=== PATIENT | male | born 1970 | race Caucasian/White ===

== ENCOUNTER 2016-09-01 01:11 | Emergency (ER) | payer OTHER ==
--- NOTE | 2016-09-01 01:20 | PDOC ---
History of Present Illness - General History Source: Patient Exam Limitations: No Limitations - History of Present Illness Initial Comments: 09/01/16 01:30 The patient is a 45 year old male with significant past medical history of liver cirrhosis and depression who presents to the ED with chronic low back pain. States he has had low back pain since 2001. Denies any trauma to the area or recent falls. Allergies: clarithromycin Social History: Current smoker (half ppd), etoh abuse, marijuana use (daily) Past Surgical History: None reported PCP: None reported <Arlin Yeager - Last Filed: 09/01/16 01:30> - General History Source: Patient, EMS <Jayden Wei - Last Filed: 09/01/16 03:30> - General Stated Complaint: INTOX Time Seen by Provider: 09/01/16 01:17 Past History <Arlin Yeager - Last Filed: 09/01/16 01:30> - Past Medical History Anemia: No Asthma: No Cancer: No Cardiac Disorders: No CVA: No COPD: No CHF: No Dementia: No Diabetes: No GI Disorders: No Disorders: No HTN: No Hypercholesterolemia: No Kidney Stones: No Liver Disease: Yes (CIRRHOSIS) Suicide Attempt (Hx): No Seizures: No Thyroid Disease: No - Surgical History Abdominal Surgery: No Appendectomy: No Cardiac Surgery: No Cholecystectomy: No Lung Surgery: No Neurologic Surgery: No Orthopedic Surgery: No - Reproductive History Testicular Surgery: No - Immunization History Immunization Up to Date: Yes - Psycho/Social/Smoking Cessation Hx Anxiety: Yes Suicidal Ideation: No Smoking Status: Yes Smoking History: Current every day smoker Have you smoked in the past 12 months: Yes Number of Cigarettes Smoked Daily: 20 Cigars Per Day: 10 'Breaking Loose' booklet given: 05/17/16 Hx Alcohol Use: Yes Drug/Substance Use Hx: Yes Substance Use Type: Marijuana Hx Substance Use Treatment: Yes ([facility]) <Jayden Wei - Last Filed: 09/01/16 03:30> - Past Medical History Allergies/Adverse Reactions: Allergies Allergy/AdvReac Type Severity Reaction Status Date / Time clarithromycin [From Biaxin] Allergy Intermediate Hives Verified 09/01/16 01:28 Home Medications: Ambulatory Orders Sertraline HCl [Zoloft -] 25 mg PO DAILY 12/12/16 Trazodone HCl [Desyrel -] 50 mg PO HS 05/17/16 Folic Acid 1 mg PO DAILY #30 tablet 05/21/16 Thiamine HCl [Vitamin B1 -] 100 mg PO HS #30 tablet 05/21/16 Review of Systems - Review of Systems Able to Perform ROS?: Yes Comments:: 09/01/16 01:30 CONSTITUTIONAL: Absent: fever, no chills, no fatigue EYES: Absent: visual changes ENT: Absent: ear pain, no sore throat CARDIOVASCULAR: Absent: chest pain, no palpitations RESPIRATORY: Absent: cough, no SOB GI: Absent: abdominal pain, no nausea, no vomiting, no constipation, no diarrhea GENITOURINARY: Absent: dysuria, no frequency, no hematuria MUSKULOSKELETAL: +low back pain Absent: no arthralgia, no myalgia SKIN: Absent: rash NEURO: Absent: headache <Arlin Yeager - Last Filed: 09/01/16 01:30> *Physical Exam - Vital Signs Last Vital Signs Temp Pulse Resp BP Pulse Ox 98.1 F 97 H 22 122/84 100 09/01/16 01:20 09/01/16 01:20 09/01/16 01:20 09/01/16 01:20 09/01/16 01:20 - Physical Exam Comments: 09/01/16 01:31 GENERAL: Well-appearing, well-nourished. No apparent distress. HEENT: Normocephalic, atraumatic. PERRL, EOM intact. CARDIOVASCULAR: Normal S1, S2. Regular rate and rhythm. PULMONARY: Clear to auscultation bilaterally. ABDOMEN: Soft, non-distended, non-tender. EXTREMITIES: Normal ROM in all four extremities. No gross deformities. SKIN: Warm, dry. No rash NEUROLOGICAL: No focal neurological deficits. <Arlin Yeager - Last Filed: 09/01/16 01:30> ED Treatment Course - LABORATORY CBC & Chemistry Diagram: 09/01/16 01:30 09/01/16 01:30 <Jayden Wei - Last Filed: 09/01/16 03:30> Medical Decision Making - Medical Decision Making 09/01/16 03:30 Dr. Wei: The scribe's documentation has been prepared under my direction and personally reviewed by me in its entirery. I confirm that the note above accurately reflects all work, treatment, procedures, and medical decision making performed by me. <Jayden Wei - Last Filed: 09/01/16 03:30> *DC/Admit/Observation/Transfer - Attestations Scribe Attestion: 09/01/16 01:31 Documentation prepared by Arlin Yeager, acting as medical administrative for Jayden Wei MD <Arlin Yeager - Last Filed: 09/01/16 01:30> <Jayden Wei - Last Filed: 09/01/16 03:30> Diagnosis at time of Disposition: Alcohol use with intoxication - Discharge Dispostion Condition at time of disposition: Good - Referrals Referrals: STAFF,NOT ON [Primary Care Provider] -
[2016-09-01 01:26] VITALS: TEMP 98.1; BMI 28.8
[2016-09-01 02:05] LABS: URINE APPEARANCE CLEAR; URINE BILIRUBIN NEGATIVE (NEGATIVE); URINE BLOOD NEGATIVE (NEGATIVE); URINE COLOR STRAW; URINE GLUCOSE (UA) NEGATIVE (NEGATIVE); URINE KETONE NEGATIVE (NEGATIVE); URINE LEUK ESTERASE NEGATIVE (NEGATIVE); URINE NITRITE NEGATIVE (NEGATIVE); URINE PROTEIN NEGATIVE (NEGATIVE); URINE UROBILINOGEN NEGATIVE E.U./dl (0.2-1.0)
[2016-09-01 02:07] LABS: BASOPHIL 0.4 % (0-2.0); EOSINOPHIL 8.9 % (0-4.5); MCH 36.7 pg (25.7-33.7); MCHC 34.4 g/dl (32.0-35.9); MEAN CELL VOLUME 106.6 fl (80-96); NEUTROPHILS 46.5 % (42.8-82.8); RDW 14.3 % (11.9-15.9); WHITE BLOOD COUNT 3.4 K/mm3 (4.0-10.0)
[2016-09-01 02:30] LABS: ALK PHOS 116 U/L (45-117); ANION GAP 10 (8-16); BILIRUBIN,TOTAL 1.8 mg/dL (0.2-1.0); CALCIUM 8.2 mg/dL (8.5-10.1); CO2 28 mmol/L (21-32); CREATININE 0.6 mg/dL (0.7-1.3); GLUCOSE,RANDOM 80 mg/dL (74-106); SGOT/AST 55 U/L (15-37); SGPT/ALT 20 U/L (12-78); TOT PROT 8.8 g/dl (6.4-8.2)
[2016-09-01 02:55] LABS: URINE MARIJUANA THC POSITIVE ng/ml (CUTOFF=50)
[2016-09-01 03:30] LABS: MEAN PLT VOLUME 7.8 fl (7.5-11.1); PLATELET COUNT 42 K/MM3 (134-434)
[2016-09-01 03:31] LABS: ANISOCYTOSIS 2+; PLATELET COMMENT2 NO CLOTTING DETECTED
[2016-09-01] MEDS ORDERED: LORazepam 1 MG TABLET PO ONE ×2 (04:14→04:31)
[2016-09-01] MEDS ORDERED: LORazepam 0.5 MG TABLET ONE ×2 (04:31)
--- NOTE | 2016-09-01 07:53 | PDOC ---
*Physical Exam - Vital Signs Last Vital Signs Temp Pulse Resp BP Pulse Ox 98.1 F 97 H 22 122/84 100 09/01/16 01:20 09/01/16 01:20 09/01/16 01:20 09/01/16 01:20 09/01/16 01:20 - Physical Exam Comments: 09/01/16 07:51 Vital signs stable Asleep but arousable, still quite intoxicated Able to follow commands and answer some questions No acute distress ED Treatment Course - LABORATORY CBC & Chemistry Diagram: 09/01/16 01:30 09/01/16 01:30 - ADDITIONAL ORDERS Additional order review: Laboratory Results 09/01/16 09/01/16 09/01/16 01:35 01:35 01:30 Sodium Potassium Chloride Carbon Dioxide Anion Gap BUN Creatinine Creat Clearance w eGFR Random Glucose Calcium Total Bilirubin AST ALT Alkaline Phosphatase Total Protein Albumin Urine Color Straw Urine Appearance Clear Urine pH 6.0 Ur Specific [place] 1.001 Urine Protein Negative Urine Glucose (UA) Negative Urine Ketones Negative Urine Blood Negative Urine Nitrite Negative Urine Bilirubin Negative Urine Urobilinogen Negative Ur Leukocyte Esterase Negative Opiates Screen Negative Methadone Screen Negative Barbiturate Screen Negative Phencyclidine Screen Negative Ur Amphetamines Screen Negative MDMA (Ecstasy) Screen Negative Benzodiazepines Screen Positive Cocaine Screen Negative U Marijuana (THC) Screen Positive Alcohol, Quantitative 338.1 H* 09/01/16 01:30 Sodium 134 L Potassium 3.8 Chloride 96 L Carbon Dioxide 28 Anion Gap 10 BUN 3 L D Creatinine 0.6 L Creat Clearance w eGFR > 60 Random Glucose 80 Calcium 8.2 L Total Bilirubin 1.8 H D AST 55 H D ALT 20 Alkaline Phosphatase 116 Total Protein 8.8 H Albumin 3.0 L Urine Color Urine Appearance Urine pH Ur Specific [place] Urine Protein Urine Glucose (UA) Urine Ketones Urine Blood Urine Nitrite Urine Bilirubin Urine Urobilinogen Ur Leukocyte Esterase Opiates Screen Methadone Screen Barbiturate Screen Phencyclidine Screen Ur Amphetamines Screen MDMA (Ecstasy) Screen Benzodiazepines Screen Cocaine Screen U Marijuana (THC) Screen Alcohol, Quantitative 09/01/16 01:30 RBC 3.56 L MCV 106.6 H MCHC 34.4 RDW 14.3 MPV 7.8 D Neutrophils % 46.5 D Lymphocytes % 29.4 D Monocytes % 14.8 H Eosinophils % 8.9 H Basophils % 0.4 - Medications Given in the ED: ED Medications Discontinued Medications Generic Name Dose Route Start Last Admin Trade Name Karen ORTIZ Reason Stop Dose Admin Lorazepam 1 mg 09/01/16 04:14 09/01/16 04:33 Ativan - PO 09/01/16 04:15 1 mg ONCE ONE Administration Lorazepam 1 mg 09/01/16 04:31 09/01/16 04:33 Ativan - PO 09/01/16 04:32 1 mg ONCE ONE Administration Medical Decision Making - Medical Decision Making 09/01/16 07:51 Received signout on this 45-year-old male who presented with alcohol intoxication. Patient was disruptive and aggressive, required sedation. Plan was to reassess and discharge once clinically sober. 09/01/16 09:28 Clinically improved, A+Ox3, now standing/ambulating requesting discharge. Lives nearby, understands return criteria. *DC/Admit/Observation/Transfer Diagnosis at time of Disposition: Alcohol use with intoxication - Discharge Dispostion Disposition: HOME Condition at time of disposition: Improved - Referrals Referrals: Tom Chiang MD [Staff Physician] - - Patient Instructions Printed Discharge Instructions: DI for Alcohol Abuse Additional Instructions: Activity as tolerated. Stay hydrated. Drink in moderation. Seek help with a detox facility if you can. Continue your medications as previously prescribed by your physician. You should follow up with your primary doctor as soon as possible regarding today's emergency department visit. Return to the emergency department for any new or concerning symptoms, particularly confusion, vomiting, tremors or seizures. - Post Discharge Activity
[2016-09-01 09:06] VITALS: BP 98/58; PULSE 88
== END 2016-09-01 09:47 | disposition home or self-care (01) ==
LOC: SUPCPDRO 01:11 → JER 01:11
DX: F10.120 Alcohol abuse with intoxication, uncomplicated (principal); Y90.8 Blood alcohol level of 240 mg/100 ml or more; K70.30 Alcoholic cirrhosis of liver without ascites
CPT/HCPCS: 36415; 80053; 80307; 81003; 85025; 99283-25

== ENCOUNTER → 2016-12-02 | Emergency (ER) | payer OTHER ==
[~2016-12-02] MED LIST: ALBUTEROL SO4 2.5/IPRATROPIUM 0.5 INH SOL 3 ML VIAL.NEB. NEB STA; SULFAMETHOXAZOLE/TRIMETHOPRIM 800MG/160MG D.S. TABLET PO ONE
[2016-12-02 22:51] VITALS: BP 119/70; PULSE 88; TEMP 98.4; BMI 28.0
--- NOTE | 2016-12-03 00:15 | PDOC ---
History of Present Illness - General History Source: Patient <Jayden Wei - Last Filed: 12/03/16 00:45> - General History Source: Patient Exam Limitations: No Limitations - History of Present Illness Initial Comments: 12/03/16 00:55 The patient is a 46 year old male with significant past medical history of liver cirrhosis and depression who presents to the ED for several weeks of pain to the left knee and left wrist. No trauma reported. States he ambulates with pain. Admits to drinking alcohol prior to arrival. Denies LOC or recent falls. The patient denies fever, chills, cough, SOB, chest pain, and palpitations. The patient denies abdominal pain, nausea, vomiting, and diarrhea. Allergies: clarithromycin Social History: Current smoker (half ppd), etoh abuse, marijuana use (daily) Past Surgical History: None reported <Arlin Yeager - Last Filed: 12/03/16 00:55> - General Chief Complaint: Pain, Acute Stated Complaint: INTOX Time Seen by Provider: 12/03/16 00:12 Past History - Past Medical History Anemia: No Asthma: No Cancer: No Cardiac Disorders: No CVA: No COPD: No CHF: No Dementia: No Diabetes: No GI Disorders: No Disorders: No HTN: No Hypercholesterolemia: No Kidney Stones: No Liver Disease: Yes (CIRRHOSIS) Suicide Attempt (Hx): No Seizures: No Thyroid Disease: No - Surgical History Abdominal Surgery: No Appendectomy: No Cardiac Surgery: No Cholecystectomy: No Gastric Stapling: No GI Surgery: No Lung Surgery: No Neurologic Surgery: No Orthopedic Surgery: No - Reproductive History Testicular Surgery: No - Immunization History Immunization Up to Date: Yes - Psycho/Social/Smoking Cessation Hx Anxiety: Yes Suicidal Ideation: No Smoking Status: Yes Smoking History: Never smoked Have you smoked in the past 12 months: Yes Number of Cigarettes Smoked Daily: 20 Cigars Per Day: 10 Information on smoking cessation initiated: No 'Breaking Loose' booklet given: 05/17/16 Hx Alcohol Use: No Drug/Substance Use Hx: No Substance Use Type: Marijuana Hx Substance Use Treatment: Yes ([facility] <Jayden Wei - Last Filed: 12/03/16 00:45> <Arlin Yeager - Last Filed: 12/03/16 00:55> - Past Medical History Allergies/Adverse Reactions: Allergies Allergy/AdvReac Type Severity Reaction Status Date / Time clarithromycin [From Biaxin] Allergy Intermediate Hives Verified 09/01/16 01:28 Home Medications: Ambulatory Orders Sertraline HCl [Zoloft -] 25 mg PO DAILY 05/17/16 Trazodone HCl [Desyrel -] 50 mg PO HS 05/17/16 Folic Acid 1 mg PO DAILY #30 tablet 05/21/16 Thiamine HCl [Vitamin B1 -] 100 mg PO HS #30 tablet 05/21/16 Review of Systems - Review of Systems Able to Perform ROS?: Yes Comments:: 12/03/16 00:55 CONSTITUTIONAL: Absent: fever, no chills, no fatigue EYES: Absent: visual changes ENT: Absent: ear pain, no sore throat CARDIOVASCULAR: Absent: chest pain, no palpitations RESPIRATORY: Absent: cough, no SOB GI: Absent: abdominal pain, no nausea, no vomiting, no constipation, no diarrhea GENITOURINARY: Absent: dysuria, no frequency, no hematuria MUSCULOSKELETAL: +pain to the left knee and left wrist Absent: back pain, no myalgia SKIN: Absent: rash NEURO: Absent: headache <Arlin Yeager - Last Filed: 12/03/16 00:55> *Physical Exam - Vital Signs Last Vital Signs Temp Pulse Resp BP Pulse Ox 98.4 F 88 16 119/70 96 12/02/16 22:47 12/02/16 22:47 12/02/16 22:47 12/02/16 22:47 12/02/16 22:47 <Jayden Wei - Last Filed: 12/03/16 00:45> - Vital Signs Last Vital Signs Temp Pulse Resp BP Pulse Ox 98.4 F 88 16 119/70 96 12/02/16 22:47 12/02/16 22:47 12/02/16 22:47 12/02/16 22:47 12/02/16 22:47 - Physical Exam Comments: 12/03/16 00:55 GENERAL: +AOB. No apparent distress. HEENT: Normocephalic, atraumatic. PERRL, EOM intact. CARDIOVASCULAR: Normal S1, S2. Regular rate and rhythm. PULMONARY: Clear to auscultation bilaterally. ABDOMEN: Soft, non-distended, non-tender. EXTREMITIES: Normal ROM in all four extremities. Left wrist nontender, no swelling, no deformity. Left knee nontender, no swelling, no deformity. SKIN: Warm, dry. No rash NEUROLOGICAL: Alert and awake. Slurred speech. No gross neurological deficits. Pt ambulating in the ER. <Arlin Yeager - Last Filed: 12/03/16 00:55> Medical Decision Making - Medical Decision Making 12/03/16 00:45 Dr. Wei: The scribe's documentation has been prepared under my direction and personally reviewed by me in its entirery. I confirm that the note above accurately reflects all work, treatment, procedures, and medical decision making performed by me. Pt became beligerente and was escorted by security out of the department <Jayden Wei - Last Filed: 12/03/16 00:45> *DC/Admit/Observation/Transfer - Attestations Scribe Attestion: 12/03/16 00:55 Documentation prepared by Arlin Yeager, acting as medical device for Jayden Wei MD/DO. <Arlin Yeager - Last Filed: 12/03/16 00:55>
== END | disposition left against medical advice (07) ==
LOC: JER 22:44
DX: M25.532 Pain in left wrist (principal); F10.10 Alcohol abuse, uncomplicated; F12.10 Cannabis abuse, uncomplicated; F17.210 Nicotine dependence, cigarettes, uncomplicated
CPT/HCPCS: 99281-25

== ENCOUNTER 2017-09-22 02:52 | Emergency (ER) | payer OTHER ==
[2017-09-22 03:09] VITALS: BP 118/74; PULSE 74; TEMP 98; BMI 28.5
--- NOTE | 2017-09-22 04:14 | PDOC ---
History of Present Illness - General Chief Complaint: Alcohol intoxication Stated Complaint: INTOX Time Seen by Provider: 09/22/17 03:46 History Source: Patient - History of Present Illness Initial Comments: 09/22/17 06:25 47 year old male sent from [facility] for evaluation of alcohol intoxication, breathalyzer blew 0.28 as per patient. denies head injury, abdominal pain, NVD, . Past History - Past Medical History Allergies/Adverse Reactions: Allergies Allergy/AdvReac Type Severity Reaction Status Date / Time clarithromycin [From Biaxin] Allergy Intermediate Hives Verified 09/22/17 03:09 Home Medications: Ambulatory Orders Unobtainable [Unobtainable] 09/22/17 Anemia: No Asthma: No Cancer: No Cardiac Disorders: No CVA: No COPD: No CHF: No Dementia: No Diabetes: No GI Disorders: No Disorders: No HTN: No Hypercholesterolemia: No Kidney Stones: No Liver Disease: Yes (CIRRHOSIS- Not on medication) Seizures: No Thyroid Disease: No - Surgical History Abdominal Surgery: No Appendectomy: No Cardiac Surgery: No Cholecystectomy: No Gastric Stapling: No GI Surgery: No Lung Surgery: No Neurologic Surgery: No Orthopedic Surgery: No - Reproductive History Testicular Surgery: No - Immunization History Immunization Up to Date: Yes - Suicide/Smoking/Psychosocial Hx Smoking Status: Yes Smoking History: Current some day smoker Have you smoked in the past 12 months: No Number of Cigarettes Smoked Daily: 20 Cigars Per Day: 10 Information on smoking cessation initiated: No 'Breaking Loose' booklet given: 09/22/17 Hx Alcohol Use: Yes Drug/Substance Use Hx: No Substance Use Type: Marijuana Hx Substance Use Treatment: Yes ([facility]) *Physical Exam - Vital Signs Last Vital Signs Temp Pulse Resp BP Pulse Ox 98.0 F 74 19 118/74 97 09/22/17 03:07 09/22/17 03:07 09/22/17 03:07 09/22/17 03:07 09/22/17 03:07 - Physical Exam General Appearance: Yes: Disheveled, Alcohol on Breath, Intoxicated Respiratory/Chest: positive: Lungs Clear, Normal Breath Sounds Gastrointestinal/Abdominal: positive: Normal Bowel Sounds, Soft Integumentary: positive: Normal Color, Dry, Warm Neurologic: positive: Fully Oriented, Alert Medical Decision Making - Medical Decision Making 09/22/17 06:27 A; alcohol intoxication ; right eye horodeleum 09/22/17 06:30 patient is refusing back to detox at [facility]. *DC/Admit/Observation/Transfer Diagnosis at time of Disposition: Alcohol dependence with uncomplicated withdrawal Hordeolum external Qualifiers: Laterality: right Eyelid: lower Qualified Code(s): H00.012 - Hordeolum externum right lower eyelid - Discharge Dispostion Disposition: HOME Condition at time of disposition: Fair - Referrals Referrals: Barbara Solorio [Primary Care Provider] - - Patient Instructions Printed Discharge Instructions: DI for Alcohol Abuse Additional Instructions: apply warm compress to the right eye. follow up with your doctor refrain from drinking alcohol. consider detox - Post Discharge Activity
[2017-09-22] MEDS ORDERED: LORazepam 1 MG TABLET PO ONE (04:22)
[2017-09-22] MEDS ORDERED: LORazepam 0.5 MG TABLET ONE (04:23)
--- NOTE | 2017-09-22 06:30 | PDOC ---
*Physical Exam - Vital Signs Last Vital Signs Temp Pulse Resp BP Pulse Ox 98.0 F 74 19 118/74 97 09/22/17 03:07 09/22/17 03:07 09/22/17 03:07 09/22/17 03:07 09/22/17 03:07 ED Treatment Course - Medications Given in the ED: ED Medications Discontinued Medications Generic Name Dose Route Start Last Admin Trade Name Freq PRN Reason Stop Dose Admin Lorazepam 1 mg 09/22/17 04:22 09/22/17 04:25 Ativan - PO 09/22/17 04:23 1 mg ONCE ONE Administration Medical Decision Making - Medical Decision Making 09/22/17 06:30 agree with care from CLARE Chin *DC/Admit/Observation/Transfer Diagnosis at time of Disposition: Hordeolum external, Alcohol dependence with uncomplicated withdrawal - Discharge Dispostion Disposition: HOME Condition at time of disposition: Fair - Referrals Referrals: Barbara Solorio [Primary Care Provider] - - Patient Instructions Printed Discharge Instructions: DI for Alcohol Abuse Additional Instructions: apply warm compress to the Left eye - Post Discharge Activity
== END 2017-09-22 06:30 | disposition home or self-care (01) ==
LOC: SUPCPDRO 02:52 → JER 02:52
DX: F10.230 Alcohol dependence with withdrawal, uncomplicated (principal); H00.012 Hordeolum externum right lower eyelid; F17.210 Nicotine dependence, cigarettes, uncomplicated
CPT/HCPCS: 99282-25

== ENCOUNTER 2017-10-16 04:11 | Observation (INO) | payer OTHER ==
[2017-10-16] MEDS ORDERED: FOLIC ACID INJECTION - 1 MG, THIAMINE HCL 100 MG, MULTIVIT INJECTION ADULT 10 ML in SOD... IVPB ONE (04:17)
--- NOTE | 2017-10-16 04:17 | PDOC ---
History of Present Illness - General Stated Complaint: INTOXICATED Time Seen by Provider: 10/16/17 04:16 History Source: Patient Exam Limitations: No Limitations - History of Present Illness Initial Comments: 10/16/17 04:44 47-year-old male leslya without any medical complaints. Patient states he drank numerous alcoholic beverages tonight. He denies headache, dizziness, lightheadedness, facial pain, rhinorrhea, nasal congestion, earache, sore throat , neck pains, chest pain, back pain, shortness of breath, abdominal pains, flank pain or urinary symptoms, James numbness or tingling since she. Patient states he has no complaints. Past History - Past Medical History Allergies/Adverse Reactions: Allergies Allergy/AdvReac Type Severity Reaction Status Date / Time clarithromycin [From Biaxin] Allergy Intermediate Hives Verified 09/22/17 03:09 Home Medications: Ambulatory Orders NK [No Known Home Medication] 10/16/17 Anemia: No Asthma: No Cancer: No Cardiac Disorders: No CVA: No COPD: No CHF: No Dementia: No Diabetes: No GI Disorders: No Disorders: No HTN: No Hypercholesterolemia: No Kidney Stones: No Liver Disease: Yes (CIRRHOSIS- Not on medication) Seizures: No Thyroid Disease: No - Surgical History Abdominal Surgery: No Appendectomy: No Cardiac Surgery: No Cholecystectomy: No Gastric Stapling: No GI Surgery: No Lung Surgery: No Neurologic Surgery: No Orthopedic Surgery: No - Reproductive History Testicular Surgery: No - Immunization History Immunization Up to Date: Yes - Suicide/Smoking/Psychosocial Hx Smoking Status: Yes Smoking History: Current some day smoker Have you smoked in the past 12 months: No Number of Cigarettes Smoked Daily: 20 Cigars Per Day: 10 'Breaking Loose' booklet given: 09/22/17 Hx Alcohol Use: Yes Drug/Substance Use Hx: No Substance Use Type: Marijuana Hx Substance Use Treatment: Yes ([facility]) Review of Systems - Review of Systems Able to Perform ROS?: Yes Comments:: 10/16/17 04:44 CONSTITUTIONAL: Absent: fever, chills, diaphoresis, generalized weakness, malaise, loss of appetite HEENT: Absent: rhinorrhea, nasal congestion, throat pain, throat swelling, difficulty swallowing, mouth swelling, ear pain, eye pain, visual Changes CARDIOVASCULAR: Absent: chest pain, loss of consciousness, palpitations, irregular heart rate, peripheral edema RESPIRATORY: Absent: cough, shortness of breath, dyspnea with exertion, orthopnea, wheezing, stridor, hemoptysis GASTROINTESTINAL: Absent: abdominal pain, abdominal distension, nausea, vomiting, diarrhea, constipation, melena, hematochezia GENITOURINARY: Absent: dysuria, frequency, urgency, hesitancy, hematuria, flank pain, genital pain MUSCULOSKELETAL: Absent: myalgia, arthralgia, joint swelling SKIN: Absent: rash, itching, pallor HEMATOLOGIC/IMMUNOLOGIC: Absent: easy bleeding, easy bruising, lymphadenopathy, frequent infections ENDOCRINE: Absent: unexplained weight gain, unexplained weight loss, heat intolerance, cold intolerance NEUROLOGIC: Absent: headache, focal weakness or paresthesias, dizziness, unsteady gait, seizure, mental status changes, bladder or bowel incontinence PSYCHIATRIC: Absent: anxiety, depression, suicidal or homicidal ideation, hallucinations. Is the patient limited Persian proficient: No *Physical Exam - Physical Exam Comments: 10/16/17 04:44 GENERAL: +AOB Well developed, well nourished. Awake and alert. No acute distress. HEENT: Normocephalic, atraumatic. PERRLA, EOMI. No conjunctival pallor. Sclera are non- icteric. Moist mucous membranes. Oropharynx is clear. NECK: Supple. Full ROM. No JVD. Carotid pulses 2+ and symmetric, without bruits. No thyromegaly. No lymphadenopathy. CARDIOVASCULAR: Regular rate and rhythm. No murmurs, rubs, or gallops. Distal pulses are 2+ and symmetric. PULMONARY: No evidence of respiratory distress. Lungs clear to auscultation bilaterally. No wheezing, rales or rhonchi. ABDOMINAL: Soft. Non-tender. Non-distended. No rebound or guarding. No organomegaly. Normoactive bowel sounds. MUSCULOSKELETAL Normal range of motion at all joints. No bony deformities or tenderness. No CVA tenderness. EXTREMITIES: No cyanosis. No clubbing. No edema. No calf tenderness. SKIN: Warm and dry. Normal capillary refill. No rashes. No jaundice. NEUROLOGICAL: Alert, awake, appropriate. Cranial nerves 2-12 intact. No deficits to light touch and temperature in face, upper extremities and lower extremities. No motor deficits in the in face, upper extremities and lower extremities. Normoreflexic in the upper and lower extremities. Normal speech. Toes are down- going bilaterally. Gait is normal without ataxia. PSYCHIATRIC: Cooperative. Good eye contact. Appropriate mood and affect. ED Treatment Course - LABORATORY CBC & Chemistry Diagram: 10/16/17 04:15 10/16/17 04:15 *DC/Admit/Observation/Transfer Diagnosis at time of Disposition: Alcohol use with intoxication - Discharge Dispostion Condition at time of disposition: Improved Decision to Admit order: No - Referrals Referrals: Barbara Solorio [Primary Care Provider] - - Patient Instructions Printed Discharge Instructions: DI for Alcohol Abuse Additional Instructions: Increase fluids Take Tylenol alternating with Motrin as needed for pain Follow-up with your doctor Return back to the ER as needed - Post Discharge Activity Progress Note - Progress Note Progress Note: 0707hrs: Signed out to CHRISTEL Holland
[2017-10-16 04:26] VITALS: BMI 24.5
[2017-10-16 04:31] LABS: BASO % 0.6 % (0-2.0); EOS % 6.7 % (0-4.5); HEMATOCRIT 34.2 % (35.4-49); HEMOGLOBIN 12.4 GM/dL (11.7-16.9); LYMPH % 41.4 % (8-40); MCH 38.6 pg (25.7-33.7); MCHC 36.3 g/dl (32.0-35.9); MEAN CELL VOLUME 106.4 fl (80-96); MONO % 9.7 % (3.8-10.2); NEUT % 41.6 % (42.8-82.8); RBC 3.21 M/mm3 (4.00-5.60); WHITE BLOOD COUNT 2.2 K/mm3 (4.0-10.0)
[2017-10-16 05:13] LABS: ANION GAP 7 (8-16); BLOOD UREA NITROGEN 3 mg/dL (7-18); CALCIUM 8.2 mg/dL (8.5-10.1); CHLORIDE 101 mmol/L (98-107); CO2 29 mmol/L (21-32); CREATININE 0.6 mg/dL (0.7-1.3); GLUCOSE,RANDOM 96 mg/dL (74-106); POTASSIUM 3.9 mmol/L (3.5-5.1); SGOT/AST 62 U/L (15-37); SGPT/ALT 23 U/L (12-78); SODIUM 137 mmol/L (136-145); TOT PROT 8.8 g/dl (6.4-8.2)
[2017-10-16 05:16] LABS: ALK PHOS 128 U/L (45-117)
[2017-10-16 07:05] LABS: MEAN PLT VOLUME 8.2 fl (7.5-11.1)
[2017-10-16 07:07] LABS: PLATELET COUNT 26 K/MM3 (134-434)
[2017-10-16 07:08] LABS: ADD RBC MORPHOLOGY YES; MACROCYTOSIS 2+
--- NOTE | 2017-10-16 07:38 | PDOC ---
*Physical Exam - Vital Signs Last Vital Signs Temp Pulse Resp BP Pulse Ox 98.3 F 65 18 126/83 100 10/16/17 04:23 10/16/17 04:23 10/16/17 04:23 10/16/17 04:23 10/16/17 04:23 - Physical Exam General Appearance: Yes: Nourished, Disheveled, Alcohol on Breath ED Treatment Course - LABORATORY CBC & Chemistry Diagram: 10/16/17 04:15 10/16/17 04:15 - ADDITIONAL ORDERS Additional order review: Laboratory Results 10/16/17 04:15 Sodium 137 Potassium 3.9 Chloride 101 Carbon Dioxide 29 Anion Gap 7 L BUN 3 L Creatinine 0.6 L Creat Clearance w eGFR > 60 Random Glucose 96 Calcium 8.2 L Total Bilirubin 2.0 H AST 62 H ALT 23 Alkaline Phosphatase 128 H Total Protein 8.8 H Albumin 3.0 L Alcohol, Quantitative 337.75 H* 10/16/17 04:15 RBC 3.21 L MCV 106.4 H MCHC 36.3 H RDW 14.0 MPV 8.2 Neutrophils % 41.6 L Lymphocytes % 41.4 H D Monocytes % 9.7 Eosinophils % 6.7 H Basophils % 0.6 Medical Decision Making - Medical Decision Making 10/16/17 07:36 Pt. is a 47 y/o M pmh of alcoholism, who presents today for intox. Sign out received from Mervat Abbasi. Platelets 27 from lab. Call placed to heme/onc. Pt. still disheveled with alcohol on the breath. Will let metabolize. 10/16/17 10:06 Spoke with heme/onc Dr. Altamirano for Dr. Glass's service. States that since the pt is not bleeding at this time, no need for platelet transfusion. Acute intox can cause thrombocytopenia, however given the degree of thrombocytopenia today, recommends observation to make sure it rebounds appropriately. 2nd L of fluids given. Pt. sleeping in ED 10/16/17 13:21 Spoke with Ihsan Burgess for Dr. Davila's service. Case discussed. Will take pt. for observation. *DC/Admit/Observation/Transfer Diagnosis at time of Disposition: Alcohol use with intoxication, Thrombocytopenia - Discharge Dispostion Condition at time of disposition: Improved Decision to Admit order: Yes - Referrals Referrals: Barbara Solorio [Primary Care Provider] - - Patient Instructions Printed Discharge Instructions: DI for Alcohol Abuse Additional Instructions: Increase fluids Take Tylenol alternating with Motrin as needed for pain Follow-up with your doctor Return back to the ER as needed - Post Discharge Activity
[2017-10-16] MEDS ORDERED: SODIUM CHLORIDE 1,000 ML IV STA (10:04)
[2017-10-16] MEDS ORDERED: SODIUM CHLORIDE 1,000 ML IV SCH (13:30)
--- NOTE | 2017-10-16 13:37 | HP ---
Admitting History and Physical - Primary Care Physician PCP: Ezio Davila - Admission Chief Complaint: Alcohol Intoxication History of Present Illness: 47-year-old male biba without any medical complaints. Patient states he drank numerous alcoholic beverages tonight. He denies headache, dizziness, lightheadedness, facial pain, rhinorrhea, nasal congestion, earache, sore throat , neck pains, chest pain, back pain, shortness of breath, abdominal pains, flank pain or urinary symptoms, James numbness or tingling since she. Patient states he has no complaints. History Source: Medical Record Limitations to Obtaining History: Intoxication - Smoking History Smoking history: Current some day smoker Have you smoked in the past 12 months: No Aproximately how many cigarettes per day: 20 - Alcohol/Substance Use Hx Alcohol Use: Yes Home Medications - Allergies Allergies/Adverse Reactions: Allergies Allergy/AdvReac Type Severity Reaction Status Date / Time clarithromycin [From Biaxin] Allergy Intermediate Hives Verified 09/22/17 03:09 - Home Medications Home Medications: Ambulatory Orders NK [No Known Home Medication] 10/16/17 Family Disease History - Family Disease History Family Disease History: Heart Disease: Mother (HTN), Respiratory: Father (COPD, ALCOHOLIC) Review of Systems - Review of Systems Constitutional: reports: Lethargy Eyes: reports: No Symptoms HENT: reports: No Symptoms Neck: reports: No Symptoms Cardiovascular: reports: No Symptoms Respiratory: reports: No Symptoms Gastrointestinal: reports: No Symptoms Genitourinary: reports: No Symptoms Breasts: reports: No Symptoms Reported Musculoskeletal: reports: No Symptoms Integumentary: reports: No Symptoms Neurological: reports: Change in LOC Endocrine: reports: No Symptoms Hematology/Lymphatic: reports: No Symptoms Psychiatric: reports: No Symptoms Physical Examination Vital Signs: Vital Signs Temperature 98 F 10/16/17 11:17 Pulse Rate 73 10/16/17 11:17 Respiratory Rate 16 10/16/17 11:17 Blood Pressure 128/79 10/16/17 11:17 O2 Sat by Pulse Oximetry (%) 100 10/16/17 11:17 Constitutional: Yes: Well Nourished, No Distress, Calm Cardiovascular: Yes: Regular Rate and Rhythm Respiratory: Yes: Regular Gastrointestinal: Yes: Normal Bowel Sounds, Soft Neurological: Yes: Alert Labs: CBC, BMP 10/16/17 04:15 10/16/17 04:15 Problem List - Problems (1) Alcohol use with intoxication Assessment/Plan: -serum acetone elevated -BHS consult -Psychiatry consult -Urine toxicology ordered -IVF Code(s): F10.929 - ALCOHOL USE, UNSPECIFIED WITH INTOXICATION, UNSPECIFIED (2) Thrombocytopenia Assessment/Plan: -Hemotology consult -/2 chronic alcohol use -monitor trend -transfuse plt if below 20 mg/dl -bleeding precaution Code(s): D69.6 - THROMBOCYTOPENIA, UNSPECIFIED Assessment/Plan see problem list GI prophylaxis Avoid LMWH or heparin in light of thrombocytopenia
[2017-10-16 13:53] LABS: URINE APPEARANCE CLEAR; URINE BILIRUBIN NEGATIVE (<2.0 mg/dL); URINE COLOR STRAW; URINE GLUCOSE (UA) NEGATIVE (NEGATIVE); URINE KETONE NEGATIVE (NEGATIVE); URINE LEUK ESTERASE NEGATIVE (NEGATIVE); URINE NITRITE NEGATIVE (NEGATIVE); URINE PROTEIN NEGATIVE (NEGATIVE); URINE UROBILINOGEN NEGATIVE mg/dL (0.2-1.0)
[2017-10-16 14:09] LABS: OPIATES, URI NEGATIVE ng/ml (CUTOFF=300); URINE AMPHETAMINES NEGATIVE ng/ml (CUTOFF=500)
[2017-10-16 14:15] LABS: URINE BARBITURATES NEGATIVE ng/ml (CUTOFF=200)
[2017-10-16 14:16] LABS: COCAINE, UR NEGATIVE ng/ml (CUTOFF=300); METHADONE, UR NEGATIVE ng/ml (CUTOFF=300); PHENCYCLIDINE,URINE NEGATIVE ng/ml (CUTOFF=25)
[2017-10-16 14:18] LABS: URINE BENZODIAZEPINES POSITIVE ng/ml (CUTOFF=200)
[2017-10-16] MEDS ORDERED: ACETAMINOPHEN 325 MG TABLET (FP) PO ONE (14:50)
[2017-10-16] MEDS ORDERED: chlordiazePOXIDE HCL 25 MG CAPSULE PO ONE (14:51)
[2017-10-16 15:36] VITALS: BP 123/73; PULSE 81; TEMP 97.8
--- NOTE | 2017-10-16 17:56 | CONSULT ---
Consult Detox [facility] Reason for Current Admission/Consult: substance use Referred by:: chema vang - History History of Present Illness: patient discharged before consult could be completed - Alcohol/Substance Use Hx Alcohol Use: Yes
[2017-10-16] MEDS ORDERED: THIAMINE HCL 100 MG TABLET (FP) PO SCH (22:00)
[2017-10-17] MEDS ORDERED: PANTOPRAZOLE SODIUM 40 MG VIAL IVPUSH SCH (10:00)
[2017-10-17] MEDS ORDERED: PRENATAL VITAMINS W/ FOLIC ACID TABLET (FP) PO SCH (10:00)
== END 2017-10-16 15:00 | disposition left against medical advice (07) ==
LOC: JER 04:11 → JERBED 13:10
PROVIDERS: ADMIT Family Medicine; ATTEND Family Medicine
PROC: 3E0337Z Introduction of Electrolytic and Water Balance Substance into Peripheral Vein, Percutaneous Approach (ICD-10-PCS; principal; 2017-10-16)
DX: F10.929 Alcohol use, unspecified with intoxication, unspecified (principal); D69.6 Thrombocytopenia, unspecified; K74.60 Unspecified cirrhosis of liver; F17.210 Nicotine dependence, cigarettes, uncomplicated; Z88.1 Allergy status to other antibiotic agents
CPT/HCPCS: 36415; 80053; 80307; 81003; 85025; 96365; 96366; 99285-25; G0378; J7030

== ENCOUNTER 2018-05-17 15:31 | Inpatient (IN) | payer OTHER ==
[2018-05-17 15:50] VITALS: BMI 25.8
--- NOTE | 2018-05-17 19:45 | HP ---
CIWA Score Nausea/Vomitin-No Nausea/No Vomiting Muscle Tremors: 3 Anxiety: 1-Mildly Anxious Agitation: 1-Slight > Activity Paroxysmal Sweats: 3 Orientation: 0-Oriented Tacttile Disturbances: 0-None Auditory Disturbances: 0-None Visual Disturbances: 0-None Headache: 1-Very Mild CIWA-Ar Total Score: 9 - Admission Criteria [facility] Guidelines: Admission for Medically Managed Detox: Requires at least one of the followin. CIWA greater than 12 2. Seizures within the past 24 hours 3. Delirium tremens within the past 24 hours 4. Hallucinations within the past 24 hours 5. Acute intervention needed for co occurring medical disorder 6. Acute intervention needed for co occurring psychiatric disorder 7. Severe withdrawal that cannot be handled at a lower level of care (continued vomiting, continued diarrhea, abnormal vital signs) requiring intravenous medication and/or fluids 8. Admission ROS S - [facility] Chief Complaint: C/O WITHDRAWAL SX'S. SEEKING DETOX TXMENT FOR ALCOHOL Allergies/Adverse Reactions: Allergies Allergy/AdvReac Type Severity Reaction Status Date / Time No Known Allergies Allergy Verified 01/07/18 23:18 History of Present Illness: 47 Y.O. MALE WITH HX/O ALCOHOLISM HERE FOR DETOX TXMENT. THIS IS CLIENTS FIRST TIME HERE. HE IS SELF REFERRED. UTOX + BZO. CLIENT DENIES USE OR RECENT DETOX, HOSPITALIZATION. HE REPORTS THAT HE DRINKS DAILY ABOUT 10 BEERS DAILY. REPORTS LONGEST CLEAN TIME 6 MONTHS. DENIES ANY CLEAN TIME IN THE PAST YEAR. DENIES HX/ O SI/HI, AVH, SEIZURE D/O. PMHX- DENIES PSYCH- [facility]- ANXIETY, PTSD Exam Limitations: No Limitations - Ebola screening Have you traveled outside of the country in the last 21 days: No Have you had contact with anyone from an Ebola affected area: No Have you been sick,other than usual withdrawal symptoms: No - Review of Systems Constitutional: Chills, Malaise EENT: reports: Dental Problems (MISSING TEETH) Respiratory: reports: No Symptoms reported Cardiac: reports: No Symptoms Reported GI: reports: Constipated, Poor Fluid Intake : reports: No Symptoms Reported Musculoskeletal: reports: Back Pain Integumentary: reports: No Symptoms Reported Neuro: reports: No Symptoms reported Endocrine: reports: No Symptoms Reported Hematology: reports: No Symptoms Reported Psychiatric: reports: Anxious Other Systems: Reviewed and Negative Patient History - Patient Medical History Hx Anemia: No Hx Asthma: No Hx Chronic Obstructive Pulmonary Disease (COPD): No Hx Cancer: No Hx Cardiac Disorders: No Hx Congestive Heart Failure: No Hx Hypertension: No Hx Hypercholesterolemia: No Hx Pacemaker: No HX Cerebrovascular Accident: No Hx Seizures: No Hx Dementia: No Hx Diabetes: No Hx Gastrointestinal Disorders: No Hx Liver Disease: No Hx Genitourinary Disorders: No Hx Sexually Transmitted Disorders: No Hx Renal Disease (ESRD): No Hx Thyroid Disease: No Hx Human Immunodeficiency Virus (HIV): No Hx Hepatitis C: No Hx Depression: No Hx Suicide Attempt: No Hx Bipolar Disorder: No Hx Schizophrenia: No Other Medical History: ANXIETY - Patient Surgical History Past Surgical History: No - PPD History Previous Implant?: Yes Documented Results: Negative w/o proof PPD to be Administered?: Yes - Smoking Cessation Smoking history: Current every day smoker Have you smoked in the past 12 months: Yes Aproximately how many cigarettes per day: 20 Cigars Per Day: 0 Hx Chewing Tobacco Use: No Initiated information on smoking cessation: Yes 'Breaking Loose' booklet given: 05/17/18 - Substance & Tx. History Hx Alcohol Use: Yes Hx Substance Use: Yes Substance Use Type: Alcohol Hx Substance Use Treatment: Yes ([facility]) - Substances Abused BEER Route: Oral Frequency: Daily Amount used: 10-12OZ Age of first use: 18 Date of Last Use: 05/17/18 Family Disease History - Family Disease History Family Disease History: Other: Father (ALCOHOLIC) Admission Physical Exam BHS - Vital Signs Vital Signs: Vital Signs - 24 hr 05/17/18 15:48 Temperature 98.6 F Pulse Rate 75 Respiratory 17 Rate Blood Pressure 137/71 - Physical General Appearance: Yes: Disheveled, Tremorous, Anxious HEENTM: Yes: EOMI (UNABLE TO FOLLOW CONSISTENTLY), Normocephalic, Normal Voice, LUIS, Pharynx Normal, Other (POOR DENTIITION; MISSING TEETH) Respiratory: Yes: Chest Non-Tender, Lungs Clear, Normal Breath Sounds, No Respiratory Distress, No Accessory Muscle Use Neck: Yes: No masses,lesions,Nodules, Supple, Trachea in good position Breast: Yes: Breast Exam Deferred Cardiology: Yes: Regular Rhythm, Regular Rate, S1, S2 Abdominal: Yes: Normal Bowel Sounds, Non Tender, Soft, Protuberent Genitourinary: Yes: Within Normal Limits (NO C/O) Back: Yes: Normal Inspection Musculoskeletal: Yes: full range of Motion, Gait Steady Extremities: Yes: Normal Range of Motion, Non-Tender, Tremors Neurological: Yes: Alert, Motor Strength 5/5, Disoriented (AT TIMES), Depressed Affect Integumentary: Yes: Warm, Moist Lymphatic: Yes: Within Normal Limits - Diagnostic (1) Alcohol dependence with uncomplicated withdrawal Current Visit: Yes Status: Acute (2) At risk for dehydration due to poor fluid intake Current Visit: Yes Status: Acute (3) Substance induced mood disorder Current Visit: Yes Status: Suspected (4) Depressed affect Current Visit: Yes Status: Acute (5) Nicotine dependence Current Visit: Yes Status: Chronic Qualifiers: Nicotine product type: cigarettes Substance use status: uncomplicated Qualified Code(s): F17.210 - Nicotine dependence, cigarettes, uncomplicated Cleared for Admission [facility] - Detox or Rehab [facility] Level of Care: Medically Supervised Detox Regimen/Protocol: Librium Claeared for Rehab Admission: No S Breath Alcohol Content Breath Alcohol Content: 0.206 Urine Drug Screen - Results Drug Screen Negative: No Urine Drug Screen Results: THC-Marijuana, BZO-Benzodiazepines
[2018-05-17] MEDS ORDERED: hydrOXYzine PAMOATE 50 MG CAPSULE (FP) PO PRN (19:59)
[2018-05-17] MEDS ORDERED: P-EPHED 60MG/TRIPROLIDI 2.5MG TABLET PO PRN (19:59)
[2018-05-17] MEDS ORDERED: NICOTINE POLACRILEX 2 MG GUM BC PRN (19:59)
[2018-05-17] MEDS ORDERED: LOPERAMIDE HCL 2 MG CAPSULE PO PRN (19:59)
[2018-05-17] MEDS ORDERED: MAGNESIUM CITRATE 300 ML BOTTLE PO PRN (19:59)
[2018-05-17] MEDS ORDERED: MAG HYDROX/AL HYDROX/SIMETH 30 ML UNIT-DOSE CUP PO PRN (19:59)
[2018-05-17] MEDS ORDERED: MAGNESIUM HYDROX 2400MG/30ML ORAL SUSPENSION 30 ML CUP PO PRN (19:59)
[2018-05-17] MEDS ORDERED: IBUPROFEN 400 MG TABLET (FP) PO PRN (19:59)
[2018-05-17] MEDS ORDERED: chlordiazePOXIDE HCL 25 MG CAPSULE PO PRN (19:59)
[2018-05-17] MEDS ORDERED: ACETAMINOPHEN 325 MG TABLET (FP) PO PRN (19:59)
[2018-05-17] MEDS ORDERED: MELATONIN 5 MG TABLETS PO PRN (22:00)
[2018-05-17] MEDS: chlordiazePOXIDE HCL 25 MG CAPSULE PO SCH (22:03)
[2018-05-17] MEDS: THIAMINE HCL 100 MG TABLET (FP) PO SCH (22:03)
[2018-05-18] MEDS: guaiFENesin/D-METHORPHAN HB 10 ML UNIT-DOSE CUPS PO PRN ×3 (02:41→21:03)
[2018-05-18] MEDS: MENTHOL/PHENOL 1 EACH UD MM PRN ×3 (02:42→21:04)
[2018-05-18] MEDS: chlordiazePOXIDE HCL 25 MG CAPSULE PO SCH ×4 (05:55→22:06)
--- NOTE | 2018-05-18 10:07 | CONSULT ---
[facility] Psychiatric Consult - Data Date of interview: 05/18/18 Admission source: [facility] Identifying data: This is a 47 years old male, single, unemployed, living with family, on PA support, 47 Y.O. MALE WITH HX/O ALCOHOLISM HERE FOR DETOX TXMENT. THIS IS CLIENTS FIRST TIME HERE. HE IS SELF REFERRED. UTOX + BZO. CLIENT DENIES USE OR RECENT DETOX, HOSPITALIZATION. HE REPORTS THAT HE DRINKS DAILY ABOUT 10 BEERS DAILY. REPORTS LONGEST CLEAN TIME 6 MONTHS. DENIES ANY CLEAN TIME IN THE PAST YEAR. DENIES HX/O SI/HI, AVH, SEIZURE D/O. Substance Abuse History: Smoking history: Current every day smoker. Have you smoked in the past 12 months: Yes. Aproximately how many cigarettes per day: 20. Cigars Per Day: 0. Hx Chewing Tobacco Use: No. Initiated information on smoking cessation: Yes. 'Breaking Loose' booklet given: 05/17/18. - Substance & Tx. History. Hx Alcohol Use: Yes. Hx Substance Use: Yes. Substance Use Type : Alcohol. Hx Substance Use Treatment: Yes ([facility]). - Substances Abused. BEER. Route: Oral. Frequency: Daily. Amount used: 10-12OZ. Age of first use : 18. Date of Last Use: 05/17/18 Medical History: Thrombocytopenia history Psychiatric History: Patient reports to carry MDD, reports recent psychiatric admission 6 months ago at [facility] due to depressed mood, denies suicidal, homicidal history, reports taking prior to admission: Remeron 45mg po qhs Physical/Sexual Abuse/Trauma History: Denies Additional Comment: Remeron 45mg po qhs Mental Status Exam - Mental Status Exam Alert and Oriented to: Place, Person Cognitive Function: Fair Patient Appearance: Unkempt Mood: Suspicious, Apprehensive Affect: Mood Congruent Patient Behavior: Cooperative Speech Pattern: Appropriate Voice Loudness: Normal Thought Process: Circumstantial, Goal Oriented Thought Disorder: Being Controlled Hallucinations: Denies Suicidal Ideation: Denies Homicidal Ideation: Denies Insight/Judgement: Fair Sleep: Difficulty falling asleep Appetite: Fair Muscle strength/Tone: Normal Gait/Station: Normal Additional Comments: Remeron 45mg po qhs Psychiatric Findings - Problem List (Lyle 1, 2,3) (1) Alcohol dependence with uncomplicated withdrawal Current Visit: Yes Status: Acute (2) Nicotine dependence Current Visit: Yes Status: Chronic Qualifiers: Nicotine product type: cigarettes Substance use status: uncomplicated Qualified Code(s): F17.210 - Nicotine dependence, cigarettes, uncomplicated (3) Substance induced mood disorder Current Visit: Yes Status: Suspected (4) Alcohol abuse Current Visit: No Status: Acute (5) Alcohol dependence with uncomplicated withdrawal Current Visit: No Status: Acute (6) Alcohol use with intoxication Current Visit: No Status: Acute (7) Cannabis dependence Current Visit: No Status: Acute (8) MDD (major depressive disorder), recurrent episode, moderate Current Visit: No Status: Acute (9) Nicotine dependence Current Visit: No Status: Acute Qualifiers: Nicotine product type: cigarettes Substance use status: uncomplicated Qualified Code(s): F17.210 - Nicotine dependence, cigarettes, uncomplicated (10) Thrombocytopenia Current Visit: No Status: Acute - Initial Treatment Plan Initial Treatment Plan: Remeron 45mg po qhs
--- NOTE | 2018-05-18 10:34 | PN ---
S CIWA - CIWA Score Nausea/Vomitin-Mild Nausea/No Vomiting Muscle Tremors: 3 Anxiety: 2 Agitation: 3 Paroxysmal Sweats: 1-Minimal Palms Moist Orientation: 1-Uncertain about Date Tacttile Disturbances: 0-None Auditory Disturbances: 0-None Visual Disturbances: 0-None Headache: 1-Very Mild CIWA-Ar Total Score: 12 BHS Progress Note (SOAP) Subjective: sweat tremor low energy gi distress long history of alcohol addiction multiple ER visits discuss community primary health services for medical mental and addiction issues Objective: 05/18/18 10:41 Vital Signs Temperature 97.9 F 05/18/18 09:50 Pulse Rate 87 05/18/18 09:50 Respiratory Rate 18 05/18/18 09:50 Blood Pressure 117/63 05/18/18 09:50 O2 Sat by Pulse Oximetry (%) lab pending Assessment: 05/18/18 10:41 withdrawal sx Plan: continue detox
[2018-05-18] MEDS: PRENATAL VITAMINS W/ FOLIC ACID TABLET (FP) PO SCH (10:40)
[2018-05-18 10:44] LABS: HEMATOCRIT 27.9 % (35.4-49); HEMOGLOBIN 9.4 GM/dL (11.7-16.9); MCH 36.3 pg (25.7-33.7); MCHC 33.8 g/dl (32.0-35.9); MEAN CELL VOLUME 107.3 fl (80-96); MEAN PLT VOLUME 7.9 fl (7.5-11.1); RDW 15.1 % (11.9-15.9)
[2018-05-18] MEDS: NICOTINE 21 MG/24 HOURS TOPICAL PATCH TD SCH (11:32)
[2018-05-18 11:33] LABS: PLATELET COUNT 29 K/MM3 (134-434); WHITE BLOOD COUNT 1.4 K/mm3 (4.0-10.0)
[2018-05-18 11:44] LABS: ALBUMIN 1.9 g/dl (3.4-5.0); ALK PHOS 127 U/L (45-117); ANION GAP 8 MMOL/L (8-16); BILIRUBIN,TOTAL 1.8 mg/dL (0.2-1); BLOOD UREA NITROGEN 4 mg/dL (7-18); CALCIUM 7.7 mg/dL (8.5-10.1); CHLORIDE 104 mmol/L (98-107); CO2 26 mmol/L (21-32); CREATININE 0.5 mg/dL (0.55-1.3); GLUCOSE,RANDOM 79 mg/dL (74-106); POTASSIUM 3.9 mmol/L (3.5-5.1); SGOT/AST 44 U/L (15-37); SGPT/ALT 18 U/L (13-61); SODIUM 138 mmol/L (136-145); TOT PROT 6.9 g/dl (6.4-8.2)
[2018-05-18] MEDS: FERROUS SO4 325 MG TABLET (FP) PO SCH (12:07)
--- NOTE | 2018-05-18 12:52 | EKG ---
Test Reason : Blood Pressure : / mmHG Vent. Rate : 095 BPM Atrial Rate : 095 BPM P-R Int : 172 ms QRS Dur : 102 ms QT Int : 376 ms P-R-T Axes : 051 043 048 degrees QTc Int : 472 ms NORMAL SINUS RHYTHM NORMAL ECG NO PREVIOUS ECGS AVAILABLE Confirmed by DERRICK KAHN MD ([id number]) on 05/18/2018 12:51:46 PM Referred By: Confirmed By:DERRICK KAHN MD
[2018-05-18] MEDS: CALCIUM 250MG/VIT-D 125 UNITS 1 COMBO TABLET PO SCH ×2 (13:08→22:05)
[2018-05-18] MEDS: THIAMINE HCL 100 MG TABLET (FP) PO SCH (22:05)
[2018-05-18] MEDS: MIRTAZAPINE 15 MG TABLET (FP) PO SCH (22:05)
[2018-05-19] MEDS: chlordiazePOXIDE HCL 25 MG CAPSULE PO SCH ×3 (05:46→17:45)
[2018-05-19 10:33] LABS: HEMATOCRIT 28.5 % (35.4-49); HEMOGLOBIN 9.5 GM/dL (11.7-16.9); MCH 35.8 pg (25.7-33.7); MCHC 33.2 g/dl (32.0-35.9); MEAN CELL VOLUME 107.7 fl (80-96); MEAN PLT VOLUME 7.9 fl (7.5-11.1); RBC 2.64 M/mm3 (4.00-5.60); RDW 15.1 % (11.9-15.9)
[2018-05-19] MEDS: NICOTINE 21 MG/24 HOURS TOPICAL PATCH TD SCH (10:37)
[2018-05-19] MEDS: CALCIUM 250MG/VIT-D 125 UNITS 1 COMBO TABLET PO SCH ×2 (10:37→22:11)
[2018-05-19] MEDS: PRENATAL VITAMINS W/ FOLIC ACID TABLET (FP) PO SCH (10:37)
[2018-05-19] MEDS: FERROUS SO4 325 MG TABLET (FP) PO SCH (10:37)
[2018-05-19] MEDS: MENTHOL/PHENOL 1 EACH UD MM PRN ×3 (10:39→23:00)
[2018-05-19] MEDS: guaiFENesin/D-METHORPHAN HB 10 ML UNIT-DOSE CUPS PO PRN ×3 (10:39→22:59)
[2018-05-19 10:46] LABS: PLATELET COUNT 26 K/MM3 (134-434); WHITE BLOOD COUNT 1.4 K/mm3 (4.0-10.0)
--- NOTE | 2018-05-19 15:06 | PN ---
S CIWA - CIWA Score Nausea/Vomitin-No Nausea/No Vomiting Muscle Tremors: None Anxiety: 4-Mod. Anxious/Guarded Agitation: 4-Moderately Restless Paroxysmal Sweats: No Perspiration Orientation: 0-Oriented Tacttile Disturbances: 0-None Auditory Disturbances: 0-None Visual Disturbances: 0-None Headache: 0-None Present CIWA-Ar Total Score: 8 BHS Progress Note (SOAP) Subjective: PATIENT ANXIOUS, IRRITABLE. C/O INTERRUPTED SLEEP. DID NOT WANT TO SPEAK WITH PROVIDER AT TIME OF EVALUATION. Objective: 05/19/18 15:03 Vital Signs Temperature 97.4 F L 05/19/18 13:11 Pulse Rate 93 H 05/19/18 13:11 Respiratory Rate 18 05/19/18 13:11 Blood Pressure 151/78 05/19/18 13:11 O2 Sat by Pulse Oximetry (%) Laboratory Tests 05/18/18 05/18/18 05/18/18 07:00 07:00 07:00 WBC 1.4 L* RBC 2.60 L Hgb 9.4 L Hct 27.9 L D MCV 107.3 H MCH 36.3 H MCHC 33.8 RDW 15.1 Plt Count 29 L* MPV 7.9 Sodium 138 Potassium 3.9 Chloride 104 Carbon Dioxide 26 Anion Gap 8 BUN 4 L Creatinine 0.5 L Creat Clearance w eGFR > 60 Random Glucose 79 Calcium 7.7 L Total Bilirubin 1.8 H AST 44 H ALT 18 Alkaline Phosphatase 127 H Total Protein 6.9 Albumin 1.9 L RPR Titer Nonreactive 05/19/18 07:00 WBC 1.4 L* RBC 2.64 L Hgb 9.5 L Hct 28.5 L MCV 107.7 H MCH 35.8 H MCHC 33.2 RDW 15.1 Plt Count 26 L* MPV 7.9 Sodium Potassium Chloride Carbon Dioxide Anion Gap BUN Creatinine Creat Clearance w eGFR Random Glucose Calcium Total Bilirubin AST ALT Alkaline Phosphatase Total Protein Albumin RPR Titer PE: ALERT AND ORIENTED X 3 SKIN WARM AND DRY IRRITABLE "I WANT TO SLEEP" EXT FULL ROM, NO EDEMA Assessment: 05/19/18 15:04 WITHDRAWAL SX ABDNORMAL LABS H/O THROMBOCYTOPENIA AND LEUKOPENIA Plan: PREVIOUS ADMISSION LABS REVIEWED AND PATIENT HAS KNOW HX OF THROMBOCYTOPENIA AND LEUKOPENIA WILL CONTINUE DETOX BLEEDING PRECAUTIONS CONTINUE TO MONITOR CLINICALLY
[2018-05-19] MEDS: THIAMINE HCL 100 MG TABLET (FP) PO SCH (22:11)
[2018-05-19] MEDS: chlordiazePOXIDE 5 MG CAPSULE PO SCH (22:12)
[2018-05-19] MEDS: MIRTAZAPINE 15 MG TABLET (FP) PO SCH (22:12)
[2018-05-20] MEDS: chlordiazePOXIDE 5 MG CAPSULE PO SCH ×3 (05:42→17:26)
[2018-05-20] MEDS: PRENATAL VITAMINS W/ FOLIC ACID TABLET (FP) PO SCH (10:23)
[2018-05-20] MEDS: NICOTINE 21 MG/24 HOURS TOPICAL PATCH TD SCH (10:23)
[2018-05-20] MEDS: FERROUS SO4 325 MG TABLET (FP) PO SCH (10:23)
[2018-05-20] MEDS: CALCIUM 250MG/VIT-D 125 UNITS 1 COMBO TABLET PO SCH ×2 (10:24→22:03)
[2018-05-20] MEDS: guaiFENesin/D-METHORPHAN HB 10 ML UNIT-DOSE CUPS PO PRN (10:25)
[2018-05-20] MEDS: MENTHOL/PHENOL 1 EACH UD MM PRN (10:25)
--- NOTE | 2018-05-20 13:18 | PN ---
S Progress Note (SOAP) Subjective: Headache, diarrhea, interrupted sleep, irritability Objective: 05/20/18 13:11 Vital Signs Temperature 97.6 F 05/20/18 10:43 Pulse Rate 94 H 05/20/18 10:43 Respiratory Rate 18 05/20/18 10:43 Blood Pressure 131/87 05/20/18 10:43 O2 Sat by Pulse Oximetry (%) Laboratory Last Values WBC 1.4 K/mm3 (4.0-10.0) L* 05/19/18 07:00 RBC 2.64 M/mm3 (4.00-5.60) L 05/19/18 07:00 Hgb 9.5 GM/dL (11.7-16.9) L 05/19/18 07:00 Hct 28.5 % (35.4-49) L 05/19/18 07:00 MCV 107.7 fl (80-96) H 05/19/18 07:00 MCH 35.8 pg (25.7-33.7) H 05/19/18 07:00 MCHC 33.2 g/dl (32.0-35.9) 05/19/18 07:00 RDW 15.1 % (11.9-15.9) 05/19/18 07:00 Plt Count 26 K/MM3 (134-434) L* 05/19/18 07:00 MPV 7.9 fl (7.5-11.1) 05/19/18 07:00 Sodium 138 mmol/L (136-145) 05/18/18 07:00 Potassium 3.9 mmol/L (3.5-5.1) 05/18/18 07:00 Chloride 104 mmol/L (98-107) 05/18/18 07:00 Carbon Dioxide 26 mmol/L (21-32) 05/18/18 07:00 Anion Gap 8 MMOL/L (8-16) 05/18/18 07:00 BUN 4 mg/dL (7-18) L 05/18/18 07:00 Creatinine 0.5 mg/dL (0.55-1.3) L 05/18/18 07:00 Creat Clearance w eGFR > 60 (>60) 05/18/18 07:00 Random Glucose 79 mg/dL (74-106) 05/18/18 07:00 Calcium 7.7 mg/dL (8.5-10.1) L 05/18/18 07:00 Total Bilirubin 1.8 mg/dL (0.2-1) H 05/18/18 07:00 AST 44 U/L (15-37) H 05/18/18 07:00 ALT 18 U/L (13-61) 05/18/18 07:00 Alkaline Phosphatase 127 U/L (45-117) H 05/18/18 07:00 Total Protein 6.9 g/dl (6.4-8.2) 05/18/18 07:00 Albumin 1.9 g/dl (3.4-5.0) L 05/18/18 07:00 RPR Titer Nonreactive (NONREACTIVE) 05/18/18 07:00 Labs note; abnormal results noted in the CBC Assessment: 05/20/18 13:12 Withdrawal sx Thrombocytopenia and leukopenia. Platelets noted in ED report on 10/16/17 was 26 Plan: Continue detox Continue to monitor for bleeding
[2018-05-20] MEDS: chlordiazePOXIDE HCL 10 MG CAPSULE PO SCH (22:03)
[2018-05-20] MEDS: THIAMINE HCL 100 MG TABLET (FP) PO SCH (22:03)
[2018-05-20] MEDS: MIRTAZAPINE 15 MG TABLET (FP) PO SCH (22:03)
[2018-05-21] MEDS: chlordiazePOXIDE HCL 10 MG CAPSULE PO SCH (06:34)
[2018-05-21 06:42] VITALS: BP 111/56; PULSE 82; TEMP 97.9
--- NOTE | 2018-05-21 12:50 | DS ---
[facility] Detox Discharge Summary Admission Date: 05/17/18 Discharge Date: 05/21/18 - History Present History: Alcohol Dependence Additional Comments: Patient completed detox successfully. Patient is A, A,Ox3, in nad, vss, ambulatory. Patient instructed to follow up with his PCP within 1-2 weeks. Pertinent Past History: Alcohol dependence Anxiety PTSD Nicotine dependence Pancytopenia - Physical Exam Results Vital Signs: Vital Signs Temperature 97.9 F 05/21/18 06:41 Pulse Rate 82 05/21/18 06:41 Respiratory Rate 18 05/21/18 06:41 Blood Pressure 111/56 L 05/21/18 06:41 O2 Sat by Pulse Oximetry (%) Pertinent Admission Physical Exam Findings: Withdrawal symptoms Laboratory Tests 05/18/18 05/18/18 05/18/18 07:00 07:00 07:00 WBC 1.4 L* RBC 2.60 L Hgb 9.4 L Hct 27.9 L D MCV 107.3 H MCH 36.3 H MCHC 33.8 RDW 15.1 Plt Count 29 L* MPV 7.9 Sodium 138 Potassium 3.9 Chloride 104 Carbon Dioxide 26 Anion Gap 8 BUN 4 L Creatinine 0.5 L Creat Clearance w eGFR > 60 Random Glucose 79 Calcium 7.7 L Total Bilirubin 1.8 H AST 44 H ALT 18 Alkaline Phosphatase 127 H Total Protein 6.9 Albumin 1.9 L RPR Titer Nonreactive 05/19/18 07:00 WBC 1.4 L* RBC 2.64 L Hgb 9.5 L Hct 28.5 L MCV 107.7 H MCH 35.8 H MCHC 33.2 RDW 15.1 Plt Count 26 L* MPV 7.9 Sodium Potassium Chloride Carbon Dioxide Anion Gap BUN Creatinine Creat Clearance w eGFR Random Glucose Calcium Total Bilirubin AST ALT Alkaline Phosphatase Total Protein Albumin RPR Titer Labs reviewed: pancytopenia noted (chronic) - Treatment Hospital Course: Detox Protocol Followed, Detoxed Safely, Responded well, Discharged Condition Good - Medication Discharge Medications: Ambulatory Orders Mirtazapine [Remeron -] 45 mg PO HS #30 tablet 05/18/18 - Diagnosis (1) Anxiety Status: Acute (2) PTSD (post-traumatic stress disorder) Status: Acute (3) Pancytopenia Status: Acute (4) Alcohol dependence with uncomplicated withdrawal Status: Acute (5) Nicotine dependence Status: Acute Qualifiers: Nicotine product type: cigarettes Substance use status: uncomplicated Qualified Code(s): F17.210 - Nicotine dependence, cigarettes, uncomplicated - AMA Did Patient Leave Against Medical Advice: No (F/U with PCP within 1-2 weeks)
== END 2018-05-21 09:44 | disposition home or self-care (01) | DRG 775 ==
LOC: YASAS 15:31 → Y3N 19:00 → MERGE 19:00
PROC: HZ2ZZZZ Detoxification Services for Substance Abuse Treatment (ICD-10-PCS; principal; 2018-05-17)
DX: F10.230 Alcohol dependence with withdrawal, uncomplicated (principal); F10.220 Alcohol dependence with intoxication, uncomplicated; F12.20 Cannabis dependence, uncomplicated; F17.210 Nicotine dependence, cigarettes, uncomplicated; F43.10 Post-traumatic stress disorder, unspecified; F41.9 Anxiety disorder, unspecified; F19.24 Other psychoactive substance dependence with psychoactive substance-induced mood disorder; F33.1 Major depressive disorder, recurrent, moderate; D61.818 Other pancytopenia; D69.6 Thrombocytopenia, unspecified; D72.829 Elevated white blood cell count, unspecified; D72.819 Decreased white blood cell count, unspecified; R63.8 Other symptoms and signs concerning food and fluid intake
CPT/HCPCS: 36415; 80053; 85027; 86593; 93005; 93010

== ENCOUNTER 2018-07-26 13:51 | Emergency (ER) | payer OTHER ==
[2018-07-26 15:05] VITALS: BP 127/50; PULSE 87; BMI 32.3
[2018-07-26] MEDS ORDERED: FOLIC ACID INJECTION - 1 MG, THIAMINE HCL 100 MG, MULTIVIT INJECTION ADULT 10 ML in SOD... IVPB ONE (15:52)
--- NOTE | 2018-07-26 15:54 | PDOC ---
History of Present Illness - General History Source: Patient - History of Present Illness Initial Comments: 07/26/18 15:56 47 yr old undomiciled man with long hx of ETOH abuse, current cigarette smoker, and [place]cy[place] due to [place]. pt acutely intoxicated c/o left upper posterior gum pain for past few weeks a/w bleeding gums when brushing. says he had been drinking vodka about a pint all day. drinks nearly everyday. says he has been taking clonozapam 1mg, unsure of last dose. denies fever, vomiting, cough, abdominal pain, constipation, headache. he is unsure if he has ever had withdrawal seizures. unable to obtain further hx due to patient's acute intoxication. <Selena Reid - Last Filed: 07/26/18 17:13> <Chapis Jacobo - Last Filed: 07/27/18 07:28> - General Chief Complaint: Alcohol intoxication Stated Complaint: INTOX Time Seen by Provider: 07/26/18 15:19 Past History - Past Medical History Anemia: No Asthma: No Cancer: No Cardiac Disorders: No CVA: No COPD: No CHF: No Dementia: No Diabetes: No GI Disorders: No Disorders: No HTN: No Hypercholesterolemia: No Kidney Stones: No Liver Disease: No Seizures: No Thyroid Disease: No - Surgical History Abdominal Surgery: No Appendectomy: No Cardiac Surgery: No Cholecystectomy: No Gastric Stapling: No GI Surgery: No Lung Surgery: No Neurologic Surgery: No Orthopedic Surgery: No - Reproductive History Testicular Surgery: No - Immunization History Immunization Up to Date: Yes - Suicide/Smoking/Psychosocial Hx Smoking Status: Yes Smoking History: Current some day smoker Have you smoked in the past 12 months: Yes Number of Cigarettes Smoked Daily: 2 Cigars Per Day: 0 Information on smoking cessation initiated: No 'Breaking Loose' booklet given: 05/17/18 Hx Alcohol Use: No Drug/Substance Use Hx: Yes Substance Use Type: Alcohol, Marijuana Hx Substance Use Treatment: Yes ([facility]) <Selena Reid - Last Filed: 07/26/18 17:13> <Chapis Jacobo - Last Filed: 07/27/18 07:28> - Past Medical History Allergies/Adverse Reactions: Allergies Allergy/AdvReac Type Severity Reaction Status Date / Time clarithromycin [From Biaxin] Allergy Intermediate Hives Verified 09/22/17 03:09 Home Medications: Ambulatory Orders Mirtazapine [Remeron -] 45 mg PO HS #30 tablet 05/18/18 Review of Systems - Review of Systems Constitutional: No: Chills, Fever, Malaise, Unintentional Wgt. Loss HEENTM: Yes: Mouth Pain. No: Difficulty Swallowing Respiratory: No: Cough Cardiac (ROS): No: Edema, Lightheadedness, Palpitations ABD/GI: Yes: Diarrhea (few lose BM). No: Constipated, Nausea, Vomiting Integumentary: Yes: Rash (b/l pedal nonblanching petechial drea) Hematologic/Lymphatic: Yes: Easy Bruising <Selena Reid - Last Filed: 07/26/18 17:13> *Physical Exam - Vital Signs Last Vital Signs Temp Pulse Resp BP Pulse Ox 87 18 127/50 L 100 07/26/18 14:40 07/26/18 14:40 07/26/18 14:40 07/26/18 14:40 - Physical Exam General Appearance: Yes: Disheveled HEENT: positive: Other (very poor dentition with multiple teeth broken and missing, ). negative: Pharyngeal Erythema Neck: positive: Normal Thyroid, Supple. negative: Tender, Trachea midline Respiratory/Chest: positive: Lungs Clear, Normal Breath Sounds. negative: Chest Tender Cardiovascular: positive: Regular Rhythm, Regular Rate. negative: Edema, Murmur Gastrointestinal/Abdominal: positive: Protuberent, Hepatomegaly, Other ( engorged abdominal veins) Musculoskeletal: negative: CVA Tenderness Integumentary: positive: Pale, Rash (b/l pedal rash). negative: Jaundice <Selena Reid - Last Filed: 07/26/18 17:13> - Vital Signs Last Vital Signs Temp Pulse Resp BP Pulse Ox 87 18 127/50 L 100 07/26/18 14:40 07/26/18 14:40 07/26/18 14:40 07/26/18 14:40 - Physical Exam Musculoskeletal: positive: Normal Inspection Extremity: positive: Normal Capillary Refill, Normal Inspection, Normal Range of Motion Integumentary: positive: Normal Color, Dry, Warm. negative: Pale, Swelling, Ecchymosis, Bruising Neurologic: positive: Alert, Other (Intoxicated, slurring speech) <Chapis Jacobojose - Last Filed: 07/27/18 07:28> Moderate Sedation - Procedure Monitoring Vital Signs: Procedure Monitoring Vital Signs Temperature Pulse Rate 87 07/26/18 14:40 Respiratory Rate 18 07/26/18 14:40 Blood Pressure 127/50 L 07/26/18 14:40 O2 Sat by Pulse Oximetry (%) 100 07/26/18 14:40 <Selena Reid - Last Filed: 07/26/18 17:13> - Procedure Monitoring Vital Signs: Procedure Monitoring Vital Signs Temperature Pulse Rate 87 07/26/18 14:40 Respiratory Rate 18 07/26/18 14:40 Blood Pressure 127/50 L 07/26/18 14:40 O2 Sat by Pulse Oximetry (%) 100 07/26/18 14:40 <OdalisChapis Silva - Last Filed: 07/27/18 07:28> Procedures - Consent Consent obtained: Verbal, From Patient - Additional Procedures Additional Procedures: other (left maxillary and left mandibular block with lidocaine 1% and marcaine) <Selena Reid - Last Filed: 07/26/18 17:13> ED Treatment Course - LABORATORY CBC & Chemistry Diagram: 07/26/18 15:55 07/26/18 15:55 <Selena Reid - Last Filed: 07/26/18 17:13> - LABORATORY CBC & Chemistry Diagram: 07/26/18 15:55 07/26/18 15:55 - ADDITIONAL ORDERS Additional order review: 07/26/18 15:55 RBC 2.93 L MCV 107.7 H MCHC 35.4 RDW 15.2 MPV 6.8 L D Neutrophils % 63.3 D Lymphocytes % 20.8 D Monocytes % 8.0 Eosinophils % 7.6 H Basophils % 0.3 - Medications Given in the ED: ED Medications Discontinued Medications Generic Name Dose Route Start Last Admin Trade Name Freq PRN Reason Stop Dose Admin Bupivacaine HCl 2 mg 07/26/18 16:43 07/26/18 17:41 Marcaine 0.5% - IJ 07/26/18 16:44 2 mg ONCE ONE Administration Folic Acid 1 mg/ Thiamine HCl 1,000 mls @ 125 mls/hr 07/26/18 15:52 07/26/18 17:41 100 mg/ Multivitamins/Minerals IVPB 07/26/18 23:51 125 mls/hr 10 ml/ Sodium Chloride ONCE ONE Administration Lidocaine HCl 2 ml 07/26/18 16:40 07/26/18 17:41 Xylocaine 1% SQ 07/26/18 16:41 2 ml ONCE ONE Administration <Chapis Jacobo - Last Filed: 07/27/18 07:28> Medical Decision Making - Medical Decision Making 07/26/18 16:10 47 yr acute intoxicated man. check cbc, alcohol level, coags, cmp r/o HIV as cause of pancytopenia, if negative, likely due to chronic alcoholism give banana bag 07/26/18 17:12 oral nerve block in the left side anterior superior and posterior <Selena Reid - Last Filed: 07/26/18 17:13> *DC/Admit/Observation/Transfer <Selena Reid - Last Filed: 07/26/18 17:13> <Chapis Jacobo - Last Filed: 07/27/18 07:28> Diagnosis at time of Disposition: Alcohol abuse, Thrombocytopenia, Pancytopenia - Discharge Dispostion Disposition: HOME Condition at time of disposition: Improved - Referrals Referrals: Kristopher Latham MD [Staff Physician] - - Patient Instructions Printed Discharge Instructions: DI for Alcohol Abuse Additional Instructions: you need to follow up with a dentist. call your insurance to find out who a provider is that takes your insurance. you should also follow up with internal medicine. call Dr Kristopher Latham at the [facility]. you can take motrin 400 mg every 8 hrs as needed for pain. return for any problems or concnerns. understand your liver and blood levels are being affected by your alcohol abuse. if you wish to go to detox, you should go to [address] and go to intake.
[2018-07-26 16:07] LABS: BASO % 0.3 % (0-2.0); EOS % 7.6 % (0-4.5); HEMATOCRIT 31.5 % (35.4-49); HEMOGLOBIN 11.2 GM/dL (11.7-16.9); LYMPH % 20.8 % (8-40); MCH 38.2 pg (25.7-33.7); MCHC 35.4 g/dl (32.0-35.9); MEAN CELL VOLUME 107.7 fl (80-96); MEAN PLT VOLUME 6.8 fl (7.5-11.1); NEUT % 63.3 % (42.8-82.8); PLATELET COUNT 43 K/MM3 (134-434); RBC 2.93 M/mm3 (4.00-5.60); RDW 15.2 % (11.9-15.9); WHITE BLOOD COUNT 2.5 K/mm3 (4.0-10.0)
[2018-07-26 16:20] LABS: INR 1.3 (0.83-1.09); PROTHROMBIN TIME (PATIENT) 15.4 SEC (9.7-13.0)
[2018-07-26 16:23] LABS: ACTIVATED PTT 34.9 SECONDS (25.2-36.5)
[2018-07-26 16:38] LABS: ALBUMIN 2.8 g/dl (3.4-5.0); ALK PHOS 169 U/L (45-117); ANION GAP 5 MMOL/L (8-16); BILIRUBIN,TOTAL 2.7 mg/dL (0.2-1); BLOOD UREA NITROGEN 5 mg/dL (7-18); CALCIUM 7.9 mg/dL (8.5-10.1); CHLORIDE 101 mmol/L (98-107); CO2 26 mmol/L (21-32); CREATININE 0.7 mg/dL (0.55-1.3); GLUCOSE,RANDOM 100 mg/dL (74-106); POTASSIUM 3.7 mmol/L (3.5-5.1); SGOT/AST 40 U/L (15-37); SGPT/ALT 19 U/L (13-61); SODIUM 132 mmol/L (136-145); TOT PROT 8.6 g/dl (6.4-8.2)
[2018-07-26] MEDS ORDERED: LIDOCAINE HCL 1%, 10 MG/ML (50 mL VIAL) SQ ONE (16:40)
[2018-07-26] MEDS ORDERED: BUPIVACAINE HCL/PF 0.5% (5MG/ML) 10 ML VIAL IJ ONE (16:43)
[2018-07-26] MEDS ORDERED: BUPIVACAINE HCL/PF 0.5% (5MG/ML) 10 ML VIAL ONE (16:45)
[2018-07-26] MEDS ORDERED: LIDOCAINE HCL 1%, 10 MG/ML (20ML VIAL) ONE (16:45)
--- NOTE | 2018-07-26 16:57 | PDOC ---
Attending Attestation - Resident Resident Name: FranklinSongkendall - ED Attending Attestation I have performed the following: I have examined & evaluated the patient, The case was reviewed & discussed with the resident, I agree w/resident's findings & plan - HPI HPI: 07/26/18 16:53 The patient is a 47 year old male, with a significant past medical history of pancytopenia, who presents to the emergency department with ETOH intoxication and secondary complaints of left sided facial pain and gum bleeding x several weeks. drinks vodka daily. h/o limited due to intoxication Allergies: NKDA Past surgical history: none reported Social history: ETOH dependence; +tobacco use 07/26/18 16:53 - Physicial Exam PE: 07/26/18 16:53 clinically intoxicated, slurring speech. mildly icteric; left molar/maxillary and mandibular dental tenderness with very poor dention. neck supple. lungs clear, RRR, abdomen soft nontender, protuberant.. BELL x4, no focal neuro deficits. No peripheral edema. normal color for ethnicity, WWP. no external signs of trauma. - Medical Decision Making 07/26/18 16:54 DDx. alcohol intoxication, alcohol withdrawal. drug intoxication VS reviewed, wnl, reassuring. basic labs and lytes with baseline pancytopenia, checked for his bleeding and chronic alcohol use. no bleeding here. coags normal; LFTs at baseline.; chronic pancytopenia noted, likely related to his alcohol abuse. HIV neg. will perform dental blocks (inferior alveolar and infraorbital on the left for his dental pain). no narcotics, not complaining of severe pain, dental block appropriate, see proc note clinically intoxicated with expected alcohol elevation. pt monitored closely in the ED, sobriety hold. remained comfortable, no acute events, VS remain stable. monitor for alcohol w/d. no e/o trauma, will monitor, defer imaging at this time and reassess s/o to Dr Gutiérrez pending sobriety. 07/26/18 16:56 07/26/18 16:56 07/26/18 16:57 07/27/18 07:34 Procedures - Additional Procedures Additional Procedures: other Progress: 07/27/18 07:33 Dental block: indication - left sided dental pain. 1% lido and 0.5% marcaine mixed, 10cc total, 5cc each to left infraorbital and left inferior alveolar block. 25 gauge needle utilized for injection. Aspiration without blood. Injected 5cc to each location with good effect and analgesia. No bleeding complications.
[2018-07-26 18:18] LABS: ANISOCYTOSIS 2+; MACROCYTOSIS 2+
--- NOTE | 2018-07-26 19:04 | PDOC ---
*Physical Exam - Vital Signs Last Vital Signs Temp Pulse Resp BP Pulse Ox 87 18 127/50 L 100 07/26/18 14:40 07/26/18 14:40 07/26/18 14:40 07/26/18 14:40 ED Treatment Course - LABORATORY CBC & Chemistry Diagram: 07/26/18 15:55 07/26/18 15:55 - ADDITIONAL ORDERS Additional order review: Laboratory Results 07/26/18 07/26/18 15:55 15:55 PT with INR 15.40 H INR 1.30 H PTT (Actin FS) 34.9 Sodium 132 L Potassium 3.7 Chloride 101 Carbon Dioxide 26 Anion Gap 5 L BUN 5 L Creatinine 0.7 Creat Clearance w eGFR > 60 Random Glucose 100 Calcium 7.9 L Total Bilirubin 2.7 H AST 40 H ALT 19 Alkaline Phosphatase 169 H Total Protein 8.6 H Albumin 2.8 L Alcohol, Quantitative 272.2 H 07/26/18 15:55 RBC 2.93 L MCV 107.7 H MCHC 35.4 RDW 15.2 MPV 6.8 L D Neutrophils % 63.3 D Lymphocytes % 20.8 D Monocytes % 8.0 Eosinophils % 7.6 H Basophils % 0.3 - Medications Given in the ED: ED Medications Discontinued Medications Generic Name Dose Route Start Last Admin Trade Name Freq PRN Reason Stop Dose Admin Bupivacaine HCl 2 mg 07/26/18 16:43 07/26/18 17:41 Marcaine 0.5% - IJ 07/26/18 16:44 2 mg ONCE ONE Administration Lidocaine HCl 2 ml 07/26/18 16:40 07/26/18 17:41 Xylocaine 1% SQ 07/26/18 16:41 2 ml ONCE ONE Administration Medical Decision Making - Medical Decision Making 47yo with history of ETOH abuse presenting with intoxication Nerve block for posterior gum pain performed. Pending patient's ability to tolerate po Awaiting clinical sobriety 07/26/18 19:03 Patient still looking unsteady on his feet Not ready to be discharged yet 07/26/18 21:34 Patient signed out to night team. 07/26/18 21:59 *DC/Admit/Observation/Transfer Diagnosis at time of Disposition: Alcohol abuse, Thrombocytopenia, Pancytopenia - Discharge Dispostion Disposition: HOME Condition at time of disposition: Improved - Referrals Referrals: Kristopher Latham MD [Staff Physician] - - Patient Instructions Printed Discharge Instructions: DI for Alcohol Abuse Additional Instructions: you need to follow up with a dentist. call your insurance to find out who a provider is that takes your insurance. you should also follow up with internal medicine. call Dr Kristopher Latham at the [facility]. you can take motrin 400 mg every 8 hrs as needed for pain. return for any problems or concnerns. understand your liver and blood levels are being affected by your alcohol abuse. if you wish to go to detox, you should go to [address] and go to intake. - Post Discharge Activity
--- NOTE | 2018-07-26 22:35 | PDOC ---
*Physical Exam - Vital Signs Last Vital Signs Temp Pulse Resp BP Pulse Ox 87 18 127/50 L 100 07/26/18 14:40 07/26/18 14:40 07/26/18 14:40 07/26/18 14:40 - Physical Exam General Appearance: Yes: Nourished Respiratory/Chest: positive: Lungs Clear Cardiovascular: positive: Regular Rhythm, Regular Rate, S1, S2 Neurologic: positive: Fully Oriented, Alert, Normal Mood/Affect, Other (slurred speech, unsteady gait) ED Treatment Course - LABORATORY CBC & Chemistry Diagram: 07/26/18 15:55 07/26/18 15:55 - ADDITIONAL ORDERS Additional order review: Laboratory Results 07/26/18 07/26/18 15:55 15:55 PT with INR 15.40 H INR 1.30 H PTT (Actin FS) 34.9 Sodium 132 L Potassium 3.7 Chloride 101 Carbon Dioxide 26 Anion Gap 5 L BUN 5 L Creatinine 0.7 Creat Clearance w eGFR > 60 Random Glucose 100 Calcium 7.9 L Total Bilirubin 2.7 H AST 40 H ALT 19 Alkaline Phosphatase 169 H Total Protein 8.6 H Albumin 2.8 L Alcohol, Quantitative 272.2 H 07/26/18 15:55 RBC 2.93 L MCV 107.7 H MCHC 35.4 RDW 15.2 MPV 6.8 L D Neutrophils % 63.3 D Lymphocytes % 20.8 D Monocytes % 8.0 Eosinophils % 7.6 H Basophils % 0.3 - Medications Given in the ED: ED Medications Discontinued Medications Generic Name Dose Route Start Last Admin Trade Name Freq PRN Reason Stop Dose Admin Bupivacaine HCl 2 mg 07/26/18 16:43 07/26/18 17:41 Marcaine 0.5% - IJ 07/26/18 16:44 2 mg ONCE ONE Administration Lidocaine HCl 2 ml 07/26/18 16:40 07/26/18 17:41 Xylocaine 1% SQ 07/26/18 16:41 2 ml ONCE ONE Administration Medical Decision Making - Medical Decision Making 07/26/18 22:33 pt signed out to me at 5 pm, awaiting sobriety. etoh level 272 at 1500, on my repeat evaluation at 1999 pt still unsteady. will allow further sobering and reassessment. 07/26/18 23:05 pt awake alert. ambulating without difficulty had chronic thrombocytopenia, liver failure. requesting dc home. offered detox declined. will dc to home. given followup at resident clinic. *DC/Admit/Observation/Transfer Diagnosis at time of Disposition: Alcohol abuse, Thrombocytopenia, Pancytopenia - Discharge Dispostion Disposition: HOME Condition at time of disposition: Improved Decision to Admit order: No - Referrals Referrals: Kristopher Latham MD [Staff Physician] - - Patient Instructions Printed Discharge Instructions: DI for Alcohol Abuse Additional Instructions: you need to follow up with a dentist. call your insurance to find out who a provider is that takes your insurance. you should also follow up with internal medicine. call Dr Kristopher Latham at the [facility]. you can take motrin 400 mg every 8 hrs as needed for pain. return for any problems or concnerns. understand your liver and blood levels are being affected by your alcohol abuse. if you wish to go to detox, you should go to [address] go to intake. - Post Discharge Activity
== END 2018-07-26 23:43 | disposition home or self-care (01) ==
LOC: JER 13:51
PROC: 3E033GC Introduction of Other Therapeutic Substance into Peripheral Vein, Percutaneous Approach (ICD-10-PCS; principal; 2018-07-26)
PROC: 3E023NZ Introduction of Analgesics, Hypnotics, Sedatives into Muscle, Percutaneous Approach (ICD-10-PCS; 2018-07-26)
DX: F10.10 Alcohol abuse, uncomplicated (principal); D69.6 Thrombocytopenia, unspecified; D61.818 Other pancytopenia; F17.210 Nicotine dependence, cigarettes, uncomplicated
CPT/HCPCS: 36415; 80053; 80307; 85025; 85610; 85730; 87389; 99282-25; J7030

== ENCOUNTER 2018-09-22 05:12 | Emergency (ER) | payer OTHER ==
--- NOTE | 2018-09-22 05:15 | PDOC ---
History of Present Illness - General Stated Complaint: BI LATERAL LEG PAIN/INTOX Time Seen by Provider: 09/22/18 05:15 History Source: Patient Exam Limitations: No Limitations - History of Present Illness Initial Comments: 09/22/18 05:15 48 year old male with PMH pancytopenia, HTN, medication noncompliance, ETOH abuse, marijuana abuse presented to ED for bilateral lower extremity rash x3 months associated with pain and pruritus. Pt denied other symptoms. Pt admitted to ETOH and marijuana use tonight. Allergies: Clarithromycin Past History - Past Medical History Allergies/Adverse Reactions: Allergies Allergy/AdvReac Type Severity Reaction Status Date / Time clarithromycin [From Biaxin] Allergy Intermediate Hives Verified 09/22/17 03:09 Home Medications: Ambulatory Orders NK [No Known Home Medication] 09/22/18 Anemia: No Asthma: No Cancer: No Cardiac Disorders: No CVA: No COPD: No CHF: No Dementia: No Diabetes: No GI Disorders: No Disorders: No HTN: No Hypercholesterolemia: No Kidney Stones: No Liver Disease: No Seizures: No Thyroid Disease: No - Surgical History Abdominal Surgery: No Appendectomy: No Cardiac Surgery: No Cholecystectomy: No Gastric Stapling: No GI Surgery: No Lung Surgery: No Neurologic Surgery: No Orthopedic Surgery: No - Reproductive History Testicular Surgery: No - Immunization History Immunization Up to Date: Yes - Suicide/Smoking/Psychosocial Hx Smoking Status: Yes Smoking History: Current some day smoker Have you smoked in the past 12 months: Yes Number of Cigarettes Smoked Daily: 2 Cigars Per Day: 0 'Breaking Loose' booklet given: 05/17/18 Hx Alcohol Use: No Drug/Substance Use Hx: Yes Substance Use Type: Alcohol, Marijuana Hx Substance Use Treatment: Yes ([facility]) Review of Systems - Review of Systems Able to Perform ROS?: Yes Comments:: 09/22/18 05:17 General: denied fever, chills, generalized weakness. HEENT: denied sore throat, rhinorrhea, ear pain. Heart: denied chest pain, palpitations, syncope, diaphoresis. Respiratory: denied shortness of breath, cough, sputum production, hemoptysis. Abdomen: denied abdominal pain, nausea, vomiting, diarrhea, constipation, blood in stool. : denied dysuria, increased urinary frequency, hematuria, urinary incontinence , flank pain. Back: denied back pain. Musculoskeletal: denied joint pain, muscle pain, joint swelling. Neurological: denied headache, dizziness, numbness, tingling, weakness. Skin: admitted to rash. denied laceration, abrasion. *Physical Exam - Physical Exam Comments: 09/22/18 05:29 Constitutional: Well-nourished, Well-developed, appearing stated age. smells of ETOH. appears intoxicated. HEENT: head is normocephalic, atraumatic. EOMI. PERRLA. Neck: supple. Full ROM. Heart: regular rhythm. no murmurs, rubs or gallops. Lungs: clear to auscultation bilaterally. no crackles, rhonchi or wheezing. no stridor. Abdomen: soft, nontender. normal bowel sounds. no rebound, guarding, masses. Extremities: peripheral pulses intact. no lower extremity edema. Neurological: CN 2-12 grossly intact. moves all four extremities. Psych: awake, alert, oriented x3. follows commands. answers questions appropriately. Skin: petechial rash to bilateral lower extremities. ED Treatment Course - LABORATORY CBC & Chemistry Diagram: 09/22/18 05:40 09/22/18 05:40 Medical Decision Making - Medical Decision Making 09/22/18 05:30 48 year old male with above PMH presented to ED for bilateral petechial rash to lower legs. Vital Signs Temperature 97.9 F 09/22/18 05:20 Pulse Rate 82 09/22/18 05:20 Respiratory Rate 16 09/22/18 05:20 Blood Pressure 117/66 09/22/18 05:20 O2 Sat by Pulse Oximetry (%) 97 09/22/18 05:20 Afebrile. No tachycardia. No tachypnea. No hypotension. No hypoxia on room air. Labs ordered: CBC, CMP, PT/PTT/INR Imaging ordered: none Medications ordered: banana bag Pt refused IV and banana bag. 09/22/18 06:10 CBC WBC 2.8 K/mm3 (4.0-10.0) L 09/22/18 05:40 RBC 3.27 M/mm3 (4.00-5.60) L 09/22/18 05:40 Hgb 11.9 GM/dL (11.7-16.9) 09/22/18 05:40 Hct 34.9 % (35.4-49) L 09/22/18 05:40 MCV 106.7 fl (80-96) H 09/22/18 05:40 MCH 36.5 pg (25.7-33.7) H 09/22/18 05:40 MCHC 34.2 g/dl (32.0-35.9) 09/22/18 05:40 RDW 13.7 % (11.9-15.9) 09/22/18 05:40 Plt Count 47 K/MM3 (134-434) L 09/22/18 05:40 MPV 6.9 fl (7.5-11.1) L 09/22/18 05:40 Absolute Neuts (auto) 1.5 K/mm3 (1.5-8.0) 09/22/18 05:40 Neutrophils % 53.8 % (42.8-82.8) 09/22/18 05:40 Lymphocytes % 29.5 % (8-40) D 09/22/18 05:40 Monocytes % 11.6 % (3.8-10.2) H 09/22/18 05:40 Eosinophils % 4.5 % (0-4.5) 09/22/18 05:40 Basophils % 0.6 % (0-2.0) 09/22/18 05:40 Nucleated RBC % 0 % (0-0) 09/22/18 05:40 Pancytopenia. Baseline thormbocytopenia in the 20s, todays improved. Macrocytic anemia. Consistent with ETOH abuse. 09/22/18 06:12 Pt continually getting out of bed and leaving room, gait unsteady, appears intoxicated but alert and oriented. Pt asked to return to bed for fear of fall. 09/22/18 06:15 INR, PTT INR 1.25 (0.83-1.09) H 09/22/18 05:40 Hypocoaguable. 09/22/18 07:10 Pt signed out to Dr. Griffith Pending CMP. Pt expressed need for further home health care. Pt offered geriatric social work professor consult. Pt stated "I dont want to talk to the geriatric social work professor." 09/23/18 16:12 Follow up: CMP Sodium 136 mmol/L (136-145) 09/22/18 05:40 Potassium 3.8 mmol/L (3.5-5.1) 09/22/18 05:40 Chloride 107 mmol/L (98-107) 09/22/18 05:40 Carbon Dioxide 23 mmol/L (21-32) 09/22/18 05:40 Anion Gap 7 MMOL/L (8-16) L 09/22/18 05:40 BUN 8 mg/dL (7-18) 09/22/18 05:40 Creatinine 0.7 mg/dL (0.55-1.3) 09/22/18 05:40 Creat Clearance w eGFR 119.37 (>60) 09/22/18 05:40 Random Glucose 93 mg/dL (74-106) 09/22/18 05:40 Calcium 8.4 mg/dL (8.5-10.1) L 09/22/18 05:40 Total Bilirubin 1.4 mg/dL (0.2-1) H 09/22/18 05:40 AST 44 U/L (15-37) H 09/22/18 05:40 ALT 24 U/L (13-61) 09/22/18 05:40 Alkaline Phosphatase 153 U/L (45-117) H 09/22/18 05:40 Total Protein 8.8 g/dl (6.4-8.2) H 09/22/18 05:40 Albumin 2.9 g/dl (3.4-5.0) L 09/22/18 05:40 No electrolyte abnormalities. No LENI. No hyperglycemia. Mild elevation of AST -Consistent with recent ETOH ingestion ETOH level 280. Pt was discharged to home. *DC/Admit/Observation/Transfer Diagnosis at time of Disposition: Petechiae, Alcohol use with intoxication - Discharge Dispostion Disposition: HOME Condition at time of disposition: Improved - Referrals [place] [facility] [place] [facility] [place] Group] Barbara Solorio [Primary Care Provider] - - Patient Instructions Printed Discharge Instructions: DI for Petechiae Additional Instructions: You came into the ED for a rash on your lower legs. We examined you and determined it to be a petechial rash because of low platelets. Your platelet count was 47 which is higher than the level you had when you were here previously. Follow up with your primary care physician in the next 2-3 days to discuss this ED visit and for further evaluation of your symptoms. Your care is not complete until you do so. Call and make an appointment. You have been referred to the [facility] in case you do not have a primary care doctor. Immediate medical attention is required if you have: a seizure or develop tremors or hallucinations and do not have access to alcohol, vomiting, chest pain, shortness of breath, abdominal pain, thoughts of self-harm, or an other new or concerning symptoms. If you think you are having an emergency, call for emergency medical services or present to the emergency department right away. - Post Discharge Activity
--- NOTE | 2018-09-22 05:38 | PDOC ---
Attending Attestation - Resident Resident Name: Sanna Ny - ED Attending Attestation I have performed the following: I have examined & evaluated the patient, The case was reviewed & discussed with the resident, I agree w/resident's findings & plan, Exceptions are as noted - HPI HPI: 09/22/18 05:36 48m etoh abuse here acutely intoxicated complaining of pain and pruritis to bilateral lower extremities where he has had a rash for the past "2 or 3 months. " Pt denies any episodes of bleeding. EMR chart review shows hx of pancytopenia. Last visit on 07/26/18 was for gum bleeding, thrombocytopenia on labs. Exam on 07/26/18 documents bilateral pedal rash but does not further characterize. - Physicial Exam PE: 09/22/18 05:47 Patient clinically intoxicated, unkempt, +AOB, slurred speech, no tongue fasciculations Bilateral lower extremities with non-palpable, non-blanching, petechia/purpura on anterior aspect of lower leg No swelling, deformity Non-tender - Medical Decision Making 09/22/18 05:48 Concern for coagulopathy, thrombocytopenia, less likely microemboli, more likely 2/2 chronic processes from his alcoholism. Denies recent viral illness, evaluated for HIV on 07/26/18 f/u labs including cbc, cmp, coags dispo per clinical course
[2018-09-22 05:54] LABS: BASO % 0.6 % (0-2.0); EOS % 4.5 % (0-4.5); HEMATOCRIT 34.9 % (35.4-49); HEMOGLOBIN 11.9 GM/dL (11.7-16.9); LYMPH % 29.5 % (8-40); MCH 36.5 pg (25.7-33.7); MCHC 34.2 g/dl (32.0-35.9); MEAN CELL VOLUME 106.7 fl (80-96); MEAN PLT VOLUME 6.9 fl (7.5-11.1); MONO % 11.6 % (3.8-10.2); NEUT % 53.8 % (42.8-82.8); PLATELET COUNT 47 K/MM3 (134-434); RBC 3.27 M/mm3 (4.00-5.60); RDW 13.7 % (11.9-15.9); WHITE BLOOD COUNT 2.8 K/mm3 (4.0-10.0)
[2018-09-22 05:57] VITALS: BP 117/66; PULSE 82; TEMP 97.9; BMI 32.3
[2018-09-22 06:11] LABS: INR 1.25 (0.83-1.09); PROTHROMBIN TIME (PATIENT) 14.8 SEC (9.7-13.0)
[2018-09-22] MEDS ORDERED: FOLIC ACID INJECTION - 1 MG, THIAMINE HCL 100 MG, MULTIVIT INJECTION ADULT 10 ML in SOD... IVPB ONE (06:44)
--- NOTE | 2018-09-22 07:12 | PDOC ---
*Physical Exam - Vital Signs Last Vital Signs Temp Pulse Resp BP Pulse Ox 97.9 F 82 16 117/66 97 09/22/18 05:20 09/22/18 05:20 09/22/18 05:20 09/22/18 05:20 09/22/18 05:20 ED Treatment Course - LABORATORY CBC & Chemistry Diagram: 09/22/18 05:40 09/22/18 05:40 - ADDITIONAL ORDERS Additional order review: Laboratory Results 09/22/18 05:40 PT with INR 14.80 H INR 1.25 H PTT (Actin FS) 39.0 H 09/22/18 05:40 RBC 3.27 L MCV 106.7 H MCHC 34.2 RDW 13.7 MPV 6.9 L Neutrophils % 53.8 Lymphocytes % 29.5 D Monocytes % 11.6 H Eosinophils % 4.5 Basophils % 0.6 Medical Decision Making - Medical Decision Making Patient signed out by Dr. Ny 48yo M with PMH of ETOH and THC use, pancytopenia presenting with petechial rash. Pending CMP. Also, awaiting clinical sobriety. 09/22/18 07:10 Patient endorsing headache. Motrin ordered ETOH is 280, patient will be metabolize to an appropriate amount at around 11:00 Patient observed walking around without instability. He is repeatedly coming up to physician's computer. Asking to be discharged. Patient told he needs to stay until 11am. CMP unremarkable 09/22/18 08:34 Patient once again observed walking around department, asking to be discharged. 09/22/18 08:51 Patient endorsing desire to go to detox Will ask again after some time to see if his decision remains consistent 09/22/18 10:08 Patient requests to go home. Plan to discharge. 09/22/18 11:09 *DC/Admit/Observation/Transfer Diagnosis at time of Disposition: Petechiae, Alcohol use with intoxication - Discharge Dispostion Disposition: HOME Condition at time of disposition: Improved - Referrals Referrals: Barbara Solorio [Primary Care Provider] - [facility] [place] [facility] [place] [Provider Group] - Patient Instructions Printed Discharge Instructions: DI for Petechiae Additional Instructions: You came into the ED for a rash on your lower legs. We examined you and determined it to be a petechial rash because of low platelets. Your platelet count was 47 which is higher than the level you had when you were here previously. Follow up with your primary care physician in the next 2-3 days to discuss this ED visit and for further evaluation of your symptoms. Your care is not complete until you do so. Call and make an appointment. You have been referred to the [facility] in case you do not have a primary care doctor. Immediate medical attention is required if you have: a seizure or develop tremors or hallucinations and do not have access to alcohol, vomiting, chest pain, shortness of breath, abdominal pain, thoughts of self-harm, or an other new or concerning symptoms. If you think you are having an emergency, call for emergency medical services or present to the emergency department right away. - Post Discharge Activity
[2018-09-22 07:54] LABS: ALBUMIN 2.9 g/dl (3.4-5.0); ALK PHOS 153 U/L (45-117); ANION GAP 7 MMOL/L (8-16); BILIRUBIN,TOTAL 1.4 mg/dL (0.2-1); BLOOD UREA NITROGEN 8 mg/dL (7-18); CALCIUM 8.4 mg/dL (8.5-10.1); CHLORIDE 107 mmol/L (98-107); CO2 23 mmol/L (21-32); CREATININE 0.7 mg/dL (0.55-1.3); GLUCOSE,RANDOM 93 mg/dL (74-106); POTASSIUM 3.8 mmol/L (3.5-5.1); SGOT/AST 44 U/L (15-37); SGPT/ALT 24 U/L (13-61); SODIUM 136 mmol/L (136-145); TOT PROT 8.8 g/dl (6.4-8.2)
[2018-09-22] MEDS ORDERED: IBUPROFEN 600 MG TABLET (FP) PO ONE ×2 (08:32→08:58)
[2018-09-22 09:18] LABS: ANISOCYTOSIS 0; MACROCYTOSIS 1+; PLATELET ESTIMATE DECREASED
== END 2018-09-22 14:28 | disposition home or self-care (01) ==
LOC: JER 05:12
PROC: 3E033GC Introduction of Other Therapeutic Substance into Peripheral Vein, Percutaneous Approach (ICD-10-PCS; principal; 2018-09-22)
DX: R23.3 Spontaneous ecchymoses (principal); F10.120 Alcohol abuse with intoxication, uncomplicated; Y90.8 Blood alcohol level of 240 mg/100 ml or more; I10 Essential (primary) hypertension; D61.818 Other pancytopenia; Z91.14 Patient's other noncompliance with medication regimen
CPT/HCPCS: 36415; 80053; 80307; 85025; 85610; 85730; 96365; 96366; 99283-25; J7030

== ENCOUNTER 2018-10-31 13:07 | Inpatient (IN) | payer OTHER ==
[2018-10-31 16:50] VITALS: BMI 29.7
--- NOTE | 2018-10-31 17:50 | HP ---
CIWA Score Nausea/Vomitin Muscle Tremors: 1-None Visible, but [place] Anxiety: 4-Mod. Anxious/Guarded Agitation: 1-Slight > Activity Paroxysmal Sweats: 2 Orientation: 0-Oriented Tacttile Disturbances: 2-Mild Itch/Numbness/Burn Auditory Disturbances: 0-None Visual Disturbances: 0-None Headache: 2-Mild CIWA-Ar Total Score: 15 - Admission Criteria OASAS Guidelines: Admission for Medically Managed Detox: Requires at least one of the followin. CIWA greater than 12 2. Seizures within the past 24 hours 3. Delirium tremens within the past 24 hours 4. Hallucinations within the past 24 hours 5. Acute intervention needed for co occurring medical disorder 6. Acute intervention needed for co occurring psychiatric disorder 7. Severe withdrawal that cannot be handled at a lower level of care (continued vomiting, continued diarrhea, abnormal vital signs) requiring intravenous medication and/or fluids 8. Admission ROS [facility] Allergies/Adverse Reactions: Allergies Allergy/AdvReac Type Severity Reaction Status Date / Time clarithromycin [From Biaxin] Allergy Intermediate Hives Verified 09/22/17 03:09 History of Present Illness: pt here requesting detox from etoh use , reports 8-10 beers/day since 20 years ago , latest use this mornings , usually starts drinking in the mornings , reports tremors if not drinking , denies seizures , denies blackouts , + falls while intoxicated most recently 1 week ago fell on the sidewalk w / injury to left knee did not seek medical attention until this morning , went to [facility] ER , states does not have any d/c paperwork , was sent to this facility and he walked by himself from the other facility . Longest sobriety - a few months " I went without it " . ESTRELLITA 0.082 denies regular cannabis use . tobacco : 1/2 ppd , since age 35 , interested in smoking cessation . PMHX : leukopenia , PSHx denies PSych : depression , anxiety Meds : tried meds in the past , stopped 1 mo ago " I don't remember " name of meds . " it wasn't the good stuff, it wasn't Diazepam " . SHx : homeless Exam Limitations: Clinical Condition, Intoxication - Ebola screening Have you traveled outside of the country in the last 21 days: No Have you had contact with anyone from an Ebola affected area: No - Review of Systems Constitutional: Loss of Appetite, Malaise EENT: reports: Other (denies vision loss , denies dysphagia) Respiratory: reports: SOB at Rest (reports feeling uncomfortable) Cardiac: reports: No Symptoms Reported GI: reports: Nausea, Poor Appetite : reports: No Symptoms Reported Musculoskeletal: reports: Back Pain, Muscle Pain, Other (" sleeping on park benches , it's not very comfortable ") Integumentary: reports: Other (bruising from fall 1 week ago) Neuro: reports: Headache, Unsteady Gait Endocrine: reports: No Symptoms Reported Psychiatric: reports: Orientated x3, Anxious, Depressed Patient History - Patient Medical History Hx Anemia: No Hx Asthma: No Hx Chronic Obstructive Pulmonary Disease (COPD): No Hx Cancer: No Hx Cardiac Disorders: No Hx Congestive Heart Failure: No Hx Hypertension: No Hx Hypercholesterolemia: No Hx Pacemaker: No HX Cerebrovascular Accident: No Hx Seizures: No Hx Dementia: No Hx Diabetes: No Hx Gastrointestinal Disorders: No Hx Liver Disease: No Hx Genitourinary Disorders: No Hx Sexually Transmitted Disorders: No Hx Renal Disease (ESRD): No Hx Thyroid Disease: No Hx Human Immunodeficiency Virus (HIV): No Hx Hepatitis C: No Hx Depression: No Hx Suicide Attempt: No Hx Bipolar Disorder: No Hx Schizophrenia: No - Patient Surgical History Past Surgical History: No Hx Neurologic Surgery: No Hx Cataract Extraction: No Hx Cardiac Surgery: No Hx Lung Surgery: No Hx Breast Surgery: No Hx Breast Biopsy: No Hx Abdominal Surgery: No Hx Appendectomy: No Hx Cholecystectomy: No Hx Genitourinary Surgery: No Hx Section: No Hx Orthopedic Surgery: No Anesthesia Reaction: No - PPD History Date: 05/19/18 - Smoking Cessation Smoking history: Current some day smoker Have you smoked in the past 12 months: Yes Aproximately how many cigarettes per day: 2 Cigars Per Day: 0 Hx Chewing Tobacco Use: No Initiated information on smoking cessation: No - Substances abused Alcohol Substance route: Oral Amount used: 10 beers Age of first use: 23 Date of last use: 10/31/18 Family Disease History - Family Disease History Family Disease History: Heart Disease: Mother (HTN), Respiratory: Father (77 A & W ), Other: Brother (2 , A & W ), Sister (2, A & W ) Other Family History: reports he has no children Admission Physical Exam BHS - Vital Signs Vital Signs: Vital Signs - 24 hr 10/31/18 16:46 Temperature 97.3 F L Pulse Rate 60 Respiratory 20 Rate Blood Pressure 104/78 - Physical General Appearance: Yes: Disheveled, Mild Distress, Moderate Distress, Irritable , Anxious HEENTM: Yes: EOMI, Hearing grossly Normal, Normocephalic, Normal Voice Respiratory: Yes: Chest Non-Tender, Lungs Clear, Normal Breath Sounds, No Respiratory Distress, No Accessory Muscle Use Neck: Yes: No masses,lesions,Nodules, Trachea in good position Cardiology: Yes: Regular Rhythm, Regular Rate, S1, S2 Abdominal: Yes: Normal Bowel Sounds, Non Tender, Soft, Protuberent Musculoskeletal: Yes: full range of Motion, Gait Steady, Other (left knee excoriation , ecchymosis , mild edema, no erythema , no deformity , full ROM) Neurological: Yes: Fully Oriented, Alert, Motor Strength 5/5 Integumentary: Yes: Warm, Other (florian LE non- pitting edema pretibially) - Diagnostic (1) Alcohol dependence with uncomplicated withdrawal Current Visit: Yes Status: Acute (2) Alcohol use with intoxication Current Visit: Yes Status: Acute (3) Nicotine dependence Current Visit: Yes Status: Chronic Qualifiers: Nicotine product type: cigarettes Substance use status: uncomplicated Qualified Code(s): F17.210 - Nicotine dependence, cigarettes, uncomplicated Breathalyzer - Breathalyzer Breathalyzer: 0.082 Urine Drug Screen - Test Device Lot number: [id number] Expiration date: 10/04/19 - Control Is test valid?: Yes - Results Drug screen NEGATIVE: No Urine drug screen results: THC-Marijuana Inpatient Rehab Admission - Rehab Decision to Admit Inpatient rehab admission?: No
[2018-10-31] MEDS ORDERED: MELATONIN 5 MG TABLETS PO PRN (18:16)
[2018-10-31] MEDS ORDERED: MENTHOL/PHENOL 1 EACH UD MM PRN (18:16)
[2018-10-31] MEDS ORDERED: BISMUTH SUBSALICYLATE 524 MG/30 ML UD PO PRN (18:16)
[2018-10-31] MEDS ORDERED: NICOTINE POLACRILEX 2 MG GUM BUC PRN (18:16)
[2018-10-31] MEDS ORDERED: IBUPROFEN 400 MG TABLET (FP) PO PRN (18:16)
[2018-10-31] MEDS ORDERED: MAGNESIUM CITRATE 300 ML BOTTLE PO PRN (18:16)
[2018-10-31] MEDS ORDERED: MAGNESIUM HYDROX 2400MG/30ML ORAL SUSPENSION 30 ML CUP PO PRN (18:16)
[2018-10-31] MEDS ORDERED: ACETAMINOPHEN 325 MG TABLET (FP) PO PRN ×2 (18:16)
[2018-10-31] MEDS ORDERED: hydrOXYzine PAMOATE 25 MG CAPSULE (FP) PO PRN (18:16)
[2018-10-31] MEDS: chlordiazePOXIDE HCL 25 MG CAPSULE PO PRN (19:28)
[2018-10-31] MEDS: BACITRACIN/POLYMYXIN B SULFATE 15 GM TUBE TP SCH (22:16)
[2018-10-31] MEDS: chlordiazePOXIDE HCL 25 MG CAPSULE PO SCH (22:16)
[2018-10-31] MEDS: THIAMINE HCL 100 MG TABLET (FP) PO SCH (22:16)
[2018-11-01] MEDS: chlordiazePOXIDE HCL 25 MG CAPSULE PO SCH ×4 (05:45→22:19)
[2018-11-01 10:09] LABS: HEMATOCRIT 30.6 % (35.4-49); HEMOGLOBIN 10.7 GM/dL (11.7-16.9); MCH 36.1 pg (25.7-33.7); MCHC 34.9 g/dl (32.0-35.9); MEAN CELL VOLUME 103.6 fl (80-96); MEAN PLT VOLUME 7.8 fl (7.5-11.1); RBC 2.95 M/mm3 (4.00-5.60); RDW 13.9 % (11.9-15.9)
[2018-11-01] MEDS: PRENATAL VITAMINS W/ FOLIC ACID TABLET (FP) PO SCH (10:10)
[2018-11-01] MEDS: BACITRACIN/POLYMYXIN B SULFATE 15 GM TUBE TP SCH ×2 (10:10→22:19)
[2018-11-01 10:23] LABS: ALBUMIN 2.5 g/dl (3.4-5.0); BILIRUBIN,TOTAL 2.6 mg/dL (0.2-1); CALCIUM 8.8 mg/dL (8.5-10.1); CREATININE 0.6 mg/dL (0.55-1.3); POTASSIUM 4.2 mmol/L (3.5-5.1)
[2018-11-01 10:37] LABS: PLATELET COUNT 33 K/MM3 (134-434); WHITE BLOOD COUNT 1.6 K/mm3 (4.0-10.0)
--- NOTE | 2018-11-01 11:43 | PN ---
S CIWA - CIWA Score Nausea/Vomitin-Mild Nausea/No Vomiting Muscle Tremors: 3 Anxiety: 2 Agitation: 2 Paroxysmal Sweats: 1-Minimal Palms Moist Orientation: 1-Uncertain about Date Tacttile Disturbances: 1-Very Mild Itch/Numbness Auditory Disturbances: 0-None Visual Disturbances: 0-None Headache: 2-Mild CIWA-Ar Total Score: 13 BHS Progress Note (SOAP) Subjective: tremor tired muscle sore tired prefers resting on bed Objective: 11/01/18 11:48 Vital Signs Temperature 98.6 F 11/01/18 09:05 Pulse Rate 82 11/01/18 09:05 Respiratory Rate 18 11/01/18 09:05 Blood Pressure 128/68 11/01/18 09:05 O2 Sat by Pulse Oximetry (%) Laboratory Last Values WBC 1.6 K/mm3 (4.0-10.0) L* 11/01/18 07:00 RBC 2.95 M/mm3 (4.00-5.60) L 11/01/18 07:00 Hgb 10.7 GM/dL (11.7-16.9) L 11/01/18 07:00 Hct 30.6 % (35.4-49) L 11/01/18 07:00 MCV 103.6 fl (80-96) H 11/01/18 07:00 MCH 36.1 pg (25.7-33.7) H 11/01/18 07:00 MCHC 34.9 g/dl (32.0-35.9) 11/01/18 07:00 RDW 13.9 % (11.9-15.9) 11/01/18 07:00 Plt Count 33 K/MM3 (134-434) L* D 11/01/18 07:00 MPV 7.8 fl (7.5-11.1) D 11/01/18 07:00 Sodium 139 mmol/L (136-145) 11/01/18 07:00 Potassium 4.2 mmol/L (3.5-5.1) 11/01/18 07:00 Chloride 105 mmol/L (98-107) 11/01/18 07:00 Carbon Dioxide 28 mmol/L (21-32) 11/01/18 07:00 Anion Gap 6 MMOL/L (8-16) L 11/01/18 07:00 BUN 9 mg/dL (7-18) 11/01/18 07:00 Creatinine 0.6 mg/dL (0.55-1.3) 11/01/18 07:00 Est GFR (CKD-EPI)AfAm 135.87 11/01/18 07:00 Est GFR (CKD-EPI)NonAf 117.23 11/01/18 07:00 Random Glucose 98 mg/dL (74-106) 11/01/18 07:00 Calcium 8.8 mg/dL (8.5-10.1) 11/01/18 07:00 Total Bilirubin 2.6 mg/dL (0.2-1) H 11/01/18 07:00 AST 37 U/L (15-37) 11/01/18 07:00 ALT 21 U/L (13-61) 11/01/18 07:00 Alkaline Phosphatase 117 U/L (45-117) 11/01/18 07:00 Total Protein 7.0 g/dl (6.4-8.2) 11/01/18 07:00 Albumin 2.5 g/dl (3.4-5.0) L 11/01/18 07:00 lab noted chronic low wbc repeat cbc discontinue motrn Assessment: 11/01/18 11:49 withdrawal sx repeat cbc Plan: continue detox
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
[2018-11-01] MEDS: THIAMINE HCL 100 MG TABLET (FP) PO SCH (22:19)
[2018-11-01] MEDS: MELATONIN 5 MG TABLETS PO PRN (22:19)
[2018-11-02] MEDS: chlordiazePOXIDE HCL 25 MG CAPSULE PO SCH ×3 (05:59→17:30)
[2018-11-02] MEDS: PRENATAL VITAMINS W/ FOLIC ACID TABLET (FP) PO SCH (10:13)
[2018-11-02] MEDS: BACITRACIN/POLYMYXIN B SULFATE 15 GM TUBE TP SCH ×2 (10:14→22:19)
[2018-11-02 10:29] LABS: BASO % 0.6 % (0-2.0); EOS % 4.7 % (0-4.5); HEMATOCRIT 33.4 % (35.4-49); HEMOGLOBIN 11.5 GM/dL (11.7-16.9); LYMPH % 35.6 % (8-40); MCH 36.8 pg (25.7-33.7); MCHC 34.4 g/dl (32.0-35.9); MEAN CELL VOLUME 107.1 fl (80-96); MEAN PLT VOLUME 8.8 fl (7.5-11.1); NEUT % 40.1 % (42.8-82.8); PLATELET COUNT 40 K/MM3 (134-434); RBC 3.12 M/mm3 (4.00-5.60); RDW 14.4 % (11.9-15.9)
[2018-11-02 10:43] LABS: WHITE BLOOD COUNT 1.8 K/mm3 (4.0-10.0)
[2018-11-02 12:22] LABS: ANISOCYTOSIS 1+; MACROCYTOSIS 1+; OVALOCYTE 1+; PLATELET ESTIMATE DECREASED; TEAR DROP CELLS 1+
--- NOTE | 2018-11-02 13:33 | PN ---
S CIWA - CIWA Score Nausea/Vomitin-Mild Nausea/No Vomiting Muscle Tremors: 3 Anxiety: 2 Agitation: 3 Paroxysmal Sweats: 1-Minimal Palms Moist Orientation: 0-Oriented Tacttile Disturbances: 0-None Auditory Disturbances: 0-None Visual Disturbances: 0-None Headache: 1-Very Mild CIWA-Ar Total Score: 11 BHS Progress Note (SOAP) Subjective: reporting that long history of low wbc and platelet Laboratory Tests 11/01/18 11/01/18 11/01/18 07:00 07:00 07:00 WBC 1.6 L* RBC 2.95 L Hgb 10.7 L Hct 30.6 L MCV 103.6 H MCH 36.1 H MCHC 34.9 RDW 13.9 Plt Count 33 L* D MPV 7.8 D Absolute Neuts (auto) Neutrophils % Neutrophils % (Manual) Band Neutrophils % Lymphocytes % Lymphocytes % (Manual) Monocytes % Monocytes % (Manual) Eosinophils % Eosinophils % (Manual) Basophils % Basophils % (Manual) Myelocytes % (Man) Promyelocytes % (Man) Blast Cells % (Manual) Nucleated RBC % Metamyelocytes Hypochromia Platelet Estimate Polychromasia Poikilocytosis Anisocytosis Microcytosis Macrocytosis Tear Drop Cells Ovalocytes Sodium 139 Potassium 4.2 Chloride 105 Carbon Dioxide 28 Anion Gap 6 L BUN 9 Creatinine 0.6 Est GFR (CKD-EPI)AfAm 135.87 Est GFR (CKD-EPI)NonAf 117.23 Random Glucose 98 Calcium 8.8 Total Bilirubin 2.6 H AST 37 ALT 21 Alkaline Phosphatase 117 Total Protein 7.0 Albumin 2.5 L RPR Titer Nonreactive 11/02/18 07:30 WBC 1.8 L* RBC 3.12 L Hgb 11.5 L Hct 33.4 L MCV 107.1 H MCH 36.8 H MCHC 34.4 RDW 14.4 Plt Count 40 L D MPV 8.8 D Absolute Neuts (auto) 0.7 L Neutrophils % 40.1 L D Neutrophils % (Manual) 44.3 Band Neutrophils % 1.0 Lymphocytes % 35.6 D Lymphocytes % (Manual) 36.1 Monocytes % 19.0 H Monocytes % (Manual) 12 H Eosinophils % 4.7 H Eosinophils % (Manual) 6.2 H Basophils % 0.6 Basophils % (Manual) 0.0 Myelocytes % (Man) 0 Promyelocytes % (Man) 0 Blast Cells % (Manual) 0 Nucleated RBC % 0 Metamyelocytes 0 Hypochromia 0 Platelet Estimate Decreased Polychromasia 0 Poikilocytosis 0 Anisocytosis 1+ Microcytosis 0 Macrocytosis 1+ Tear Drop Cells 1+ Ovalocytes 1+ Sodium Potassium Chloride Carbon Dioxide Anion Gap BUN Creatinine Est GFR (CKD-EPI)AfAm Est GFR (CKD-EPI)NonAf Random Glucose Calcium Total Bilirubin AST ALT Alkaline Phosphatase Total Protein Albumin RPR Titer service writer called [phone] appointment on 11/06/[address] Lobato for possible hemotologist referral patient is willing to consider appointment Objective: 11/02/18 13:37 Vital Signs Temperature 97.0 F L 11/02/18 09:09 Pulse Rate 85 11/02/18 09:09 Respiratory Rate 18 11/02/18 09:09 Blood Pressure 123/78 11/02/18 09:09 O2 Sat by Pulse Oximetry (%) 11/02/18 07:30 WBC 1.8 L* RBC 3.12 L Hgb 11.5 L Hct 33.4 L MCV 107.1 H MCHC 34.4 RDW 14.4 Plt Count 40 L D Neutrophils % 40.1 L D Lymphocytes % 35.6 D Monocytes % 19.0 H Eosinophils % 4.7 H Basophils % 0.6 lab noted Assessment: 11/02/18 13:37 alcohol withdrawal sx Plan: continue alcohol detox
[2018-11-02] MEDS: chlordiazePOXIDE HCL 25 MG CAPSULE PO PRN (13:56)
[2018-11-02] MEDS: THIAMINE HCL 100 MG TABLET (FP) PO SCH (22:19)
[2018-11-02] MEDS: chlordiazePOXIDE HCL 10 MG CAPSULE PO SCH (22:19)
[2018-11-02] MEDS: MELATONIN 5 MG TABLETS PO PRN (22:20)
[2018-11-02] MEDS: MAG HYDROX/AL HYDROX/SIMETH 30 ML UNIT-DOSE CUP PO PRN (22:20)
[2018-11-02] MEDS ORDERED: chlordiazePOXIDE HCL 10 MG CAPSULE PO PRN (23:00)
[2018-11-03] MEDS: chlordiazePOXIDE HCL 10 MG CAPSULE PO SCH ×4 (06:08→22:25)
[2018-11-03] MEDS: BACITRACIN/POLYMYXIN B SULFATE 15 GM TUBE TP SCH ×2 (10:11→22:25)
[2018-11-03] MEDS: PRENATAL VITAMINS W/ FOLIC ACID TABLET (FP) PO SCH (10:11)
--- NOTE | 2018-11-03 13:00 | PN ---
[facility] CIWA - CIWA Score Nausea/Vomitin-Mild Nausea/No Vomiting Muscle Tremors: 1-None Visible, but [place] Anxiety: 1-Mildly Anxious Agitation: 1-Slight > Activity Paroxysmal Sweats: No Perspiration Orientation: 0-Oriented Tacttile Disturbances: 1-Very Mild Itch/Numbness Auditory Disturbances: 1-Very Mild Visual Disturbances: 0-None Headache: 1-Very Mild CIWA-Ar Total Score: 7 S Progress Note (SOAP) Subjective: alert,irritable,anxious,interrupted sleep, Objective: 11/03/18 12:55 Vital Signs Temperature 97.1 F L 11/03/18 09:36 Pulse Rate 89 11/03/18 09:36 Respiratory Rate 18 11/03/18 06:17 Blood Pressure 119/69 11/03/18 09:36 O2 Sat by Pulse Oximetry (%) 11/03/18 12:57 Laboratory Last Values WBC 1.8 K/mm3 (4.0-10.0) L* 11/02/18 07:30 RBC 3.12 M/mm3 (4.00-5.60) L 11/02/18 07:30 Hgb 11.5 GM/dL (11.7-16.9) L 11/02/18 07:30 Hct 33.4 % (35.4-49) L 11/02/18 07:30 MCV 107.1 fl (80-96) H 11/02/18 07:30 MCH 36.8 pg (25.7-33.7) H 11/02/18 07:30 MCHC 34.4 g/dl (32.0-35.9) 11/02/18 07:30 RDW 14.4 % (11.9-15.9) 11/02/18 07:30 Plt Count 40 K/MM3 (134-434) L D 11/02/18 07:30 MPV 8.8 fl (7.5-11.1) D 11/02/18 07:30 Absolute Neuts (auto) 0.7 K/mm3 (1.5-8.0) L 11/02/18 07:30 Neutrophils % 40.1 % (42.8-82.8) L D 11/02/18 07:30 Neutrophils % (Manual) 44.3 % (42.8-82.8) 11/02/18 07:30 Band Neutrophils % 1.0 % 11/02/18 07:30 Lymphocytes % 35.6 % (8-40) D 11/02/18 07:30 Lymphocytes % (Manual) 36.1 % (8-40) 11/02/18 07:30 Monocytes % 19.0 % (3.8-10.2) H 11/02/18 07:30 Monocytes % (Manual) 12 % (3.8-10.2) H 11/02/18 07:30 Eosinophils % 4.7 % (0-4.5) H 11/02/18 07:30 Eosinophils % (Manual) 6.2 % (0-4.5) H 11/02/18 07:30 Basophils % 0.6 % (0-2.0) 11/02/18 07:30 Basophils % (Manual) 0.0 % (0-2.0) 11/02/18 07:30 Myelocytes % (Man) 0 % (0-2) 11/02/18 07:30 Promyelocytes % (Man) 0 % (0-2) 11/02/18 07:30 Blast Cells % (Manual) 0 % (0-0) 11/02/18 07:30 Nucleated RBC % 0 % (0-0) 11/02/18 07:30 Metamyelocytes 0 % (0-2) 11/02/18 07:30 Hypochromia 0 11/02/18 07:30 Platelet Estimate Decreased 11/02/18 07:30 Polychromasia 0 11/02/18 07:30 Poikilocytosis 0 11/02/18 07:30 Anisocytosis 1+ 11/02/18 07:30 Microcytosis 0 11/02/18 07:30 Macrocytosis 1+ 11/02/18 07:30 Tear Drop Cells 1+ 11/02/18 07:30 Ovalocytes 1+ 11/02/18 07:30 Sodium 139 mmol/L (136-145) 11/01/18 07:00 Potassium 4.2 mmol/L (3.5-5.1) 11/01/18 07:00 Chloride 105 mmol/L (98-107) 11/01/18 07:00 Carbon Dioxide 28 mmol/L (21-32) 11/01/18 07:00 Anion Gap 6 MMOL/L (8-16) L 11/01/18 07:00 BUN 9 mg/dL (7-18) 11/01/18 07:00 Creatinine 0.6 mg/dL (0.55-1.3) 11/01/18 07:00 Est GFR (CKD-EPI)AfAm 135.87 11/01/18 07:00 Est GFR (CKD-EPI)NonAf 117.23 11/01/18 07:00 Random Glucose 98 mg/dL (74-106) 11/01/18 07:00 Calcium 8.8 mg/dL (8.5-10.1) 11/01/18 07:00 Total Bilirubin 2.6 mg/dL (0.2-1) H 11/01/18 07:00 AST 37 U/L (15-37) 11/01/18 07:00 ALT 21 U/L (13-61) 11/01/18 07:00 Alkaline Phosphatase 117 U/L (45-117) 11/01/18 07:00 Total Protein 7.0 g/dl (6.4-8.2) 11/01/18 07:00 Albumin 2.5 g/dl (3.4-5.0) L 11/01/18 07:00 RPR Titer Nonreactive (NONREACTIVE) 11/01/18 07:00 wbc is 1.8,platelet is 40k history of chronic alcoholism with leucopenia and thrombocytopenia, Assessment: 11/03/18 13:00 withdrawal symptom Plan: continue detox,repeat cbc now,posible discharge in am,follow up with DR. Monahan for medical problem
[2018-11-03 14:55] LABS: HEMOGLOBIN 10.5 GM/dL (11.7-16.9); MCH 36.4 pg (25.7-33.7); MCHC 34.9 g/dl (32.0-35.9); MEAN CELL VOLUME 104.2 fl (80-96); MEAN PLT VOLUME 8.2 fl (7.5-11.1); PLATELET COUNT 38 K/MM3 (134-434); RBC 2.88 M/mm3 (4.00-5.60); RDW 14.2 % (11.9-15.9); WHITE BLOOD COUNT 2.2 K/mm3 (4.0-10.0)
[2018-11-03] MEDS: THIAMINE HCL 100 MG TABLET (FP) PO SCH (22:25)
[2018-11-04] MEDS: MELATONIN 5 MG TABLETS PO PRN (01:42)
[2018-11-04 09:06] VITALS: BP 96/60; PULSE 87; TEMP 96.7
[2018-11-04] MEDS: BACITRACIN/POLYMYXIN B SULFATE 15 GM TUBE TP SCH (10:05)
[2018-11-04] MEDS: PRENATAL VITAMINS W/ FOLIC ACID TABLET (FP) PO SCH (10:05)
[2018-11-04] MEDS: MAG HYDROX/AL HYDROX/SIMETH 30 ML UNIT-DOSE CUP PO PRN (10:05)
[2018-11-04] MEDS: chlordiazePOXIDE HCL 10 MG CAPSULE PO SCH (10:06)
--- NOTE | 2018-11-04 14:20 | DS ---
[facility] Detox Discharge Summary Admission Date: 10/31/18 Discharge Date: 11/04/18 - History Present History: Alcohol Dependence Additional Comments: PATIENT GOING TO [facility] ([place]) FOR AFTERCARE. REPEAT CBC TO BE ORDERED FOR PATIENT WHILE HE IS ADMITTED ON REHAB UNIT DUE TO LOW WBC AND PLATELET LEVELS AND ANEMIA NOTED ON DETOX ADMISSION AND REPEAT CBC LABORATORY ASSESSMENTS. Pertinent Past History: Insomnia, Nicotine Dependence, Pancytopenia (While Admitted For Detox). - Physical Exam Results Vital Signs: Vital Signs Temperature 96.7 F L 11/04/18 09:05 Pulse Rate 87 11/04/18 09:05 Respiratory Rate 18 11/04/18 09:05 Blood Pressure 96/60 11/04/18 09:05 O2 Sat by Pulse Oximetry (%) - Treatment Hospital Course: Detox Protocol Followed, Detoxed Safely, Responded well, Discharged Condition Good, Rehab Referral Accepted Patient has Accepted a Rehab Referral to: [facility] ([place], [place]). - Medication Discharge Medications: Ambulatory Orders NK [No Known Home Medication] 09/22/18 - Diagnosis (1) Alcohol use with intoxication Current Visit: Yes Status: Acute (2) Alcohol-induced mood disorder Current Visit: Yes Status: Acute (3) Insomnia Current Visit: Yes Status: Acute Qualifiers: Insomnia type: unspecified Qualified Code(s): G47.00 - Insomnia, unspecified (4) Nicotine dependence Current Visit: Yes Status: Chronic Qualifiers: Nicotine product type: cigarettes Substance use status: uncomplicated Qualified Code(s): F17.210 - Nicotine dependence, cigarettes, uncomplicated (5) Alcohol dependence with uncomplicated withdrawal Current Visit: Yes Status: Acute (6) Pancytopenia Current Visit: Yes Status: Acute - AMA Did Patient Leave Against Medical Advice: No
== END 2018-11-04 12:22 | disposition other institution (70) | DRG 775 ==
LOC: YASAS 13:07 → Y3N 18:38
PROVIDERS: ADMIT Surgery; ATTEND Surgery
PROC: HZ2ZZZZ Detoxification Services for Substance Abuse Treatment (ICD-10-PCS; principal; 2018-10-31)
PROC: HZ2ZZZZ Detoxification Services for Substance Abuse Treatment (ICD-10-PCS; 2018-10-31)
DX: F10.230 Alcohol dependence with withdrawal, uncomplicated (principal); F10.220 Alcohol dependence with intoxication, uncomplicated; F10.24 Alcohol dependence with alcohol-induced mood disorder; F17.210 Nicotine dependence, cigarettes, uncomplicated; D61.818 Other pancytopenia; D69.6 Thrombocytopenia, unspecified; D72.819 Decreased white blood cell count, unspecified; G47.00 Insomnia, unspecified; S89.82XD Other specified injuries of left lower leg, subsequent encounter; W18.39XD Other fall on same level, subsequent encounter
CPT/HCPCS: 36415; 80053; 85025; 85027; 86593

== ENCOUNTER 2018-11-04 12:26 | Inpatient (IN) | payer OTHER ==
[2018-11-04] MEDS ORDERED: guaiFENesin 200 MG/10 ML 10 ML UNIT-DOSE CUPS PO PRN (14:56)
[2018-11-04] MEDS ORDERED: ACETAMINOPHEN 325 MG TABLET (FP) PO PRN (14:56)
[2018-11-04] MEDS ORDERED: P-EPHED 60MG/TRIPROLIDI 2.5MG TABLET PO PRN (14:56)
[2018-11-04] MEDS ORDERED: MAGNESIUM HYDROX 2400MG/30ML ORAL SUSPENSION 30 ML CUP PO PRN (14:56)
[2018-11-04] MEDS ORDERED: MENTHOL/PHENOL 1 EACH UD MM PRN (14:56)
--- NOTE | 2018-11-04 15:02 | HP ---
[facility] Rehab Assess/Revision - Admission History Admitted to Rehab from: [facility] Date of Admission to Rehab: 11/04/2018 - Vital signs Vital Signs: Vital Signs Period Temp Pulse Resp BP Sys/Berrios Pulse Ox Last 24 Hr 97.8 F 83 17 112/60 - Findings Detox History & Physical reviewed: Yes Concur with findings: Yes Comments/Additional Findings: PATIENT'S MEDICAL / MEDICATION HISTORY REVIEWED PRIOR TO DISCHARGE FROM DETOX UNIT. DUE TO PANCYTOPENIA NOTED ON ADMISSION AND REPEAT LABORATORY ASSESSMENTS WHILE PATIENT WAS ADMITTED FOR DETOX, REPEAT CBC TO BE DRAWN WHILE PATIENT IS ADMITTED FOR REHAB (ON 11/06/2018). PATIENT REPORTED HISTORY OF LEUKOPENIA ON DETOX ADMISSION. RESULTS OF CBC TO BE REVIEWED BY REHAB COVERING MEDICAL PROVIDER. PATIENT WAS DISCHARGED FROM DETOX UNIT TO BE TAKEN OVER TO REHAB UNIT IN STABLE MEDICAL CONDITION. Inpatient Rehab Admission - Rehab Decision to Admit Inpatient rehab admission?: Yes - Initial Determination Are CD services needed?: Yes Free of communicable disease: Yes Not in need of hospitalization: Yes - Rehab Admission Criteria Previous failed treatment: Yes Poor recovery environment: Yes Comorbidities: Yes Lacks judgement: No Patient is meeting Inpatient Rehab admission criteria:: Yes
[2018-11-04] MEDS: hydrOXYzine PAMOATE 50 MG CAPSULE (FP) PO PRN (18:35)
[2018-11-04] MEDS: THIAMINE HCL 100 MG TABLET (FP) PO SCH (21:41)
[2018-11-04] MEDS: BACITRACIN/POLYMYXIN B SULFATE 15 GM TUBE TP SCH (21:42)
[2018-11-04] MEDS: MELATONIN 5 MG TABLETS PO PRN (21:42)
[2018-11-05] MEDS: BACITRACIN/POLYMYXIN B SULFATE 15 GM TUBE TP SCH ×2 (10:35→21:22)
[2018-11-05] MEDS: PRENATAL VITAMINS W/ FOLIC ACID TABLET (FP) PO SCH (10:36)
[2018-11-05] MEDS: ONDANSETRON *ODT* 4 MG TABLET SL PRN (21:20)
[2018-11-05] MEDS: LOPERAMIDE HCL 2 MG CAPSULE PO PRN (21:20)
[2018-11-05] MEDS: THIAMINE HCL 100 MG TABLET (FP) PO SCH (21:23)
--- NOTE | 2018-11-05 22:19 | DS ---
[facility] Detox Discharge Summary Admission Date: 11/04/18 - Physical Exam Results Vital Signs: Vital Signs Temperature 97.7 F 11/05/18 21:12 Pulse Rate 92 H 11/05/18 21:12 Respiratory Rate 18 11/05/18 21:12 Blood Pressure 115/69 11/05/18 21:12 O2 Sat by Pulse Oximetry (%) - Medication Discharge Medications: Ambulatory Orders NK [No Known Home Medication] 11/04/18
[2018-11-06] MEDS: ONDANSETRON *ODT* 4 MG TABLET SL PRN ×3 (03:28→17:02)
[2018-11-06] MEDS: BACITRACIN/POLYMYXIN B SULFATE 15 GM TUBE TP SCH ×2 (10:04→21:35)
[2018-11-06] MEDS: PRENATAL VITAMINS W/ FOLIC ACID TABLET (FP) PO SCH (10:05)
[2018-11-06] MEDS: hydrOXYzine PAMOATE 50 MG CAPSULE (FP) PO PRN (10:05)
[2018-11-06] MEDS: LOPERAMIDE HCL 2 MG CAPSULE PO PRN ×2 (10:06→16:59)
[2018-11-06 10:53] LABS: BASO % 0.1 % (0-2.0); EOS % 2.6 % (0-4.5); HEMATOCRIT 34.1 % (35.4-49); HEMOGLOBIN 11.9 GM/dL (11.7-16.9); LYMPH % 12.6 % (8-40); MCH 36.4 pg (25.7-33.7); MCHC 34.9 g/dl (32.0-35.9); MEAN CELL VOLUME 104.3 fl (80-96); MEAN PLT VOLUME 8.3 fl (7.5-11.1); MONO % 12.7 % (3.8-10.2); PLATELET COUNT 50 K/MM3 (134-434); RBC 3.27 M/mm3 (4.00-5.60); WHITE BLOOD COUNT 4.7 K/mm3 (4.0-10.0)
--- NOTE | 2018-11-06 16:31 | PN ---
[facility] Note: C/O DIARRHEA AND NAUSEA THIS MORNING. Vital Signs - 24 hr 11/05/18 11/06/18 11/06/18 21:12 00:30 03:30 Temperature 97.7 F Pulse Rate 92 H Respiratory 18 18 18 Rate Blood Pressure 115/69 11/06/18 06:30 Temperature 98.1 F Pulse Rate 94 H Respiratory 16 Rate Blood Pressure 133/72 Laboratory Tests 11/06/18 11/06/18 08:30 08:30 WBC 4.7 RBC 3.27 L Hgb 11.9 Hct 34.1 L MCV 104.3 H MCH 36.4 H MCHC 34.9 RDW 14.0 Plt Count 50 L D MPV 8.3 Absolute Neuts (auto) 3.3 Neutrophils % 72.0 D Lymphocytes % 12.6 D Monocytes % 12.7 H Eosinophils % 2.6 Basophils % 0.1 Nucleated RBC % 0 Total Bilirubin 1.6 H PLAN;ZOFRAN SL GIVEN IMODIUM PRN MONITOR PROGRESS AND RE-EVALUATE PT.
[2018-11-06] MEDS: THIAMINE HCL 100 MG TABLET (FP) PO SCH (21:34)
[2018-11-06] MEDS: MELATONIN 5 MG TABLETS PO PRN (21:35)
[2018-11-07] MEDS: hydrOXYzine PAMOATE 50 MG CAPSULE (FP) PO PRN ×2 (06:25→15:16)
[2018-11-07] MEDS: ONDANSETRON *ODT* 4 MG TABLET SL PRN (06:26)
[2018-11-07] MEDS: PRENATAL VITAMINS W/ FOLIC ACID TABLET (FP) PO SCH (11:20)
[2018-11-07] MEDS: BACITRACIN/POLYMYXIN B SULFATE 15 GM TUBE TP SCH (11:20)
--- NOTE | 2018-11-07 12:26 | PN ---
[facility] Progress Note Note: PT REPORTS HX OF DEPRESSION AND ANXIETY. REPORTS HE FEELS RESTLESS AND AGITATED. VISTARIL ORDREED BUT PT NOT ACCEPTING STATING "IT DOES NOT WORK". REPORTS HE GOES TO [facility]. REQUESTING TO SEE THE PSYCH HERE WHILE IN REHAB. HAS AN APPOINTMENT TO SEE HIS PSYCHIATRIST ON 11/14/18. COMPLETED DETOX 2 DAYS AGO AND REFERRED TO REHAB HERE. Vital Signs - 24 hr 11/07/18 11/07/18 11/07/18 00:30 03:30 06:32 Temperature 97.0 F L Pulse Rate 89 Respiratory 18 18 18 Rate Blood Pressure 138/76 PLAN:PSYCH FOLLOW UP.
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
[2018-11-07] MEDS: THIAMINE HCL 100 MG TABLET (FP) PO SCH (21:33)
[2018-11-07] MEDS: SUVOREXANT 10 MG TABLET PO PRN (21:34)
[2018-11-08] MEDS: hydrOXYzine PAMOATE 50 MG CAPSULE (FP) PO PRN ×4 (06:05→19:16)
[2018-11-08] MEDS: PRENATAL VITAMINS W/ FOLIC ACID TABLET (FP) PO SCH (10:35)
[2018-11-08] MEDS: THIAMINE HCL 100 MG TABLET (FP) PO SCH (21:38)
[2018-11-08] MEDS: SUVOREXANT 10 MG TABLET PO PRN (21:38)
[2018-11-08] MEDS: MELATONIN 5 MG TABLETS PO PRN (21:38)
[2018-11-09] MEDS: hydrOXYzine PAMOATE 50 MG CAPSULE (FP) PO PRN ×3 (06:57→21:49)
[2018-11-09] MEDS: PRENATAL VITAMINS W/ FOLIC ACID TABLET (FP) PO SCH (10:19)
--- NOTE | 2018-11-09 15:23 | PN ---
S Progress Note Note: Patient reports experiencing nightmares last night and attributes that to Belsomra which he took for sleep. Requests to be ordered Remeron to which he responded favorably in the past
[2018-11-09] MEDS: MAG HYDROX/AL HYDROX/SIMETH 30 ML UNIT-DOSE CUP PO PRN ×2 (16:35→22:37)
[2018-11-09] MEDS: MIRTAZAPINE 15 MG TABLET (FP) PO SCH (21:48)
[2018-11-09] MEDS: THIAMINE HCL 100 MG TABLET (FP) PO SCH (21:48)
[2018-11-10] MEDS: hydrOXYzine PAMOATE 50 MG CAPSULE (FP) PO PRN ×4 (06:33→23:55)
[2018-11-10] MEDS: IBUPROFEN 400 MG TABLET (FP) PO PRN (09:04)
[2018-11-10] MEDS: MAG HYDROX/AL HYDROX/SIMETH 30 ML UNIT-DOSE CUP PO PRN ×2 (09:04→21:40)
[2018-11-10] MEDS: PRENATAL VITAMINS W/ FOLIC ACID TABLET (FP) PO SCH (09:04)
--- NOTE | 2018-11-10 10:52 | PN ---
[facility] Progress Note Note: C/O BACK PAIN. REQUESTING PAIN MEDICATION. Vital Signs 11/10/18 11/10/18 03:30 07:20 Temperature 98.5 F Pulse Rate 101 H Respiratory 18 18 Rate Blood Pressure 140/78 PLAN:LIDOCAINE PATCH 5% DIRECTED. ROBAXIN 500 MG PO TID
[2018-11-10] MEDS: LIDOCAINE 5% TOPICAL PATCH TP SCH (10:54)
[2018-11-10] MEDS: METHOCARBAMOL 500 MG TABLET PO SCH ×2 (14:37→21:38)
[2018-11-10] MEDS: THIAMINE HCL 100 MG TABLET (FP) PO SCH (21:38)
[2018-11-10] MEDS: MIRTAZAPINE 15 MG TABLET (FP) PO SCH (21:38)
[2018-11-10] MEDS: LIDOCAINE PATCH REMOVAL MC SCH (21:39)
[2018-11-11] MEDS: METHOCARBAMOL 500 MG TABLET PO SCH ×3 (07:00→21:48)
[2018-11-11] MEDS: NICOTINE POLACRILEX 2 MG GUM BUC PRN (08:32)
[2018-11-11] MEDS: MAG HYDROX/AL HYDROX/SIMETH 30 ML UNIT-DOSE CUP PO PRN (09:24)
[2018-11-11] MEDS: PRENATAL VITAMINS W/ FOLIC ACID TABLET (FP) PO SCH (10:09)
[2018-11-11] MEDS: LIDOCAINE 5% TOPICAL PATCH TP SCH (10:09)
[2018-11-11] MEDS: hydrOXYzine PAMOATE 50 MG CAPSULE (FP) PO PRN ×3 (10:10→21:49)
[2018-11-11] MEDS: IBUPROFEN 400 MG TABLET (FP) PO PRN ×2 (10:57→21:50)
--- NOTE | 2018-11-11 18:38 | PN ---
S Progress Note Note: constipated, alert not in distress abdomen soft,slight distension no pain or tenderness bowel sound active abrasion of right ankle impression constipation citroma 300 mls po now bacitracin ointment bid colace 100 mgs po tid
[2018-11-11] MEDS: MAGNESIUM CITRATE 300 ML BOTTLE PO PRN (18:39)
[2018-11-11] MEDS: MIRTAZAPINE 15 MG TABLET (FP) PO SCH (21:48)
[2018-11-11] MEDS: LIDOCAINE PATCH REMOVAL MC SCH (21:48)
[2018-11-11] MEDS: THIAMINE HCL 100 MG TABLET (FP) PO SCH (21:49)
[2018-11-11] MEDS: DOCUSATE SODIUM 100 MG CAPSULE (FP) PO SCH (21:49)
[2018-11-12] MEDS: hydrOXYzine PAMOATE 50 MG CAPSULE (FP) PO PRN ×3 (04:49→15:15)
[2018-11-12] MEDS: IBUPROFEN 400 MG TABLET (FP) PO PRN ×2 (04:49→10:05)
[2018-11-12] MEDS: METHOCARBAMOL 500 MG TABLET PO SCH ×3 (06:12→21:35)
[2018-11-12] MEDS: DOCUSATE SODIUM 100 MG CAPSULE (FP) PO SCH ×3 (06:12→21:35)
[2018-11-12] MEDS: LIDOCAINE 5% TOPICAL PATCH TP SCH (10:04)
[2018-11-12] MEDS: PRENATAL VITAMINS W/ FOLIC ACID TABLET (FP) PO SCH (10:05)
[2018-11-12] MEDS: THIAMINE HCL 100 MG TABLET (FP) PO SCH (21:35)
[2018-11-12] MEDS: MIRTAZAPINE 15 MG TABLET (FP) PO SCH (21:35)
[2018-11-12] MEDS: LIDOCAINE PATCH REMOVAL MC SCH (21:36)
[2018-11-13] MEDS: hydrOXYzine PAMOATE 50 MG CAPSULE (FP) PO PRN ×3 (05:58→21:32)
[2018-11-13] MEDS: METHOCARBAMOL 500 MG TABLET PO SCH (07:56)
[2018-11-13] MEDS: DOCUSATE SODIUM 100 MG CAPSULE (FP) PO SCH ×3 (07:56→21:32)
[2018-11-13] MEDS: PRENATAL VITAMINS W/ FOLIC ACID TABLET (FP) PO SCH (10:38)
[2018-11-13] MEDS: LIDOCAINE 5% TOPICAL PATCH TP SCH (10:38)
[2018-11-13] MEDS ORDERED: CYCLOBENZAPRINE HCL 10 MG TABLET (FP) PO ONE (11:10)
[2018-11-13] MEDS: CYCLOBENZAPRINE HCL 10 MG TABLET (FP) PO SCH ×2 (14:53→21:31)
[2018-11-13] MEDS: MAGNESIUM CITRATE 300 ML BOTTLE PO PRN (15:13)
--- NOTE | 2018-11-13 15:53 | PN ---
S Progress Note Note: C/O CONSTIPATION AND CITRATE OF MG TAKEN ON 11/11/18 NOT EFFECTIVE. PT REQUESTING A RE-TREATMENT. Vital Signs - 24 hr 11/13/18 11/13/18 11/13/18 00:30 03:30 07:24 Temperature 98.3 F Pulse Rate 98 H Respiratory 18 18 18 Rate Blood Pressure 146/81 Laboratory Tests 11/06/18 11/06/18 08:30 08:30 WBC 4.7 RBC 3.27 L Hgb 11.9 Hct 34.1 L MCV 104.3 H MCH 36.4 H MCHC 34.9 RDW 14.0 Plt Count 50 L D MPV 8.3 Absolute Neuts (auto) 3.3 Neutrophils % 72.0 D Lymphocytes % 12.6 D Monocytes % 12.7 H Eosinophils % 2.6 Basophils % 0.1 Nucleated RBC % 0 Total Bilirubin 1.6 H A:CONSTIPATION PLAN:REPEAT TREATMENT PER PROTOCOL DIRECTED.
[2018-11-13] MEDS: THIAMINE HCL 100 MG TABLET (FP) PO SCH (21:31)
[2018-11-13] MEDS: MIRTAZAPINE 15 MG TABLET (FP) PO SCH (21:31)
[2018-11-13] MEDS: LIDOCAINE PATCH REMOVAL MC SCH (21:33)
[2018-11-14] MEDS: CYCLOBENZAPRINE HCL 10 MG TABLET (FP) PO SCH ×2 (06:11→14:17)
[2018-11-14] MEDS: DOCUSATE SODIUM 100 MG CAPSULE (FP) PO SCH ×2 (06:11→14:17)
[2018-11-14] MEDS: hydrOXYzine PAMOATE 50 MG CAPSULE (FP) PO PRN (06:13)
[2018-11-14 06:56] VITALS: BP 152/84; PULSE 90; TEMP 99
[2018-11-14] MEDS: PRENATAL VITAMINS W/ FOLIC ACID TABLET (FP) PO SCH (10:50)
[2018-11-14] MEDS: LIDOCAINE 5% TOPICAL PATCH TP SCH ×2 (10:50)
[2018-11-14] MEDS: NICOTINE POLACRILEX 2 MG GUM BUC PRN (10:51)
[2018-11-14 12:17] LABS: HEMATOCRIT 30.7 % (35.4-49); HEMOGLOBIN 10.8 GM/dL (11.7-16.9); MCH 36.7 pg (25.7-33.7); MCHC 35.2 g/dl (32.0-35.9); MEAN CELL VOLUME 104.1 fl (80-96); MEAN PLT VOLUME 8.2 fl (7.5-11.1); RBC 2.94 M/mm3 (4.00-5.60); RDW 13.3 % (11.9-15.9); WHITE BLOOD COUNT 3.2 K/mm3 (4.0-10.0)
[2018-11-14 12:21] LABS: PLATELET COUNT 51 K/MM3 (134-434)
--- NOTE | 2018-11-14 13:01 | PN ---
S Progress Note (SOAP) Subjective: PT REQUESTS FOR EARLY DISCHARGE TODAY TO PURSUE HIS HOUSING ARRANGEMENT. PT MET WITH COUNSELOR STANISLAV ZHANG AND HAS BEEN REFERRED TO [facility] AT [facility] ON [address], [place]. PT IS REFERRED BACK TO HIS MENTAL HEALTH PROVIDER, DR. GIOVANI METCALF AT [facility] ON [address] [place] [address]. PT IS ALSO REFERRED TO [facility] [address], [place] FOR MEDICAL MANAGEMENT. Objective: 11/14/18 13:04 Vital Signs - 24 hr 11/14/18 11/14/18 11/14/18 00:30 03:30 06:56 Temperature 99.0 F Pulse Rate 90 Respiratory 18 18 18 Rate Blood Pressure 152/84 Laboratory Tests 11/06/18 11/06/18 11/14/18 08:30 08:30 08:33 WBC 4.7 3.2 L RBC 3.27 L 2.94 L Hgb 11.9 10.8 L Hct 34.1 L 30.7 L MCV 104.3 H 104.1 H MCH 36.4 H 36.7 H MCHC 34.9 35.2 RDW 14.0 13.3 Plt Count 50 L D 51 L MPV 8.3 8.2 Absolute Neuts (auto) 3.3 Neutrophils % 72.0 D Lymphocytes % 12.6 D Monocytes % 12.7 H Eosinophils % 2.6 Basophils % 0.1 Nucleated RBC % 0 Total Bilirubin 1.6 H LABS NOTED AND D/W PATIENT TO FOLLOW UP WITH PCP AT [facility] FOR MEDICAL MANAGEMENT. Assessment: 11/14/18 13:04 NAD Plan: FOLLOW UP WITH [facility] RECOMMENDED D/W PT TO FOLLOW UP WITH MEDICAL MANAGEMENT AT [facility] WITH ALL COPIES OF LAB RESULTS WITHIN 1 WEEK AFTER DISCHARGE.
== END 2018-11-14 14:40 | disposition home or self-care (01) | DRG 772 ==
LOC: YASAS 12:26 → Y5N 12:27
PROVIDERS: ADMIT Neuromusculoskeletal Medicine & OMM; ATTEND Neuromusculoskeletal Medicine & OMM
PROC: HZ42ZZZ Group Counseling for Substance Abuse Treatment, Cognitive-Behavioral (ICD-10-PCS; principal; 2018-11-04)
DX: F10.20 Alcohol dependence, uncomplicated (principal); F17.210 Nicotine dependence, cigarettes, uncomplicated; F10.24 Alcohol dependence with alcohol-induced mood disorder; F10.282 Alcohol dependence with alcohol-induced sleep disorder; F43.10 Post-traumatic stress disorder, unspecified; F41.9 Anxiety disorder, unspecified; D64.9 Anemia, unspecified; K59.00 Constipation, unspecified; M54.5 Low back pain
CPT/HCPCS: 36415; 82247; 85025; 85027; Q0162

== ENCOUNTER 2018-11-15 23:51 | Emergency (ER) | payer OTHER | END 2018-11-16 00:28 | disposition home or self-care (01) | LOC: JER 23:51 ==

== ENCOUNTER 2018-12-09 22:06 | Inpatient (IN) | payer OTHER ==
[2018-12-09 22:29] VITALS: BMI 32.3
--- NOTE | 2018-12-09 23:13 | HP ---
CIWA Score Nausea/Vomitin Muscle Tremors: 4-Moderate,w/Arms Extend Anxiety: 4-Mod. Anxious/Guarded Agitation: 4-Moderately Restless Paroxysmal Sweats: 3 Orientation: 1-Uncertain about Date Tacttile Disturbances: 0-None Auditory Disturbances: 0-None Visual Disturbances: 0-None Headache: 3-Moderate CIWA-Ar Total Score: 21 - Admission Criteria OASAS Guidelines: Admission for Medically Managed Detox: Requires at least one of the followin. CIWA greater than 12 2. Seizures within the past 24 hours 3. Delirium tremens within the past 24 hours 4. Hallucinations within the past 24 hours 5. Acute intervention needed for co occurring medical disorder 6. Acute intervention needed for co occurring psychiatric disorder 7. Severe withdrawal that cannot be handled at a lower level of care (continued vomiting, continued diarrhea, abnormal vital signs) requiring intravenous medication and/or fluids 8. Admission ROS S - HPI Chief Complaint: eeking admission to detox from alcohol Allergies/Adverse Reactions: Allergies Allergy/AdvReac Type Severity Reaction Status Date / Time clarithromycin [From Biaxin] Allergy Intermediate Hives Verified 12/09/18 22:20 History of Present Illness: 48 years old male with a long history of alcohol dependence is seeking admission to detox. Patient has been in multiple detoxifications and alcohol related hospitalizations. He reports insignificant period of sobriety. He has history alcohol related cirrhosis of the liver, anemia, depression and is noted with bilateral lower extremities swelling. Pedal pulses not palpable. He denies suicidal ideation at this time - Ebola screening Have you traveled outside of the country in the last 21 days: No (N) Have you had contact with anyone from an Ebola affected area: No Do you have a fever: No - Review of Systems Constitutional: Chills, Loss of Appetite, Malaise, Changes in sleep EENT: reports: No Symptoms Reported Respiratory: reports: No Symptoms reported Cardiac: reports: No Symptoms Reported GI: reports: Nausea, Poor Appetite, Poor Fluid Intake, Abdominal cramping : reports: No Symptoms Reported Musculoskeletal: reports: Back Pain, Muscle Pain Integumentary: reports: Dryness, Flushing Neuro: reports: Tremors, Weakness Endocrine: reports: No Symptoms Reported Hematology: reports: No Symptoms Reported Psychiatric: reports: Anxious, Depressed Other Systems: Reviewed and Negative Patient History - Patient Medical History Hx Anemia: No Hx Asthma: No Hx Chronic Obstructive Pulmonary Disease (COPD): No Hx Cancer: No Hx Cardiac Disorders: No Hx Congestive Heart Failure: No Hx Hypertension: No Hx Hypercholesterolemia: No Hx Pacemaker: No HX Cerebrovascular Accident: No Hx Seizures: No Hx Dementia: No Hx Diabetes: No Hx Gastrointestinal Disorders: No Hx Liver Disease: No Hx Genitourinary Disorders: No Hx Sexually Transmitted Disorders: No Hx Renal Disease (ESRD): No Hx Thyroid Disease: No Hx Human Immunodeficiency Virus (HIV): No Hx Hepatitis C: No Hx Depression: Yes Hx Suicide Attempt: No Hx Bipolar Disorder: No Hx Schizophrenia: No - Patient Surgical History Past Surgical History: No Hx Neurologic Surgery: No Hx Cataract Extraction: No Hx Cardiac Surgery: No Hx Lung Surgery: No Hx Abdominal Surgery: No Hx Appendectomy: No Hx Cholecystectomy: No Hx Genitourinary Surgery: No Hx Orthopedic Surgery: No Anesthesia Reaction: No - PPD History Previous Implant?: Yes Documented Results: Negative w/proof Implanted On Prior [facility] Admission?: Yes Date: 05/19/18 Results: 00mm PPD to be Administered?: No - Reproductive History Patient is a Female of Child Bearing Age (11 -55 yrs old): No (male) - Smoking Cessation Smoking history: Current every day smoker Have you smoked in the past 12 months: Yes Aproximately how many cigarettes per day: 10 Hx Chewing Tobacco Use: No Initiated information on smoking cessation: Yes 'Breaking Loose' booklet given: 12/09/18 - Substances abused Alcohol Substance route: Oral Frequency: Daily Amount used: 10 beer to 20 beers Age of first use: 23 Date of last use: 12/09/18 Family Disease History - Family Disease History Family Disease History: Heart Disease: Mother (HTN), Respiratory: Father (77 A & W ), Other: Brother (2 , A & W ), Sister (2, A & W ) Admission Physical Exam [facility] - Vital Signs Vital Signs: Vital Signs - 24 hr 12/09/18 22:23 Temperature 97.5 F L Pulse Rate 97 H Respiratory 16 Rate Blood Pressure 132/72 - Physical General Appearance: Yes: Severe Distress, Tremorous, Sweating, Anxious HEENTM: Yes: Rhinorrhea Respiratory: Yes: Lungs Clear, Normal Breath Sounds Neck: Yes: Supple Breast: Yes: Breast Exam Deferred Cardiology: Yes: Regular Rhythm, Regular Rate Abdominal: Yes: Normal Bowel Sounds Genitourinary: Yes: Within Normal Limits Back: Yes: Normal Inspection Musculoskeletal: Yes: Back pain, Muscle Pain, Muscle weakness Extremities: Yes: Tremors Neurological: Yes: Alert, Normal Mood/Affect Integumentary: Yes: Warm Lymphatic: Yes: Within Normal Limits - Diagnostic (1) Alcohol dependence with uncomplicated withdrawal Current Visit: Yes Status: Acute (2) Cannabis dependence Current Visit: Yes Status: Chronic (3) MDD (major depressive disorder), recurrent episode, moderate Current Visit: Yes Status: Chronic (4) Anemia Current Visit: Yes Status: Chronic Qualifiers: Anemia type: unspecified type Qualified Code(s): D64.9 - Anemia, unspecified (5) Anxiety Current Visit: Yes Status: Chronic (6) Nicotine dependence Current Visit: Yes Status: Chronic Qualifiers: Nicotine product type: cigarettes Substance use status: uncomplicated Qualified Code(s): F17.210 - Nicotine dependence, cigarettes, uncomplicated Cleared for Admission S - Detox or Rehab [facility] Level of Care: Medically Managed Detox Regimen/Protocol: Librium Breathalyzer - Breathalyzer Breathalyzer: 0.266 Urine Drug Screen - Test Device Lot number: [id number] Expiration date: 10/03/20 - Control Is test valid?: Yes - Results Drug screen NEGATIVE: No Urine drug screen results: THC-Marijuana, BZO-Benzodiazepines Inpatient Rehab Admission - Rehab Decision to Admit Inpatient rehab admission?: No
[2018-12-09] MEDS ORDERED: MAGNESIUM HYDROX 2400MG/30ML ORAL SUSPENSION 30 ML CUP PO PRN (23:37)
[2018-12-09] MEDS ORDERED: hydrOXYzine PAMOATE 25 MG CAPSULE (FP) PO PRN (23:37)
[2018-12-09] MEDS ORDERED: chlordiazePOXIDE HCL 25 MG CAPSULE PO PRN (23:37)
[2018-12-09] MEDS ORDERED: BISMUTH SUBSALICYLATE 524 MG/30 ML UD PO PRN (23:37)
[2018-12-09] MEDS ORDERED: MAG HYDROX/AL HYDROX/SIMETH 30 ML UNIT-DOSE CUP PO PRN (23:37)
[2018-12-09] MEDS ORDERED: METHOCARBAMOL 500 MG TABLET PO PRN (23:37)
[2018-12-09] MEDS ORDERED: MELATONIN 5 MG TABLETS PO PRN (23:37)
[2018-12-09] MEDS ORDERED: IBUPROFEN 400 MG TABLET (FP) PO PRN (23:37)
[2018-12-09] MEDS ORDERED: ACETAMINOPHEN 325 MG TABLET (FP) PO PRN ×2 (23:37)
[2018-12-09] MEDS ORDERED: MENTHOL/PHENOL 1 EACH UD MM PRN (23:37)
[2018-12-09] MEDS ORDERED: MAGNESIUM CITRATE 300 ML BOTTLE PO PRN (23:37)
[2018-12-09] MEDS ORDERED: NICOTINE POLACRILEX 2 MG GUM BUC PRN (23:40)
[2018-12-10] MEDS: chlordiazePOXIDE HCL 25 MG CAPSULE PO SCH ×5 (00:32→23:08)
[2018-12-10] MEDS: PRENATAL VITAMINS W/ FOLIC ACID TABLET (FP) PO SCH (10:19)
[2018-12-10] MEDS: CYCLOBENZAPRINE HCL 10 MG TABLET (FP) PO PRN (10:19)
[2018-12-10] MEDS: NICOTINE 14 MG/24 HOURS TOPICAL PATCH TD SCH (10:19)
[2018-12-10 10:47] LABS: HEMOGLOBIN 10.6 GM/dL (11.7-16.9); WHITE BLOOD COUNT 2.1 K/mm3 (4.0-10.0)
[2018-12-10 11:07] LABS: ALBUMIN 2.5 g/dl (3.4-5.0); BILIRUBIN,TOTAL 1.2 mg/dL (0.2-1); BLOOD UREA NITROGEN 4.5 mg/dL (7-18); CALCIUM 7.9 mg/dL (8.5-10.1); CREATININE 0.5 mg/dL (0.55-1.3); POTASSIUM 3.5 mmol/L (3.5-5.1)
[2018-12-10 11:13] LABS: HEMATOCRIT 30.7 % (35.4-49); MCH 36.1 pg (25.7-33.7); MCHC 34.7 g/dl (32.0-35.9); MEAN CELL VOLUME 104.3 fl (80-96); MEAN PLT VOLUME 6.8 fl (7.5-11.1); RBC 2.94 M/mm3 (4.00-5.60); RDW 13.5 % (11.9-15.9)
[2018-12-10 11:52] LABS: PLATELET COUNT 34 K/MM3 (134-434)
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
[2018-12-10] MEDS ORDERED: hydrOXYzine PAMOATE 25 MG CAPSULE (FP) PO PRN (13:14)
--- NOTE | 2018-12-10 13:58 | EKG ---
Test Reason : Blood Pressure : / mmHG Vent. Rate : 078 BPM Atrial Rate : 078 BPM P-R Int : 170 ms QRS Dur : 106 ms QT Int : 408 ms P-R-T Axes : 059 012 029 degrees QTc Int : 465 ms NORMAL SINUS RHYTHM NORMAL ECG WHEN COMPARED WITH ECG OF 04-AUG-2011 23:17, NO SIGNIFICANT CHANGE WAS FOUND Confirmed by MD SORIANO MOYSES ([id number]) on 12/10/2018 1:57:40 PM Referred By: Confirmed By:IRAJ SORIANO MD
--- NOTE | 2018-12-10 16:58 | PN ---
[facility] CIWA - CIWA Score Nausea/Vomitin-No Nausea/No Vomiting Muscle Tremors: 2 Anxiety: 4-Mod. Anxious/Guarded Agitation: 4-Moderately Restless Paroxysmal Sweats: 3 Orientation: 0-Oriented Tacttile Disturbances: 2-Mild Itch/Numbness/Burn Auditory Disturbances: 0-None Visual Disturbances: 0-None Headache: 0-None Present CIWA-Ar Total Score: 15 S Progress Note (SOAP) Subjective: Hot / Cold Sensations, Sweating, Anxious, Restless, Body Aches. Objective: PATIENT A & O X 3, OBSERVED AMBULATING ON UNIT UNASSISTED. IN NO ACUTE DISTRESS. 12/10/18 16:53 Vital Signs Temperature 97.3 F L 12/10/18 13:24 Pulse Rate 91 H 12/10/18 15:30 Respiratory Rate 18 12/10/18 15:30 Blood Pressure 147/78 12/10/18 13:24 O2 Sat by Pulse Oximetry (%) Laboratory Tests 12/10/18 12/10/18 12/10/18 07:42 07:42 07:42 WBC 2.1 L RBC 2.94 L Hgb 10.6 L Hct 30.7 L MCV 104.3 H MCH 36.1 H MCHC 34.7 RDW 13.5 Plt Count 34 L* D MPV 6.8 L D Sodium 141 Potassium 3.5 Chloride 106 Carbon Dioxide 32 Anion Gap 3 L BUN 4.5 L Creatinine 0.5 L Est GFR (CKD-EPI)AfAm 146.45 Est GFR (CKD-EPI)NonAf 126.36 Random Glucose 93 Calcium 7.9 L Total Bilirubin 1.2 H AST 42 H ALT 22 Alkaline Phosphatase 120 H Total Protein 7.0 Albumin 2.5 L RPR Titer Nonreactive LABS NOTED. PATIENT HAS BEEN PANCYTOPENIC AND HAD LOW CALCIUM LEVELS ON ON PREVIOUS ADMISSIONS. 12/10/18 16:55 Assessment: 12/10/18 16:56 WITHDRAWAL SYMPTOMS. HYPOCALCEMIA. PANCYTOPENIA. Plan: CONTINUE DETOX. OSCAL, 500 MG PO BID ORDERED. PT/INR LEVEL ORDERED DUE TO LOW ADMISSION PLATELET LEVEL.
[2018-12-10] MEDS ORDERED: SUVOREXANT 10 MG TABLET PO PRN (21:00)
[2018-12-10] MEDS: THIAMINE HCL 100 MG TABLET (FP) PO SCH (23:08)
[2018-12-10] MEDS: CALCIUM 500MG/VIT-D 200 UNITS COMBO TABLET (FP) PO SCH (23:09)
[2018-12-11] MEDS: chlordiazePOXIDE HCL 25 MG CAPSULE PO SCH ×4 (05:41→22:25)
[2018-12-11] MEDS: CYCLOBENZAPRINE HCL 10 MG TABLET (FP) PO PRN (09:04)
[2018-12-11] MEDS: PRENATAL VITAMINS W/ FOLIC ACID TABLET (FP) PO SCH (09:04)
[2018-12-11] MEDS ORDERED: COLLOIDAL OATMEAL 1 BAR EACH TP PRN (09:06)
[2018-12-11 09:57] LABS: INR 1.3 (0.83-1.09); PROTHROMBIN TIME (PATIENT) 15.4 SEC (9.7-13.0)
[2018-12-11] MEDS: CALCIUM 500MG/VIT-D 200 UNITS COMBO TABLET (FP) PO SCH ×2 (10:19→22:25)
[2018-12-11] MEDS: NICOTINE 14 MG/24 HOURS TOPICAL PATCH TD SCH (10:19)
--- NOTE | 2018-12-11 12:29 | PN ---
[facility] CIWA - CIWA Score Nausea/Vomitin-No Nausea/No Vomiting Muscle Tremors: 2 Anxiety: 2 Agitation: 3 Paroxysmal Sweats: 3 Orientation: 0-Oriented Tacttile Disturbances: 0-None Auditory Disturbances: 0-None Visual Disturbances: 0-None Headache: 0-None Present CIWA-Ar Total Score: 10 S Progress Note (SOAP) Subjective: sweats shakes interrupted sleep anxiety Objective: 12/11/18 12:20 Vital Signs Temperature 98.4 F 12/11/18 09:35 Pulse Rate 79 12/11/18 09:35 Respiratory Rate 18 12/11/18 09:35 Blood Pressure 125/91 12/11/18 09:35 O2 Sat by Pulse Oximetry (%) Laboratory Tests 12/10/18 12/10/18 12/10/18 07:42 07:42 07:42 WBC 2.1 L RBC 2.94 L Hgb 10.6 L Hct 30.7 L MCV 104.3 H MCH 36.1 H MCHC 34.7 RDW 13.5 Plt Count 34 L* D MPV 6.8 L D PT with INR INR Sodium 141 Potassium 3.5 Chloride 106 Carbon Dioxide 32 Anion Gap 3 L BUN 4.5 L Creatinine 0.5 L Est GFR (CKD-EPI)AfAm 146.45 Est GFR (CKD-EPI)NonAf 126.36 Random Glucose 93 Calcium 7.9 L Total Bilirubin 1.2 H AST 42 H ALT 22 Alkaline Phosphatase 120 H Total Protein 7.0 Albumin 2.5 L RPR Titer Nonreactive 12/11/18 06:00 WBC RBC Hgb Hct MCV MCH MCHC RDW Plt Count MPV PT with INR 15.40 H INR 1.30 H Sodium Potassium Chloride Carbon Dioxide Anion Gap BUN Creatinine Est GFR (CKD-EPI)AfAm Est GFR (CKD-EPI)NonAf Random Glucose Calcium Total Bilirubin AST ALT Alkaline Phosphatase Total Protein Albumin RPR Titer labs noted aaox3 ambulating no acute distress Assessment: 12/11/18 12:29 withdrawal sx Plan: continue detox increase fluids labs repeated
[2018-12-11] MEDS: FERROUS SO4 325 MG TABLET (FP) PO SCH (18:17)
[2018-12-11] MEDS: THIAMINE HCL 100 MG TABLET (FP) PO SCH (22:25)
[2018-12-12] MEDS ORDERED: chlordiazePOXIDE HCL 10 MG CAPSULE PO PRN
[2018-12-12] MEDS: chlordiazePOXIDE HCL 10 MG CAPSULE PO SCH ×4 (06:00→23:12)
[2018-12-12] MEDS: FERROUS SO4 325 MG TABLET (FP) PO SCH ×3 (07:31→18:30)
[2018-12-12] MEDS: PRENATAL VITAMINS W/ FOLIC ACID TABLET (FP) PO SCH (10:36)
[2018-12-12] MEDS: CALCIUM 500MG/VIT-D 200 UNITS COMBO TABLET (FP) PO SCH ×2 (10:36→23:11)
[2018-12-12] MEDS: NICOTINE 14 MG/24 HOURS TOPICAL PATCH TD SCH (10:37)
[2018-12-12] MEDS: hydrOXYzine PAMOATE 50 MG CAPSULE (FP) PO PRN (10:38)
--- NOTE | 2018-12-12 11:11 | PN ---
[facility] CIWA - CIWA Score Nausea/Vomitin-No Nausea/No Vomiting Muscle Tremors: 3 Anxiety: 2 Agitation: 2 Paroxysmal Sweats: 2 Orientation: 0-Oriented Tacttile Disturbances: 0-None Auditory Disturbances: 0-None Visual Disturbances: 0-None Headache: 0-None Present CIWA-Ar Total Score: 9 S Progress Note (SOAP) Subjective: irritable sweats agitation interrupted sleep Objective: 12/12/18 11:10 Vital Signs Temperature 97.7 F 12/12/18 09:43 Pulse Rate 84 12/12/18 09:43 Respiratory Rate 18 12/12/18 09:43 Blood Pressure 124/68 12/12/18 09:43 O2 Sat by Pulse Oximetry (%) Laboratory Tests 12/10/18 12/10/18 12/10/18 07:42 07:42 07:42 WBC 2.1 L RBC 2.94 L Hgb 10.6 L Hct 30.7 L MCV 104.3 H MCH 36.1 H MCHC 34.7 RDW 13.5 Plt Count 34 L* D MPV 6.8 L D PT with INR INR Sodium 141 Potassium 3.5 Chloride 106 Carbon Dioxide 32 Anion Gap 3 L BUN 4.5 L Creatinine 0.5 L Est GFR (CKD-EPI)AfAm 146.45 Est GFR (CKD-EPI)NonAf 126.36 Random Glucose 93 Calcium 7.9 L Total Bilirubin 1.2 H AST 42 H ALT 22 Alkaline Phosphatase 120 H Total Protein 7.0 Albumin 2.5 L RPR Titer Nonreactive 12/11/18 06:00 WBC RBC Hgb Hct MCV MCH MCHC RDW Plt Count MPV PT with INR 15.40 H INR 1.30 H Sodium Potassium Chloride Carbon Dioxide Anion Gap BUN Creatinine Est GFR (CKD-EPI)AfAm Est GFR (CKD-EPI)NonAf Random Glucose Calcium Total Bilirubin AST ALT Alkaline Phosphatase Total Protein Albumin RPR Titer repeated labs pending aaox3 ambulating no acute distress Assessment: 12/12/18 11:10 withdrawal sx Plan: continue detox increase fluids f/u with repeated labs
[2018-12-12] MEDS: THIAMINE HCL 100 MG TABLET (FP) PO SCH (23:12)
[2018-12-13] MEDS ORDERED: chlordiazePOXIDE HCL 10 MG CAPSULE PO SCH (05:00)
[2018-12-13] MEDS: hydrOXYzine PAMOATE 50 MG CAPSULE (FP) PO PRN ×2 (05:53→12:35)
[2018-12-13] MEDS: FERROUS SO4 325 MG TABLET (FP) PO SCH ×2 (07:12→11:29)
--- NOTE | 2018-12-13 09:06 | DS ---
[facility] Detox Discharge Summary Admission Date: 12/09/18 Discharge Date: 12/13/18 - History Present History: Alcohol Dependence, Cannabis Dependence - Physical Exam Results Vital Signs: Vital Signs Temperature 97 F L 12/12/18 22:00 Pulse Rate 63 12/12/18 22:00 Respiratory Rate 18 12/13/18 03:30 Blood Pressure 100/60 12/12/18 22:00 O2 Sat by Pulse Oximetry (%) - Treatment Hospital Course: Detox Protocol Followed, Detoxed Safely, Responded well, Discharged Condition Good, Rehab Referral Accepted - Medication Discharge Medications: Ambulatory Orders NK [No Known Home Medication] 11/04/18 - Diagnosis (1) Alcohol dependence with uncomplicated withdrawal Current Visit: Yes Status: Chronic (2) Hypocalcemia Current Visit: Yes Status: Acute (3) Substance induced mood disorder Current Visit: Yes Status: Acute (4) Substance-induced sleep disorder Current Visit: Yes Status: Acute (5) Anemia Current Visit: Yes Status: Chronic Qualifiers: Anemia type: unspecified type Qualified Code(s): D64.9 - Anemia, unspecified (6) Anxiety Current Visit: Yes Status: Chronic (7) Cannabis dependence Current Visit: Yes Status: Chronic (8) MDD (major depressive disorder), recurrent episode, moderate Current Visit: Yes Status: Chronic (9) Nicotine dependence Current Visit: Yes Status: Chronic Qualifiers: Nicotine product type: cigarettes Substance use status: uncomplicated Qualified Code(s): F17.210 - Nicotine dependence, cigarettes, uncomplicated (10) Alcohol dependence with uncomplicated withdrawal Current Visit: No Status: Acute (11) Alcohol-induced anxiety disorder Current Visit: No Status: Acute (12) Alcohol-induced mood disorder Current Visit: No Status: Acute (13) Alcohol-induced sleep disorder Current Visit: No Status: Acute (14) Depressed affect Current Visit: No Status: Acute (15) Insomnia Current Visit: No Status: Acute Qualifiers: Insomnia type: unspecified Qualified Code(s): G47.00 - Insomnia, unspecified (16) Leukopenia Current Visit: Yes Status: Acute Qualifiers: Neutropenia type: other drug-induced (17) PTSD (post-traumatic stress disorder) Current Visit: No Status: Acute (18) Anxiety disorder Current Visit: No Status: Chronic (19) PTSD (post-traumatic stress disorder) Current Visit: No Status: Chronic (20) Thrombocytopenia Current Visit: No Status: Chronic (21) Substance induced mood disorder Current Visit: No Status: Suspected - AMA Did Patient Leave Against Medical Advice: No (pt declined rehab.)
[2018-12-13] MEDS: NICOTINE 14 MG/24 HOURS TOPICAL PATCH TD SCH (10:39)
[2018-12-13] MEDS: PRENATAL VITAMINS W/ FOLIC ACID TABLET (FP) PO SCH (10:40)
[2018-12-13] MEDS: CALCIUM 500MG/VIT-D 200 UNITS COMBO TABLET (FP) PO SCH (10:40)
[2018-12-13 12:07] LABS: BASO % 0.3 % (0-2.0); EOS % 5.6 % (0-4.5); HEMOGLOBIN 10.3 GM/dL (11.7-16.9); LYMPH % 22.9 % (8-40); MCH 36.2 pg (25.7-33.7); MCHC 34.4 g/dl (32.0-35.9); MEAN CELL VOLUME 105.4 fl (80-96); MEAN PLT VOLUME 7.5 fl (7.5-11.1); MONO % 11.5 % (3.8-10.2); NEUT % 59.7 % (42.8-82.8); RBC 2.85 M/mm3 (4.00-5.60); RDW 14.6 % (11.9-15.9)
[2018-12-13 12:46] LABS: WHITE BLOOD COUNT 1.7 K/mm3 (4.0-10.0)
[2018-12-13 12:47] LABS: PLATELET COUNT 36 K/MM3 (134-434)
--- NOTE | 2018-12-13 13:32 | PN ---
[facility] Progress Note Note: Laboratory Tests 12/10/18 12/10/18 12/10/18 07:42 07:42 07:42 WBC 2.1 L RBC 2.94 L Hgb 10.6 L Hct 30.7 L MCV 104.3 H MCH 36.1 H MCHC 34.7 RDW 13.5 Plt Count 34 L* D MPV 6.8 L D Absolute Neuts (auto) Neutrophils % Lymphocytes % Monocytes % Eosinophils % Basophils % Nucleated RBC % PT with INR INR Sodium 141 Potassium 3.5 Chloride 106 Carbon Dioxide 32 Anion Gap 3 L BUN 4.5 L Creatinine 0.5 L Est GFR (CKD-EPI)AfAm 146.45 Est GFR (CKD-EPI)NonAf 126.36 Random Glucose 93 Calcium 7.9 L Total Bilirubin 1.2 H AST 42 H ALT 22 Alkaline Phosphatase 120 H Total Protein 7.0 Albumin 2.5 L RPR Titer Nonreactive 12/11/18 12/13/18 06:00 10:00 WBC 1.7 L* RBC 2.85 L Hgb 10.3 L Hct 30.0 L MCV 105.4 H MCH 36.2 H MCHC 34.4 RDW 14.6 Plt Count 36 L* MPV 7.5 D Absolute Neuts (auto) 1.0 L Neutrophils % 59.7 Lymphocytes % 22.9 D Monocytes % 11.5 H Eosinophils % 5.6 H D Basophils % 0.3 Nucleated RBC % 0 PT with INR 15.40 H INR 1.30 H Sodium Potassium Chloride Carbon Dioxide Anion Gap BUN Creatinine Est GFR (CKD-EPI)AfAm Est GFR (CKD-EPI)NonAf Random Glucose Calcium Total Bilirubin AST ALT Alkaline Phosphatase Total Protein Albumin RPR Titer repeated labs noted pt states he has a long h/o of low platelettes and low WBC; thrombocytopenia pt is currently assymptomatic encouraged to maintain a healthy diet after detox and see his PCP or apricot packer. pt in agreement.
[2018-12-13 13:34] VITALS: BP 136/73; PULSE 75; TEMP 97.7
[2018-12-13 15:02] LABS: ANISOCYTOSIS 1+; MACROCYTOSIS 0; PLATELET ESTIMATE DECREASED; TEAR DROP CELLS 1+
[2018-12-14] MEDS ORDERED: chlordiazePOXIDE HCL 10 MG CAPSULE PO ONE (05:00)
== END 2018-12-13 15:03 | disposition other institution (70) | DRG 775 ==
LOC: YASAS 22:06 → Y6N 23:36
PROVIDERS: ADMIT Surgery; ATTEND Surgery
PROC: HZ2ZZZZ Detoxification Services for Substance Abuse Treatment (ICD-10-PCS; principal; 2018-12-09)
DX: F10.230 Alcohol dependence with withdrawal, uncomplicated (principal); F12.20 Cannabis dependence, uncomplicated; F17.210 Nicotine dependence, cigarettes, uncomplicated; F10.24 Alcohol dependence with alcohol-induced mood disorder; F10.282 Alcohol dependence with alcohol-induced sleep disorder; F10.280 Alcohol dependence with alcohol-induced anxiety disorder; F19.24 Other psychoactive substance dependence with psychoactive substance-induced mood disorder; F19.282 Other psychoactive substance dependence with psychoactive substance-induced sleep disorder; F33.1 Major depressive disorder, recurrent, moderate; F43.10 Post-traumatic stress disorder, unspecified; F41.9 Anxiety disorder, unspecified; D69.6 Thrombocytopenia, unspecified; D72.819 Decreased white blood cell count, unspecified; D61.811 Other drug-induced pancytopenia; E83.51 Hypocalcemia; G47.00 Insomnia, unspecified
CPT/HCPCS: 36415; 80053; 85025; 85027; 85610; 86593; 93005; 93010

== ENCOUNTER 2018-12-13 15:16 | Inpatient (IN) | payer OTHER ==
--- NOTE | 2018-12-13 13:33 | HP ---
[facility] Re[facility] Assess/Revision - Admission History Admitted to Rehab from: [facility] - Findings Detox History & Physical reviewed: Yes Concur with findings: Yes Inpatient Rehab Admission - Rehab Decision to Admit Inpatient rehab admission?: Yes - Initial Determination Are CD services needed?: Yes Free of communicable disease: Yes Not in need of hospitalization: Yes - Rehab Admission Criteria Previous failed treatment: Yes Poor recovery environment: Yes Comorbidities: Yes Lacks judgement: Yes Patient is meeting Inpatient Rehab admission criteria:: Yes
[~2018-12-13 15:16] MED LIST changes: -ALBUTEROL SO4 2.5/IPRATROPIUM 0.5 INH SOL 3 ML VIAL.NEB. NEB STA; +IBUPROFEN 400 MG TABLET (FP) PO PRN; +LOPERAMIDE HCL 2 MG CAPSULE PO PRN; +MAGNESIUM CITRATE 300 ML BOTTLE PO PRN; +MAGNESIUM HYDROX 2400MG/30ML ORAL SUSPENSION 30 ML CUP PO PRN; +MENTHOL/PHENOL 1 EACH UD MM PRN; +NICOTINE POLACRILEX 4 MG GUM BUC PRN; +P-EPHED 60MG/TRIPROLIDI 2.5MG TABLET PO PRN; -SULFAMETHOXAZOLE/TRIMETHOPRIM 800MG/160MG D.S. TABLET PO ONE; +guaiFENesin 200 MG/10 ML 10 ML UNIT-DOSE CUPS PO PRN
[2018-12-13] MEDS: hydrOXYzine PAMOATE 50 MG CAPSULE (FP) PO PRN (21:55)
[2018-12-13] MEDS: MELATONIN 5 MG TABLETS PO PRN (21:55)
[2018-12-13] MEDS: THIAMINE HCL 100 MG TABLET (FP) PO SCH (21:55)
[2018-12-14] MEDS: NICOTINE 21 MG/24 HOURS TOPICAL PATCH TD SCH (10:49)
[2018-12-14] MEDS: PRENATAL VITAMINS W/ FOLIC ACID TABLET (FP) PO SCH (10:49)
[2018-12-14] MEDS ORDERED: BACITRACIN 15 GM TUBE TOPICAL OINTMENT TP SCH (11:30)
--- NOTE | 2018-12-14 11:35 | PN ---
[facility] Progress Note (SOAP) Subjective: MR ANDERSON WAS REFERRED TO REHAB FROM DETOX YESTERDAY. C/O LEFT 4TH TOE NAIL PROBLEM-DETACHED LEFT 4TH TOE WITH SLIGHT DISCOMFORT WHEN AGITATED. . ALSO NOTED ABNORMAL LABS WHILE IN DETOX ADMISSION. PT HAS A HX OF ABNORMAL LAB RESULTS AND HAS BEEN REFERRED IN PAST ADMISSION TO FOLLOW UP WITH PCP. REPORTS HE DID NOT SEE HIS PROVIDER SINCE LAST ADMISSION TILL COMING BACK TO DETOX/ REHAB BECAUSE "IT IS TOO HOT". PT HAS LIMITED INSIGHT TO HIS MEDICAL CONDITION AND HX OF NONCOMPLIANT IN FOLLOW UP INSTRUCTIONS. PT HAS A MENTAL HEALTH PROVIDER, DR. MATUTE HELD AT [facility] ON [address] [place] [address]. PT ALSO HAS PRIMARY CARE AT [facility] ON [place], [place] FOR MEDICAL MANAGEMENT. HOWEVER, PT REPORTS HE IS HOMELESS. PT WILL FOLLOW UP WITH HIS COUNSELOR KRYSTINA ISRAEL FOR AFTERCARE ARRANGEMENTS. Objective: 12/14/18 11:29 Vital Signs 12/14/18 06:41 Temperature 97.9 F Pulse Rate 82 Respiratory 16 Rate Blood Pressure 124/68 FEET:DRY,SCALY. NAILS BROWN CURVED DOWNWARDS ;4TH LEFT TOE PARTIALLY DETATCHED , DRY WITH NO REDNESS OR SWELLING. Assessment: 12/14/18 11:29 ABNORMAL LABS ONYCCHOMYCOSIS Plan: AVEENO SOAP FOR DRY SKIN BACITRACIN OINTMENT TO AFFECTED TOE DIRECTED. WILL REPEAT LABS HERE IN REHAB TOMORROW. CONTINUE FEOSOL FOR HX ANEMIA D/W PT THE NEED TO FOLLOW UP WITH PCP AFTER REHAB TREATMENT.
[2018-12-14] MEDS ORDERED: COLLOIDAL OATMEAL 1 BAR EACH TP PRN (11:36)
[2018-12-14] MEDS: FERROUS SO4 325 MG TABLET (FP) PO SCH ×2 (11:57→18:13)
[2018-12-14] MEDS: CYCLOBENZAPRINE HCL 10 MG TABLET (FP) PO PRN (11:57)
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
[2018-12-14] MEDS: hydrOXYzine PAMOATE 50 MG CAPSULE (FP) PO PRN (14:52)
[2018-12-14] MEDS: MAG HYDROX/AL HYDROX/SIMETH 30 ML UNIT-DOSE CUP PO PRN (20:13)
[2018-12-14] MEDS: QUEtiapine FUMARATE 50 MG TABLET PO SCH (21:08)
[2018-12-14] MEDS: MELATONIN 5 MG TABLETS PO PRN (21:08)
[2018-12-14] MEDS: THIAMINE HCL 100 MG TABLET (FP) PO SCH (21:08)
[2018-12-14] MEDS: busPIRone HCL 10 MG TABLET (FP) PO SCH (21:08)
[2018-12-15] MEDS: FERROUS SO4 325 MG TABLET (FP) PO SCH ×3 (06:59→17:37)
[2018-12-15] MEDS: CYCLOBENZAPRINE HCL 10 MG TABLET (FP) PO PRN (07:01)
[2018-12-15 10:28] LABS: HEMOGLOBIN 11.5 GM/dL (11.7-16.9); MEAN PLT VOLUME 7.4 fl (7.5-11.1); PLATELET COUNT 41 K/MM3 (134-434)
[2018-12-15 10:36] LABS: ALBUMIN 2.8 g/dl (3.4-5.0); BILIRUBIN,TOTAL 1.3 mg/dL (0.2-1); BLOOD UREA NITROGEN 9.7 mg/dL (7-18); CALCIUM 8.4 mg/dL (8.5-10.1); CREATININE 0.7 mg/dL (0.55-1.3); POTASSIUM 4.1 mmol/L (3.5-5.1)
[2018-12-15 10:51] LABS: HEMATOCRIT 33.8 % (35.4-49); MEAN CELL VOLUME 106.1 fl (80-96); RBC 3.19 M/mm3 (4.00-5.60); RDW 15.3 % (11.9-15.9)
[2018-12-15 11:01] LABS: WHITE BLOOD COUNT 1.8 K/mm3 (4.0-10.0)
[2018-12-15] MEDS: busPIRone HCL 10 MG TABLET (FP) PO SCH ×2 (11:09→21:13)
[2018-12-15] MEDS: PRENATAL VITAMINS W/ FOLIC ACID TABLET (FP) PO SCH (11:09)
[2018-12-15] MEDS: NICOTINE 21 MG/24 HOURS TOPICAL PATCH TD SCH (11:09)
[2018-12-15] MEDS: BACITRACIN 15 GM TUBE TOPICAL OINTMENT TP SCH (11:13)
--- NOTE | 2018-12-15 13:38 | PN ---
[facility] Progress Note Note: REPEAT LAB RESULTS REVIEW: Vital Signs - 24 hr 12/15/18 12/15/18 12/15/18 01:01 03:30 07:12 Temperature 97.7 F Pulse Rate 76 Respiratory 18 18 18 Rate Blood Pressure 123/82 Laboratory Tests 12/15/18 12/15/18 07:00 07:00 WBC 1.8 L* RBC 3.19 L Hgb 11.5 L Hct 33.8 L MCV 106.1 H MCH 36.0 H MCHC 34.0 RDW 15.3 Plt Count 41 L MPV 7.4 L Sodium 140 Potassium 4.1 Chloride 109 H Carbon Dioxide 26 Anion Gap 4 L BUN 9.7 Creatinine 0.7 Est GFR (CKD-EPI)AfAm 127.53 Est GFR (CKD-EPI)NonAf 110.04 Random Glucose 117 H Calcium 8.4 L Total Bilirubin 1.3 H AST 32 ALT 22 Alkaline Phosphatase 135 H Total Protein 8.0 Albumin 2.8 L REPEAT LABS SLIGHTLY IMPROVED FROM PREVIOUS LABS WHILE IN DETOX. ALERT O X 3 A:CRONIC ANEMIA CHRONIC PANCYTOPENIA NAD PLAN:INCREASE PO FUIDS CONTINUE FEOSOL MAINTAIN SAFETY. INSTRUCT PT TO FOLLOW UP WITH PCP AT [facility] FOR MEDICAL MANAGEMENT AFTER REHAB.
[2018-12-15] MEDS: hydrOXYzine PAMOATE 50 MG CAPSULE (FP) PO PRN (17:38)
[2018-12-15] MEDS: THIAMINE HCL 100 MG TABLET (FP) PO SCH (21:13)
[2018-12-15] MEDS: MELATONIN 5 MG TABLETS PO PRN (21:13)
[2018-12-15] MEDS: QUEtiapine FUMARATE 50 MG TABLET PO SCH (21:14)
[2018-12-16] MEDS: CYCLOBENZAPRINE HCL 10 MG TABLET (FP) PO PRN (06:20)
[2018-12-16] MEDS: FERROUS SO4 325 MG TABLET (FP) PO SCH ×3 (07:04→17:36)
[2018-12-16] MEDS: busPIRone HCL 10 MG TABLET (FP) PO SCH ×2 (10:35→21:36)
[2018-12-16] MEDS: PRENATAL VITAMINS W/ FOLIC ACID TABLET (FP) PO SCH (10:35)
[2018-12-16] MEDS: NICOTINE 21 MG/24 HOURS TOPICAL PATCH TD SCH (10:35)
[2018-12-16] MEDS: BACITRACIN 15 GM TUBE TOPICAL OINTMENT TP SCH (10:35)
[2018-12-16] MEDS: hydrOXYzine PAMOATE 50 MG CAPSULE (FP) PO PRN (17:35)
[2018-12-16] MEDS: QUEtiapine FUMARATE 50 MG TABLET PO SCH (21:36)
[2018-12-16] MEDS: THIAMINE HCL 100 MG TABLET (FP) PO SCH (21:36)
[2018-12-16] MEDS: MAG HYDROX/AL HYDROX/SIMETH 30 ML UNIT-DOSE CUP PO PRN (21:38)
[2018-12-16] MEDS: ACETAMINOPHEN 325 MG TABLET (FP) PO PRN (21:38)
[2018-12-17] MEDS: CYCLOBENZAPRINE HCL 10 MG TABLET (FP) PO PRN (06:41)
[2018-12-17] MEDS: FERROUS SO4 325 MG TABLET (FP) PO SCH ×3 (07:01→18:13)
[2018-12-17] MEDS: PRENATAL VITAMINS W/ FOLIC ACID TABLET (FP) PO SCH (10:39)
[2018-12-17] MEDS: busPIRone HCL 10 MG TABLET (FP) PO SCH ×2 (10:39→21:53)
[2018-12-17] MEDS: BACITRACIN 15 GM TUBE TOPICAL OINTMENT TP SCH (10:39)
[2018-12-17] MEDS: NICOTINE 21 MG/24 HOURS TOPICAL PATCH TD SCH (10:39)
[2018-12-17] MEDS: MAG HYDROX/AL HYDROX/SIMETH 30 ML UNIT-DOSE CUP PO PRN (13:22)
[2018-12-17] MEDS: QUEtiapine FUMARATE 50 MG TABLET PO SCH (21:53)
[2018-12-17] MEDS: THIAMINE HCL 100 MG TABLET (FP) PO SCH (21:53)
[2018-12-18] MEDS: CYCLOBENZAPRINE HCL 10 MG TABLET (FP) PO PRN (06:33)
[2018-12-18] MEDS: FERROUS SO4 325 MG TABLET (FP) PO SCH ×3 (07:19→17:33)
[2018-12-18] MEDS: NICOTINE 21 MG/24 HOURS TOPICAL PATCH TD SCH (10:25)
[2018-12-18] MEDS: BACITRACIN 15 GM TUBE TOPICAL OINTMENT TP SCH (10:25)
[2018-12-18] MEDS: PRENATAL VITAMINS W/ FOLIC ACID TABLET (FP) PO SCH (10:26)
[2018-12-18] MEDS: busPIRone HCL 10 MG TABLET (FP) PO SCH ×2 (10:26→21:55)
[2018-12-18] MEDS: PANTOPRAZOLE 40 MG TABLET (FP) PO SCH (15:03)
[2018-12-18] MEDS: hydrOXYzine PAMOATE 50 MG CAPSULE (FP) PO PRN (17:34)
[2018-12-18] MEDS: QUEtiapine FUMARATE 50 MG TABLET PO SCH (21:55)
[2018-12-18] MEDS: THIAMINE HCL 100 MG TABLET (FP) PO SCH (21:55)
[2018-12-19] MEDS: CYCLOBENZAPRINE HCL 10 MG TABLET (FP) PO PRN (06:36)
[2018-12-19] MEDS: hydrOXYzine PAMOATE 50 MG CAPSULE (FP) PO PRN ×3 (06:36→16:02)
[2018-12-19] MEDS: FERROUS SO4 325 MG TABLET (FP) PO SCH ×3 (07:22→17:37)
[2018-12-19] MEDS: PRENATAL VITAMINS W/ FOLIC ACID TABLET (FP) PO SCH (10:18)
[2018-12-19] MEDS: PANTOPRAZOLE 40 MG TABLET (FP) PO SCH (10:18)
[2018-12-19] MEDS: NICOTINE 21 MG/24 HOURS TOPICAL PATCH TD SCH (10:18)
[2018-12-19] MEDS: busPIRone HCL 10 MG TABLET (FP) PO SCH ×2 (10:18→21:58)
[2018-12-19] MEDS: BACITRACIN 15 GM TUBE TOPICAL OINTMENT TP SCH (10:19)
[2018-12-19] MEDS: QUEtiapine FUMARATE 50 MG TABLET PO SCH (21:58)
[2018-12-19] MEDS: THIAMINE HCL 100 MG TABLET (FP) PO SCH (21:58)
[2018-12-20] MEDS: hydrOXYzine PAMOATE 50 MG CAPSULE (FP) PO PRN (06:45)
[2018-12-20] MEDS: FERROUS SO4 325 MG TABLET (FP) PO SCH ×3 (07:13→17:39)
[2018-12-20] MEDS: PRENATAL VITAMINS W/ FOLIC ACID TABLET (FP) PO SCH (10:41)
[2018-12-20] MEDS: PANTOPRAZOLE 40 MG TABLET (FP) PO SCH (10:41)
[2018-12-20] MEDS: busPIRone HCL 10 MG TABLET (FP) PO SCH ×2 (10:41→21:46)
[2018-12-20] MEDS: BACITRACIN 15 GM TUBE TOPICAL OINTMENT TP SCH (10:42)
[2018-12-20] MEDS: NICOTINE 21 MG/24 HOURS TOPICAL PATCH TD SCH (10:42)
[2018-12-20] MEDS: CYCLOBENZAPRINE HCL 10 MG TABLET (FP) PO PRN (10:43)
[2018-12-20] MEDS: QUEtiapine FUMARATE 50 MG TABLET PO SCH (21:46)
[2018-12-20] MEDS: THIAMINE HCL 100 MG TABLET (FP) PO SCH (21:47)
[2018-12-20] MEDS: ACETAMINOPHEN 325 MG TABLET (FP) PO PRN (21:47)
[2018-12-21] MEDS: CYCLOBENZAPRINE HCL 10 MG TABLET (FP) PO PRN (06:13)
[2018-12-21] MEDS: FERROUS SO4 325 MG TABLET (FP) PO SCH ×3 (07:06→18:45)
[2018-12-21] MEDS: hydrOXYzine PAMOATE 50 MG CAPSULE (FP) PO PRN (07:12)
[2018-12-21] MEDS: PRENATAL VITAMINS W/ FOLIC ACID TABLET (FP) PO SCH (10:47)
[2018-12-21] MEDS: busPIRone HCL 10 MG TABLET (FP) PO SCH (10:47)
[2018-12-21] MEDS: BACITRACIN 15 GM TUBE TOPICAL OINTMENT TP SCH (10:47)
[2018-12-21] MEDS: NICOTINE 21 MG/24 HOURS TOPICAL PATCH TD SCH (10:47)
[2018-12-21] MEDS: PANTOPRAZOLE 40 MG TABLET (FP) PO SCH (10:47)
--- NOTE | 2018-12-21 15:29 | PN ---
Psychiatric Progress Note Vital Signs: Vital Signs Period Temp Pulse Resp BP Sys/Berrios Pulse Ox Last 24 Hr 97.8 F 97 18-18 139/68 Date of Session: 12/21/18 Chief Complaint:: " I still have anxiety." HPI: Patient admitted to for alcohol dependence co-morbid anxiety disorder. ROS: Patient is coherent, anxious, alert and oriented X3. Current Medications: Active Medications Generic Name Dose Route Start Last Admin Trade Name Freq PRN Reason Stop Dose Admin Acetaminophen 650 mg 12/13/18 13:33 12/20/18 21:47 Tylenol - PO 650 mg Q4H PRN Administration FEVER Al Hydroxide/Mg Hydroxide 30 ml 12/13/18 13:33 12/17/18 13:22 Mylanta Oral Suspension - PO 30 ml Q6H PRN Administration DYSPEPSIA Bacitracin 1 applic 12/14/18 11:36 12/21/18 10:47 Bacitracin - TP Not Given DAILY JOSE Buspirone HCl 10 mg 12/14/18 22:00 12/21/18 10:47 Buspar - PO 10 mg BID JOSE Administration Colloidal Oatmeal 1 applic 12/14/18 11:36 12/14/18 11:56 Aveeno Soap - TP 1 applic DAILY PRN Administration HYGEINE Cyclobenzaprine HCl 10 mg 12/14/18 11:25 12/21/18 06:13 Flexeril - PO 10 mg TID PRN Administration MUSCLE SPASMS Eucalyptus/Menthol/Phenol/Sorbitol 1 each 12/13/18 13:33 Cepastat Lozenge - MM Q4H PRN SORE THROAT Ferrous Sulfate 325 mg 12/14/18 12:00 12/21/18 12:46 Feosol - PO Not Given TIDCM JOSE Guaifenesin 10 ml 12/13/18 13:33 Robitussin - PO Q6H PRN COUGH Hydroxyzine Pamoate 50 mg 12/13/18 13:33 12/21/18 07:12 Vistaril - PO 50 mg Q4H PRN Administration AGITATION Loperamide HCl 4 mg 12/13/18 13:33 Imodium - PO Q6H PRN DIARRHEA Magnesium Citrate 300 ml 12/13/18 13:33 Citroma - PO Q48H PRN CONSTIPATION Magnesium Hydroxide 30 ml 12/13/18 13:33 Milk Of Magnesia - PO DAILY PRN CONSTIPATION Melatonin 5 mg 12/13/18 22:00 12/15/18 21:13 Melatonin PO 5 mg HS PRN Administration INSOMNIA Nicotine 21 mg 12/14/18 10:00 12/21/18 10:47 Nicoderm Patch - TD Not Given DAILY JOSE Nicotine Polacrilex 4 mg 12/13/18 13:33 Nicorette Gum - BUC Q2H PRN NICOTINE REPLACEMENT RX Pantoprazole Sodium 40 mg 12/18/18 14:00 12/21/18 10:47 Protonix - PO 40 mg DAILY JOSE Administration Multivit/Folic Acid/Iron 1 tab 12/14/18 10:00 12/21/18 10:47 Vitamins (Sjr) - PO 1 tab DAILY JOSE Administration Pseudoephedrine/Triprolidine 1 combo 12/13/18 13:33 Actifed - PO TID PRN NASAL CONGESTION Quetiapine Fumarate 50 mg 12/14/18 22:00 12/20/18 21:46 Seroquel - PO 50 mg HS JOSE Administration Thiamine HCl 100 mg 12/13/18 22:00 12/20/18 21:47 Vitamin B1 - PO 100 mg HS JOSE Administration Medication(s) Change(s): Yes. Will d/c buspar 10mg BID. Will order gabapentin 300mg BID PRN. Current Side Effect: No Lab tests ordered: No Lab tests reviewed: Yes Provider note:: Patient reports anxiety and difficulty sleeping. States the buspar is ineffective and going forward is not interested in accepting the medication. Patient also reports difficulty sleeping at night. Will d/c buspar 10mg BID and seroquel 50mg HS. Will order Gabapentin 300mg BID PRN for anxiety and seroquel 100mg. Patient encouraged to utilize his coping skills when his anxiety worsens. Patient satisifed and receptive to feedback. Total face to face time:: 25 Mental Status Exam - Mental Status Exam Alert and Oriented to: Time, Place, Person Cognitive Function: Good Patient Appearance: Well Groomed Mood: Anxious Affect: Mood Congruent Patient Behavior: Cooperative Speech Pattern: Appropriate Voice Loudness: Normal Thought Process: Goal Oriented Thought Disorder: Not Present Hallucinations: Denies Suicidal Ideation: Denies Homicidal Ideation: Denies Insight/Judgement: Poor Sleep: Poorly Appetite: Fair Muscle strength/Tone: Normal Gait/Station: Normal Psychiatric Treatment Plan - Problem List (1) Alcohol dependence Current Visit: Yes (2) Anxiety disorder Current Visit: Yes (3) Cannabis dependence Current Visit: Yes (4) Substance-induced sleep disorder Current Visit: Yes
[2018-12-21] MEDS ORDERED: CHLORHEXIDINE GLUCONATE 0.12% 15ML CUP MM ONE (15:32)
[2018-12-21] MEDS ORDERED: CHLORHEXIDINE GLUCONATE 118 ML MOUTHWASH MM ONE (16:00)
[2018-12-21] MEDS: GABAPENTIN 300 MG CAPSULE (FP) PO PRN (17:39)
[2018-12-21] MEDS ORDERED: CHLORHEXIDINE GLUCONATE 0.12% 15ML CUP MM SCH (22:00)
[2018-12-21] MEDS ORDERED: CHLORHEXIDINE GLUCONATE 118 ML MOUTHWASH MM SCH (22:00)
[2018-12-21] MEDS: THIAMINE HCL 100 MG TABLET (FP) PO SCH (22:09)
[2018-12-21] MEDS: QUEtiapine FUMARATE 100 MG TABLET (FP) PO SCH (22:10)
[2018-12-21] MEDS: ACETAMINOPHEN 325 MG TABLET (FP) PO PRN (22:12)
[2018-12-22] MEDS: GABAPENTIN 300 MG CAPSULE (FP) PO PRN (06:50)
[2018-12-22] MEDS: CYCLOBENZAPRINE HCL 10 MG TABLET (FP) PO PRN ×2 (08:23→13:29)
[2018-12-22] MEDS: FERROUS SO4 325 MG TABLET (FP) PO SCH ×3 (08:23→16:54)
[2018-12-22] MEDS: PRENATAL VITAMINS W/ FOLIC ACID TABLET (FP) PO SCH (10:31)
[2018-12-22] MEDS: NICOTINE 21 MG/24 HOURS TOPICAL PATCH TD SCH (10:31)
[2018-12-22] MEDS: ACETAMINOPHEN 325 MG TABLET (FP) PO PRN ×2 (10:31→16:56)
[2018-12-22] MEDS: PANTOPRAZOLE 40 MG TABLET (FP) PO SCH (10:31)
[2018-12-22] MEDS: BACITRACIN 15 GM TUBE TOPICAL OINTMENT TP SCH ×2 (10:31→21:13)
[2018-12-22] MEDS ORDERED: BACITRACIN 15 GM TUBE TOPICAL OINTMENT TP SCH (12:39)
[2018-12-22] MEDS: hydrOXYzine PAMOATE 50 MG CAPSULE (FP) PO PRN (13:29)
[2018-12-22] MEDS: THIAMINE HCL 100 MG TABLET (FP) PO SCH (21:14)
[2018-12-22] MEDS: MELATONIN 5 MG TABLETS PO PRN (21:14)
[2018-12-22] MEDS: QUEtiapine FUMARATE 100 MG TABLET (FP) PO SCH (21:14)
[2018-12-23] MEDS: GABAPENTIN 300 MG CAPSULE (FP) PO PRN (06:44)
[2018-12-23] MEDS: FERROUS SO4 325 MG TABLET (FP) PO SCH ×3 (07:21→16:30)
[2018-12-23] MEDS: BACITRACIN 15 GM TUBE TOPICAL OINTMENT TP SCH ×2 (10:20→21:51)
[2018-12-23] MEDS: NICOTINE 21 MG/24 HOURS TOPICAL PATCH TD SCH (10:20)
[2018-12-23] MEDS: PRENATAL VITAMINS W/ FOLIC ACID TABLET (FP) PO SCH (10:20)
[2018-12-23] MEDS: PANTOPRAZOLE 40 MG TABLET (FP) PO SCH (10:21)
[2018-12-23] MEDS: hydrOXYzine PAMOATE 50 MG CAPSULE (FP) PO PRN (12:33)
[2018-12-23] MEDS: ACETAMINOPHEN 325 MG TABLET (FP) PO PRN (16:31)
[2018-12-23] MEDS: MELATONIN 5 MG TABLETS PO PRN (21:51)
[2018-12-23] MEDS: THIAMINE HCL 100 MG TABLET (FP) PO SCH (21:51)
[2018-12-23] MEDS: QUEtiapine FUMARATE 100 MG TABLET (FP) PO SCH (21:51)
[2018-12-24] MEDS: GABAPENTIN 300 MG CAPSULE (FP) PO PRN (07:36)
[2018-12-24] MEDS: FERROUS SO4 325 MG TABLET (FP) PO SCH ×3 (07:36→17:00)
[2018-12-24] MEDS: NICOTINE 21 MG/24 HOURS TOPICAL PATCH TD SCH (10:48)
[2018-12-24] MEDS: PANTOPRAZOLE 40 MG TABLET (FP) PO SCH (10:48)
[2018-12-24] MEDS: PRENATAL VITAMINS W/ FOLIC ACID TABLET (FP) PO SCH (10:48)
[2018-12-24] MEDS: BACITRACIN 15 GM TUBE TOPICAL OINTMENT TP SCH ×3 (10:48→21:40)
[2018-12-24] MEDS: THIAMINE HCL 100 MG TABLET (FP) PO SCH (21:40)
[2018-12-24] MEDS: QUEtiapine FUMARATE 100 MG TABLET (FP) PO SCH (21:40)
--- NOTE | 2018-12-25 06:40 | PN ---
[facility] Progress Note Note: Patient is scheduled for discharge today. Scripts for 30 days supply(Gabapentin 300 mg/bid, Seroquel 100 mg/hs) are electronically transmitted to [facility] at [address] [place] [address] [address], [place] [address]
[2018-12-25] MEDS: FERROUS SO4 325 MG TABLET (FP) PO SCH ×2 (07:16→13:09)
[2018-12-25] MEDS: GABAPENTIN 300 MG CAPSULE (FP) PO PRN (07:16)
[2018-12-25 07:26] VITALS: BP 134/70; PULSE 85; TEMP 97.8
[2018-12-25] MEDS: BACITRACIN 15 GM TUBE TOPICAL OINTMENT TP SCH (11:16)
[2018-12-25] MEDS: PANTOPRAZOLE 40 MG TABLET (FP) PO SCH (11:16)
[2018-12-25] MEDS: NICOTINE 21 MG/24 HOURS TOPICAL PATCH TD SCH (11:16)
[2018-12-25] MEDS: PRENATAL VITAMINS W/ FOLIC ACID TABLET (FP) PO SCH (11:16)
--- NOTE | 2018-12-25 15:42 | PN ---
[facility] Progress Note (SOAP) Subjective: MR. ANDERSON COMPLETED REHAB AND DISCHARGED TODAY. PT MET WITH HIS COUNSELOR AND WAS REFERRED TO [facility] FOR CD AFTERCARE. PT REPORTS HE HAS A PRIMARY CARE PROVIDER DR. OBINNA MACHADO ON [address] [place] [address]. PT DENIES S/H/I. Objective: 12/25/18 15:39 ALERT O X 3. AMBULATES WITH STEADT GAIT. Vital Signs - 24 hr 12/25/18 12/25/18 12/25/18 00:30 03:30 07:25 Temperature 97.8 F Pulse Rate 85 Respiratory 18 18 18 Rate Blood Pressure 134/70 Laboratory Tests 12/15/18 12/15/18 07:00 07:00 WBC 1.8 L* RBC 3.19 L Hgb 11.5 L Hct 33.8 L MCV 106.1 H MCH 36.0 H MCHC 34.0 RDW 15.3 Plt Count 41 L MPV 7.4 L Sodium 140 Potassium 4.1 Chloride 109 H Carbon Dioxide 26 Anion Gap 4 L BUN 9.7 Creatinine 0.7 Est GFR (CKD-EPI)AfAm 127.53 Est GFR (CKD-EPI)NonAf 110.04 Random Glucose 117 H Calcium 8.4 L Total Bilirubin 1.3 H AST 32 ALT 22 Alkaline Phosphatase 135 H Total Protein 8.0 Albumin 2.8 L COPY OF LAB GIVEN TO PATIENT TO FOLLOW UP WITH PCP FOR MEDICAL MANAGEMENT. Home Medications Medication Instructions Recorded Gabapentin [Neurontin -] 300 mg PO BID PRN #60 capsule 12/25/18 Quetiapine Fumarate [Seroquel] 100 mg PO HS #30 tablet 12/25/18 Assessment: 12/25/18 15:40 NAD MEDICALLY STABLE Diagnosis (1) Pancytopenia Status: Acute (2) Alcohol dependence Qualifiers: Substance use status: uncomplicated Qualified Code(s): F10.20 - Alcohol dependence, uncomplicated Status: Chronic (3) Nicotine dependence Qualifiers: Nicotine product type: cigarettes Substance use status: uncomplicated Qualified Code(s): F17.210 - Nicotine dependence, cigarettes, uncomplicated Status: Chronic (4) Cannabis dependence Status: Chronic (5) Thrombocytopenia Status: Chronic (6) Anemia Qualifiers: Anemia type: unspecified type Qualified Code(s): D64.9 - Anemia, unspecified Status: Chronic Initialized on 12/25/18 15:42 - END OF NOTE Plan: FOLLOW UP WITH CD AFTERCARE RECOMMENDATION. FOLLOW UP WITH DR. MACHADO WITHIN 1 WEEK AFTER DISCHARGE.
== END 2018-12-25 12:25 | disposition home or self-care (01) | DRG 772 ==
LOC: YASAS 15:16 → Y3W 15:18 → Y5N 16:39
PROVIDERS: ADMIT Neuromusculoskeletal Medicine & OMM; ATTEND Neuromusculoskeletal Medicine & OMM
PROC: HZ42ZZZ Group Counseling for Substance Abuse Treatment, Cognitive-Behavioral (ICD-10-PCS; principal; 2018-12-13)
DX: F10.20 Alcohol dependence, uncomplicated (principal); F12.20 Cannabis dependence, uncomplicated; F17.210 Nicotine dependence, cigarettes, uncomplicated; F41.9 Anxiety disorder, unspecified; F19.282 Other psychoactive substance dependence with psychoactive substance-induced sleep disorder; D64.9 Anemia, unspecified; D69.6 Thrombocytopenia, unspecified; D61.818 Other pancytopenia; R79.9 Abnormal finding of blood chemistry, unspecified; B35.1 Tinea unguium; Z88.1 Allergy status to other antibiotic agents
CPT/HCPCS: 36415; 80053; 85027

== ENCOUNTER 2018-12-27 01:52 | Emergency (ER) | payer OTHER ==
[2018-12-27 02:51] VITALS: TEMP 98.6; BMI 31.3
--- NOTE | 2018-12-27 03:52 | PDOC ---
History of Present Illness - General Chief Complaint: Injury Stated Complaint: KNEE PAIN Time Seen by Provider: 12/27/18 03:19 - History of Present Illness Initial Comments: 12/27/18 03:48 48 yo M with h/o polysubstance abuse, Etoh dependence who p/w left knee pain s/ p mechanical fall. Patient reports acute left knee pain (12/26/18), following fall. Patient intoxicated poor historian, with slurred speech. Patient does not recall cause of fall, but reports falling onto left knee. Reports pain of left knee, worse with ambulation and wt. bearing. Does not recall, head/neck/back trauma, LOC, or duration on ground. Endorses alcohol intake (12/26/18), with multiple alcoholic beverages/beers. Denies AC use. Patient denies WEBER, vision change, palpitations, cough, wheezing, orthopena, PND , N/V, F,C, CP, SOB, urinary complaints, hematuria, BPR, abdominal pain, diarrhea, constipation, lightheadedness, weakness, sensory changes. PMHx: as noted above ROS: as noted SHx: Denies IVDA Allergies: Clarithromycin Past History - Past Medical History Allergies/Adverse Reactions: Allergies Allergy/AdvReac Type Severity Reaction Status Date / Time clarithromycin [From Biaxin] Allergy Intermediate Hives Verified 12/27/18 02:25 Home Medications: Ambulatory Orders Gabapentin [Neurontin -] 300 mg PO BID PRN #60 capsule 12/25/18 Quetiapine Fumarate [Seroquel] 100 mg PO HS #30 tablet 12/25/18 Anemia: No Asthma: No Cancer: No Cardiac Disorders: No CVA: No COPD: No CHF: No Dementia: No Diabetes: No GI Disorders: No Disorders: No HTN: No Hypercholesterolemia: No Kidney Stones: No Liver Disease: No Seizures: No Thyroid Disease: No - Surgical History Abdominal Surgery: No Appendectomy: No Cardiac Surgery: No Cholecystectomy: No Gastric Stapling: No GI Surgery: No Lung Surgery: No Neurologic Surgery: No Orthopedic Surgery: No - Reproductive History Testicular Surgery: No - Immunization History Immunization Up to Date: Yes - Suicide/Smoking/Psychosocial Hx Smoking Status: Yes Smoking History: Current every day smoker Have you smoked in the past 12 months: No Number of Cigarettes Smoked Daily: 10 Cigars Per Day: 0 Information on smoking cessation initiated: Yes 'Breaking Loose' booklet given: 12/09/18 Hx Alcohol Use: Yes Drug/Substance Use Hx: No Substance Use Type: Alcohol, Marijuana Hx Substance Use Treatment: Yes (Multiple admission to detox and rehab) Review of Systems - Review of Systems Comments:: 12/27/18 03:48 GENERAL/CONSTITUTIONAL: No fever or chills. No weakness. HEAD, EYES, EARS, NOSE AND THROAT: No change in vision. No ear pain or discharge. No sore throat. CARDIOVASCULAR: No chest pain or shortness of breath RESPIRATORY: No cough, wheezing, or hemoptysis. GASTROINTESTINAL: No nausea, vomiting, diarrhea or constipation. GENITOURINARY: No dysuria, frequency, or change in urination. MUSCULOSKELETAL: + left knee pain. No neck or back pain. SKIN: No rash NEUROLOGIC: No headache, vertigo, loss of consciousness, or change in strength/ sensation. ENDOCRINE: No increased thirst. No abnormal weight change HEMATOLOGIC/LYMPHATIC: No anemia, easy bleeding, or history of blood clots. ALLERGIC/IMMUNOLOGIC: No hives or skin allergy. *Physical Exam - Vital Signs Last Vital Signs Temp Pulse Resp BP Pulse Ox 98.6 F 74 17 120/63 100 12/27/18 02:17 12/27/18 02:17 12/27/18 02:17 12/27/18 02:17 12/27/18 02:17 - Physical Exam Comments: 12/27/18 03:49 GENERAL: + Slurred speech. Awake, alert, oriented x 2, in no acute distress HEAD: No signs of trauma, normocephalic, atraumatic EYES: PERRLA, EOMI, sclera anicteric, conjunctiva clear ENT: Auricles normal inspection, hearing grossly normal, nares patent, oropharynx clear without exudates. Moist mucosa NECK: Normal ROM, supple, no lymphadenopathy, JVD, or masses LUNGS: No distress, speaks full sentences, clear to auscultation bilaterally HEART: Regular rate and rhythm, normal S1 and S2, no murmurs, rubs or gallops, peripheral pulses normal and equal bilaterally. ABDOMEN: Soft, nontender, normoactive bowel sounds. No guarding, no rebound. No masses EXTREMITIES : Normal inspection, Normal range of motion, no edema. No clubbing or cyanosis. KNEE: L KNEE patellar ttp. otherwise unremarkable. Neg effusion, ecchymosis, nml joint laxity, absent varus/vargus deformity. Neg crepitus. NEUROLOGICAL: Cranial nerves II through XII grossly intact. No focal sensorimotor deficits BACK: + Negative midline and paraspinal ttp. Neg step-off, bony deformity. Neg skin change. SKIN: Warm, Dry, normal turgor, no rashes or lesions noted Medical Decision Making - Medical Decision Making 12/27/18 03:49 48 yo M with h/o polysubstance abuse, Etoh dependence who p/w knee pain. Vitals wnl, AF, A&Ox3. Physical exam unremarkable. No evidence closed head injury. CTH r/o hematoma, hemmorhage, skull fracture. C-spine CT r/o fracture, dislocation, or fracture. KNEE RAD r/o fracture, dislocation. Patient clinically with intoxication, slurred speech. Pending sobriety. Ed Course: 12/27/18 06:33 Patient refusing head/leg, neck imaging Seen ambulating around hallway with steady gait A&Ox4 Patient with adequate decision making capacity, clinically sober Absent criteria to hold patient unwillingly Patient requesting discharge from hospital Stable for d/c. Advised to f/u PMD. *DC/Admit/Observation/Transfer Diagnosis at time of Disposition: Knee pain Qualifiers: Chronicity: unspecified Laterality: left Qualified Code(s): M25.562 - Pain in left knee - Discharge Dispostion Condition at time of disposition: Stable Decision to Admit order: No - Referrals Referrals: Barbara Solorio [Primary Care Provider] - - Patient Instructions Printed Discharge Instructions: DI for Knee Pain Additional Instructions: Please return to the emergency department with any new or worsening symptoms or concerns. Please follow up with your primary care physician within 72 hours. - Post Discharge Activity
[2018-12-27] MEDS ORDERED: FOLIC ACID INJECTION - 1 MG, THIAMINE HCL 100 MG, MULTIVIT INJECTION ADULT 10 ML in SOD... IVPB ONE (04:24)
[2018-12-27 05:53] VITALS: BP 110/53; PULSE 91
--- NOTE | 2018-12-27 06:42 | PDOC ---
Documentation entered by Jacquie Segovia SCRIBE, acting as scribe for Chacha Shin DO. Chacha Shin DO: This documentation has been prepared by the Luca lee Adrianna, SCRIBE, under my direction and personally reviewed by me in its entirety. I confirm that the documentation accurately reflects all work, treatment, procedures, and medical decision making performed by me. Attending Attestation - Resident Resident Name: Abiodun March - ED Attending Attestation I have performed the following: I have examined & evaluated the patient, The case was reviewed & discussed with the resident, I agree w/resident's findings & plan - HPI HPI: The patient is a 48 year old male, with a significant PMH of EtOH and marijuana abuse, who presents to the ED for evaluation of knee pain s/p fall prior to arrival. He reports drinking earlier today, and notes he fell and hit his left knee (cannot recall how the occurrence happened). Pain is exacerbated with walking and applying pressure to the LLE. Patient is poor historian secondary to intoxication. Allergies: Clarithromycin Surgical History: None reported Social History: EtOH and marijuana abuse, daily smoker - Physicial Exam PE: Agree with resident exam - Medical Decision Making 12/27/18 19:28 48-year-old male with a history of substance abuse initially complaining of knee pain Attempts to MH were refused by the patient who is awake alert oriented 4 Patient discharged from the emergency department as he is refusing further care. There is no criteria to hold him against his will at this time. He has steady gait is able to make needs known and is clinically sober.
== END 2018-12-27 06:58 | disposition home or self-care (01) ==
LOC: JER 01:52
PROC: 3E033GC Introduction of Other Therapeutic Substance into Peripheral Vein, Percutaneous Approach (ICD-10-PCS; principal; 2018-12-27)
DX: M25.562 Pain in left knee (principal); F10.10 Alcohol abuse, uncomplicated; F12.10 Cannabis abuse, uncomplicated; F17.210 Nicotine dependence, cigarettes, uncomplicated; W18.30XA Fall on same level, unspecified, initial encounter
CPT/HCPCS: 36415; 80307; 96361; 96365; 99283-25; J7030

== ENCOUNTER 2019-01-02 00:01 | Emergency (ER) | payer OTHER ==
[2019-01-02 02:45] VITALS: TEMP 98; BMI 23.3
--- NOTE | 2019-01-02 03:25 | PDOC ---
History of Present Illness - General Chief Complaint: Alcohol intoxication Stated Complaint: INTOX Time Seen by Provider: 01/02/19 00:35 History Source: Patient, EMS - History of Present Illness Initial Comments: 01/02/19 03:25 48 year old male BIBA for public intoxication, patient frequent visits to the ED for similar complaints. no trauma. patient requesting to go to rehab. patient also c/o left chronic knee pain. PMHX: anxiety/ depression 01/02/19 03:51 01/02/19 03:59 Past History - Past Medical History Allergies/Adverse Reactions: Allergies Allergy/AdvReac Type Severity Reaction Status Date / Time clarithromycin [From Biaxin] Allergy Intermediate Hives Verified 12/27/18 02:25 Home Medications: Ambulatory Orders NK [No Known Home Medication] 01/02/19 Anemia: No Asthma: No Cancer: No Cardiac Disorders: No CVA: No COPD: No CHF: No Dementia: No Diabetes: No GI Disorders: No Disorders: No HTN: No Hypercholesterolemia: No Kidney Stones: No Liver Disease: No Seizures: No Thyroid Disease: No - Surgical History Abdominal Surgery: No Appendectomy: No Cardiac Surgery: No Cholecystectomy: No Gastric Stapling: No GI Surgery: No Lung Surgery: No Neurologic Surgery: No Orthopedic Surgery: No - Reproductive History Testicular Surgery: No - Immunization History Immunization Up to Date: Yes - Suicide/Smoking/Psychosocial Hx Smoking Status: Yes Smoking History: Unknown if ever smoked Have you smoked in the past 12 months: No Number of Cigarettes Smoked Daily: 10 Cigars Per Day: 0 Information on smoking cessation initiated: No 'Breaking Loose' booklet given: 12/09/18 Hx Alcohol Use: Yes Drug/Substance Use Hx: No Substance Use Type: Alcohol, Marijuana Hx Substance Use Treatment: Yes (Multiple admission to detox and rehab) Review of Systems - Review of Systems Able to Perform ROS?: Yes Is the patient limited Malian proficient: No Constitutional: No: Symptoms Reported, See HPI, Chills, Diaphoresis, Fever, Loss of Appetite, Malaise, Night Sweats, Weakness, Weight Stable, Unintentional Wgt. Loss, Unexplained wgt Loss, Other Psychiatric: No: Anxiety, Depression, Frequent Crying, Stressors, Sleep Pattern Change, Emotional Problems, Mood Swings, Change in Appetite, Other *Physical Exam - Vital Signs Last Vital Signs Temp Pulse Resp BP Pulse Ox 98 F 88 18 109/57 L 98 01/02/19 00:50 01/02/19 00:50 01/02/19 00:50 01/02/19 00:50 01/02/19 00:50 - Physical Exam General Appearance: Yes: Disheveled, Alcohol on Breath Integumentary: positive: Normal Color, Warm Neurologic: positive: kitchen cleaner II-XII NML intact, Alert, Other (SLEEPING AROUSABLE. normocephalic) Medical Decision Making - Medical Decision Making 01/02/19 05:38 A: Alcohol intoxication P: sobriety vital signs 01/02/19 05:59 patient is awake. drinking juice. requesting detox 01/02/19 06:08 patient to go to [facility] detox *DC/Admit/Observation/Transfer Diagnosis at time of Disposition: Alcohol intoxication Qualifiers: Complication of substance-induced condition: uncomplicated Qualified Code(s): F10.920 - Alcohol use, unspecified with intoxication, uncomplicated - Discharge Dispostion Disposition: HOME - Referrals Referrals: Barbara Solorio [Primary Care Provider] - - Patient Instructions Printed Discharge Instructions: DI for Alcohol Abuse Additional Instructions: refrain from alcohol use - Post Discharge Activity
--- NOTE | 2019-01-02 03:44 | PDOC ---
*Physical Exam - Vital Signs Last Vital Signs Temp Pulse Resp BP Pulse Ox 98 F 88 18 109/57 L 98 01/02/19 00:50 01/02/19 00:50 01/02/19 00:50 01/02/19 00:50 01/02/19 00:50 - Physical Exam General Appearance: Yes: Nourished Neck: positive: Trachea midline Respiratory/Chest: positive: Lungs Clear, Normal Breath Sounds Cardiovascular: positive: Regular Rhythm, Regular Rate, S1, S2 Gastrointestinal/Abdominal: positive: Normal Bowel Sounds, Flat, Soft. negative : Tender Medical Decision Making - Medical Decision Making 01/02/19 03:43 48 yo male h/o etoh abuse, here today because he wanted detox. c/o etoh intox. no other complaints. pt is resting comfortabley will reassess when clincally sober. *DC/Admit/Observation/Transfer Diagnosis at time of Disposition: Alcohol intoxication - Discharge Dispostion Disposition: HOME - Referrals Referrals: Barbara Solorio [Primary Care Provider] - - Patient Instructions Printed Discharge Instructions: DI for Alcohol Abuse Additional Instructions: refrain from alcohol use - Post Discharge Activity
[2019-01-02 06:11] VITALS: BP 129/58; PULSE 77
== END 2019-01-02 07:20 | disposition home or self-care (01) ==
LOC: JER 00:01
DX: F10.120 Alcohol abuse with intoxication, uncomplicated (principal); Y90.9 Presence of alcohol in blood, level not specified
CPT/HCPCS: 99282-25

== ENCOUNTER 2019-01-02 08:21 | Inpatient (IN) | payer OTHER ==
[2019-01-02 08:45] VITALS: BMI 30.9
--- NOTE | 2019-01-02 09:10 | HP ---
CIWA Score Nausea/Vomitin-Mild Nausea/No Vomiting (qualifies for alcohol detox) Muscle Tremors: 3 Anxiety: 1-Mildly Anxious Agitation: 1-Slight > Activity Paroxysmal Sweats: 3 Orientation: 0-Oriented Tacttile Disturbances: 1-Very Mild Itch/Numbness Auditory Disturbances: 1-Very Mild Visual Disturbances: 1-Very Mild Sensitivity Headache: 2-Mild CIWA-Ar Total Score: 14 - Admission Criteria OASAS Guidelines: Admission for Medically Managed Detox: Requires at least one of the followin. CIWA greater than 12 2. Seizures within the past 24 hours 3. Delirium tremens within the past 24 hours 4. Hallucinations within the past 24 hours 5. Acute intervention needed for co occurring medical disorder 6. Acute intervention needed for co occurring psychiatric disorder 7. Severe withdrawal that cannot be handled at a lower level of care (continued vomiting, continued diarrhea, abnormal vital signs) requiring intravenous medication and/or fluids 8. Admission ROS S - HPI Chief Complaint: " I want to go to alcohol detox because I want to stop" " I need to detox and feel like I'm going to out there" Allergies/Adverse Reactions: Allergies Allergy/AdvReac Type Severity Reaction Status Date / Time clarithromycin [From Biaxin] Allergy Intermediate Hives Verified 12/27/18 02:25 History of Present Illness: 48 Year old male with history of multiple detoxes and rehabs here at [facility]. His last admission was at rehab here 2 weeks ago. He is homeless and sleeps on the streets. [facility]. He 's never had actual blackout or withdrawal seizures. He is drinking 10 beers per day daily and last drank 10 PM last night. His breathalyzer is 0.071 today. He has been in detox at least 15 times here at [facility]. Prior Surgical History: None Social History: Cigarrettes 1 ppd for 14 years. Also uses occasional hashish or marijuana with friends. All: Biaxin caused a rash FHx: Father was an alcoholic but he has 2 brothers and sisters that are alive and well and have no medical problems. He wants and wishes to detox and continue to rehab on this admission. Exam Limitations: No Limitations - Ebola screening Have you traveled outside of the country in the last 21 days: No Have you had contact with anyone from an Ebola affected area: No Have you been sick,other than usual withdrawal symptoms: No Do you have a fever: No - Review of Systems Constitutional: Chills, Diaphoresis EENT: reports: Nose Congestion, Dental Problems Respiratory: reports: SOB with Exertion Cardiac: reports: No Symptoms Reported GI: reports: Nausea, Abdominal cramping : reports: No Symptoms Reported Musculoskeletal: reports: Back Pain, Muscle Pain Integumentary: reports: Dryness Neuro: reports: Headache, Tremors Endocrine: reports: No Symptoms Reported Hematology: reports: No Symptoms Reported, Anemia Psychiatric: reports: Judgement Intact, Mood/Affect Appropiate, Orientated x3, Depressed Patient History - Patient Medical History Hx Anemia: No Hx Asthma: No Hx Chronic Obstructive Pulmonary Disease (COPD): No Hx Cancer: No Hx Cardiac Disorders: No Hx Congestive Heart Failure: No Hx Hypertension: No Hx Hypercholesterolemia: No Hx Pacemaker: No HX Cerebrovascular Accident: No Hx Seizures: No Hx Dementia: No Hx Diabetes: No Hx Gastrointestinal Disorders: No Hx Liver Disease: No Hx Genitourinary Disorders: No Hx Sexually Transmitted Disorders: No Hx Renal Disease (ESRD): No Hx Thyroid Disease: No Hx Human Immunodeficiency Virus (HIV): No Hx Hepatitis C: No Hx Depression: Yes (not on medications, no suicidal ideation or plans) Hx Suicide Attempt: No Hx Bipolar Disorder: No Hx Schizophrenia: No - Patient Surgical History Past Surgical History: No Hx Neurologic Surgery: No Hx Cataract Extraction: No Hx Cardiac Surgery: No Hx Lung Surgery: No Hx Breast Surgery: No Hx Breast Biopsy: No Hx Abdominal Surgery: No Hx Appendectomy: No Hx Cholecystectomy: No Hx Genitourinary Surgery: No Hx Section: (N/A) Hx Orthopedic Surgery: No Anesthesia Reaction: No - PPD History Previous Implant?: Yes Documented Results: Negative w/o proof Date: 05/19/18 Results: 0mm - Reproductive History Patient is a Female of Child Bearing Age (11 -55 yrs old): No - Smoking Cessation Smoking history: Unknown if ever smoked ([id number]) Have you smoked in the past 12 months: No Aproximately how many cigarettes per day: 10 Cigars Per Day: 0 Hx Chewing Tobacco Use: No Initiated information on smoking cessation: Yes 'Breaking Loose' booklet given: 01/02/19 - Substance & Tx. History Hx Alcohol Use: Yes (see history of abuse) Hx Substance Use: Yes Substance Use Type: Alcohol, Marijuana Hx Substance Use Treatment: Yes (multiple admissions for detox and rehab) - Substances abused Alcohol Substance route: Oral Frequency: Daily Amount used: 10 beers Age of first use: 23 Date of last use: 01/01/19 (last used yesterday night 10pm) Marijuana/Hashish Substance route: Smoking Frequency: 1-3 times last 30 days Amount used: 1 joint Age of first use: 13 Date of last use: 01/01/19 (used two days ago) Family Disease History - Family Disease History Family Disease History: Heart Disease: Mother (HTN), Respiratory: Father (77 A & W ), Other: Brother (2 , A & W ), Sister (2, A & W ) Admission Physical Exam [facility] - Vital Signs Vital Signs: Vital Signs - 24 hr 01/02/19 08:31 Temperature 97.1 F L Pulse Rate 82 Respiratory 18 Rate Blood Pressure 154/78 - Physical General Appearance: Yes: No Apparent Distress, Disheveled, Mild Distress HEENTM: Yes: EOMI, Hearing grossly Normal, Normal ENT Inspection, Normocephalic , Normal Voice, LUIS, Pharynx Normal Respiratory: Yes: Chest Non-Tender, Lungs Clear, Normal Breath Sounds, No Respiratory Distress, No Accessory Muscle Use Neck: Yes: No masses,lesions,Nodules, Trachea in good position Breast: Yes: Breast Exam Deferred Cardiology: Yes: Regular Rhythm, Regular Rate, S1, S2 Abdominal: Yes: Normal Bowel Sounds, Distended, Hepatomegaly Genitourinary: Yes: Other (refused genitourinary exam) Back: Yes: Normal Inspection Musculoskeletal: Yes: full range of Motion, Gait Steady, Back pain Extremities: Yes: Normal Capillary Refill, Normal Inspection, Normal Range of Motion, Non-Tender 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, Fully Oriented, Alert, Motor Strength 5/5, Normal Mood/Affect, Normal Response Integumentary: Yes: Normal Color, Dry, Warm Lymphatic: Yes: Within Normal Limits - Diagnostic (1) Alcohol dependence with uncomplicated withdrawal Current Visit: Yes Status: Acute (2) Alcohol intoxication Current Visit: Yes Status: Acute Qualifiers: Complication of substance-induced condition: uncomplicated Qualified Code(s ): F10.920 - Alcohol use, unspecified with intoxication, uncomplicated (3) Depressed affect Current Visit: Yes Status: Acute (4) Insomnia Current Visit: Yes Status: Acute Qualifiers: Insomnia type: unspecified Qualified Code(s): G47.00 - Insomnia, unspecified (5) Anemia Current Visit: No Status: Chronic Qualifiers: Anemia type: unspecified type Qualified Code(s): D64.9 - Anemia, unspecified (6) Cannabis dependence Current Visit: Yes Status: Chronic (7) Nicotine dependence Current Visit: Yes Status: Chronic Qualifiers: Nicotine product type: cigarettes Substance use status: uncomplicated Qualified Code(s): F17.210 - Nicotine dependence, cigarettes, uncomplicated Cleared for Admission [facility] - Detox or Rehab [facility] Level of Care: Medically Managed Detox Regimen/Protocol: Librium Claeared for Rehab Admission: No Screened but not Admitted - Documentation of Visit Screened but not Admitted: No Breathalyzer - Breathalyzer Breathalyzer: 0.266 Vital Signs - Vital Signs Vital signs refused: No Temperature: 97.1 F Temperature source: Oral Pulse Rate: 82 Respiratory Rate: 18 Blood Pressure: 154/78 BP Location: Right Arm Blood Pressure position: Sitting - Height Height: 5 ft 6 in - Weight Weight: 192 lb Weight measurement method: Standing scale - BMI Body Mass Index (BMI): 30.9 - Bowel Function Bowel Movement: No Urine Drug Screen - Test Device Lot number: [id number] Expiration date: 10/03/20 - Control Is test valid?: Yes - Results Drug screen NEGATIVE: No Urine drug screen results: THC-Marijuana, BZO-Benzodiazepines Inpatient Rehab Admission - Rehab Decision to Admit Inpatient rehab admission?: No
[2019-01-02] MEDS ORDERED: METHOCARBAMOL 500 MG TABLET PO PRN (09:39)
[2019-01-02] MEDS ORDERED: MAGNESIUM HYDROX 2400MG/30ML ORAL SUSPENSION 30 ML CUP PO PRN (09:39)
[2019-01-02] MEDS ORDERED: MAGNESIUM CITRATE 300 ML BOTTLE PO PRN (09:39)
[2019-01-02] MEDS ORDERED: ACETAMINOPHEN 325 MG TABLET (FP) PO PRN ×2 (09:39)
[2019-01-02] MEDS ORDERED: chlordiazePOXIDE HCL 25 MG CAPSULE PO PRN (09:39)
[2019-01-02] MEDS ORDERED: BISMUTH SUBSALICYLATE 262 MG/15 ML BTL PO PRN (09:39)
[2019-01-02] MEDS ORDERED: MAG HYDROX/AL HYDROX/SIMETH 30 ML UNIT-DOSE CUP PO PRN (09:39)
[2019-01-02] MEDS ORDERED: MENTHOL/PHENOL 1 EACH UD MM PRN (09:39)
[2019-01-02] MEDS ORDERED: IBUPROFEN 400 MG TABLET (FP) PO PRN (09:39)
[2019-01-02] MEDS ORDERED: hydrOXYzine PAMOATE 25 MG CAPSULE (FP) PO PRN (09:39)
[2019-01-02] MEDS ORDERED: MELATONIN 5 MG TABLETS PO PRN (09:39)
[2019-01-02] MEDS: PRENATAL VITAMINS W/ FOLIC ACID TABLET (FP) PO SCH (10:37)
[2019-01-02] MEDS: chlordiazePOXIDE HCL 25 MG CAPSULE PO SCH ×3 (10:37→22:08)
[2019-01-02 13:55] LABS: HEMATOCRIT 31.2 % (35.4-49); HEMOGLOBIN 10.9 GM/dL (11.7-16.9); MEAN CELL VOLUME 102.7 fl (80-96); MEAN PLT VOLUME 6.9 fl (7.5-11.1); PLATELET COUNT 46 K/MM3 (134-434); RBC 3.04 M/mm3 (4.00-5.60); RDW 14.2 % (11.9-15.9)
[2019-01-02 14:01] LABS: BILIRUBIN,TOTAL 1.7 mg/dL (0.2-1); BLOOD UREA NITROGEN 4.7 mg/dL (7-18); CALCIUM 8.6 mg/dL (8.5-10.1); CREATININE 0.6 mg/dL (0.55-1.3); POTASSIUM 3.8 mmol/L (3.5-5.1); TOT PROT 8.3 g/dl (6.4-8.2)
[2019-01-02 14:15] LABS: WHITE BLOOD COUNT 1.9 K/mm3 (4.0-10.0)
[2019-01-02] MEDS: THIAMINE HCL 100 MG TABLET (FP) PO SCH (22:08)
[2019-01-03] MEDS: chlordiazePOXIDE HCL 25 MG CAPSULE PO SCH ×4 (05:32→22:24)
[2019-01-03] MEDS: PRENATAL VITAMINS W/ FOLIC ACID TABLET (FP) PO SCH (10:22)
[2019-01-03] MEDS ORDERED: cloNIDine HCL 0.1 MG TABLET PO PRN (14:49)
--- NOTE | 2019-01-03 14:52 | PN ---
[facility] CIWA - CIWA Score Nausea/Vomitin-Mild Nausea/No Vomiting Muscle Tremors: 4-Moderate,w/Arms Extend Anxiety: 3 Agitation: 3 Paroxysmal Sweats: 1-Minimal Palms Moist Orientation: 1-Uncertain about Date Tacttile Disturbances: 0-None Auditory Disturbances: 0-None Visual Disturbances: 0-None Headache: 0-None Present CIWA-Ar Total Score: 13 S Progress Note (SOAP) Subjective: 48 years old male admitted on 01/02/19 for alcohol withdrawal sx management sporadically bp elevation begin clonidin 0.1mg po q6h prn for hypertension Objective: 01/03/19 14:51 Vital Signs Temperature 98.6 F 01/03/19 13:25 Pulse Rate 74 01/03/19 13:25 Respiratory Rate 18 01/03/19 13:25 Blood Pressure 108/60 01/03/19 13:25 O2 Sat by Pulse Oximetry (%) Laboratory Last Values WBC 1.9 K/mm3 (4.0-10.0) L* 01/02/19 10:20 RBC 3.04 M/mm3 (4.00-5.60) L 01/02/19 10:20 Hgb 10.9 GM/dL (11.7-16.9) L 01/02/19 10:20 Hct 31.2 % (35.4-49) L 01/02/19 10:20 MCV 102.7 fl (80-96) H 01/02/19 10:20 MCH 36.0 pg (25.7-33.7) H 01/02/19 10:20 MCHC 35.0 g/dl (32.0-35.9) 01/02/19 10:20 RDW 14.2 % (11.9-15.9) 01/02/19 10:20 Plt Count 46 K/MM3 (134-434) L 01/02/19 10:20 MPV 6.9 fl (7.5-11.1) L 01/02/19 10:20 Sodium 136 mmol/L (136-145) 01/02/19 10:20 Potassium 3.8 mmol/L (3.5-5.1) 01/02/19 10:20 Chloride 102 mmol/L (98-107) 01/02/19 10:20 Carbon Dioxide 29 mmol/L (21-32) 01/02/19 10:20 Anion Gap 5 MMOL/L (8-16) L 01/02/19 10:20 BUN 4.7 mg/dL (7-18) L 01/02/19 10:20 Creatinine 0.6 mg/dL (0.55-1.3) 01/02/19 10:20 Est GFR (CKD-EPI)AfAm 135.87 01/02/19 10:20 Est GFR (CKD-EPI)NonAf 117.23 01/02/19 10:20 Random Glucose 110 mg/dL (74-106) H 01/02/19 10:20 Calcium 8.6 mg/dL (8.5-10.1) 01/02/19 10:20 Total Bilirubin 1.7 mg/dL (0.2-1) H 01/02/19 10:20 AST 55 U/L (15-37) H 01/02/19 10:20 ALT 31 U/L (13-61) 01/02/19 10:20 Alkaline Phosphatase 133 U/L (45-117) H 01/02/19 10:20 Total Protein 8.3 g/dl (6.4-8.2) H 01/02/19 10:20 Albumin 3.0 g/dl (3.4-5.0) L 01/02/19 10:20 RPR Titer Nonreactive (NONREACTIVE) 01/02/19 10:20 low wbc low plt discontinue motrin lab noted 01/03/19 14:53 Assessment: 01/03/19 14:53 alcohol withdrawal sx Plan: continue alcohol detox
[2019-01-03] MEDS: THIAMINE HCL 100 MG TABLET (FP) PO SCH (22:24)
[2019-01-04] MEDS: chlordiazePOXIDE HCL 25 MG CAPSULE PO SCH ×4 (05:54→22:18)
[2019-01-04] MEDS: PRENATAL VITAMINS W/ FOLIC ACID TABLET (FP) PO SCH (10:44)
--- NOTE | 2019-01-04 11:07 | PN ---
S CIWA - CIWA Score Nausea/Vomitin-Mild Nausea/No Vomiting Muscle Tremors: 3 Anxiety: 3 Agitation: 3 Paroxysmal Sweats: 1-Minimal Palms Moist Orientation: 0-Oriented Tacttile Disturbances: 0-None Auditory Disturbances: 0-None Visual Disturbances: 0-None Headache: 1-Very Mild CIWA-Ar Total Score: 12 S Progress Note (SOAP) Subjective: fluctuated bp continue clonidine 0.1 mg po prn for systolic above 140 mild headache denies pressure behind the orbital denies dizziness no chest pain ambulating on hallway social with peers Objective: 01/04/19 11:09 Vital Signs Temperature 96.4 F L 01/04/19 09:15 Pulse Rate 83 01/04/19 09:15 Respiratory Rate 18 01/04/19 09:15 Blood Pressure 145/75 01/04/19 09:15 O2 Sat by Pulse Oximetry (%) Laboratory Last Values WBC 1.9 K/mm3 (4.0-10.0) L* 01/02/19 10:20 RBC 3.04 M/mm3 (4.00-5.60) L 01/02/19 10:20 Hgb 10.9 GM/dL (11.7-16.9) L 01/02/19 10:20 Hct 31.2 % (35.4-49) L 01/02/19 10:20 MCV 102.7 fl (80-96) H 01/02/19 10:20 MCH 36.0 pg (25.7-33.7) H 01/02/19 10:20 MCHC 35.0 g/dl (32.0-35.9) 01/02/19 10:20 RDW 14.2 % (11.9-15.9) 01/02/19 10:20 Plt Count 46 K/MM3 (134-434) L 01/02/19 10:20 MPV 6.9 fl (7.5-11.1) L 01/02/19 10:20 Sodium 136 mmol/L (136-145) 01/02/19 10:20 Potassium 3.8 mmol/L (3.5-5.1) 01/02/19 10:20 Chloride 102 mmol/L (98-107) 01/02/19 10:20 Carbon Dioxide 29 mmol/L (21-32) 01/02/19 10:20 Anion Gap 5 MMOL/L (8-16) L 01/02/19 10:20 BUN 4.7 mg/dL (7-18) L 01/02/19 10:20 Creatinine 0.6 mg/dL (0.55-1.3) 01/02/19 10:20 Est GFR (CKD-EPI)AfAm 135.87 01/02/19 10:20 Est GFR (CKD-EPI)NonAf 117.23 01/02/19 10:20 Random Glucose 110 mg/dL (74-106) H 01/02/19 10:20 Calcium 8.6 mg/dL (8.5-10.1) 01/02/19 10:20 Total Bilirubin 1.7 mg/dL (0.2-1) H 01/02/19 10:20 AST 55 U/L (15-37) H 01/02/19 10:20 ALT 31 U/L (13-61) 01/02/19 10:20 Alkaline Phosphatase 133 U/L (45-117) H 01/02/19 10:20 Total Protein 8.3 g/dl (6.4-8.2) H 01/02/19 10:20 Albumin 3.0 g/dl (3.4-5.0) L 01/02/19 10:20 RPR Titer Nonreactive (NONREACTIVE) 01/02/19 10:20 repeat cbc with differentiate lab noted 01/04/19 11:13 Assessment: 01/04/19 11:15 alcohol withdrawal sx Plan: continue alcohol detox
[2019-01-04] MEDS: THIAMINE HCL 100 MG TABLET (FP) PO SCH (22:18)
[2019-01-05] MEDS ORDERED: chlordiazePOXIDE HCL 10 MG CAPSULE PO PRN
[2019-01-05] MEDS: chlordiazePOXIDE HCL 10 MG CAPSULE PO SCH ×4 (06:19→22:13)
[2019-01-05] MEDS: PRENATAL VITAMINS W/ FOLIC ACID TABLET (FP) PO SCH (10:27)
--- NOTE | 2019-01-05 15:49 | PN ---
[facility] CIWA - CIWA Score Nausea/Vomitin-No Nausea/No Vomiting Muscle Tremors: None Anxiety: 3 Agitation: 3 Paroxysmal Sweats: 2 Orientation: 0-Oriented Tacttile Disturbances: 0-None Auditory Disturbances: 1-Very Mild Visual Disturbances: 2-Mild Sensitivity Headache: 0-None Present CIWA-Ar Total Score: 11 S Progress Note (SOAP) Subjective: Anxious, Restless, Sweating. Objective: PATIENT A & O X 3, OBSERVED AMBULATING ON UNIT UNASSISTED. IN NO ACUTE DISTRESS. 01/05/19 16:01 Vital Signs Temperature 98.4 F 01/05/19 13:23 Pulse Rate 78 01/05/19 13:23 Respiratory Rate 18 01/05/19 13:23 Blood Pressure 131/73 01/05/19 13:23 O2 Sat by Pulse Oximetry (%) Laboratory Tests 01/02/19 01/02/19 01/02/19 10:20 10:20 10:20 WBC 1.9 L* RBC 3.04 L Hgb 10.9 L Hct 31.2 L MCV 102.7 H MCH 36.0 H MCHC 35.0 RDW 14.2 Plt Count 46 L MPV 6.9 L Sodium 136 Potassium 3.8 Chloride 102 Carbon Dioxide 29 Anion Gap 5 L BUN 4.7 L Creatinine 0.6 Est GFR (CKD-EPI)AfAm 135.87 Est GFR (CKD-EPI)NonAf 117.23 Random Glucose 110 H Calcium 8.6 Total Bilirubin 1.7 H AST 55 H ALT 31 Alkaline Phosphatase 133 H Total Protein 8.3 H Albumin 3.0 L RPR Titer Nonreactive LABS NOTED. PATIENT HAS BEEN PANCYTOPENIC AND HAS HAD ELEVATED AST AND ALKALINE PHOSPHATASE LEVELS ON SEVERAL PREVIOUS ADMISSIONS. 01/05/19 16:03 Assessment: 01/05/19 16:01 WITHDRAWAL SYMPTOMS. PANCYTOPENIA. ELEVATED AST AND ALKALLINE PHOSPHATASE LEVELS. 01/05/19 16:02 Plan: CONTINUE DETOX. INCREASE DAILY PO WATER INTAKE.
[2019-01-05] MEDS: THIAMINE HCL 100 MG TABLET (FP) PO SCH (22:13)
[2019-01-06] MEDS: chlordiazePOXIDE HCL 10 MG CAPSULE PO SCH ×2 (07:09→18:15)
[2019-01-06] MEDS: PRENATAL VITAMINS W/ FOLIC ACID TABLET (FP) PO SCH (11:10)
--- NOTE | 2019-01-06 15:12 | PN ---
S CIWA - CIWA Score Nausea/Vomitin-No Nausea/No Vomiting Muscle Tremors: None Anxiety: 3 Agitation: 0-Normal Activity Paroxysmal Sweats: 2 Orientation: 0-Oriented Tacttile Disturbances: 0-None Auditory Disturbances: 0-None Visual Disturbances: 1-Very Mild Sensitivity Headache: 0-None Present CIWA-Ar Total Score: 6 [facility] Progress Note (SOAP) Subjective: Anxious, Sweating. Objective: PATIENT A & O X 3, OBSERVED AMBULATING ON UNIT UNASSISTED. IN NO ACUTE DISTRESS. 01/06/19 15:11 Vital Signs Temperature 98.5 F 01/06/19 13:57 Pulse Rate 81 01/06/19 13:57 Respiratory Rate 18 01/06/19 13:57 Blood Pressure 127/71 01/06/19 13:57 O2 Sat by Pulse Oximetry (%) Laboratory Tests 01/02/19 01/02/19 01/02/19 10:20 10:20 10:20 WBC 1.9 L* RBC 3.04 L Hgb 10.9 L Hct 31.2 L MCV 102.7 H MCH 36.0 H MCHC 35.0 RDW 14.2 Plt Count 46 L MPV 6.9 L Sodium 136 Potassium 3.8 Chloride 102 Carbon Dioxide 29 Anion Gap 5 L BUN 4.7 L Creatinine 0.6 Est GFR (CKD-EPI)AfAm 135.87 Est GFR (CKD-EPI)NonAf 117.23 Random Glucose 110 H Calcium 8.6 Total Bilirubin 1.7 H AST 55 H ALT 31 Alkaline Phosphatase 133 H Total Protein 8.3 H Albumin 3.0 L RPR Titer Nonreactive LABS NOTED. Assessment: 01/06/19 15:11 WITHDRAWAL SYMPTOMS. ELEVATED AST LEVEL. ELEVATED ALKALINE PHOSPHATASE LEVEL. PANCYTOPENIA. HYPERBILIRUBINEMIA. Plan: CONTINUE DETOX. PATIENT SCHEDULED FOR D/C FROM DETOX UNIT TOMORROW.
[2019-01-06] MEDS: THIAMINE HCL 100 MG TABLET (FP) PO SCH (22:42)
[2019-01-07] MEDS ORDERED: chlordiazePOXIDE HCL 10 MG CAPSULE PO ONE (05:00)
[2019-01-07 06:27] VITALS: BP 104/60; PULSE 69; TEMP 97.1
--- NOTE | 2019-01-07 13:06 | DS ---
[facility] Detox Discharge Summary Admission Date: 01/02/19 Discharge Date: 01/07/19 - History Present History: Alcohol Dependence Additional Comments: 48 years old male admitted on 01/02/19 for alcohol withdrawal sx management doing well with libirum detox regimen no complication through out the detox stay alert oriented x 3 denies dizziness no shortness of breathe aftercare community support meeting Pertinent Past History: long history of asymptomatic low wbc strong recommend the [facility] - Physical Exam Results Vital Signs: Vital Signs Temperature 97.1 F L 01/07/19 06:26 Pulse Rate 69 01/07/19 06:26 Respiratory Rate 18 01/07/19 06:26 Blood Pressure 104/60 01/07/19 06:26 O2 Sat by Pulse Oximetry (%) Pertinent Admission Physical Exam Findings: alcohol withdrawal sx Laboratory Last Values WBC 1.9 K/mm3 (4.0-10.0) L* 01/02/19 10:20 RBC 3.04 M/mm3 (4.00-5.60) L 01/02/19 10:20 Hgb 10.9 GM/dL (11.7-16.9) L 01/02/19 10:20 Hct 31.2 % (35.4-49) L 01/02/19 10:20 MCV 102.7 fl (80-96) H 01/02/19 10:20 MCH 36.0 pg (25.7-33.7) H 01/02/19 10:20 MCHC 35.0 g/dl (32.0-35.9) 01/02/19 10:20 RDW 14.2 % (11.9-15.9) 01/02/19 10:20 Plt Count 46 K/MM3 (134-434) L 01/02/19 10:20 MPV 6.9 fl (7.5-11.1) L 01/02/19 10:20 Sodium 136 mmol/L (136-145) 01/02/19 10:20 Potassium 3.8 mmol/L (3.5-5.1) 01/02/19 10:20 Chloride 102 mmol/L (98-107) 01/02/19 10:20 Carbon Dioxide 29 mmol/L (21-32) 01/02/19 10:20 Anion Gap 5 MMOL/L (8-16) L 01/02/19 10:20 BUN 4.7 mg/dL (7-18) L 01/02/19 10:20 Creatinine 0.6 mg/dL (0.55-1.3) 01/02/19 10:20 Est GFR (CKD-EPI)AfAm 135.87 01/02/19 10:20 Est GFR (CKD-EPI)NonAf 117.23 01/02/19 10:20 Random Glucose 110 mg/dL (74-106) H 01/02/19 10:20 Calcium 8.6 mg/dL (8.5-10.1) 01/02/19 10:20 Total Bilirubin 1.7 mg/dL (0.2-1) H 01/02/19 10:20 AST 55 U/L (15-37) H 01/02/19 10:20 ALT 31 U/L (13-61) 01/02/19 10:20 Alkaline Phosphatase 133 U/L (45-117) H 01/02/19 10:20 Total Protein 8.3 g/dl (6.4-8.2) H 01/02/19 10:20 Albumin 3.0 g/dl (3.4-5.0) L 01/02/19 10:20 RPR Titer Nonreactive (NONREACTIVE) 01/02/19 10:20 lab noted - Treatment Hospital Course: Detox Protocol Followed, Detoxed Safely, Responded well, Discharged Condition Good, Rehab Referral Accepted Patient has Accepted a Re[facility] Referral [facility]: [facility] - Medication Discharge Medications: Ambulatory Orders NK [No Known Home Medication] 01/02/19 - Diagnosis (1) Alcohol dependence with uncomplicated withdrawal Status: Acute (2) Leukopenia Status: Chronic Qualifiers: Neutropenia type: other drug-induced (3) Substance induced mood disorder Status: Suspected (4) Alcohol dependence with uncomplicated withdrawal Status: Acute (5) Nicotine dependence Status: Acute Qualifiers: Nicotine product type: cigarettes Substance use status: in withdrawal Qualified Code(s): F17.213 - Nicotine dependence, cigarettes, with withdrawal (6) Substance induced mood disorder Status: Suspected - AMA Did Patient Leave Against Medical Advice: No
== END 2019-01-07 08:40 | disposition home or self-care (01) | DRG 775 ==
LOC: YASAS 08:21 → Y3N 09:56
PROVIDERS: ADMIT Surgery; ATTEND Surgery
PROC: HZ2ZZZZ Detoxification Services for Substance Abuse Treatment (ICD-10-PCS; principal; 2019-01-02)
DX: F10.230 Alcohol dependence with withdrawal, uncomplicated (principal); F10.220 Alcohol dependence with intoxication, uncomplicated; F12.20 Cannabis dependence, uncomplicated; F17.213 Nicotine dependence, cigarettes, with withdrawal; F19.24 Other psychoactive substance dependence with psychoactive substance-induced mood disorder; F32.9 Major depressive disorder, single episode, unspecified; D72.819 Decreased white blood cell count, unspecified; E80.6 Other disorders of bilirubin metabolism; R74.0 Nonspecific elevation of levels of transaminase and lactic acid dehydrogenase [LDH]; D61.818 Other pancytopenia; D64.9 Anemia, unspecified; G47.00 Insomnia, unspecified; Z88.1 Allergy status to other antibiotic agents; Z59.0 Homelessness
CPT/HCPCS: 36415; 80053; 85027; 86593; 99282-25

== ENCOUNTER 2019-02-09 01:58 | Emergency (ER) | payer OTHER ==
[2019-02-09 02:12] VITALS: BMI 30.1
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
--- NOTE | 2019-02-09 07:17 | PDOC ---
*Physical Exam - Vital Signs Last Vital Signs Temp Pulse Resp BP Pulse Ox 98.0 F 80 20 180/74 H 99 02/09/19 02:01 02/09/19 02:01 02/09/19 02:01 02/09/19 02:01 02/09/19 02:01 - Physical Exam Comments: 02/09/19 07:15 Patient was signed out to me by day team 48 yo M with hx of ETOH abuse with multiple presentations for ETOH abuse to this emergency department presents to the ED after presentation at [facility] that was filled to capacity, thus referred to our emergency department. Pending: reassessment for clinical sobriety Medical Decision Making - Medical Decision Making xray negative for acute fracture or dislocation. Patient to be discharged as he is clinically sober and able to ambulate on his own volition. Dispo: Discharge *DC/Admit/Observation/Transfer Diagnosis at time of Disposition: Alcohol intoxication Qualifiers: Complication of substance-induced condition: uncomplicated Qualified Code(s): F10.920 - Alcohol use, unspecified with intoxication, uncomplicated - Discharge Dispostion Disposition: HOME Decision to Admit order: No - Referrals Referrals: Barbara Solorio [Primary Care Provider] - - Patient Instructions Printed Discharge Instructions: DI for Alcohol Abuse, DI for Knee Pain Additional Instructions: You were seen for your alcohol intoxication and knee pain. Your xray was negative. Please follow up with your primary medical doctor within 1 week after discharge for follow up care and management. please stop drinking alcohol. thank you. - Post Discharge Activity
[2019-02-09 10:24] VITALS: BP 147/91; PULSE 89; TEMP 97.8
== END 2019-02-09 10:37 | disposition home or self-care (01) ==
LOC: JER 01:58
DX: F10.120 Alcohol abuse with intoxication, uncomplicated (principal); F10.920 Alcohol use, unspecified with intoxication, uncomplicated; F17.210 Nicotine dependence, cigarettes, uncomplicated
CPT/HCPCS: 73562-TC-LT-FY; 99283-25

== ENCOUNTER 2019-03-19 21:44 | Inpatient (IN) | payer OTHER ==
[2019-03-19 22:25] VITALS: BMI 31.9
--- NOTE | 2019-03-19 23:15 | HP ---
CIWA Score Nausea/Vomitin-No Nausea/No Vomiting Muscle Tremors: 1-None Visible, but Avery Anxiety: 4-Mod. Anxious/Guarded Agitation: 4-Moderately Restless Paroxysmal Sweats: No Perspiration Orientation: 0-Oriented Tacttile Disturbances: 0-None Auditory Disturbances: 0-None Visual Disturbances: 0-None Headache: 0-None Present CIWA-Ar Total Score: 9 - Admission Criteria [facility] Guidelines: Admission for Medically Managed Detox: Requires at least one of the followin. CIWA greater than 12 2. Seizures within the past 24 hours 3. Delirium tremens within the past 24 hours 4. Hallucinations within the past 24 hours 5. Acute intervention needed for co occurring medical disorder 6. Acute intervention needed for co occurring psychiatric disorder 7. Severe withdrawal that cannot be handled at a lower level of care (continued vomiting, continued diarrhea, abnormal vital signs) requiring intravenous medication and/or fluids 8. Patient presents the following: Acute intervention needed for co-occurring med or psych disorder Admission Criteria Met: Admission criteria met Admitting History and Physical - Smoking History Smoking history: Current some day smoker Have you smoked in the past 12 months: No Aproximately how many cigarettes per day: 10 - Alcohol/Substance Use Hx Alcohol Use: Yes (see history of abuse) Admission ROS [facility] Chief Complaint: C/O WORSENING WITHDRAWAL SX'S Allergies/Adverse Reactions: Allergies Allergy/AdvReac Type Severity Reaction Status Date / Time clarithromycin [From Biaxin] Allergy Intermediate Hives Verified 03/19/19 22:26 History of Present Illness: 48 Y.O. MALE WITH ALCOHOL DEPENDENCE HERE FOR DETOX. CLIENT IS KNOWN TO THIS PROGRAM WITH SEVERAL PAST ADMISSIONS. PRESENTS TODAY SEEKING DETOX. HE IS COMPLAINING OF WITHDRAWAL SX'S BUT CONTINUES TO DRINK NOT TO HAVE THEM. HE REPORTS DAILY ALCOHOL INTAKE. 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 DENIES ANY SIGNIFICANT PERIOD OF CLEAN TIME EXCEPT WHEN IN TXMENT. LIVES WITH FATHER, UNEMPLOYED, DENIES LEGALS Exam Limitations: Intoxication (CLINICALLY SRABLE) - Ebola screening Have you traveled outside of the country in the last 21 days: No (N) Have you had contact with anyone from an Ebola affected area: No Do you have a fever: No - Review of Systems Constitutional: Night Sweats, Changes in sleep EENT: reports: Dental Problems (MISSING TEETH) Respiratory: reports: Shortness of Breath (WITH ANXIETY) Cardiac: reports: No Symptoms Reported GI: reports: No Symptoms Reported : reports: No Symptoms Reported Musculoskeletal: reports: Back Pain (CHRONIC) Integumentary: reports: No Symptoms Reported Neuro: reports: Tremors (FELT), Other (BLACK OUTS) Endocrine: reports: No Symptoms Reported Hematology: reports: Anemia (HX/O) Psychiatric: reports: Orientated x3, Anxious, Depressed (DENIES SI/HI) Other Systems: Reviewed and Negative Patient History - Patient Medical History Hx Anemia: No Hx Asthma: No Hx Chronic Obstructive Pulmonary Disease (COPD): No Hx Cancer: No Hx Cardiac Disorders: No Hx Congestive Heart Failure: No Hx Hypertension: No Hx Hypercholesterolemia: No Hx Pacemaker: No HX Cerebrovascular Accident: No Hx Seizures: No Hx Dementia: No Hx Diabetes: No Hx Gastrointestinal Disorders: No Hx Liver Disease: No Hx Genitourinary Disorders: No Hx Sexually Transmitted Disorders: No Hx Renal Disease (ESRD): No Hx Thyroid Disease: No Hx Human Immunodeficiency Virus (HIV): No Hx Hepatitis C: No Hx Depression: Yes (not on medications, no suicidal ideation or plans) Hx Suicide Attempt: No Hx Bipolar Disorder: No Hx Schizophrenia: No - Patient Surgical History Past Surgical History: No Hx Neurologic Surgery: No Hx Cataract Extraction: No Hx Cardiac Surgery: No Hx Lung Surgery: No Hx Breast Surgery: No Hx Breast Biopsy: No Hx Abdominal Surgery: No Hx Appendectomy: No Hx Cholecystectomy: No Hx Genitourinary Surgery: No Hx Section: (N/A) Hx Orthopedic Surgery: No Anesthesia Reaction: No - PPD History Previous Implant?: Yes Documented Results: Negative w/proof Implanted On Prior [facility] Admission?: Yes Date: 05/19/18 Results: 0mm PPD to be Administered?: No - Smoking Cessation Smoking history: Current some day smoker Have you smoked in the past 12 months: No Aproximately how many cigarettes per day: 10 Cigars Per Day: 0 Hx Chewing Tobacco Use: No Initiated information on smoking cessation: Yes 'Breaking Loose' booklet given: 03/19/19 - Substance & Tx. History Hx Alcohol Use: Yes Hx Substance Use: Yes Substance Use Type: Alcohol Hx Substance Use Treatment: Yes ([facility]) - Substances abused Alcohol Substance route: Oral Frequency: Daily Amount used: 10- 16OZ beers Age of first use: 23 Date of last use: 03/19/19 Marijuana/Hashish Substance route: Smoking Frequency: 1-3 times last 30 days Amount used: 1 joint Age of first use: 13 Date of last use: 03/19/19 Admission Physical Exam S - Vital Signs Vital Signs: Vital Signs - 24 hr 03/19/19 03/19/19 22:19 22:59 Temperature 97.1 F L 97.1 F L Pulse Rate 96 H 96 H Respiratory 20 20 Rate Blood Pressure 118/71 118/71 - Physical General Appearance: Yes: Mild Distress, Tremorous (FELT), Anxious HEENTM: Yes: EOMI, Normocephalic, Normal Voice, LUIS, Pharynx Normal, Other ( CRACKED LIPS) Respiratory: Yes: Chest Non-Tender, Lungs Clear, Normal Breath Sounds, No Respiratory Distress, No Accessory Muscle Use Neck: Yes: No masses,lesions,Nodules, Supple, Trachea in good position Breast: Yes: Other (GYNECOMASTIA) Cardiology: Yes: Regular Rhythm, S1, S2, Tachycardia Abdominal: Yes: Non Tender, Soft, Increased Bowel Sounds, Protuberent Genitourinary: Yes: Within Normal Limits Back: Yes: Other (KYPHOSIS) Musculoskeletal: Yes: full range of Motion, Other (UNSTEADY GAIT) Neurological: Yes: Alert, Motor Strength 5/5, Depressed Affect Integumentary: Yes: Dry, Warm, Other (R GROIN WITH HEALING WOUND) Lymphatic: Yes: Within Normal Limits - Diagnostic (1) Right groin wound Current Visit: Yes Status: Acute Qualifiers: Encounter type: subsequent encounter Qualified Code(s): S31.109D - Unspecified open wound of abdominal wall, unspecified quadrant without penetration into peritoneal cavity, subsequent encounter (2) At risk for dehydration due to poor fluid intake Current Visit: Yes Status: Acute (3) Alcohol dependence with uncomplicated withdrawal Current Visit: Yes Status: Acute (4) Alcohol intoxication Current Visit: Yes Status: Acute Qualifiers: Complication of substance-induced condition: uncomplicated Qualified Code(s ): F10.920 - Alcohol use, unspecified with intoxication, uncomplicated (5) Alcohol-induced mood disorder Current Visit: Yes Status: Suspected (6) Alcohol-induced sleep disorder Current Visit: Yes Status: Suspected (7) Depressed affect Current Visit: Yes Status: Acute (8) Nicotine dependence Current Visit: Yes Status: Chronic Qualifiers: Nicotine product type: cigarettes Substance use status: in withdrawal Qualified Code(s): F17.213 - Nicotine dependence, cigarettes, with withdrawal (9) Anxiety Current Visit: Yes Status: Acute (10) Cannabis dependence Current Visit: Yes Status: Acute Cleared for Admission S - Detox or Rehab [facility] Level of Care: Medically Managed Detox Regimen/Protocol: Librium Claeared for Rehab Admission: No Breathalyzer - Breathalyzer Breathalyzer: 0.150 Urine Drug Screen - Test Device Lot number: [id number] Expiration date: 11/03/20 - Control Is test valid?: Yes - Results Drug screen NEGATIVE: No Urine drug screen results: THC-Marijuana, BZO-Benzodiazepines Inpatient Rehab Admission - Rehab Decision to Admit Inpatient rehab admission?: No
[2019-03-19] MEDS ORDERED: MENTHOL/PHENOL 1 EACH UD MM PRN (23:18)
[2019-03-19] MEDS ORDERED: ACETAMINOPHEN 325 MG TABLET (FP) PO PRN ×2 (23:18)
[2019-03-19] MEDS ORDERED: METHOCARBAMOL 500 MG TABLET PO PRN (23:18)
[2019-03-19] MEDS ORDERED: P-EPHED 60MG/TRIPROLIDI 2.5MG TABLET PO PRN (23:18)
[2019-03-19] MEDS ORDERED: guaiFENesin 200 MG/10 ML 10 ML UNIT-DOSE CUPS PO PRN (23:18)
[2019-03-19] MEDS ORDERED: BISMUTH SUBSALICYLATE 524 MG/30 ML UD PO PRN (23:18)
[2019-03-19] MEDS ORDERED: NICOTINE POLACRILEX 2 MG GUM BUC PRN (23:18)
[2019-03-19] MEDS ORDERED: DICYCLOMINE HCL 10 MG CAPSULE PO PRN (23:18)
[2019-03-19] MEDS ORDERED: chlordiazePOXIDE HCL 25 MG CAPSULE PO PRN (23:18)
[2019-03-19] MEDS ORDERED: MAGNESIUM CITRATE 300 ML BOTTLE PO PRN (23:18)
[2019-03-19] MEDS ORDERED: ONDANSETRON *ODT* 4 MG TABLET SL PRN (23:18)
[2019-03-19] MEDS ORDERED: MAG HYDROX/AL HYDROX/SIMETH 30 ML UNIT-DOSE CUP PO PRN (23:18)
[2019-03-19] MEDS ORDERED: hydrOXYzine PAMOATE 25 MG CAPSULE (FP) PO PRN (23:18)
[2019-03-20] MEDS: chlordiazePOXIDE HCL 25 MG CAPSULE PO SCH ×5 (00:15→22:03)
[2019-03-20 09:40] LABS: HEMATOCRIT 35.9 % (35.4-49); HEMOGLOBIN 12.3 GM/dL (11.7-16.9); MCH 35.5 pg (25.7-33.7); MCHC 34.3 g/dl (32.0-35.9); MEAN CELL VOLUME 103.5 fl (80-96); MEAN PLT VOLUME 8.6 fl (7.5-11.1); PLATELET COUNT 46 K/MM3 (134-434); RBC 3.47 M/mm3 (4.00-5.60); RDW 13.1 % (11.9-15.9); WHITE BLOOD COUNT 2.5 K/mm3 (4.0-10.0)
[2019-03-20 09:48] LABS: BILIRUBIN,TOTAL 0.6 mg/dL (0.2-1); BLOOD UREA NITROGEN 6.6 mg/dL (7-18); CALCIUM 8.3 mg/dL (8.5-10.1); CREATININE 0.7 mg/dL (0.55-1.3); POTASSIUM 3.8 mmol/L (3.5-5.1)
[2019-03-20] MEDS: PRENATAL VITAMINS W/ FOLIC ACID TABLET (FP) PO SCH (10:10)
[2019-03-20] MEDS: NICOTINE 21 MG/24 HOURS TOPICAL PATCH TD SCH (10:12)
[2019-03-20] MEDS: BACITRACIN 15 GM TUBE TOPICAL OINTMENT TP SCH (12:50)
--- NOTE | 2019-03-20 14:44 | PN ---
S CIWA - CIWA Score Nausea/Vomitin-No Nausea/No Vomiting Muscle Tremors: 3 Anxiety: 3 Agitation: 0-Normal Activity Paroxysmal Sweats: 3 Orientation: 0-Oriented Tacttile Disturbances: 0-None Auditory Disturbances: 0-None Visual Disturbances: 2-Mild Sensitivity Headache: 0-None Present CIWA-Ar Total Score: 11 S Progress Note (SOAP) Subjective: Sweating, Anxious, Fatigue. Objective: PATIENT A & O X 3. IN NO ACUTE DISTRESS. 03/20/19 14:42 Vital Signs Temperature 97.9 F 03/20/19 13:04 Pulse Rate 92 H 03/20/19 13:04 Respiratory Rate 20 03/20/19 13:04 Blood Pressure 114/59 L 03/20/19 13:04 O2 Sat by Pulse Oximetry (%) Laboratory Tests 03/20/19 03/20/19 07:50 07:50 WBC 2.5 L RBC 3.47 L Hgb 12.3 Hct 35.9 D MCV 103.5 H MCH 35.5 H MCHC 34.3 RDW 13.1 Plt Count 46 L MPV 8.6 D Sodium 140 Potassium 3.8 Chloride 105 Carbon Dioxide 27 Anion Gap 8 BUN 6.6 L Creatinine 0.7 Est GFR (CKD-EPI)AfAm 127.53 Est GFR (CKD-EPI)NonAf 110.04 Random Glucose 98 Calcium 8.3 L Total Bilirubin 0.6 AST 30 ALT 21 Alkaline Phosphatase 111 Total Protein 8.0 Albumin 3.0 L LABS NOTED. PATIENT HAS HAD LOW WBC AND LOW PLATELET LEVELS ON PREVIOUS ADMISSIONS. Assessment: 03/20/19 14:43 WITHDRAWAL SYMPTOMS. LEUKOPENIA. THROMBOCYTOPENIA. Plan: CONTINUE DETOX. INCREASE DAILY PO WATER INTAKE.
[2019-03-20 14:48] LABS: PH,URINE 5.5 (5.0-8.0); URINE APPEARANCE CLEAR; URINE BILIRUBIN NEGATIVE (NEGATIVE); URINE COLOR YELLOW; URINE GLUCOSE (UA) NEGATIVE (NEGATIVE); URINE KETONE NEGATIVE (NEGATIVE); URINE LEUK ESTERASE NEGATIVE (NEGATIVE); URINE NITRITE NEGATIVE (NEGATIVE); URINE PROTEIN NEGATIVE (NEGATIVE); URINE UROBILINOGEN 0.2 mg/dL (0.2-1.0)
--- NOTE | 2019-03-20 16:38 | CONSULT ---
[facility] Psychiatric Consult - Data Date of interview: 03/20/19 Admission source: [facility] Identifying data: Readmission to [facility] for this 48 y/o male self- referred for detoxification (LILIYA issues : alcohol). Interviewed at [address] [place] [address]. patient is single, no children, domiciled (lives with father), unemployed and supported on food stamps. Substance Abuse History: Discussed with the patient. Details in current [facility] report as follows : Smoking history: Current some day smoker. Have you smoked in the past 12 months: No. Aproximately how many cigarettes per day: 10. Cigars Per Day: 0. Hx Chewing Tobacco Use: No. Initiated information on smoking cessation: Yes. 'Breaking Loose' booklet given: 03/19/19. - Substance & Tx. History. Hx Alcohol Use: Yes. Hx Substance Use: Yes. Substance Use Type : Alcohol. Hx Substance Use Treatment: Yes ([facility]). - Substances abused. Alcohol. Substance route: Oral. Frequency: Daily. Amount used: 10- 16OZ beers. Age of first use: 23. Date of last use: 03/19/19. Marijuana/ Hashish. Substance route: Smoking. Frequency: 1-3 times last 30 days. Amount used: 1 joint. Age of first use: 13. Date of last use: 03/19/19 Medical History: History of liver disease and obesity. Psychiatric History: Patient presents with a history of several psychiatric hospitalizations ([facility], [facility] , [facility], [facility]). Diagnosed with MDD, Anxiety Disorder and PTSD. Mr Gonzales reports previous treatments with various medications (gabapentin, SSRI agents, benzodiazepines). and chronic non- adherence to OPD care. Patient is NOT on medicatiosn at this time and he has NOT been going to any outpatient program. Denies history of suicide attempts. Physical/Sexual Abuse/Trauma History: Not discussed : patient declines. Additional Comment: Urine drug screen results: THC-Marijuana, BZO- Benzodiazepines. Noted. Mental Status Exam - Mental Status Exam Alert and Oriented to: Time, Place, Person Cognitive Function: Good Patient Appearance: Unkempt, Disheveled Mood: Withdrawn Affect: Mood Congruent, Constricted Patient Behavior: Passive, Fatigued, Cooperative Speech Pattern: Clear Voice Loudness: Normal Thought Process: Goal Oriented Thought Disorder: Not Present Hallucinations: Denies Suicidal Ideation: Denies Homicidal Ideation: Denies Insight/Judgement: Poor Sleep: Well Appetite: Good Gait/Station: Normal Psychiatric Findings - Problem List ([place] 1, 2,3) (1) Alcohol dependence with uncomplicated withdrawal Current Visit: Yes Status: Acute (2) Cannabis dependence Current Visit: Yes Status: Chronic (3) Nicotine dependence Current Visit: Yes Status: Chronic Qualifiers: Nicotine product type: cigarettes Substance use status: in withdrawal Qualified Code(s): F17.213 - Nicotine dependence, cigarettes, with withdrawal (4) Substance induced mood disorder Current Visit: Yes Status: Suspected - Initial Treatment Plan Initial Treatment Plan: Psychoeducation. Records ([facility]) revisited. Sleep hygiene. Detoxification. AA meetings. Groups. Observation.
[2019-03-20] MEDS: IBUPROFEN 400 MG TABLET (FP) PO PRN (17:11)
[2019-03-20] MEDS: MAGNESIUM HYDROX 2400MG/30ML ORAL SUSPENSION 30 ML CUP PO PRN (17:23)
[2019-03-20] MEDS: MELATONIN 5 MG TABLETS PO PRN (22:03)
[2019-03-20] MEDS: THIAMINE HCL 100 MG TABLET (FP) PO SCH (22:03)
[2019-03-21] MEDS: chlordiazePOXIDE HCL 25 MG CAPSULE PO SCH ×4 (05:47→22:00)
[2019-03-21] MEDS: MAGNESIUM HYDROX 2400MG/30ML ORAL SUSPENSION 30 ML CUP PO PRN (10:12)
[2019-03-21] MEDS: BACITRACIN 15 GM TUBE TOPICAL OINTMENT TP SCH (10:12)
[2019-03-21] MEDS: PRENATAL VITAMINS W/ FOLIC ACID TABLET (FP) PO SCH (10:12)
[2019-03-21] MEDS: NICOTINE 21 MG/24 HOURS TOPICAL PATCH TD SCH (10:12)
--- NOTE | 2019-03-21 15:07 | PN ---
[facility] CIWA - CIWA Score Nausea/Vomitin-Mild Nausea/No Vomiting Muscle Tremors: 2 Anxiety: 3 Agitation: 2 Paroxysmal Sweats: 2 Orientation: 0-Oriented Tacttile Disturbances: 1-Very Mild Itch/Numbness Auditory Disturbances: 0-None Visual Disturbances: 1-Very Mild Sensitivity Headache: 0-None Present CIWA-Ar Total Score: 12 S Progress Note (SOAP) Subjective: c/o of constipation, back pain, interrupted sleep, chills Objective: 03/21/19 15:05 Vital Signs Temperature 97.2 F L 03/21/19 13:02 Pulse Rate 76 03/21/19 13:02 Respiratory Rate 18 03/21/19 13:02 Blood Pressure 120/74 03/21/19 13:02 O2 Sat by Pulse Oximetry (%) Laboratory Last Values WBC 2.5 K/mm3 (4.0-10.0) L 03/20/19 07:50 RBC 3.47 M/mm3 (4.00-5.60) L 03/20/19 07:50 Hgb 12.3 GM/dL (11.7-16.9) 03/20/19 07:50 Hct 35.9 % (35.4-49) D 03/20/19 07:50 MCV 103.5 fl (80-96) H 03/20/19 07:50 MCH 35.5 pg (25.7-33.7) H 03/20/19 07:50 MCHC 34.3 g/dl (32.0-35.9) 03/20/19 07:50 RDW 13.1 % (11.9-15.9) 03/20/19 07:50 Plt Count 46 K/MM3 (134-434) L 03/20/19 07:50 MPV 8.6 fl (7.5-11.1) D 03/20/19 07:50 Sodium 140 mmol/L (136-145) 03/20/19 07:50 Potassium 3.8 mmol/L (3.5-5.1) 03/20/19 07:50 Chloride 105 mmol/L (98-107) 03/20/19 07:50 Carbon Dioxide 27 mmol/L (21-32) 03/20/19 07:50 Anion Gap 8 MMOL/L (8-16) 03/20/19 07:50 BUN 6.6 mg/dL (7-18) L 03/20/19 07:50 Creatinine 0.7 mg/dL (0.55-1.3) 03/20/19 07:50 Est GFR (CKD-EPI)AfAm 127.53 03/20/19 07:50 Est GFR (CKD-EPI)NonAf 110.04 03/20/19 07:50 Random Glucose 98 mg/dL (74-106) 03/20/19 07:50 Calcium 8.3 mg/dL (8.5-10.1) L 03/20/19 07:50 Total Bilirubin 0.6 mg/dL (0.2-1) 03/20/19 07:50 AST 30 U/L (15-37) 03/20/19 07:50 ALT 21 U/L (13-61) 03/20/19 07:50 Alkaline Phosphatase 111 U/L (45-117) 03/20/19 07:50 Total Protein 8.0 g/dl (6.4-8.2) 03/20/19 07:50 Albumin 3.0 g/dl (3.4-5.0) L 03/20/19 07:50 Urine Color Yellow 03/20/19 12:00 Urine Appearance Clear 03/20/19 12:00 Urine pH 5.5 (5.0-8.0) D 03/20/19 12:00 Ur Specific Jermyn 1.009 (1.010-1.035) L 03/20/19 12:00 Urine Protein Negative (NEGATIVE) 03/20/19 12:00 Urine Glucose (UA) Negative (NEGATIVE) 03/20/19 12:00 Urine Ketones Negative (NEGATIVE) 03/20/19 12:00 Urine Blood Negative (NEGATIVE) 03/20/19 12:00 Urine Nitrite Negative (NEGATIVE) 03/20/19 12:00 Urine Bilirubin Negative (NEGATIVE) 03/20/19 12:00 Urine Urobilinogen 0.2 mg/dL (0.2-1.0) 03/20/19 12:00 Ur Leukocyte Esterase Negative (NEGATIVE) 03/20/19 12:00 Assessment: 03/21/19 15:05 Aox3 no acute distress ambulating in the unit Plan: withdrawal sx continue detox
[2019-03-21] MEDS: MELATONIN 5 MG TABLETS PO PRN (22:00)
[2019-03-21] MEDS: THIAMINE HCL 100 MG TABLET (FP) PO SCH (22:00)
[2019-03-22] MEDS ORDERED: chlordiazePOXIDE HCL 10 MG CAPSULE PO PRN
[2019-03-22] MEDS: chlordiazePOXIDE HCL 10 MG CAPSULE PO SCH ×4 (05:32→22:06)
--- NOTE | 2019-03-22 09:30 | PN ---
S CIWA - CIWA Score Nausea/Vomitin-Mild Nausea/No Vomiting Muscle Tremors: 2 Anxiety: 3 Agitation: 2 Paroxysmal Sweats: 1-Minimal Palms Moist Orientation: 0-Oriented Tacttile Disturbances: 1-Very Mild Itch/Numbness Auditory Disturbances: 0-None Visual Disturbances: 0-None Headache: 1-Very Mild CIWA-Ar Total Score: 11 S Progress Note (SOAP) Subjective: report chronic left knee and back pain x month ago seen by ER negative x ray request oxycodin and percocet for pain "I have some at home" health teaching on risks of opioid-based medicatin patient ambulating on hallway social with peers steady gait left knee skin intact no redness no swell cool to touch encourage motrin or tylenal prn Objective: 03/22/19 09:30 Vital Signs Temperature 97.0 F L 03/22/19 09:07 Pulse Rate 68 03/22/19 09:07 Respiratory Rate 18 03/22/19 09:07 Blood Pressure 134/80 03/22/19 09:07 O2 Sat by Pulse Oximetry (%) Laboratory Last Values WBC 2.5 K/mm3 (4.0-10.0) L 03/20/19 07:50 RBC 3.47 M/mm3 (4.00-5.60) L 03/20/19 07:50 Hgb 12.3 GM/dL (11.7-16.9) 03/20/19 07:50 Hct 35.9 % (35.4-49) D 03/20/19 07:50 MCV 103.5 fl (80-96) H 03/20/19 07:50 MCH 35.5 pg (25.7-33.7) H 03/20/19 07:50 MCHC 34.3 g/dl (32.0-35.9) 03/20/19 07:50 RDW 13.1 % (11.9-15.9) 03/20/19 07:50 Plt Count 46 K/MM3 (134-434) L 03/20/19 07:50 MPV 8.6 fl (7.5-11.1) D 03/20/19 07:50 Sodium 140 mmol/L (136-145) 03/20/19 07:50 Potassium 3.8 mmol/L (3.5-5.1) 03/20/19 07:50 Chloride 105 mmol/L (98-107) 03/20/19 07:50 Carbon Dioxide 27 mmol/L (21-32) 03/20/19 07:50 Anion Gap 8 MMOL/L (8-16) 03/20/19 07:50 BUN 6.6 mg/dL (7-18) L 03/20/19 07:50 Creatinine 0.7 mg/dL (0.55-1.3) 03/20/19 07:50 Est GFR (CKD-EPI)AfAm 127.53 03/20/19 07:50 Est GFR (CKD-EPI)NonAf 110.04 03/20/19 07:50 Random Glucose 98 mg/dL (74-106) 03/20/19 07:50 Calcium 8.3 mg/dL (8.5-10.1) L 03/20/19 07:50 Total Bilirubin 0.6 mg/dL (0.2-1) 03/20/19 07:50 AST 30 U/L (15-37) 03/20/19 07:50 ALT 21 U/L (13-61) 03/20/19 07:50 Alkaline Phosphatase 111 U/L (45-117) 03/20/19 07:50 Total Protein 8.0 g/dl (6.4-8.2) 03/20/19 07:50 Albumin 3.0 g/dl (3.4-5.0) L 03/20/19 07:50 Urine Color Yellow 03/20/19 12:00 Urine Appearance Clear 03/20/19 12:00 Urine pH 5.5 (5.0-8.0) D 03/20/19 12:00 Ur Specific Beaver 1.009 (1.010-1.035) L 03/20/19 12:00 Urine Protein Negative (NEGATIVE) 03/20/19 12:00 Urine Glucose (UA) Negative (NEGATIVE) 03/20/19 12:00 Urine Ketones Negative (NEGATIVE) 03/20/19 12:00 Urine Blood Negative (NEGATIVE) 03/20/19 12:00 Urine Nitrite Negative (NEGATIVE) 03/20/19 12:00 Urine Bilirubin Negative (NEGATIVE) 03/20/19 12:00 Urine Urobilinogen 0.2 mg/dL (0.2-1.0) 03/20/19 12:00 Ur Leukocyte Esterase Negative (NEGATIVE) 03/20/19 12:00 chronic low wbc lab noted 03/22/19 09:31 Assessment: 03/22/19 09:32 alcohol withdrawal sx Plan: continue librium detox regimen
[2019-03-22] MEDS: NICOTINE 21 MG/24 HOURS TOPICAL PATCH TD SCH (10:06)
[2019-03-22] MEDS: PRENATAL VITAMINS W/ FOLIC ACID TABLET (FP) PO SCH (10:06)
[2019-03-22] MEDS: BACITRACIN 15 GM TUBE TOPICAL OINTMENT TP SCH (10:06)
[2019-03-22] MEDS: IBUPROFEN 400 MG TABLET (FP) PO PRN (10:07)
[2019-03-22] MEDS: MELATONIN 5 MG TABLETS PO PRN (22:06)
[2019-03-22] MEDS: THIAMINE HCL 100 MG TABLET (FP) PO SCH (22:06)
[2019-03-23] MEDS ORDERED: chlordiazePOXIDE HCL 10 MG CAPSULE PO SCH (05:00)
--- NOTE | 2019-03-23 08:44 | DS ---
[facility] Detox Discharge Summary Admission Date: 03/19/19 Discharge Date: 03/23/19 - History Present History: Alcohol Dependence Additional Comments: Patient tolerated detox well. Follow up with next level of care at rehab at [facility]. Follow up with your PCP at [facility] [phone]. If worsening symptoms seek medical attention. - Physical Exam Results Vital Signs: Vital Signs Temperature 97.4 F L 03/22/19 21:09 Pulse Rate 62 03/22/19 21:09 Respiratory Rate 18 03/23/19 03:30 Blood Pressure 102/61 03/22/19 21:09 O2 Sat by Pulse Oximetry (%) Pertinent Admission Physical Exam Findings: Vital Signs Temperature 96.9 F L 03/23/19 09:04 Pulse Rate 78 03/23/19 09:04 Respiratory Rate 18 03/23/19 09:04 Blood Pressure 124/75 03/23/19 09:04 O2 Sat by Pulse Oximetry (%) Laboratory Last Values WBC 2.5 K/mm3 (4.0-10.0) L 03/20/19 07:50 RBC 3.47 M/mm3 (4.00-5.60) L 03/20/19 07:50 Hgb 12.3 GM/dL (11.7-16.9) 03/20/19 07:50 Hct 35.9 % (35.4-49) D 03/20/19 07:50 MCV 103.5 fl (80-96) H 03/20/19 07:50 MCH 35.5 pg (25.7-33.7) H 03/20/19 07:50 MCHC 34.3 g/dl (32.0-35.9) 03/20/19 07:50 RDW 13.1 % (11.9-15.9) 03/20/19 07:50 Plt Count 46 K/MM3 (134-434) L 03/20/19 07:50 MPV 8.6 fl (7.5-11.1) D 03/20/19 07:50 Sodium 140 mmol/L (136-145) 03/20/19 07:50 Potassium 3.8 mmol/L (3.5-5.1) 03/20/19 07:50 Chloride 105 mmol/L (98-107) 03/20/19 07:50 Carbon Dioxide 27 mmol/L (21-32) 03/20/19 07:50 Anion Gap 8 MMOL/L (8-16) 03/20/19 07:50 BUN 6.6 mg/dL (7-18) L 03/20/19 07:50 Creatinine 0.7 mg/dL (0.55-1.3) 03/20/19 07:50 Est GFR (CKD-EPI)AfAm 127.53 03/20/19 07:50 Est GFR (CKD-EPI)NonAf 110.04 03/20/19 07:50 Random Glucose 98 mg/dL (74-106) 03/20/19 07:50 Calcium 8.3 mg/dL (8.5-10.1) L 03/20/19 07:50 Total Bilirubin 0.6 mg/dL (0.2-1) 03/20/19 07:50 AST 30 U/L (15-37) 03/20/19 07:50 ALT 21 U/L (13-61) 03/20/19 07:50 Alkaline Phosphatase 111 U/L (45-117) 03/20/19 07:50 Total Protein 8.0 g/dl (6.4-8.2) 03/20/19 07:50 Albumin 3.0 g/dl (3.4-5.0) L 03/20/19 07:50 Urine Color Yellow 03/20/19 12:00 Urine Appearance Clear 03/20/19 12:00 Urine pH 5.5 (5.0-8.0) D 03/20/19 12:00 Ur Specific Jolon 1.009 (1.010-1.035) L 03/20/19 12:00 Urine Protein Negative (NEGATIVE) 03/20/19 12:00 Urine Glucose (UA) Negative (NEGATIVE) 03/20/19 12:00 Urine Ketones Negative (NEGATIVE) 03/20/19 12:00 Urine Blood Negative (NEGATIVE) 03/20/19 12:00 Urine Nitrite Negative (NEGATIVE) 03/20/19 12:00 Urine Bilirubin Negative (NEGATIVE) 03/20/19 12:00 Urine Urobilinogen 0.2 mg/dL (0.2-1.0) 03/20/19 12:00 Ur Leukocyte Esterase Negative (NEGATIVE) 03/20/19 12:00 Patient stable Aox3 no acute distress No SI/HI Full ROM no gaslit disturbance No edema or erythema - Treatment Hospital Course: Detox Protocol Followed, Detoxed Safely, Responded well, Discharged Condition Good, Rehab Referral Accepted Patient has Accepted a Rehab Referral to: [facility] - Medication Discharge Medications: Ambulatory Orders Folic Acid 1 mg PO DAILY 03/19/19 - Diagnosis (1) Alcohol dependence with uncomplicated withdrawal Status: Acute (2) Elevated alkaline phosphatase level Status: Acute (3) Nicotine dependence Status: Chronic Qualifiers: Nicotine product type: cigarettes Substance use status: in withdrawal Qualified Code(s): F17.213 - Nicotine dependence, cigarettes, with withdrawal - AMA Did Patient Leave Against Medical Advice: No
[2019-03-23 09:04] VITALS: BP 124/75; PULSE 78; TEMP 96.9
[2019-03-24] MEDS ORDERED: chlordiazePOXIDE HCL 10 MG CAPSULE PO ONE (05:00)
== END 2019-03-23 09:25 | disposition home or self-care (01) | DRG 775 ==
LOC: YASAS 21:44 → Y3N 23:43
PROVIDERS: ADMIT Allergy & Immunology; ATTEND Allergy & Immunology
PROC: HZ2ZZZZ Detoxification Services for Substance Abuse Treatment (ICD-10-PCS; principal; 2019-03-19)
DX: F10.230 Alcohol dependence with withdrawal, uncomplicated (principal); F12.20 Cannabis dependence, uncomplicated; F17.213 Nicotine dependence, cigarettes, with withdrawal; F19.24 Other psychoactive substance dependence with psychoactive substance-induced mood disorder; F10.24 Alcohol dependence with alcohol-induced mood disorder; F10.282 Alcohol dependence with alcohol-induced sleep disorder; D69.6 Thrombocytopenia, unspecified; D72.819 Decreased white blood cell count, unspecified; M25.562 Pain in left knee; M54.89 Other dorsalgia; G89.29 Other chronic pain; E66.9 Obesity, unspecified; Z68.32 Body mass index [BMI] 32.0-32.9, adult; R45.89 Other symptoms and signs involving emotional state; Z91.89 Other specified personal risk factors, not elsewhere classified; Z88.1 Allergy status to other antibiotic agents
CPT/HCPCS: 36415; 80053; 81003; 85027

== ENCOUNTER 2019-04-26 08:07 | Inpatient (IN) | payer OTHER ==
[2019-04-26 08:37] VITALS: BMI 31.3
--- NOTE | 2019-04-26 09:09 | HP ---
"CIWA Score Nausea/Vomitin-No Nausea/No Vomiting Muscle Tremors: None Anxiety: 0-No Anxiety, at Ease Agitation: 0-Normal Activity Paroxysmal Sweats: No Perspiration Orientation: 0-Oriented Tacttile Disturbances: 2-Mild Itch/Numbness/Burn Auditory Disturbances: 0-None Visual Disturbances: 0-None Headache: 0-None Present CIWA-Ar Total Score: 2 - Admission Criteria OASAS Guidelines: Admission for Medically Managed Detox: Requires at least one of the followin. CIWA greater than 12 2. Seizures within the past 24 hours 3. Delirium tremens within the past 24 hours 4. Hallucinations within the past 24 hours 5. Acute intervention needed for co occurring medical disorder 6. Acute intervention needed for co occurring psychiatric disorder 7. Severe withdrawal that cannot be handled at a lower level of care (continued vomiting, continued diarrhea, abnormal vital signs) requiring intravenous medication and/or fluids 8. Admitting History and Physical - Smoking History Smoking history: Current some day smoker Have you smoked in the past 12 months: No Aproximately how many cigarettes per day: 10 - Alcohol/Substance Use Hx Alcohol Use: Yes Admission ROS [facility] Allergies/Adverse Reactions: Allergies Allergy/AdvReac Type Severity Reaction Status Date / Time clarithromycin [From Biaxin] Allergy Intermediate Hives Verified 04/26/19 08:29 History of Present Illness: pt here requesting detox from etoh use , reports 8-10 beers/day not daily , latest use 1 am today , states no symptoms if not drinking , sometimes not drinking x 1 week , first used 20 years ago , latest use this mornings , usually starts drinking in the mornings , reports occasional mild tremors if not drinking , denies seizures , denies blackouts , + falls while intoxicated most recently 1 month . Longest sobriety - a few months . ESTRELLITA 0.154 denies regular cannabis use . tobacco : 1/2 ppd since age 35 . PMHX : leukopenia , denies surgical hx Psych : depression , anxiety SHx : homeless This report was requested by: Flory Morrow | Reference #: [id number] Others' Prescriptions Patient Name: Raul Gonzales Date: 1970 Address: [address] [place] [address] Sex: Male Rx Written Rx Dispensed Drug Quantity Days Supply Prescriber Name 04/04/2019 04/04/2019 lorazepam 1 mg tablet 15 7 TavanaimaurisioJose Danielminh 06/02/2018 06/10/2018 clonazepam 1 mg tablet 45 30 Jose Daniel Cappsminh Exam Limitations: Intoxication - Ebola screening Have you traveled outside of the country in the last 21 days: No Have you had contact with anyone from an Ebola affected area: No Do you have a fever: No - Review of Systems Constitutional: No Symptoms Reported EENT: reports: Blurred Vision Respiratory: reports: No Symptoms reported Cardiac: reports: No Symptoms Reported GI: reports: No Symptoms Reported : reports: No Symptoms Reported Musculoskeletal: reports: Back Pain, Muscle Pain, Neck Pain, Other (reports generalized bodyaches) Integumentary: reports: No Symptoms Reported Neuro: reports: No Symptoms reported Endocrine: reports: No Symptoms Reported Psychiatric: reports: Orientated x3 Patient History - Patient Medical History Hx Anemia: No Hx Asthma: No Hx Chronic Obstructive Pulmonary Disease (COPD): No Hx Cancer: No Hx Cardiac Disorders: No Hx Congestive Heart Failure: No Hx Hypertension: No Hx Hypercholesterolemia: No Hx Pacemaker: No HX Cerebrovascular Accident: No Hx Seizures: No Hx Dementia: No Hx Diabetes: No Hx Gastrointestinal Disorders: No Hx Liver Disease: No Hx Genitourinary Disorders: No Hx Sexually Transmitted Disorders: No Hx Renal Disease (ESRD): No Hx Thyroid Disease: No Hx Human Immunodeficiency Virus (HIV): No Hx Hepatitis C: No Hx Depression: Yes Hx Suicide Attempt: No Hx Bipolar Disorder: No Hx Schizophrenia: No - Patient Surgical History Past Surgical History: No Hx Neurologic Surgery: No Hx Cataract Extraction: No Hx Cardiac Surgery: No Hx Lung Surgery: No Hx Breast Surgery: No Hx Breast Biopsy: No Hx Abdominal Surgery: No Hx Appendectomy: No Hx Cholecystectomy: No Hx Genitourinary Surgery: No Hx Section: (N/A) Hx Orthopedic Surgery: No Anesthesia Reaction: No - PPD History Date: 05/19/18 Results: 0mm - Smoking Cessation Smoking history: Current some day smoker Have you smoked in the past 12 months: No Aproximately how many cigarettes per day: 10 Cigars Per Day: 0 Hx Chewing Tobacco Use: No Initiated information on smoking cessation: Yes 'Breaking Loose' booklet given: 04/26/19 - Substances abused Alcohol Substance route: Oral Frequency: 3-6 times per week Amount used: 10- 16OZ beers and some voldka Age of first use: 23 Date of last use: 04/25/19 Marijuana/Hashish Substance route: Smoking Frequency: 1-3 times last 30 days Amount used: 1 joint Age of first use: 13 Date of last use: 04/25/19 Admission Physical Exam [facility] - Vital Signs Vital Signs: Vital Signs - 24 hr 04/26/19 04/26/19 08:21 08:50 Temperature 97.1 F L 97.1 F L Pulse Rate 81 81 Respiratory 18 18 Rate Blood Pressure 120/76 120/76 - Physical General Appearance: Yes: Disheveled, Intoxicated HEENTM: Yes: EOMI, Hearing grossly Normal, Normocephalic, Normal Voice, Other ( poor dentition) Respiratory: Yes: Chest Non-Tender, Lungs Clear, Normal Breath Sounds, No Respiratory Distress, No Accessory Muscle Use Neck: Yes: No masses,lesions,Nodules, Trachea in good position Cardiology: Yes: Regular Rhythm, Regular Rate, S1, S2 Abdominal: Yes: Non Tender, Soft, Protuberent Musculoskeletal: Yes: Gait Steady Neurological: Yes: Fully Oriented, Alert, Motor Strength 5/5 Integumentary: Yes: Warm, Other (pretibial hyper-pigmentation florian LE) - Diagnostic (1) Alcohol intoxication Current Visit: Yes Status: Chronic Qualifiers: Complication of substance-induced condition: uncomplicated Qualified Code(s ): F10.920 - Alcohol use, unspecified with intoxication, uncomplicated Breathalyzer - Breathalyzer Breathalyzer: 0.154 Urine Drug Screen - Test Device Lot number: [id number] Expiration date: 01/03/21 - Control Is test valid?: Yes - Results Drug screen NEGATIVE: No Urine drug screen results: THC-Marijuana, BZO-Benzodiazepines Inpatient Rehab Admission - Rehab Decision to Admit Inpatient rehab admission?: No"
[2019-04-26] MEDS ORDERED: MAGNESIUM HYDROX 2400MG/30ML ORAL SUSPENSION 30 ML CUP PO PRN (09:42)
[2019-04-26] MEDS ORDERED: IBUPROFEN 400 MG TABLET (FP) PO PRN (09:42)
[2019-04-26] MEDS ORDERED: ACETAMINOPHEN 325 MG TABLET (FP) PO PRN ×2 (09:42)
[2019-04-26] MEDS ORDERED: MENTHOL/PHENOL 1 EACH UD MM PRN (09:42)
[2019-04-26] MEDS ORDERED: MAG HYDROX/AL HYDROX/SIMETH 30 ML UNIT-DOSE CUP PO PRN (09:42)
[2019-04-26] MEDS ORDERED: METHOCARBAMOL 500 MG TABLET PO PRN (09:42)
[2019-04-26] MEDS ORDERED: MAGNESIUM CITRATE 300 ML BOTTLE PO PRN (09:42)
[2019-04-26] MEDS ORDERED: hydrOXYzine PAMOATE 25 MG CAPSULE (FP) PO PRN (09:42)
[2019-04-26] MEDS ORDERED: BISMUTH SUBSALICYLATE 262 MG/15 ML BTL PO PRN (09:42)
[2019-04-26] MEDS ORDERED: MELATONIN 5 MG TABLETS PO PRN (09:42)
[2019-04-26] MEDS: PRENATAL VITAMINS W/ FOLIC ACID TABLET (FP) PO SCH (11:00)
[2019-04-26] MEDS: diazePAM 5 MG TABLET PO PRN (11:01)
--- NOTE | 2019-04-26 11:49 | PN ---
[facility] Progress Note Note: redness of right eye for 7 days,tearing,itching,conjunctivitis,neosporin oph soltion 1 gtt right eye q 6 hrs
[2019-04-26] MEDS: NEOMYCIN/POLYMYXN B/GRAMICIDIN OPHTHALMIC 10 ML BOTTLE OD SCH ×2 (13:00→18:34)
[2019-04-26] MEDS: diazePAM 5 MG TABLET PO SCH ×2 (14:23→22:22)
[2019-04-26] MEDS: THIAMINE HCL 100 MG TABLET (FP) PO SCH (22:22)
[2019-04-27] MEDS: NEOMYCIN/POLYMYXN B/GRAMICIDIN OPHTHALMIC 10 ML BOTTLE OD SCH ×5 (03:56→23:04)
[2019-04-27] MEDS: diazePAM 5 MG TABLET PO SCH ×3 (05:11→17:39)
[2019-04-27 09:57] LABS: ALBUMIN 2.7 g/dl (3.4-5.0); BILIRUBIN,TOTAL 0.9 mg/dL (0.2-1); BLOOD UREA NITROGEN 7.5 mg/dL (7-18); CALCIUM 9.1 mg/dL (8.5-10.1); CREATININE 0.6 mg/dL (0.55-1.3); POTASSIUM 3.9 mmol/L (3.5-5.1); TOT PROT 7.1 g/dl (6.4-8.2)
[2019-04-27 10:03] LABS: HEMATOCRIT 35.9 % (35.4-49); HEMOGLOBIN 12.5 GM/dL (11.7-16.9); MCH 35.3 pg (25.7-33.7); MEAN CELL VOLUME 100.8 fl (80-96); MEAN PLT VOLUME 8.7 fl (7.5-11.1); PLATELET COUNT 51 K/MM3 (134-434); RBC 3.56 M/mm3 (4.00-5.60); RDW 12.7 % (11.9-15.9); WHITE BLOOD COUNT 2.7 K/mm3 (4.0-10.0)
--- NOTE | 2019-04-27 10:08 | PN ---
S CIWA - CIWA Score Nausea/Vomitin-No Nausea/No Vomiting Muscle Tremors: 2 Anxiety: 1-Mildly Anxious Agitation: 0-Normal Activity Paroxysmal Sweats: No Perspiration Orientation: 0-Oriented Tacttile Disturbances: 0-None Auditory Disturbances: 0-None Visual Disturbances: 0-None Headache: 0-None Present CIWA-Ar Total Score: 3 [facility] Progress Note (SOAP) Subjective: feeling better little anxiety Objective: 04/27/19 10:07 Vital Signs Temperature 96.8 F L 04/27/19 09:33 Pulse Rate 67 04/27/19 09:33 Respiratory Rate 18 04/27/19 09:33 Blood Pressure 106/65 04/27/19 09:33 O2 Sat by Pulse Oximetry (%) Laboratory Tests 04/27/19 04/27/19 08:00 08:00 WBC 2.7 L RBC 3.56 L Hgb 12.5 Hct 35.9 MCV 100.8 H MCH 35.3 H MCHC 35.0 RDW 12.7 Plt Count 51 L MPV 8.7 Sodium 137 Potassium 3.9 Chloride 106 Carbon Dioxide 28 Anion Gap 3 L BUN 7.5 Creatinine 0.6 Est GFR (CKD-EPI)AfAm 135.87 Est GFR (CKD-EPI)NonAf 117.23 Random Glucose 85 Calcium 9.1 Total Bilirubin 0.9 AST 22 ALT 19 Alkaline Phosphatase 104 Total Protein 7.1 Albumin 2.7 L aaox3 lying in bed no acute distress Assessment: 04/27/19 10:07 mild withdrawals Plan: continue detox d/c in am
[2019-04-27] MEDS: PRENATAL VITAMINS W/ FOLIC ACID TABLET (FP) PO SCH (11:00)
[2019-04-27] MEDS: diazePAM 5 MG TABLET PO PRN ×2 (12:18→22:06)
[2019-04-27] MEDS: THIAMINE HCL 100 MG TABLET (FP) PO SCH (22:05)
[2019-04-28] MEDS: NEOMYCIN/POLYMYXN B/GRAMICIDIN OPHTHALMIC 10 ML BOTTLE OD SCH ×4 (05:38→18:48)
[2019-04-28] MEDS ORDERED: diazePAM 5 MG TABLET PO ONE ×2 (06:00→22:00)
[2019-04-28] MEDS ORDERED: ONDANSETRON *ODT* 4 MG TABLET SL ONE (10:03)
[2019-04-28] MEDS: PRENATAL VITAMINS W/ FOLIC ACID TABLET (FP) PO SCH (10:17)
--- NOTE | 2019-04-28 16:11 | PN ---
S CIWA - CIWA Score Nausea/Vomitin Muscle Tremors: None Anxiety: 3 Agitation: 2 Paroxysmal Sweats: 2 Orientation: 0-Oriented Tacttile Disturbances: 0-None Auditory Disturbances: 0-None Visual Disturbances: 0-None Headache: 0-None Present CIWA-Ar Total Score: 10 [facility] Progress Note (SOAP) Subjective: Nausea (Vomited X 1 earlier in AM), Sweating, Anxious, Agitated. Objective: PATIENT A & O X 3, OBSERVED AMBULATING ON DETOX UNIT UNASSISTED. IN NO ACUTE DISTRESS. 04/28/19 16:06 Vital Signs Temperature 98.1 F 04/28/19 09:23 Pulse Rate 71 04/28/19 09:23 Respiratory Rate 16 04/28/19 09:23 Blood Pressure 103/53 L 04/28/19 09:23 O2 Sat by Pulse Oximetry (%) Laboratory Tests 04/27/19 04/27/19 04/27/19 08:00 08:00 08:00 WBC 2.7 L RBC 3.56 L Hgb 12.5 Hct 35.9 MCV 100.8 H MCH 35.3 H MCHC 35.0 RDW 12.7 Plt Count 51 L MPV 8.7 Sodium 137 Potassium 3.9 Chloride 106 Carbon Dioxide 28 Anion Gap 3 L BUN 7.5 Creatinine 0.6 Est GFR (CKD-EPI)AfAm 135.87 Est GFR (CKD-EPI)NonAf 117.23 Random Glucose 85 Calcium 9.1 Total Bilirubin 0.9 AST 22 ALT 19 Alkaline Phosphatase 104 Total Protein 7.1 Albumin 2.7 L RPR Titer Nonreactive LABS NOTED. PATIENT HAS HAD LOW PLATELET AND WBC LEVELS ON PREVIOUS ADMISSIONS. 04/28/19 16:07 Assessment: 04/28/19 16:08 WITHDRAWAL SYMPTOMS. LEUKOPENIA. THROMBOCYTOPENIA. Plan: CONTINUE DETOX. PATIENT REPORTS PRESENCE OF WITHDRAWAL SYMPTOMS AND THAT HE DOES NOT FEEL WELL ENOUGH TO RETURN HOME AT THIS TIME. PATIENT WAS INITIALLY ADMITTED FOR TWO DAYS FOR DETOX, PATIENT GRANTED ONE ADDITIONAL DAY TO REMAIN ON UNIT FOR FURTHER DETOX AND TO REST. PATIENT NOTES THAT HE FEELS THAT HE WILL LIKELY BE ABLE TO LEAVE TOMORROW. PATIENT TO BE MEDICALLY EVALUATED BY COVERING MEDICAL PROVIDER TOMORROW AM PRIOR TO DISCHARGE.
[2019-04-28 17:16] VITALS: BP 114/86; PULSE 89; TEMP 97.9
--- NOTE | 2019-04-28 18:28 | PN ---
[facility] Progress Note Note: patient did not want to complete treatment,all attempts to convince patient to stay with no avail,the high risk of relapsing explained,patient kd alford,advise to call 911 if not feeling well
--- NOTE | 2019-04-28 18:32 | DS ---
[facility] Detox Discharge Summary Admission Date: 04/26/19 Discharge Date: 04/28/19 - History Present History: Alcohol Dependence, Cannabis Dependence Additional Comments: patient did not want to complete treatment,signed release ama,advise to call 911 if not feeling well - Physical Exam Results Vital Signs: Vital Signs Temperature 97.9 F 04/28/19 17:15 Pulse Rate 89 04/28/19 17:15 Respiratory Rate 18 04/28/19 17:15 Blood Pressure 114/86 04/28/19 17:15 O2 Sat by Pulse Oximetry (%) Pertinent Admission Physical Exam Findings: withdrawal signs and symptom Laboratory Last Values WBC 2.7 K/mm3 (4.0-10.0) L 04/27/19 08:00 RBC 3.56 M/mm3 (4.00-5.60) L 04/27/19 08:00 Hgb 12.5 GM/dL (11.7-16.9) 04/27/19 08:00 Hct 35.9 % (35.4-49) 04/27/19 08:00 MCV 100.8 fl (80-96) H 04/27/19 08:00 MCH 35.3 pg (25.7-33.7) H 04/27/19 08:00 MCHC 35.0 g/dl (32.0-35.9) 04/27/19 08:00 RDW 12.7 % (11.9-15.9) 04/27/19 08:00 Plt Count 51 K/MM3 (134-434) L 04/27/19 08:00 MPV 8.7 fl (7.5-11.1) 04/27/19 08:00 Sodium 137 mmol/L (136-145) 04/27/19 08:00 Potassium 3.9 mmol/L (3.5-5.1) 04/27/19 08:00 Chloride 106 mmol/L (98-107) 04/27/19 08:00 Carbon Dioxide 28 mmol/L (21-32) 04/27/19 08:00 Anion Gap 3 MMOL/L (8-16) L 04/27/19 08:00 BUN 7.5 mg/dL (7-18) 04/27/19 08:00 Creatinine 0.6 mg/dL (0.55-1.3) 04/27/19 08:00 Est GFR (CKD-EPI)AfAm 135.87 04/27/19 08:00 Est GFR (CKD-EPI)NonAf 117.23 04/27/19 08:00 Random Glucose 85 mg/dL (74-106) 04/27/19 08:00 Calcium 9.1 mg/dL (8.5-10.1) 04/27/19 08:00 Total Bilirubin 0.9 mg/dL (0.2-1) 04/27/19 08:00 AST 22 U/L (15-37) 04/27/19 08:00 ALT 19 U/L (13-61) 04/27/19 08:00 Alkaline Phosphatase 104 U/L (45-117) 04/27/19 08:00 Total Protein 7.1 g/dl (6.4-8.2) 04/27/19 08:00 Albumin 2.7 g/dl (3.4-5.0) L 04/27/19 08:00 RPR Titer Nonreactive (NONREACTIVE) 04/27/19 08:00 - Medication Discharge Medications: Ambulatory Orders Folic Acid 1 mg PO DAILY 03/19/19 Diazepam 2 mg PO TID 04/26/19 - Diagnosis (1) Alcohol dependence with uncomplicated withdrawal Current Visit: No Status: Acute (2) Alcohol dependence with uncomplicated intoxication Current Visit: Yes Status: Acute (3) Nicotine dependence Current Visit: No Status: Chronic Qualifiers: Nicotine product type: cigarettes Substance use status: in withdrawal Qualified Code(s): F17.213 - Nicotine dependence, cigarettes, with withdrawal (4) Thrombocytopenia Current Visit: Yes Status: Chronic - AMA Did Patient Leave Against Medical Advice: Yes
[2019-04-29] MEDS ORDERED: diazePAM 5 MG TABLET PO ONE (06:00)
== END 2019-04-28 18:49 | disposition left against medical advice (07) | DRG 770 ==
LOC: YASAS 08:07 → Y6N 09:47
PROVIDERS: ADMIT Allergy & Immunology; ATTEND Allergy & Immunology
PROC: HZ2ZZZZ Detoxification Services for Substance Abuse Treatment (ICD-10-PCS; principal; 2019-04-26)
DX: F10.230 Alcohol dependence with withdrawal, uncomplicated (principal); F10.220 Alcohol dependence with intoxication, uncomplicated; F12.10 Cannabis abuse, uncomplicated; F17.210 Nicotine dependence, cigarettes, uncomplicated; F32.9 Major depressive disorder, single episode, unspecified; F41.8 Other specified anxiety disorders; D69.6 Thrombocytopenia, unspecified; D72.819 Decreased white blood cell count, unspecified; H10.31 Unspecified acute conjunctivitis, right eye; Z88.1 Allergy status to other antibiotic agents
CPT/HCPCS: 36415; 80053; 85027; 86593; Q0162

== ENCOUNTER 2019-07-14 23:10 | Emergency (ER) | payer OTHER ==
[2019-07-14 23:13] VITALS: BMI 28.8
[2019-07-15 06:25] VITALS: BP 146/79; PULSE 79; TEMP 97.9
--- NOTE | 2019-07-15 07:46 | PDOC ---
History of Present Illness - General Chief Complaint: Alcohol intoxication Stated Complaint: INTOX Time Seen by Provider: 07/15/19 07:40 - History of Present Illness Initial Comments: 07/15/19 07:40 Pt presents to the ED intoxicated without signs or history of trauma. States that he was "enjoying a few beers" when his father became upset and called 911. Denies complaints other than chronic pain "all over" that is unchanged. 07/15/19 07:51 Past History - Past Medical History Allergies/Adverse Reactions: Allergies Allergy/AdvReac Type Severity Reaction Status Date / Time clarithromycin [From Biaxin] Allergy Intermediate Hives Verified 04/26/19 08:29 Home Medications: Ambulatory Orders Folic Acid 1 mg PO DAILY 03/19/19 Diazepam 2 mg PO TID 04/26/19 Neomycin/Polymyxn B/Gramicidin [Neosporin -] 1 drop OD Q6HPO drops 04/28/19 Anemia: No Asthma: No Cancer: No Cardiac Disorders: No CVA: No COPD: No CHF: No Dementia: No Diabetes: No GI Disorders: No Disorders: No HTN: No Hypercholesterolemia: No Kidney Stones: No Liver Disease: No Seizures: No Thyroid Disease: No - Surgical History Abdominal Surgery: No Appendectomy: No Cardiac Surgery: No Cholecystectomy: No Gastric Stapling: No GI Surgery: No Lung Surgery: No Neurologic Surgery: No Orthopedic Surgery: No - Reproductive History Testicular Surgery: No - Immunization History TDAP Vaccination: Yes Immunization Up to Date: Yes - Psycho Social/Smoking Cessation Hx Smoking Status: Yes Smoking History: Unknown if ever smoked Have you smoked in the past 12 months: No Number of Cigarettes Smoked Daily: 10 Cigars Per Day: 0 'Breaking Loose' booklet given: 04/26/19 Hx Alcohol Use: Yes Drug/Substance Use Hx: No Substance Use Type: Alcohol Hx Substance Use Treatment: Yes Review of Systems - Review of Systems Able to Perform ROS?: Yes Is the patient limited Bengali proficient: No Constitutional: No: Symptoms Reported, See HPI, Chills, Diaphoresis, Fever, Loss of Appetite, Malaise, Night Sweats, Weakness, Weight Stable, Unintentional Wgt. Loss, Unexplained wgt Loss, Other HEENTM: No: Symptoms Reported, See HPI, Eye Pain, Blurred Vision, Tearing, Recent change in vision, Double Vision, Cataracts, Ear Pain, Ocular Prothesis, Ear Discharge, Nose Pain, Nose Congestion, Tinnitus, Nose Bleeding, Hearing Loss , Throat Pain, Throat Swelling, Mouth Pain, Dental Problems, Difficulty Swallowing, Mouth Swelling, Other Respiratory: No: Symptoms reported, See HPI, Cough, Orthopnea, Shortness of Breath, SOB with Exertion, SOB at Rest, Stridor, Wheezing, Productive cough, Hemoptysis, Other Cardiac (ROS): No: Symptoms Reported, See HPI, Chest Pain, Edema, Irregular Heart Rate, Lightheadedness, Palpitations, Syncope, Chest Tightness, Other ABD/GI: No: Symptoms Reported, See HPI, Abdominal Distended, Abd. Pain w/ defecation, Blood Streaked Bowels, Constipated, Diarrhea, Difficulty Swallowing , Nausea, Poor Appetite, Poor Fluid Intake, Rectal Bleeding, Vomiting, Indigestion, Abdominal cramping, Tarry Stools, Other : No: Symptoms Reported, See HPI, Burning, Dysuria, Discharge, Frequency, Flank Pain, Hematuria, Incontinence, Pain, Urgency, Testicular Mass, Testicular Swelling, Lesions, Testicular Pain, Other Musculoskeletal: No: Symptoms Reported, See HPI, Back Pain, Gout, Joint Pain, Joint Swelling, Muscle Pain, Muscle Weakness, Neck Pain, Joint Stiffness, Other Integumentary: No: Symptoms Reported, See HPI, Bruising, Change in Color, Change in Hair/Nails, Dryness, Erythema, Flushing, Lesions, Lumps, Pallor, Pruritus, Rash, Sweating, Other All Other Systems: Reviewed and Negative *Physical Exam - Vital Signs Last Vital Signs Temp Pulse Resp BP Pulse Ox 97.9 F 79 20 146/79 99 07/15/19 06:25 07/15/19 06:25 07/15/19 06:25 07/15/19 06:25 07/15/19 06:25 - Physical Exam 07/15/19 08:02 gen: alert, NAD HEENT; normocephalic, atraumatic CV: rrr no m/r/g Pulm: cta b/l abdomen: soft, non tender, non distended without guarding or rebound Ext: no edema or tenderness. Ambulatory with normal gait Medical Decision Making - Medical Decision Making 07/15/19 08:04 Pt presents to the ED intoxicated without signs or history of trauma. In the ED for >8 hours. Patient is now clinically sober and is ambulatory with a steady gait. Will discharge home with instructions to return to the ED for worsening symptoms. Discharge - Discharge Information Problems reviewed: Yes Clinical Impression/Diagnosis: Alcohol intoxication Qualifiers: Complication of substance-induced condition: uncomplicated Qualified Code(s): F10.920 - Alcohol use, unspecified with intoxication, uncomplicated Condition: Good Disposition: HOME - Admission No - Follow up/Referral - Patient Discharge Instructions Patient Printed Discharge Instructions: DI for Alcohol Abuse Additional Instructions: You were brought to the Ed because you were intoxicated. We examined you and saw that you are now sober. Please consider rehab to help you get sober. Return immediately to the ED if you start to experience severe anxiety, tremors , nausea and vomiting, shaking, seizures or confusion, or any other new or changing symptoms. Follow up with your doctor next week. - Post Discharge Activity
== END 2019-07-15 08:01 | disposition home or self-care (01) ==
LOC: JER 23:10
DX: F10.920 Alcohol use, unspecified with intoxication, uncomplicated (principal)
CPT/HCPCS: 99282-25

== ENCOUNTER 2019-07-22 21:32 | Inpatient (IN) | payer OTHER ==
[2019-07-22] MEDS ORDERED: diazePAM 5 MG TABLET PO SCH (22:00)
--- NOTE | 2019-07-22 22:01 | HP ---
CIWA Score Nausea/Vomitin Muscle Tremors: 3 Anxiety: 2 Agitation: 2 Paroxysmal Sweats: 3 Orientation: 0-Oriented Tacttile Disturbances: 2-Mild Itch/Numbness/Burn Auditory Disturbances: 2-Mild Harshness/Frighten Visual Disturbances: 2-Mild Sensitivity Headache: 2-Mild CIWA-Ar Total Score: 20 - Admission Criteria OASAS Guidelines: Admission for Medically Managed Detox: Requires at least one of the followin. CIWA greater than 12 2. Seizures within the past 24 hours 3. Delirium tremens within the past 24 hours 4. Hallucinations within the past 24 hours 5. Acute intervention needed for co occurring medical disorder 6. Acute intervention needed for co occurring psychiatric disorder 7. Severe withdrawal that cannot be handled at a lower level of care (continued vomiting, continued diarrhea, abnormal vital signs) requiring intravenous medication and/or fluids 8. Admitting History and Physical - Smoking History Smoking history: Unknown if ever smoked Have you smoked in the past 12 months: No Aproximately how many cigarettes per day: 10 - Alcohol/Substance Use Hx Alcohol Use: Yes Admission ROS BHS - HPI Chief Complaint: DEPENDENT ON ETOH ONLY Allergies/Adverse Reactions: Allergies Allergy/AdvReac Type Severity Reaction Status Date / Time clarithromycin [From Biaxin] Allergy Severe Verified 07/22/19 21:59 History of Present Illness: THE PT. IS REQUESTING ADMISSION TO THE DETOX UNIT AND CAME FOR H AND PE Exam Limitations: No Limitations - Ebola screening Have you traveled outside of the country in the last 21 days: No Have you had contact with anyone from an Ebola affected area: No Have you been sick,other than usual withdrawal symptoms: No Do you have a fever: No - Review of Systems Constitutional: See HPI, Malaise, Weakness EENT: reports: See HPI Respiratory: reports: See HPI Cardiac: reports: See HPI GI: reports: See HPI, Nausea, Abdominal cramping : reports: No Symptoms Reported, See HPI Musculoskeletal: reports: See HPI, Muscle Pain, Muscle Weakness Integumentary: reports: See HPI Neuro: reports: See HPI, Headache, Tremors, Weakness Endocrine: reports: See HPI Hematology: reports: See HPI Psychiatric: reports: Judgement Intact, Orientated x3, Anxious, Depressed Patient History - Patient Medical History Hx Anemia: No Hx Asthma: No Hx Chronic Obstructive Pulmonary Disease (COPD): No Hx Cancer: No Hx Cardiac Disorders: No Hx Congestive Heart Failure: No Hx Hypertension: No Hx Hypercholesterolemia: No Hx Pacemaker: No HX Cerebrovascular Accident: No Hx Seizures: No Hx Dementia: No Hx Diabetes: No Hx Gastrointestinal Disorders: No Hx Liver Disease: No Hx Genitourinary Disorders: No Hx Sexually Transmitted Disorders: No Hx Renal Disease (ESRD): No Hx Thyroid Disease: No Hx Human Immunodeficiency Virus (HIV): No Hx Hepatitis C: No Hx Depression: Yes (AND ANXIETY) Hx Suicide Attempt: No Hx Bipolar Disorder: No Hx Schizophrenia: No - Patient Surgical History Past Surgical History: No Hx Neurologic Surgery: No Hx Cataract Extraction: No Hx Cardiac Surgery: No Hx Lung Surgery: No Hx Breast Surgery: No Hx Breast Biopsy: No Hx Abdominal Surgery: No Hx Appendectomy: No Hx Cholecystectomy: No Hx Genitourinary Surgery: No Hx Section: (N/A) Hx Orthopedic Surgery: No Anesthesia Reaction: No - PPD History Date: 05/19/18 Results: 0mm - Smoking Cessation Smoking history: Current every day smoker Have you smoked in the past 12 months: No Aproximately how many cigarettes per day: 10 Cigars Per Day: 0 Hx Chewing Tobacco Use: No Initiated information on smoking cessation: Yes 'Breaking Loose' booklet given: 07/22/19 - Substance & Tx. History Hx Alcohol Use: Yes Hx Substance Use: No Substance Use Type: Alcohol - Substances abused Alcohol Substance route: Oral Frequency: Daily Amount used: BEER- 12(16oz EACH) Age of first use: 23 Date of last use: 07/22/19 Admission Physical Exam S - Physical General Appearance: Yes: No Apparent Distress, Nourished, Appropriately Dressed , Alcohol on Breath, Obese, Tremorous, Sweating, Anxious HEENTM: Yes: Hearing grossly Normal, Normocephalic, Normal Voice, LUIS, Pharynx Normal Respiratory: Yes: Chest Non-Tender, Lungs Clear, Normal Breath Sounds, No Respiratory Distress, No Accessory Muscle Use Neck: Yes: No masses,lesions,Nodules Breast: Yes: Axillae without masses Cardiology: Yes: Regular Rhythm, S1, S2, Tachycardia Abdominal: Yes: Normal Bowel Sounds, Non Tender, Soft, Protuberent Back: Yes: Normal Inspection Musculoskeletal: Yes: full range of Motion, Pelvis Stable, Muscle Pain, Muscle weakness Extremities: Yes: Normal Capillary Refill, Normal Range of Motion, Non-Tender, Tremors Neurological: Yes: enterprise analyst II-XII NML intact, Fully Oriented, Alert, Motor Strength 5/5, Normal Response, Depressed Affect Integumentary: Yes: Warm, Moist, Pitting Edema Lymphatic: Yes: Within Normal Limits - Diagnostic (1) Alcohol dependence with uncomplicated intoxication Current Visit: No Status: Chronic (2) Anxiety Current Visit: No Status: Chronic Cleared for Admission S - Detox or Rehab [facility] Level of Care: Medically Supervised Detox Regimen/Protocol: Valium Breathalyzer - Breathalyzer Breathalyzer: 0.154 Urine Drug Screen - Test Device Lot number: [id number] Expiration date: 01/03/21 - Control Is test valid?: Yes - Results Drug screen NEGATIVE: No Urine drug screen results: THC-Marijuana, BZO-Benzodiazepines Inpatient Rehab Admission - Rehab Decision to Admit Inpatient rehab admission?: No
[2019-07-22 22:11] VITALS: BMI 31.9
[2019-07-22] MEDS ORDERED: MAG HYDROX/AL HYDROX/SIMETH 30 ML UNIT-DOSE CUP PO PRN (22:18)
[2019-07-22] MEDS ORDERED: MAGNESIUM HYDROX 2400MG/30ML ORAL SUSPENSION 30 ML CUP PO PRN (22:18)
[2019-07-22] MEDS ORDERED: hydrOXYzine PAMOATE 25 MG CAPSULE (FP) PO PRN (22:18)
[2019-07-22] MEDS ORDERED: diazePAM 5 MG TABLET PO PRN (22:18)
[2019-07-22] MEDS ORDERED: MENTHOL/PHENOL 1 EACH UD MM PRN (22:18)
[2019-07-22] MEDS ORDERED: BISMUTH SUBSALICYLATE 524 MG/30 ML UD PO PRN (22:18)
[2019-07-22] MEDS ORDERED: ACETAMINOPHEN 325 MG TABLET (FP) PO PRN ×2 (22:18)
[2019-07-22] MEDS ORDERED: MAGNESIUM CITRATE 300 ML BOTTLE PO PRN (22:18)
[2019-07-22] MEDS ORDERED: diazePAM 5 MG TABLET PO ONE (22:18)
[2019-07-22] MEDS ORDERED: NICOTINE POLACRILEX 2 MG GUM BUC PRN (22:18)
[2019-07-22] MEDS ORDERED: IBUPROFEN 400 MG TABLET (FP) PO PRN (22:18)
[2019-07-22] MEDS ORDERED: METHOCARBAMOL 500 MG TABLET PO PRN (22:18)
[2019-07-22] MEDS ORDERED: chlordiazePOXIDE HCL 25 MG CAPSULE PO ONE (23:30)
[2019-07-22] MEDS ORDERED: chlordiazePOXIDE HCL 25 MG CAPSULE PO PRN (23:30)
[2019-07-22] MEDS: chlordiazePOXIDE HCL 25 MG CAPSULE PO SCH (23:37)
[2019-07-23] MEDS: chlordiazePOXIDE HCL 25 MG CAPSULE PO SCH ×4 (05:38→22:31)
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
--- NOTE | 2019-07-23 10:18 | PN ---
[facility] CIWA - CIWA Score Nausea/Vomitin-Mild Nausea/No Vomiting Muscle Tremors: 4-Moderate,w/Arms Extend Anxiety: 4-Mod. Anxious/Guarded Agitation: 1-Slight > Activity Paroxysmal Sweats: 2 Orientation: 0-Oriented Tacttile Disturbances: 1-Very Mild Itch/Numbness Auditory Disturbances: 0-None Visual Disturbances: 1-Very Mild Sensitivity Headache: 1-Very Mild CIWA-Ar Total Score: 15 BHS Progress Note (SOAP) Subjective: 48 years old male admitted on 07/22/19 for alcohol withdrawal sx management treating with librium regiment feeling ok today ate breakfast in room ambulating on hallway encourage to attend meetings and groups as part of alcohol abuse recovery Objective: 07/23/19 10:22 Vital Signs Temperature 97.7 F 07/23/19 08:53 Pulse Rate 81 07/23/19 08:53 Respiratory Rate 16 07/23/19 08:53 Blood Pressure 103/54 L 07/23/19 08:53 O2 Sat by Pulse Oximetry (%) 07/23/19 10:24 admission lab work been cancelled reorder admission lab work Assessment: 07/23/19 10:24 alcohol withdrawal Plan: librium regiment
[2019-07-23] MEDS: PRENATAL VITAMINS W/ FOLIC ACID TABLET (FP) PO SCH (10:34)
[2019-07-23] MEDS: NICOTINE 14 MG/24 HOURS TOPICAL PATCH TD SCH (10:36)
[2019-07-23] MEDS: THIAMINE HCL 100 MG TABLET (FP) PO SCH (22:31)
[2019-07-24] MEDS: chlordiazePOXIDE HCL 25 MG CAPSULE PO SCH ×4 (05:49→22:12)
[2019-07-24] MEDS ORDERED: diazePAM 5 MG TABLET PO SCH (06:00)
[2019-07-24] MEDS: PRENATAL VITAMINS W/ FOLIC ACID TABLET (FP) PO SCH (10:51)
[2019-07-24] MEDS: NICOTINE 14 MG/24 HOURS TOPICAL PATCH TD SCH (10:52)
--- NOTE | 2019-07-24 12:04 | PN ---
S CIWA - CIWA Score Nausea/Vomitin-Mild Nausea/No Vomiting Muscle Tremors: 3 Anxiety: 2 Agitation: 1-Slight > Activity Paroxysmal Sweats: 2 Orientation: 0-Oriented Tacttile Disturbances: 0-None Auditory Disturbances: 0-None Visual Disturbances: 1-Very Mild Sensitivity Headache: 1-Very Mild CIWA-Ar Total Score: 11 S Progress Note (SOAP) Subjective: 48 years old male admitted on 07/22/19 for alcohol withdrawal sx management treating with librium detox regiment feeling ok today slept better last night mild anxiety Objective: 07/24/19 12:07 Vital Signs Temperature 96.5 F L 07/24/19 08:39 Pulse Rate 77 07/24/19 08:39 Respiratory Rate 18 07/24/19 08:39 Blood Pressure 130/78 07/24/19 08:39 O2 Sat by Pulse Oximetry (%) 07/24/19 12:09 admission lab cancelled reorder admission lab Assessment: 07/24/19 12:09 alcohol withdrawal Plan: librium regiment
[2019-07-24] MEDS: THIAMINE HCL 100 MG TABLET (FP) PO SCH (22:11)
[2019-07-24] MEDS: MELATONIN 5 MG TABLETS PO PRN (22:12)
[2019-07-25] MEDS ORDERED: chlordiazePOXIDE HCL 10 MG CAPSULE PO PRN
[2019-07-25] MEDS: chlordiazePOXIDE HCL 10 MG CAPSULE PO SCH ×4 (05:30→22:04)
[2019-07-25] MEDS ORDERED: diazePAM 5 MG TABLET PO ONE (06:00)
[2019-07-25] MEDS: PRENATAL VITAMINS W/ FOLIC ACID TABLET (FP) PO SCH (10:23)
[2019-07-25] MEDS: NICOTINE 14 MG/24 HOURS TOPICAL PATCH TD SCH (10:24)
--- NOTE | 2019-07-25 12:33 | PN ---
[facility] CIWA - CIWA Score Nausea/Vomitin-No Nausea/No Vomiting Muscle Tremors: 1-None Visible, but [place] Anxiety: 1-Mildly Anxious Agitation: 1-Slight > Activity Paroxysmal Sweats: 2 Orientation: 0-Oriented Tacttile Disturbances: 0-None Auditory Disturbances: 0-None Visual Disturbances: 1-Very Mild Sensitivity Headache: 0-None Present CIWA-Ar Total Score: 6 BHS Progress Note (SOAP) Subjective: 48 years old male admitted on 07/22/19 for alcohol withdrawal sx management treating with librium detox regiment report itch legs multiple hyperpigmented irregular round scatted skin tags noted hydrocortison cream vistaril 25 mg po x 1 Objective: 07/25/19 12:40 Vital Signs Temperature 96.1 F L 07/25/19 08:44 Pulse Rate 57 L 07/25/19 08:44 Respiratory Rate 18 07/25/19 08:44 Blood Pressure 120/75 07/25/19 08:44 O2 Sat by Pulse Oximetry (%) 07/25/19 12:41 07/24/19 admission lab been cancelled patient prefers to leave the detox unit tomorrow "I have court date" patient reports feeling better today less tremor mild anxiety patient does not want to miss court date and prefers returning to [facility] for medical issues Assessment: 07/25/19 12:43 alcohol withdrawal Plan: librium regiment patient requests ativan but insists to be discharged tomorrow declined the request
[2019-07-25] MEDS ORDERED: hydrOXYzine PAMOATE 25 MG CAPSULE (FP) PO ONE (12:39)
[2019-07-25] MEDS: HYDROCORTISONE 1% TOPICAL CREAM 30 GM TUBE TP SCH ×3 (13:44→22:04)
[2019-07-25] MEDS: MELATONIN 5 MG TABLETS PO PRN (22:04)
[2019-07-25] MEDS: THIAMINE HCL 100 MG TABLET (FP) PO SCH (22:04)
[2019-07-26] MEDS ORDERED: chlordiazePOXIDE HCL 10 MG CAPSULE PO SCH (05:00)
[2019-07-26 09:52] VITALS: BP 128/72; PULSE 68; TEMP 96.3
[2019-07-26] MEDS: NICOTINE 14 MG/24 HOURS TOPICAL PATCH TD SCH (10:17)
[2019-07-26] MEDS: HYDROCORTISONE 1% TOPICAL CREAM 30 GM TUBE TP SCH (10:17)
[2019-07-26] MEDS: PRENATAL VITAMINS W/ FOLIC ACID TABLET (FP) PO SCH (10:18)
--- NOTE | 2019-07-26 14:32 | DS ---
[facility] Detox Discharge Summary Admission Date: 07/22/19 Discharge Date: 07/26/19 - History Present History: Alcohol Dependence Additional Comments: 48 years old male admitted on 07/22/19 for alcohol withdrawal sx management treated with librium detox regiment Mr Gonzales prefers to leave the detox unit one day earlier than estimated discharge day of 07/27/19 patient is alert oriented x 3 speech clearly coherently ambulating steady gait respiratory clear lungs bilaterally on Auscultation abdomen soft round obese no rebound tenderness extremities full range of motion Pertinent Past History: time for discharge 52 minutes patient demands [employer] teaching on risks of benzo misuse - Physical Exam Results Vital Signs: Vital Signs Temperature 96.3 F L 07/26/19 08:36 Pulse Rate 68 07/26/19 08:36 Respiratory Rate 18 07/26/19 08:36 Blood Pressure 128/72 07/26/19 08:36 O2 Sat by Pulse Oximetry (%) Pertinent Admission Physical Exam Findings: alcohol withdrawal Mr Gonzales refuses admission lab work multiple times encourage lab refusal form to be acknowledged - Treatment Hospital Course: Detox Protocol Followed, Detoxed Safely, Responded well, Discharged Condition Good, Rehab Referral Accepted Patient has Accepted a Rehab Referral to: [facility] - Diagnosis (1) Alcohol dependence with uncomplicated withdrawal Status: Acute (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 (3) Nicotine dependence Status: Acute Qualifiers: Nicotine product type: cigarettes Substance use status: in withdrawal Qualified Code(s): F17.213 - Nicotine dependence, cigarettes, with withdrawal (4) Substance induced mood disorder Status: Suspected - AMA Did Patient Leave Against Medical Advice: No CIWA Score - CIWA Score Nausea/Vomitin-No Nausea/No Vomiting Muscle Tremors: 1-None Visible, but [place] Anxiety: 1-Mildly Anxious Agitation: 0-Normal Activity Paroxysmal Sweats: 1-Minimal Palms Moist Orientation: 0-Oriented Tacttile Disturbances: 0-None Auditory Disturbances: 0-None Visual Disturbances: 0-None Headache: 0-None Present CIWA-Ar Total Score: 3
[2019-07-27] MEDS ORDERED: chlordiazePOXIDE HCL 10 MG CAPSULE PO ONE (05:00)
== END 2019-07-26 11:20 | disposition home or self-care (01) | DRG 775 ==
LOC: YASAS 21:32 → Y3N 22:22
PROVIDERS: ADMIT Allergy & Immunology; ATTEND Allergy & Immunology
PROC: HZ2ZZZZ Detoxification Services for Substance Abuse Treatment (ICD-10-PCS; principal; 2019-07-22)
DX: F10.230 Alcohol dependence with withdrawal, uncomplicated (principal); F17.213 Nicotine dependence, cigarettes, with withdrawal; F10.280 Alcohol dependence with alcohol-induced anxiety disorder; F19.282 Other psychoactive substance dependence with psychoactive substance-induced sleep disorder; F19.24 Other psychoactive substance dependence with psychoactive substance-induced mood disorder; F41.9 Anxiety disorder, unspecified; K70.9 Alcoholic liver disease, unspecified; L29.8 Other pruritus; L91.8 Other hypertrophic disorders of the skin; E66.9 Obesity, unspecified; Z68.31 Body mass index [BMI] 31.0-31.9, adult; Z62.810 Personal history of physical and sexual abuse in childhood; Z88.1 Allergy status to other antibiotic agents

== ENCOUNTER 2019-08-16 23:29 | Inpatient (IN) | payer OTHER ==
[2019-08-16 23:43] VITALS: BMI 32.8
--- NOTE | 2019-08-17 00:12 | HP ---
CIWA Score Nausea/Vomitin-No Nausea/No Vomiting Muscle Tremors: 1-None Visible, but [place] Anxiety: 1-Mildly Anxious Agitation: 1-Slight > Activity Paroxysmal Sweats: 3 Orientation: 1-Uncertain about Date Tacttile Disturbances: 0-None Auditory Disturbances: 0-None Visual Disturbances: 0-None Headache: 2-Mild CIWA-Ar Total Score: 9 - Admission Criteria OASAS Guidelines: Admission for Medically Managed Detox: Requires at least one of the followin. CIWA greater than 12 2. Seizures within the past 24 hours 3. Delirium tremens within the past 24 hours 4. Hallucinations within the past 24 hours 5. Acute intervention needed for co occurring medical disorder 6. Acute intervention needed for co occurring psychiatric disorder 7. Severe withdrawal that cannot be handled at a lower level of care (continued vomiting, continued diarrhea, abnormal vital signs) requiring intravenous medication and/or fluids 8. Patient presents the following: Acute intervention needed for co-occurring med or psych disorder (intoxication) Admission Criteria Met: Admission criteria met Admitting History and Physical - Smoking History Smoking history: Current every day smoker Have you smoked in the past 12 months: No Aproximately how many cigarettes per day: 10 - Alcohol/Substance Use Hx Alcohol Use: Yes Admission ROS S - [facility] Chief Complaint: c/o withdrawal sx's Allergies/Adverse Reactions: Allergies Allergy/AdvReac Type Severity Reaction Status Date / Time clarithromycin [From Biaxin] Allergy Severe Verified 08/16/19 23:38 History of Present Illness: HERE FOR ALCOHOL DETOX. CLIENT IS SELF REFERRED. KNOWN TO PROGRAM. LAST DC 3 WEEKS AGO. CLIENT REPORTS RELAPSING IMMEDIATELY AFTER DC. DRINKING ALCOHOL DAILY. LAST DRINK A FEW HOURS AGO. PRESENTS WITH INTOXICATION WITH C/O WITHDRAWAL SX'S. + CIWA, + EYE HAND POTTER. CLIENT IS A POOR HISTORIAN DUE TO HIS CLINICAL PRESENTATION. DENIES ANY OTHER ILLICIT SUBSTANCE ABUSE UTOX + CANNABIS. CLIENT DENIES. HOMELESS, UNEMPLOYED, DENIES LEGALS Exam Limitations: Clinical Condition - Ebola screening Have you traveled outside of the country in the last 21 days: No Have you had contact with anyone from an Ebola affected area: No Have you been sick,other than usual withdrawal symptoms: No Do you have a fever: No - Review of Systems Constitutional: Chills, Night Sweats, Changes in sleep EENT: reports: No Symptoms Reported Respiratory: reports: No Symptoms reported Cardiac: reports: No Symptoms Reported GI: reports: Poor Appetite, Poor Fluid Intake : reports: No Symptoms Reported Musculoskeletal: reports: Back Pain, Joint Pain Integumentary: reports: Rash (PSORIASIS), Sweating Neuro: reports: Headache, Seizure (VS BLACKOUTS), Tremors Endocrine: reports: No Symptoms Reported Hematology: reports: Anemia Psychiatric: reports: Agitated (IRRITABLE), Anxious, Depressed Other Systems: Reviewed and Negative Patient History - Patient Medical History Hx Anemia: Yes Hx Asthma: No Hx Chronic Obstructive Pulmonary Disease (COPD): No Hx Cancer: No Hx Cardiac Disorders: No Hx Congestive Heart Failure: No Hx Hypertension: No Hx Hypercholesterolemia: No Hx Pacemaker: No HX Cerebrovascular Accident: No Hx Seizures: No Hx Dementia: No Hx Diabetes: No Hx Gastrointestinal Disorders: No Hx Liver Disease: No Hx Genitourinary Disorders: No Hx Sexually Transmitted Disorders: No Hx Renal Disease (ESRD): No Hx Thyroid Disease: No Hx Human Immunodeficiency Virus (HIV): No Hx Hepatitis C: No Hx Depression: No Hx Suicide Attempt: No Hx Bipolar Disorder: No Hx Schizophrenia: No Other Medical History: ANXIETY - Patient Surgical History Past Surgical History: No Hx Neurologic Surgery: No Hx Cataract Extraction: No Hx Cardiac Surgery: No Hx Lung Surgery: No Hx Breast Surgery: No Hx Breast Biopsy: No Hx Abdominal Surgery: No Hx Appendectomy: No Hx Cholecystectomy: No Hx Genitourinary Surgery: No Hx Section: No (N/A) Hx Orthopedic Surgery: No Anesthesia Reaction: No - PPD History Previous Implant?: Yes Documented Results: Negative w/proof Implanted On Prior [facility] Admission?: Yes Date: 05/19/18 Results: 0mm PPD to be Administered?: Yes - Reproductive History Patient : No - Smoking Cessation Smoking history: Current every day smoker Have you smoked in the past 12 months: No Aproximately how many cigarettes per day: 10 Cigars Per Day: 0 Hx Chewing Tobacco Use: No Initiated information on smoking cessation: Yes 'Breaking Loose' booklet given: 08/17/19 - Substance & Tx. History Hx Alcohol Use: Yes Hx Substance Use: Yes Substance Use Type: Alcohol, Marijuana Hx Substance Use Treatment: Yes ([facility]) - Substances abused Alcohol Substance route: Oral Frequency: Daily Amount used: 6 (24 oz beers) Age of first use: 23 Date of last use: 08/16/19 Admission Physical Exam [facility] - Vital Signs Vital Signs: Vital Signs - 24 hr 08/16/19 23:37 Temperature 97.5 F L Pulse Rate 84 Respiratory 18 Rate Blood Pressure 130/67 - Physical General Appearance: Yes: Moderate Distress, Tremorous, Irritable, Sweating, Anxious HEENTM: Yes: EOMI, Normocephalic, Normal Voice, LUIS, Pharynx Normal Respiratory: Yes: Chest Non-Tender, Lungs Clear, Normal Breath Sounds, No Respiratory Distress, No Accessory Muscle Use Neck: Yes: No masses,lesions,Nodules, Supple, Trachea in good position Breast: Yes: Breasts Symetrical, No Discharge Cardiology: Yes: Regular Rhythm, Regular Rate, S1, S2 Abdominal: Yes: Normal Bowel Sounds, Non Tender, Soft, Protuberent Genitourinary: Yes: Within Normal Limits Back: Yes: Normal Inspection Musculoskeletal: Yes: full range of Motion, Gait Steady Extremities: Yes: Normal Capillary Refill, Normal Range of Motion, Non-Tender, Tremors Neurological: Yes: Alert, Motor Strength 5/5, Depressed Affect Integumentary: Yes: [place] Lymphatic: Yes: Within Normal Limits - Diagnostic (1) Homeless Current Visit: Yes Status: Chronic (2) Alcohol dependence with uncomplicated withdrawal Current Visit: Yes Status: Acute (3) Alcohol-induced anxiety disorder Current Visit: Yes Status: Suspected (4) Alcohol-induced sleep disorder Current Visit: Yes Status: Suspected (5) At risk for dehydration due to poor fluid intake Current Visit: Yes Status: Acute (6) Depressed affect Current Visit: Yes Status: Suspected (7) Nicotine dependence Current Visit: Yes Status: Chronic Qualifiers: Nicotine product type: cigarettes Substance use status: uncomplicated Qualified Code(s): F17.210 - Nicotine dependence, cigarettes, uncomplicated (8) Alcohol intoxication Current Visit: Yes Status: Chronic Qualifiers: Complication of substance-induced condition: uncomplicated Qualified Code(s): F10.920 - Alcohol use, unspecified with intoxication, uncomplicated (9) Cannabis dependence Current Visit: Yes Status: Acute Cleared for Admission [facility] - Detox or Rehab [facility] Level of Care: Medically Managed Detox Regimen/Protocol: Ativan Claeared for Rehab Admission: No Breathalyzer - Breathalyzer Breathalyzer: 0.222 Urine Drug Screen - Test Device Lot number: [id number] Expiration date: 04/30/21 - Control Is test valid?: Yes - Results Drug screen NEGATIVE: No Urine drug screen results: THC-Marijuana Inpatient Rehab Admission - Rehab Decision to Admit Inpatient rehab admission?: No
[2019-08-17] MEDS ORDERED: P-EPHED 60MG/TRIPROLIDI 2.5MG TABLET PO PRN (00:19)
[2019-08-17] MEDS ORDERED: ONDANSETRON *ODT* 4 MG TABLET SL ONE (00:19)
[2019-08-17] MEDS ORDERED: guaiFENesin 200 MG/10 ML 10 ML UNIT-DOSE CUPS PO PRN (00:19)
[2019-08-17] MEDS ORDERED: BISMUTH SUBSALICYLATE 524 MG/30 ML UD PO PRN (00:19)
[2019-08-17] MEDS ORDERED: METHOCARBAMOL 500 MG TABLET PO PRN (00:19)
[2019-08-17] MEDS ORDERED: ACETAMINOPHEN 325 MG TABLET (FP) PO PRN ×2 (00:19)
[2019-08-17] MEDS ORDERED: MENTHOL/PHENOL 1 EACH UD MM PRN (00:19)
[2019-08-17] MEDS ORDERED: NICOTINE POLACRILEX 2 MG GUM BUC PRN (00:19)
[2019-08-17] MEDS ORDERED: DICYCLOMINE HCL 10 MG CAPSULE PO PRN (00:19)
[2019-08-17] MEDS ORDERED: LORazepam 1 MG TABLET PO PRN (00:19)
[2019-08-17] MEDS ORDERED: MAGNESIUM CITRATE 300 ML BOTTLE PO PRN (00:19)
[2019-08-17] MEDS ORDERED: MAGNESIUM HYDROX 2400MG/30ML ORAL SUSPENSION 30 ML CUP PO PRN (00:19)
[2019-08-17] MEDS ORDERED: MAG HYDROX/AL HYDROX/SIMETH 30 ML UNIT-DOSE CUP PO PRN (00:19)
[2019-08-17] MEDS ORDERED: IBUPROFEN 400 MG TABLET (FP) PO PRN (00:19)
[2019-08-17] MEDS: LORazepam 2 MG TABLET PO SCH ×4 (08:09→22:23)
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
[2019-08-17] MEDS: PRENATAL VITAMINS W/ FOLIC ACID TABLET (FP) PO SCH (10:30)
[2019-08-17] MEDS: NICOTINE 14 MG/24 HOURS TOPICAL PATCH TD SCH (10:30)
--- NOTE | 2019-08-17 11:29 | PN ---
S CIWA - CIWA Score Nausea/Vomitin-No Nausea/No Vomiting Muscle Tremors: None Anxiety: 3 Agitation: 3 Paroxysmal Sweats: No Perspiration Orientation: 0-Oriented Tacttile Disturbances: 0-None Auditory Disturbances: 2-Mild Harshness/Frighten Visual Disturbances: 2-Mild Sensitivity Headache: 2-Mild CIWA-Ar Total Score: 12 BHS Progress Note (SOAP) Subjective: Pt complaints of headache, irritability,anxiety,light and noise sensitivity Objective: 08/17/19 11:26 Vital Signs Temperature 97.3 F L 08/17/19 09:11 Pulse Rate 71 08/17/19 09:11 Respiratory Rate 18 08/17/19 09:11 Blood Pressure 96/53 L 08/17/19 09:11 O2 Sat by Pulse Oximetry (%) Pt seen this morning during rounds. Alert and oriented x3, in no acute distress. Coordination: Moving all extremities. Assessment: 08/17/19 11:28 Alcohol use disorder Plan: Alcohol use disorder: continue on Librium tapering.
[2019-08-17] MEDS: MELATONIN 5 MG TABLETS PO SCH (22:22)
[2019-08-17] MEDS: THIAMINE HCL 100 MG TABLET (FP) PO SCH (22:23)
[2019-08-17] MEDS: SUVOREXANT 10 MG TABLET PO PRN (22:24)
[2019-08-18] MEDS: LORazepam 1 MG TABLET PO SCH ×4 (06:31→22:29)
[2019-08-18] MEDS: PRENATAL VITAMINS W/ FOLIC ACID TABLET (FP) PO SCH (10:24)
[2019-08-18] MEDS: NICOTINE 14 MG/24 HOURS TOPICAL PATCH TD SCH (10:24)
--- NOTE | 2019-08-18 11:13 | PN ---
BHS CIWA - CIWA Score Nausea/Vomitin-No Nausea/No Vomiting Muscle Tremors: None Anxiety: 3 Agitation: 0-Normal Activity Paroxysmal Sweats: 3 Orientation: 0-Oriented Tacttile Disturbances: 0-None Auditory Disturbances: 0-None Visual Disturbances: 0-None Headache: 2-Mild CIWA-Ar Total Score: 8 BHS Progress Note (SOAP) Subjective: Complains of anxiety, headache, and sweats. Objective: 08/18/19 11:09 Vital Signs Temperature 97 F L 08/18/19 08:53 Pulse Rate 61 08/18/19 08:53 Respiratory Rate 17 08/18/19 08:53 Blood Pressure 108/32 L 08/18/19 08:53 O2 Sat by Pulse Oximetry (%) Assessment: 08/18/19 11:11 Pt is AO x3, in no acute respiratory distress. Withdrawal symptoms noted. Moving all extremities. Plan: Continue with detox protocol.
--- NOTE | 2019-08-18 11:30 | EKG ---
Test Reason : Blood Pressure : / mmHG Vent. Rate : 068 BPM Atrial Rate : 068 BPM P-R Int : 168 ms QRS Dur : 104 ms QT Int : 398 ms P-R-T Axes : 012 029 022 degrees QTc Int : 423 ms NORMAL SINUS RHYTHM NORMAL ECG WHEN COMPARED WITH ECG OF 10-DEC-2018 05:45, NO SIGNIFICANT CHANGE WAS FOUND Confirmed by MD Howe Daniel ([id number]) on 08/18/2019 11:29:54 AM Referred By: Akira Hernández Confirmed By:Wilner Howe MD
[2019-08-18] MEDS: THIAMINE HCL 100 MG TABLET (FP) PO SCH (22:29)
[2019-08-18] MEDS: MELATONIN 5 MG TABLETS PO SCH (22:29)
[2019-08-19] MEDS ORDERED: LORazepam 0.5 MG TABLET PO PRN
[2019-08-19] MEDS: LORazepam 0.5 MG TABLET PO SCH ×4 (06:30→22:26)
[2019-08-19] MEDS: NICOTINE 14 MG/24 HOURS TOPICAL PATCH TD SCH (10:12)
[2019-08-19] MEDS: PRENATAL VITAMINS W/ FOLIC ACID TABLET (FP) PO SCH (10:12)
--- NOTE | 2019-08-19 12:34 | PN ---
S CIWA - CIWA Score Nausea/Vomitin-No Nausea/No Vomiting Muscle Tremors: 1-None Visible, but [place] Anxiety: 1-Mildly Anxious Agitation: 0-Normal Activity Paroxysmal Sweats: 1-Minimal Palms Moist Orientation: 0-Oriented Tacttile Disturbances: 0-None Auditory Disturbances: 0-None Visual Disturbances: 1-Very Mild Sensitivity Headache: 0-None Present CIWA-Ar Total Score: 4 BHS Progress Note (SOAP) Subjective: 48 year old male admitted on 08/17/19 for alcohol withdrawal sx management treating with ativan detox regiment feeling better less tremor ambulating on hallway social with peers in day room Objective: 08/19/19 12:36 Vital Signs Temperature 96.6 F L 08/19/19 08:48 Pulse Rate 54 L 08/19/19 08:48 Respiratory Rate 18 08/19/19 08:48 Blood Pressure 127/74 08/19/19 08:48 O2 Sat by Pulse Oximetry (%) Assessment: 08/19/19 12:37 alcohol withdrawal Plan: ativan regiment
[2019-08-19] MEDS: THIAMINE HCL 100 MG TABLET (FP) PO SCH (22:26)
[2019-08-19] MEDS: MELATONIN 5 MG TABLETS PO SCH (22:26)
[2019-08-20] MEDS: SUVOREXANT 10 MG TABLET PO PRN (01:19)
[2019-08-20] MEDS ORDERED: LORazepam 0.5 MG TABLET PO ONE (05:00)
[2019-08-20 09:23] VITALS: BP 126/72; PULSE 74; TEMP 96.8
--- NOTE | 2019-08-20 14:35 | DS ---
[facility] Detox Discharge Summary Admission Date: 08/17/19 Discharge Date: 08/20/19 - History Present History: Alcohol Dependence Additional Comments: 48 years old male admitted on 08/17/19 for alcohol withdrawal sx management treated with ativan detox regiment Mr Gonzales has completed the ativan regiment and is tolerated well seen by psychiatrist no medical intervention belsomra hs alert oriented x 3 cardiac s1s2 regular rate rhythm respiratory clear lung bilaterally on auscultation abdomen soft round obese no rebound tenderness Pertinent Past History: time for discharge 32 minutes - Physical Exam Results Vital Signs: Vital Signs Temperature 96.8 F L 08/20/19 08:31 Pulse Rate 74 08/20/19 08:31 Respiratory Rate 18 08/20/19 08:31 Blood Pressure 126/72 08/20/19 08:31 O2 Sat by Pulse Oximetry (%) Pertinent Admission Physical Exam Findings: alcohol withdrawal Vital Signs Temperature 96.8 F L 08/20/19 08:31 Pulse Rate 74 08/20/19 08:31 Respiratory Rate 18 08/20/19 08:31 Blood Pressure 126/72 08/20/19 08:31 O2 Sat by Pulse Oximetry (%) - Treatment Hospital Course: Detox Protocol Followed, Detoxed Safely, Responded well, Discharged Condition Good, Rehab Referral Accepted Patient has Accepted a [facility] - Medication Discharge Medications: Ambulatory Orders Diazepam 10 mg PO TID PRN 08/16/19 - Diagnosis (1) Alcohol dependence with uncomplicated withdrawal Status: Acute (2) Nicotine dependence Status: Acute Qualifiers: Nicotine product type: cigarettes Substance use status: in withdrawal Qualified Code(s): F17.213 - Nicotine dependence, cigarettes, with withdrawal (3) Substance induced mood disorder Status: Suspected - AMA Did Patient Leave Against Medical Advice: No CIWA Score - CIWA Score Nausea/Vomitin-No Nausea/No Vomiting Muscle Tremors: None Anxiety: 1-Mildly Anxious Agitation: 0-Normal Activity Paroxysmal Sweats: No Perspiration Orientation: 0-Oriented Tacttile Disturbances: 0-None Auditory Disturbances: 0-None Visual Disturbances: 1-Very Mild Sensitivity Headache: 0-None Present CIWA-Ar Total Score: 2
== END 2019-08-20 09:11 | disposition home or self-care (01) | DRG 775 ==
LOC: YASAS 23:29 → Y3N 08-17
PROVIDERS: ADMIT Allergy & Immunology; ATTEND Allergy & Immunology
PROC: HZ2ZZZZ Detoxification Services for Substance Abuse Treatment (ICD-10-PCS; principal; 2019-08-17)
DX: F10.230 Alcohol dependence with withdrawal, uncomplicated (principal); F12.20 Cannabis dependence, uncomplicated; F17.210 Nicotine dependence, cigarettes, uncomplicated; F19.24 Other psychoactive substance dependence with psychoactive substance-induced mood disorder; F10.282 Alcohol dependence with alcohol-induced sleep disorder; F10.280 Alcohol dependence with alcohol-induced anxiety disorder; F41.9 Anxiety disorder, unspecified; L40.9 Psoriasis, unspecified; K70.9 Alcoholic liver disease, unspecified; E66.9 Obesity, unspecified; Z68.32 Body mass index [BMI] 32.0-32.9, adult; R45.89 Other symptoms and signs involving emotional state; Z56.0 Unemployment, unspecified; Z59.0 Homelessness; Z88.1 Allergy status to other antibiotic agents
CPT/HCPCS: 93005; 93010

== ENCOUNTER 2020-02-01 10:57 | Inpatient (IN) | payer OTHER ==
--- NOTE | 2020-02-01 11:11 | BHS.RME ---
Substance Use & Tx History - Substance Use History Alcohol Substance amount: 6 -7 24oz beers Frequency of use: Daily Substance route: Oral Date of Last Use: 02/01/20 Marijuana/Hashish Substance amount: $20 Frequency of use: Less than 3 times per week Substance route: Smoking Date of Last Use: 01/25/20 Nicotine Substance amount: 10 ciggs Frequency of use: Daily Substance route: Smoking Date of Last Use: 02/01/20 - Last Treatment Date of last treatment: 09/29-10/04/19 Treatment type: Substance Use Disorder (LILIYA) Where was last treatment: Detox Physical/Psych/Mental Status - Behavior General Behavior: Increased activity (restlessness, agitation) Eye Contact: Normal - Cooperativeness Cooperativeness: Cooperative - Thinking Thought Processes: Tight, Logical, Goal Directed CIWA Nausea/Vomitin Muscle Tremors: 2 Anxiety: 2 Agitation: 2 (not yet in full withdrawal due to current intoxication ESTRELLITA=0.251) Paroxysmal Sweats: 2 Orientation: 0-Oriented Tacttile Disturbances: 0-None Auditory Disturbances: 0-None Visual Disturbances: 0-None Headache: 0-None Present CIWA-Ar Total Score: 10
--- NOTE | 2020-02-01 11:47 | HP ---
CIWA Score Nausea/Vomitin Muscle Tremors: 2 Anxiety: 2 Agitation: 2 (not yet in full withdrawal due to current intoxication ESTRELLITA=0.251) Paroxysmal Sweats: 2 Orientation: 0-Oriented Tacttile Disturbances: 0-None Auditory Disturbances: 0-None Visual Disturbances: 0-None Headache: 0-None Present CIWA-Ar Total Score: 10 - Admission Criteria OASAS Guidelines: Admission for Medically Managed Detox: Requires at least one of the followin. CIWA greater than 12 2. Seizures within the past 24 hours 3. Delirium tremens within the past 24 hours 4. Hallucinations within the past 24 hours 5. Acute intervention needed for co occurring medical disorder 6. Acute intervention needed for co occurring psychiatric disorder 7. Severe withdrawal that cannot be handled at a lower level of care (continued vomiting, continued diarrhea, abnormal vital signs) requiring intravenous medication and/or fluids 8. Admitting History and Physical - Admission Chief Complaint: " I need help and I am serious about completing detox this time." History of Present Illness: 49 year old male with history of alcohol dependence s/p alcohol intoxication 01/10/20 sent to ER [facility] with a ESTRELLITA=0.301 refused [facility] but refused and left AMA. Last admission at [facility] was 09/29-10/04/19 which he completed detox but he's had no history of sobriety. 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 He has no legal issues pending. He has agreed to sign behavioral contract and refrain from cussin and mistreating staff. ESTRELLITA=0/251 CIWA=10 due to just using 2 hours prior to admission. Urine Tox: BZO, THC Patient admits to having taken some street benzodiazepines. Patient meets criteria for detox as he has had multiple blackouts and medical and psychiatric co-morbidities. History Source: Patient Limitations to Obtaining History: No Limitations - Past Medical History Hepatobiliary: Yes: Cirrhosis Heme/Onc: Yes: Anemia - Past Surgical History Past Surgical History: Yes: None - Smoking History Smoking history: Unknown if ever smoked Have you smoked in the past 12 months: Yes Aproximately how many cigarettes per day: 20 - Alcohol/Substance Use Hx Alcohol Use: Yes Number of Drinks Daily: 10 History of Substance Use: reports: Marijuana Date of Last Use: 02/01/20 - Social History Usual Living Arrangement: Yes: With Parent Do you think of yourself as: Straight/Heterosexual ADL: Independent Occupation: unemployed History of Recent Travel: No Admission ROS S - HPI Allergies/Adverse Reactions: Allergies Allergy/AdvReac Type Severity Reaction Status Date / Time clarithromycin [From Biaxin] Allergy Severe Verified 02/01/20 11:37 Exam Limitations: No Limitations - Ebola screening Have you traveled outside of the country in the last 21 days: No Have you had contact with anyone from an Ebola affected area: No Have you been sick,other than usual withdrawal symptoms: No Do you have a fever: No - Review of Systems Constitutional: Chills EENT: reports: No Symptoms Reported Respiratory: reports: No Symptoms reported Cardiac: reports: No Symptoms Reported GI: reports: No Symptoms Reported : reports: No Symptoms Reported Musculoskeletal: reports: No Symptoms Reported Integumentary: reports: No Symptoms Reported Neuro: reports: No Symptoms reported Endocrine: reports: No Symptoms Reported Hematology: reports: No Symptoms Reported Psychiatric: reports: Judgement Intact, Mood/Affect Appropiate, Orientated x3, Agitated Other Systems: Reviewed and Negative Patient History - Patient Medical History Hx Anemia: Yes (Not on medication) Hx Asthma: No Hx Chronic Obstructive Pulmonary Disease (COPD): No Hx Cancer: No Hx Cardiac Disorders: No Hx Congestive Heart Failure: No Hx Hypertension: No Hx Hypercholesterolemia: No Hx Pacemaker: No HX Cerebrovascular Accident: No Hx Seizures: No Hx Dementia: No Hx Diabetes: No Hx Gastrointestinal Disorders: No 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) Hx Genitourinary Disorders: No Hx Sexually Transmitted Disorders: No Hx Renal Disease (ESRD): No Hx Thyroid Disease: No Hx Human Immunodeficiency Virus (HIV): No Hx Hepatitis C: No Hx Depression: Yes (Not on medication) Hx Suicide Attempt: No (Denies suicidal ideation at this time) Hx Bipolar Disorder: No Hx Schizophrenia: No - Patient Surgical History Past Surgical History: No Hx Neurologic Surgery: No Hx Cataract Extraction: No Hx Cardiac Surgery: No Hx Lung Surgery: No Hx Breast Surgery: No Hx Breast Biopsy: No Hx Abdominal Surgery: No Hx Appendectomy: No Hx Cholecystectomy: No Hx Genitourinary Surgery: No Hx Section: No (N/A) Hx Orthopedic Surgery: No Anesthesia Reaction: No - PPD History Previous Implant?: Yes Documented Results: Negative w/proof Implanted On Prior [facility] Admission?: Yes Date: 10/02/19 Results: 0mm PPD to be Administered?: No - Smoking Cessation Smoking history: Unknown if ever smoked Have you smoked in the past 12 months: Yes Aproximately how many cigarettes per day: 20 Cigars Per Day: 0 Hx Chewing Tobacco Use: No Initiated information on smoking cessation: Yes 'Breaking Loose' booklet given: 02/01/20 - Substances abused Alcohol Substance route: Oral Frequency: Daily Amount used: 10 beers Age of first use: 19 Date of last use: 02/01/20 Marijuana/Hashish Substance route: Smoking Frequency: 1-2 times per week Amount used: $20 Age of first use: 15 Date of last use: 01/25/20 Admission Physical Exam S - Vital Signs Vital Signs: Vital Signs - 24 hr 02/01/20 11:38 Temperature 98.2 F Pulse Rate 83 Respiratory 18 Rate Blood Pressure 125/81 - Physical General Appearance: Yes: Mild Distress, Tremorous, Irritable, Sweating HEENTM: Yes: EOMI, Hearing grossly Normal, Normal ENT Inspection, Normocephalic, Normal Voice, LUIS, Pharynx Normal, Tm's normal Respiratory: Yes: Chest Non-Tender, Lungs Clear, Normal Breath Sounds, No Respiratory Distress, No Accessory Muscle Use Neck: Yes: No masses,lesions,Nodules, Supple, Trachea in good position Breast: Yes: Within Normal Limits Cardiology: Yes: Regular Rhythm, Regular Rate, S1, S2 Abdominal: Yes: Normal Bowel Sounds, Non Tender, Soft, Protuberent Genitourinary: Yes: Within Normal Limits Back: Yes: Normal Inspection Musculoskeletal: Yes: full range of Motion, Gait Steady, Pelvis Stable Extremities: Yes: Normal Capillary Refill, Normal Inspection, Normal Range of Motion, Non-Tender Neurological: Yes: horse race starter II-XII NML intact, Fully Oriented, Alert, Motor Strength 5/5, Normal Mood/Affect, Normal Response Integumentary: Yes: Normal Color, Dry, Warm Lymphatic: Yes: Within Normal Limits - Diagnostic (1) Alcohol dependence with uncomplicated withdrawal Current Visit: Yes Status: Acute (2) Alcohol-induced anxiety disorder Current Visit: Yes Status: Acute (3) Alcohol-induced sleep disorder Current Visit: Yes Status: Acute (4) Insomnia Current Visit: Yes Status: Acute Qualifiers: Insomnia type: unspecified Qualified Code(s): G47.00 - Insomnia, unspecified (5) PTSD (post-traumatic stress disorder) Current Visit: Yes Status: Acute (6) Anxiety disorder Current Visit: Yes Status: Chronic (7) Depression Current Visit: Yes Status: Chronic Qualifiers: Depression Type: unspecified Qualified Code(s): F32.9 - Major depressive disorder, single episode, unspecified (8) Homeless Current Visit: Yes Status: Chronic (9) Liver disease due to alcohol Current Visit: Yes Status: Chronic (10) MDD (major depressive disorder), recurrent episode, moderate Current Visit: Yes Status: Chronic (11) Nicotine dependence Current Visit: Yes Status: Chronic Qualifiers: Nicotine product type: cigarettes Substance use status: in withdrawal Qualified Code(s): F17.213 - Nicotine dependence, cigarettes, with withdrawal Cleared for Admission [facility] - Detox or Rehab [facility] Level of Care: Medically Managed Detox Regimen/Protocol: Librium Claeared for Rehab Admission: No Screened but not Admitted - Documentation of Visit Screened but not Admitted: No Breathalyzer - Breathalyzer Breathalyzer: 0.251 Vital Signs - Vital Signs Vital signs refused: No Temperature: 98.2 F Pulse Rate: 83 Respiratory Rate: 18 Blood Pressure: 125/81 BP Location: Left Arm Blood Pressure position: Sitting - Height Height: 57 ft - Weight Weight: 200 lb Weight measurement method: Standing scale - BMI Body Mass Index (BMI): 0.3 - Bowel Function Bowel Movement: No Urine Drug Screen - Test Device Lot number: [id number] Expiration date: 01/07/22 - Control Is test valid?: Yes - Results Drug screen NEGATIVE: No Urine drug screen results: THC-Marijuana, BZO-Benzodiazepines Inpatient Rehab Admission - Rehab Decision to Admit Inpatient rehab admission?: No
[2020-02-01] MEDS ORDERED: MAGNESIUM CITRATE 300 ML BOTTLE PO PRN (11:56)
[2020-02-01] MEDS ORDERED: ONDANSETRON *ODT* 4 MG TABLET SL ONE (11:56)
[2020-02-01] MEDS ORDERED: ACETAMINOPHEN 325 MG TABLET (FP) PO PRN ×2 (11:56)
[2020-02-01] MEDS ORDERED: MENTHOL/PHENOL 1 EACH UD MM PRN (11:56)
[2020-02-01] MEDS ORDERED: IBUPROFEN 400 MG TABLET (FP) PO PRN (11:56)
[2020-02-01] MEDS ORDERED: chlordiazePOXIDE HCL 25 MG CAPSULE PO PRN (11:56)
[2020-02-01] MEDS ORDERED: BISMUTH SUBSALICYLATE 524 MG/30 ML UD PO PRN (11:56)
[2020-02-01] MEDS ORDERED: MAGNESIUM HYDROX 2400MG/30ML ORAL SUSPENSION 30 ML CUP PO PRN (11:56)
[2020-02-01] MEDS ORDERED: NICOTINE POLACRILEX 2 MG GUM BUC PRN (11:56)
[2020-02-01] MEDS ORDERED: MAG HYDROX/AL HYDROX/SIMETH 30 ML UNIT-DOSE CUP PO PRN (11:56)
[2020-02-01] MEDS: chlordiazePOXIDE HCL 25 MG CAPSULE PO SCH ×3 (12:43→23:07)
[2020-02-01] MEDS: NICOTINE 7 MG/24 HOURS TOPICAL PATCH TD SCH (12:45)
[2020-02-01] MEDS: PRENATAL VITAMINS W/ FOLIC ACID TABLET (FP) PO SCH (12:45)
[2020-02-01] MEDS: hydrOXYzine PAMOATE 25 MG CAPSULE (FP) PO SCH ×3 (14:08→23:07)
--- NOTE | 2020-02-01 15:19 | CONSULT ---
[facility] Psychiatric Consult - Data Date of interview: 02/01/20 Admission source: [facility] Identifying data: Readmission to [facility] at [address] [place] [address] for this 49 y/o male, self-referred for detoxification treatment. LILIYA issues : alcohol, marihuana, nicotine. Patient is single, no children, domiciled (lives with father), unemployed and supported on welfare. Substance Abuse History: Discussed with the patient. LILIYA profile as follows : Alcohol. Substance amount: 6 -7 24oz beers. Frequency of use: Daily. Substance route: Oral. Date of Last Use: 02/01/20. 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 Marijuana/Hashish. Substance amount: $20. Frequency of use: Less than 3 times per week. Substance route: Smoking. Date of Last Use: 01/25/20. Nicotine. Substance amount: 10 ciggs. Frequency of use: Daily. Substance route: Smoking. Date of Last Use: 02/01/20. - Last Treatment. Date of last treatment: 09/29-10/04/19. Treatment type: Substance Use Disorder (LILIYA). Where was last treatment: Detox. Smoking history: Unknown if ever smoked. Have you smoked in the past 12 months: Yes. Aproximately how many cigarettes per day: 20. Cigars Per Day: 0. Hx Chewing Tobacco Use: No. Initiated information on smoking cessation: Yes. 'Breaking Loose' booklet given: 02/01/20. - Substances abused. Alcohol. Substance route: Oral. Frequency: Daily. Amount used: 10 beers. Age of first use: 19. Date of last use: 02/01/20. Marijuana/Hashish. Substance route: Smoking. Frequency: 1-2 times per week. Amount used: $20. Age of first use: 15. Date of last use: 01/25/20. History of multiple LILIYA treatment failures. Medical History: Medical history is remarkable for anemia, cirrhosis of the liver and obesity. Psychiatric History: Diagnosed, years ago, with MDD and PTSD. Patient endorses long standing history of anxiety (onset in adolescence). History of multiple psychiatric hospitalizations ([facility], [facility], [facility], [facility]). Mr Gonzales reports previous treatments with various medications (gabapentin, SSRI agents, benzodiazepines). and chronic non-adherence to OPD care. Patient has been off psychotropic medications for several months. Has no contact with any outpatient program or mental health providers. He denies history of suicide attempts. Physical/Sexual Abuse/Trauma History: Patient denies. Additional Comment: Urine drug screen results: THC-Marijuana, BZO- Benzodiazepines. Noted. Mental Status Exam - Mental Status Exam Alert and Oriented to: Time, Place, Person Cognitive Function: Good Patient Appearance: Unkempt, Disheveled Mood: Nervous, Withdrawn Affect: Mood Congruent, Constricted Patient Behavior: Fatigued, Appropriate, Cooperative Speech Pattern: Clear, Appropriate Voice Loudness: Normal Thought Process: Intact, Goal Oriented Thought Disorder: Not Present Hallucinations: Denies Suicidal Ideation: Denies Homicidal Ideation: Denies Insight/Judgement: Poor Sleep: Fair Appetite: Good Gait/Station: Normal Psychiatric Findings - Problem List ([place] 1, 2,3) (1) Alcohol dependence with uncomplicated withdrawal Current Visit: Yes Status: Acute (2) Cannabis dependence Current Visit: Yes Status: Chronic (3) Nicotine dependence Current Visit: Yes Status: Chronic Qualifiers: Nicotine product type: cigarettes Substance use status: in withdrawal Qualified Code(s): F17.213 - Nicotine dependence, cigarettes, with withdrawal (4) Substance induced mood disorder Current Visit: Yes Status: Chronic (5) History of depression Current Visit: Yes Status: Chronic (6) Non-compliance Current Visit: Yes Status: Chronic - Initial Treatment Plan Initial Treatment Plan: Psychoeducation. Sleep hygiene. Support. Detoxification in progress. Patient consents only to detoxification protocol. Declines to be on any other drug. MAT services discussed with the patient. He is informed of the benefits of THOMPSON naltrexone (vivitrol) : responded with ambivalence. Observation.
[2020-02-01 15:33] LABS: HEMOGLOBIN 14.3 GM/dL (11.7-16.9); MCH 35.7 pg (25.7-33.7); MEAN CELL VOLUME 104.8 fl (80-96); MEAN PLT VOLUME 7.5 fl (7.5-11.1); PLATELET COUNT 56 K/MM3 (134-434); RBC 4.01 M/mm3 (4.00-5.60); RDW 13.5 % (11.9-15.9); WHITE BLOOD COUNT 4.3 K/mm3 (4.0-10.0)
[2020-02-01 15:56] LABS: ALBUMIN 3.3 g/dl (3.4-5.0); BLOOD UREA NITROGEN 5.2 mg/dL (7-18); CALCIUM 8.3 mg/dL (8.5-10.1); POTASSIUM 3.7 mmol/L (3.5-5.1)
[2020-02-01 16:00] LABS: CREATININE 0.6 mg/dL (0.55-1.3); TOT PROT 8.7 g/dl (6.4-8.2)
[2020-02-01] MEDS: THIAMINE HCL 100 MG TABLET (FP) PO SCH (23:07)
[2020-02-01] MEDS: MELATONIN 5 MG TABLETS PO SCH (23:08)
[2020-02-02] MEDS: chlordiazePOXIDE HCL 25 MG CAPSULE PO SCH ×4 (05:32→22:50)
[2020-02-02] MEDS: hydrOXYzine PAMOATE 25 MG CAPSULE (FP) PO SCH ×5 (05:33→22:49)
--- NOTE | 2020-02-02 09:44 | PN ---
[facility] CIWA - CIWA Score Nausea/Vomitin-No Nausea/No Vomiting Muscle Tremors: 2 Anxiety: 3 Agitation: 0-Normal Activity Paroxysmal Sweats: 3 Orientation: 0-Oriented Tacttile Disturbances: 0-None Auditory Disturbances: 0-None Visual Disturbances: 0-None Headache: 1-Very Mild CIWA-Ar Total Score: 9 S Progress Note (SOAP) Subjective: c/o sweats, anxiety, shakes, and headache. Objective: 02/02/20 09:43 Vital Signs 02/02/20 02/02/20 05:25 08:40 Temperature 98.0 F 98.0 F Pulse Rate 87 85 Respiratory 18 18 Rate Blood Pressure 132/77 118/73 O2 Sat by Pulse 97 Oximetry (%) Laboratory Last Values WBC 4.3 K/mm3 (4.0-10.0) 02/01/20 11:45 RBC 4.01 M/mm3 (4.00-5.60) 02/01/20 11:45 Hgb 14.3 GM/dL (11.7-16.9) 02/01/20 11:45 Hct 42.0 % (35.4-49) 02/01/20 11:45 MCV 104.8 fl (80-96) H 02/01/20 11:45 MCH 35.7 pg (25.7-33.7) H 02/01/20 11:45 MCHC 34.0 g/dl (32.0-35.9) 02/01/20 11:45 RDW 13.5 % (11.9-15.9) 02/01/20 11:45 Plt Count 56 K/MM3 (134-434) L 02/01/20 11:45 MPV 7.5 fl (7.5-11.1) D 02/01/20 11:45 Sodium 132 mmol/L (136-145) L 02/01/20 11:45 Potassium 3.7 mmol/L (3.5-5.1) 02/01/20 11:45 Chloride 100 mmol/L (98-107) 02/01/20 11:45 Carbon Dioxide 22 mmol/L (21-32) 02/01/20 11:45 Anion Gap 9 MMOL/L (8-16) 02/01/20 11:45 BUN 5.2 mg/dL (7-18) L 02/01/20 11:45 Creatinine 0.6 mg/dL (0.55-1.3) 02/01/20 11:45 Est GFR (CKD-EPI)AfAm 134.92 02/01/20 11:45 Est GFR (CKD-EPI)NonAf 116.41 02/01/20 11:45 Random Glucose 94 mg/dL (74-106) 02/01/20 11:45 Calcium 8.3 mg/dL (8.5-10.1) L 02/01/20 11:45 Total Bilirubin 2.0 mg/dL (0.2-1) H 02/01/20 11:45 AST 74 U/L (15-37) H 02/01/20 11:45 ALT 44 U/L (13-61) 02/01/20 11:45 Alkaline Phosphatase 113 U/L (45-117) 02/01/20 11:45 Total Protein 8.7 g/dl (6.4-8.2) H 02/01/20 11:45 Albumin 3.3 g/dl (3.4-5.0) L 02/01/20 11:45 Syphilis Serology Non-reactive (NONREACTIVE) 02/01/20 11:45 Labs noted. Assessment: 02/02/20 09:43 AOX3, in no acute respiratory distress. Full ROM, ambulating in the unit. Withdrawal symptoms. Plan: continue detox. Increase fluids for hydration.
[2020-02-02] MEDS: PRENATAL VITAMINS W/ FOLIC ACID TABLET (FP) PO SCH (10:27)
[2020-02-02] MEDS: NICOTINE 7 MG/24 HOURS TOPICAL PATCH TD SCH (10:27)
[2020-02-02] MEDS: THIAMINE HCL 100 MG TABLET (FP) PO SCH (22:49)
[2020-02-02] MEDS: MELATONIN 5 MG TABLETS PO SCH (22:50)
[2020-02-03] MEDS: hydrOXYzine PAMOATE 25 MG CAPSULE (FP) PO SCH ×5 (05:48→22:40)
[2020-02-03] MEDS: chlordiazePOXIDE HCL 25 MG CAPSULE PO SCH ×4 (05:48→22:41)
[2020-02-03] MEDS: PRENATAL VITAMINS W/ FOLIC ACID TABLET (FP) PO SCH (10:19)
[2020-02-03] MEDS: NICOTINE 7 MG/24 HOURS TOPICAL PATCH TD SCH (10:20)
--- NOTE | 2020-02-03 10:26 | PN ---
S CIWA - CIWA Score Nausea/Vomitin-Mild Nausea/No Vomiting Muscle Tremors: 2 Anxiety: 3 Agitation: 1-Slight > Activity Paroxysmal Sweats: No Perspiration Orientation: 0-Oriented Tacttile Disturbances: 0-None Auditory Disturbances: 0-None Visual Disturbances: 1-Very Mild Sensitivity Headache: 0-None Present CIWA-Ar Total Score: 8 BHS Progress Note (SOAP) Subjective: 49 years old male was admitted on 02/01/20 for alcohol withdrawal sx management treating with librium detox regiment ate breakfast in room encourage to discuss aftercare for alcohol abuse recovery mr lantigua prefers sober house for sobriety Objective: 02/03/20 10:27 Vital Signs - 24 hr 02/02/20 02/02/20 02/02/20 12:43 16:55 20:40 Temperature 98.2 F 98.1 F 97.5 F L Pulse Rate 73 78 67 Respiratory 18 18 18 Rate Blood Pressure 125/84 107/61 117/71 O2 Sat by Pulse 98 98 Oximetry (%) 02/03/20 02/03/20 05:41 08:37 Temperature 98.6 F 97.8 F Pulse Rate 67 74 Respiratory 18 18 Rate Blood Pressure 125/64 125/74 O2 Sat by Pulse 98 Oximetry (%) Laboratory Tests 02/01/20 02/01/20 02/01/20 11:45 11:45 11:45 WBC 4.3 RBC 4.01 Hgb 14.3 Hct 42.0 MCV 104.8 H MCH 35.7 H MCHC 34.0 RDW 13.5 Plt Count 56 L MPV 7.5 D Sodium 132 L Potassium 3.7 Chloride 100 Carbon Dioxide 22 Anion Gap 9 BUN 5.2 L Creatinine 0.6 Est GFR (CKD-EPI)AfAm 134.92 Est GFR (CKD-EPI)NonAf 116.41 Random Glucose 94 Calcium 8.3 L Total Bilirubin 2.0 H AST 74 H ALT 44 Alkaline Phosphatase 113 Total Protein 8.7 H Albumin 3.3 L Syphilis Serology Non-reactive COVID-19 (ANEL) 02/01/20 14:00 WBC RBC Hgb Hct MCV MCH MCHC RDW Plt Count MPV Sodium Potassium Chloride Carbon Dioxide Anion Gap BUN Creatinine Est GFR (CKD-EPI)AfAm Est GFR (CKD-EPI)NonAf Random Glucose Calcium Total Bilirubin AST ALT Alkaline Phosphatase Total Protein Albumin Syphilis Serology COVID-19 (ANEL) Not detected lab noted Assessment: 02/03/20 10:28 alcohol withdrawal Plan: librium regiment
[2020-02-03] MEDS: THIAMINE HCL 100 MG TABLET (FP) PO SCH (22:40)
[2020-02-03] MEDS: MELATONIN 5 MG TABLETS PO SCH (22:41)
[2020-02-04] MEDS ORDERED: chlordiazePOXIDE HCL 10 MG CAPSULE PO PRN
[2020-02-04] MEDS: hydrOXYzine PAMOATE 25 MG CAPSULE (FP) PO SCH ×5 (05:23→22:39)
[2020-02-04] MEDS: chlordiazePOXIDE HCL 10 MG CAPSULE PO SCH ×2 (05:23→10:34)
[2020-02-04] MEDS: PRENATAL VITAMINS W/ FOLIC ACID TABLET (FP) PO SCH (10:33)
[2020-02-04] MEDS: NICOTINE 7 MG/24 HOURS TOPICAL PATCH TD SCH (10:34)
[2020-02-04] MEDS: METHOCARBAMOL 500 MG TABLET PO PRN (13:26)
--- NOTE | 2020-02-04 13:59 | PN ---
S CIWA - CIWA Score Nausea/Vomitin-No Nausea/No Vomiting Muscle Tremors: 1-None Visible, but [place] Anxiety: 3 Agitation: 2 Paroxysmal Sweats: No Perspiration Orientation: 0-Oriented Tacttile Disturbances: 0-None Auditory Disturbances: 0-None Visual Disturbances: 0-None Headache: 0-None Present CIWA-Ar Total Score: 6 BHS Progress Note (SOAP) Subjective: 49 years old male was admitted on 02/01/20 for alcohol withdrawal sx management treating with librium detox regiment mr lantigua requests valium for alcohol withdrawal discontinue librium begin valium regiment mr lantigua requests valium 10 mg po bid to meet the need for alcohol withdrawal discussing valium enzo regiment with valium 5 mg po prn mr lantigua requests to be seen by psychiatrist for chronic anxiety Objective: 02/04/20 13:59 Vital Signs - 24 hr 02/03/20 02/03/20 02/04/20 16:38 20:37 05:17 Temperature 97.2 F L 97.7 F 97.5 F L Pulse Rate 62 75 63 Respiratory 18 18 17 Rate Blood Pressure 121/63 108/61 118/80 O2 Sat by Pulse 96 100 Oximetry (%) 02/04/20 02/04/20 08:51 12:34 Temperature 97.1 F L 97.5 F L Pulse Rate 77 69 Respiratory 18 18 Rate Blood Pressure 134/82 131/77 O2 Sat by Pulse 97 Oximetry (%) Laboratory Tests 02/01/20 02/01/20 02/01/20 11:45 11:45 11:45 WBC 4.3 RBC 4.01 Hgb 14.3 Hct 42.0 MCV 104.8 H MCH 35.7 H MCHC 34.0 RDW 13.5 Plt Count 56 L MPV 7.5 D Sodium 132 L Potassium 3.7 Chloride 100 Carbon Dioxide 22 Anion Gap 9 BUN 5.2 L Creatinine 0.6 Est GFR (CKD-EPI)AfAm 134.92 Est GFR (CKD-EPI)NonAf 116.41 Random Glucose 94 Calcium 8.3 L Total Bilirubin 2.0 H AST 74 H ALT 44 Alkaline Phosphatase 113 Total Protein 8.7 H Albumin 3.3 L Syphilis Serology Non-reactive COVID-19 (ANEL) 02/01/20 14:00 WBC RBC Hgb Hct MCV MCH MCHC RDW Plt Count MPV Sodium Potassium Chloride Carbon Dioxide Anion Gap BUN Creatinine Est GFR (CKD-EPI)AfAm Est GFR (CKD-EPI)NonAf Random Glucose Calcium Total Bilirubin AST ALT Alkaline Phosphatase Total Protein Albumin Syphilis Serology COVID-19 (ANEL) Not detected lab noted Assessment: 02/04/20 14:01 alcohol withdrawal Plan: valium regiment
[2020-02-04] MEDS ORDERED: diazePAM 5 MG TABLET PO SCH (14:00)
[2020-02-04] MEDS: diazePAM 5 MG TABLET PO SCH ×2 (14:51→22:38)
[2020-02-04] MEDS: diazePAM 5 MG TABLET PO PRN (17:46)
[2020-02-04] MEDS ORDERED: COLLOIDAL OATMEAL 1 BAR EACH TP PRN (17:50)
[2020-02-04] MEDS: THIAMINE HCL 100 MG TABLET (FP) PO SCH (22:39)
[2020-02-04] MEDS: MELATONIN 5 MG TABLETS PO SCH (22:39)
[2020-02-05] MEDS: diazePAM 5 MG TABLET PO PRN ×3 (03:57→21:46)
[2020-02-05] MEDS ORDERED: chlordiazePOXIDE HCL 10 MG CAPSULE PO SCH (05:00)
[2020-02-05] MEDS: hydrOXYzine PAMOATE 25 MG CAPSULE (FP) PO SCH ×5 (06:00→21:46)
[2020-02-05] MEDS: diazePAM 5 MG TABLET PO SCH ×2 (06:00→17:43)
--- NOTE | 2020-02-05 09:50 | PN ---
Psychiatric Progress Note Vital Signs: Vital Signs Period Temp Pulse Resp BP Sys/Berrios Pulse Ox Last 24 Hr 97.1 F-97.9 F 57-77 18-18 106-131/65-81 97-97 Date of Session: 02/05/20 Chief Complaint:: " I want valium for anxiety." HPI: Patient admitted to for alcohol dependence. Consultation ordered due to patient c/o anxiety. ROS: Patient is ambulatory, alert +oriented X3. Current Medications: Active Medications Generic Name Dose Route Start Last Admin Trade Name Freq PRN Reason Stop Dose Admin Acetaminophen 650 mg 02/01/20 11:56 Tylenol - PO Q6H PRN PAIN LEVEL 4 - 6 Acetaminophen 650 mg 02/01/20 11:56 Tylenol - PO Q6H PRN FEVER Al Hydroxide/Mg Hydroxide 30 ml 02/01/20 11:56 Mylanta Oral Suspension - PO Q6H PRN DYSPEPSIA Bismuth Subsalicylate 524 mg 02/01/20 11:56 Pepto-Bismol - PO Q1H PRN DIARRHEA Colloidal Oatmeal 1 applic 02/04/20 17:50 02/04/20 22:39 Aveeno Soap - TP 1 applic DAILY PRN Administration HYGEINE Diazepam 5 mg 02/06/20 05:00 Valium - PO 02/06/20 05:01 ONCE ONE Diazepam 5 mg 02/04/20 17:00 02/05/20 03:57 Valium - PO 02/05/20 23:59 5 mg Q6H PRN Administration WITHDRAWAL(CONT SUBST) Diazepam 5 mg 02/05/20 05:00 02/05/20 06:00 Valium - PO 02/05/20 17:01 5 mg Q12H JOSE Administration Eucalyptus/Menthol/Phenol/Sorbitol 1 each 02/01/20 11:56 Cepastat Lozenge - MM 02/07/20 11:56 Q4H PRN SORE THROAT Hydroxyzine Pamoate 25 mg 02/01/20 14:00 02/05/20 06:00 Vistaril - PO 02/07/20 11:56 25 mg Q4HWA JOSE Administration Ibuprofen 400 mg 02/01/20 11:56 Motrin - PO Q6H PRN PAIN LEVEL 1 - 3 Magnesium Citrate 300 ml 02/01/20 11:56 Citroma - PO Q48H PRN CONSTIPATION Magnesium Hydroxide 30 ml 02/01/20 11:56 Milk Of Magnesia - PO PRN PRN CONSTIPATION Melatonin 5 mg 02/01/20 22:00 02/04/20 22:39 Melatonin PO 5 mg HS JOSE Administration Methocarbamol 500 mg 02/01/20 11:56 02/04/20 13:26 Robaxin - PO 02/07/20 11:56 500 mg Q6H PRN Administration MUSCLE SPASMS Nicotine 7 mg 02/01/20 12:00 02/04/20 10:34 Nicoderm Patch - TD Not Given DAILY JOSE Nicotine Polacrilex 2 mg 02/01/20 11:56 Nicorette Gum - BUC Q2H PRN NICOTINE REPLACEMENT RX Multivit/Folic Acid/Iron 1 tab 02/01/20 12:00 02/04/20 10:33 Vitamins (Sjr) - PO 1 tab DAILY JOSE Administration Thiamine HCl 100 mg 02/01/20 22:00 02/04/20 22:39 Vitamin B1 - PO 100 mg HS JOSE Administration Medication(s) Change(s): Yes. Will add buspar 10mg BID. Current Side Effect: No Lab tests ordered: No Lab tests reviewed: Yes Provider note:: Mr. Gonzales seen by Dr. Kline. Dr. Kline note read and appreciated. Patient reports a history of anxiety and is requesting a prescription of Benzodizepines ( Valium or ativan). Patient informed that he will not be given a prescription of benzodizapine after discharge. Alternative options discussed with patient. Patient agreeable in accepting buspar 10mg BID. Patient also educated on the importance of utilizing his coping skills to better manage his anxiety. Mr. Gonzales was receptive and satisifed with feedback. Benefits and side effects of medications discussed. Verbal consent given. Total face to face time:: 25 Mental Status Exam - Mental Status Exam Alert and Oriented to: Time, Place, Person Cognitive Function: Good Patient Appearance: Well Groomed Mood: Hopeful Affect: Mood Congruent Patient Behavior: Cooperative Speech Pattern: Appropriate Voice Loudness: Normal Thought Process: Goal Oriented Thought Disorder: Not Present Hallucinations: Denies Suicidal Ideation: Denies Homicidal Ideation: Denies Insight/Judgement: Poor Sleep: Fair Appetite: Fair Muscle strength/Tone: Normal Gait/Station: Normal Psychiatric Treatment Plan - Problem List (1) Alcohol use disorder Comment: .. (2) Alcohol-induced anxiety disorder Comment: .. (3) Cannabis dependence Comment: .. (4) History of depression Comment: ..
[2020-02-05] MEDS: PRENATAL VITAMINS W/ FOLIC ACID TABLET (FP) PO SCH (10:13)
[2020-02-05] MEDS: METHOCARBAMOL 500 MG TABLET PO PRN ×2 (10:13→17:44)
[2020-02-05] MEDS: NICOTINE 7 MG/24 HOURS TOPICAL PATCH TD SCH (10:14)
--- NOTE | 2020-02-05 13:49 | PN ---
S CIWA - CIWA Score Nausea/Vomitin-No Nausea/No Vomiting Muscle Tremors: 1-None Visible, but [place] Anxiety: 1-Mildly Anxious Agitation: 0-Normal Activity Paroxysmal Sweats: No Perspiration Orientation: 0-Oriented Tacttile Disturbances: 0-None Auditory Disturbances: 0-None Visual Disturbances: 1-Very Mild Sensitivity Headache: 0-None Present CIWA-Ar Total Score: 3 BHS Progress Note (SOAP) Subjective: 49 years old male was admitted on 02/01/20 for alcohol withdrawal sx management treating with valium detox regiment feels better today less anxiousness mild tremor strong recommend mr lantigua seeks community support AA Objective: 02/05/20 13:52 Vital Signs - 24 hr 02/04/20 02/04/20 02/05/20 16:22 20:46 06:25 Temperature 97.9 F 97.1 F L 97.2 F L Pulse Rate 67 77 57 L Respiratory 18 18 18 Rate Blood Pressure 117/81 109/75 125/65 O2 Sat by Pulse 97 97 Oximetry (%) 02/05/20 02/05/20 08:31 12:48 Temperature 97.6 F 97.7 F Pulse Rate 75 62 Respiratory 18 18 Rate Blood Pressure 106/73 107/67 O2 Sat by Pulse 99 Oximetry (%) Laboratory Tests 02/01/20 02/01/20 02/01/20 11:45 11:45 11:45 WBC 4.3 RBC 4.01 Hgb 14.3 Hct 42.0 MCV 104.8 H MCH 35.7 H MCHC 34.0 RDW 13.5 Plt Count 56 L MPV 7.5 D Sodium 132 L Potassium 3.7 Chloride 100 Carbon Dioxide 22 Anion Gap 9 BUN 5.2 L Creatinine 0.6 Est GFR (CKD-EPI)AfAm 134.92 Est GFR (CKD-EPI)NonAf 116.41 Random Glucose 94 Calcium 8.3 L Total Bilirubin 2.0 H AST 74 H ALT 44 Alkaline Phosphatase 113 Total Protein 8.7 H Albumin 3.3 L Syphilis Serology Non-reactive COVID-19 (ANEL) 02/01/20 14:00 WBC RBC Hgb Hct MCV MCH MCHC RDW Plt Count MPV Sodium Potassium Chloride Carbon Dioxide Anion Gap BUN Creatinine Est GFR (CKD-EPI)AfAm Est GFR (CKD-EPI)NonAf Random Glucose Calcium Total Bilirubin AST ALT Alkaline Phosphatase Total Protein Albumin Syphilis Serology COVID-19 (ANEL) Not detected lab noted Assessment: 02/05/20 13:52 alcohol withdrawal Plan: valium regiment
[2020-02-05] MEDS: busPIRone HCL 10 MG TABLET (FP) PO SCH ×2 (14:35→21:46)
[2020-02-05] MEDS: THIAMINE HCL 100 MG TABLET (FP) PO SCH (21:46)
[2020-02-05] MEDS: MELATONIN 5 MG TABLETS PO SCH (21:46)
[2020-02-06] MEDS: METHOCARBAMOL 500 MG TABLET PO PRN (04:25)
[2020-02-06] MEDS ORDERED: diazePAM 5 MG TABLET PO ONE (05:00)
[2020-02-06] MEDS ORDERED: chlordiazePOXIDE HCL 10 MG CAPSULE PO ONE (05:00)
[2020-02-06] MEDS: hydrOXYzine PAMOATE 25 MG CAPSULE (FP) PO SCH (05:09)
--- NOTE | 2020-02-06 09:08 | DS ---
[facility] Detox Discharge Summary Admission Date: 02/01/20 Discharge Date: 02/06/20 - History Present History: Alcohol Dependence Additional Comments: 49 years old male was admitted on 03/03/20 for alcohol withdrawal sx mangement treated with valium detox regiment seen by psychiatrist john initiated mr lantigua has completed valium detox regiment and is tolerated well General Appearance: Yes: no Distress, mild Tremorous, not Irritable, no Sweating HEENTM: Yes: EOMI, Hearing grossly Normal, Normal ENT Inspection, Normocephalic, Normal Voice, LUIS, Pharynx Normal, Tm's normal Respiratory: Yes: Chest Non-Tender, Lungs Clear, Normal Breath Sounds, No Respiratory Distress, No Accessory Muscle Use Neck: Yes: No masses,lesions,Nodules, Supple, Trachea in good position Breast: Yes: Within Normal Limits Cardiology: Yes: Regular Rhythm, Regular Rate, S1, S2 Abdominal: Yes: Normal Bowel Sounds, Non Tender, Soft, Protuberent Genitourinary: Yes: Within Normal Limits Back: Yes: Normal Inspection Musculoskeletal: Yes: full range of Motion, Gait Steady, Pelvis Stable Extremities: Yes: Normal Capillary Refill, Normal Inspection, Normal Range of Motion, Non-Tender Neurological: Yes: 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-XII NML intact, Fully Oriented, Alert, Motor Strength 5/5, Normal Mood/Affect, Normal Response Integumentary: Yes: Normal Color, Dry, Warm Lymphatic: Yes: Within Normal Limits Pertinent Past History: time for discharge 45 minutes requests vivitrol IM upon discharged encourage mr lantigua visiting primary care provider and follow the vivitrol protocol towarding IM every 28 days mr lantigua requests naltrexone "the doctor wants you to give me naltrexone" discussing protocol of naltrexone rejects aftercare for behavior and psychosocial therapies mr lantigua requests acamprosate educating on the purpose of behavior modification for alcohol drinking mr lantigua requests valium prescription encourage mr lantigua continue buspar and follow up with mental health provider - Physical Exam Results Vital Signs: Vital Signs Temperature 97.5 F L 02/06/20 06:20 Pulse Rate 55 L 02/06/20 06:20 Respiratory Rate 18 02/06/20 06:20 Blood Pressure 125/75 02/06/20 06:20 O2 Sat by Pulse Oximetry (%) 100 02/06/20 06:20 Pertinent Admission Physical Exam Findings: alcohol withdrawal Vital Signs - 24 hr 02/05/20 02/05/20 02/05/20 12:48 16:31 20:38 Temperature 97.7 F 97.7 F 97.5 F L Pulse Rate 62 60 67 Respiratory 18 16 18 Rate Blood Pressure 107/67 101/60 121/72 O2 Sat by Pulse 99 98 Oximetry (%) 02/06/20 02/06/20 06:20 08:29 Temperature 97.5 F L 97.3 F L Pulse Rate 55 L 81 Respiratory 18 18 Rate Blood Pressure 125/75 124/71 O2 Sat by Pulse 100 Oximetry (%) Laboratory Tests 02/01/20 02/01/20 02/01/20 11:45 11:45 11:45 WBC 4.3 RBC 4.01 Hgb 14.3 Hct 42.0 MCV 104.8 H MCH 35.7 H MCHC 34.0 RDW 13.5 Plt Count 56 L MPV 7.5 D Sodium 132 L Potassium 3.7 Chloride 100 Carbon Dioxide 22 Anion Gap 9 BUN 5.2 L Creatinine 0.6 Est GFR (CKD-EPI)AfAm 134.92 Est GFR (CKD-EPI)NonAf 116.41 Random Glucose 94 Calcium 8.3 L Total Bilirubin 2.0 H AST 74 H ALT 44 Alkaline Phosphatase 113 Total Protein 8.7 H Albumin 3.3 L Syphilis Serology Non-reactive COVID-19 (ANEL) 02/01/20 14:00 WBC RBC Hgb Hct MCV MCH MCHC RDW Plt Count MPV Sodium Potassium Chloride Carbon Dioxide Anion Gap BUN Creatinine Est GFR (CKD-EPI)AfAm Est GFR (CKD-EPI)NonAf Random Glucose Calcium Total Bilirubin AST ALT Alkaline Phosphatase Total Protein Albumin Syphilis Serology COVID-19 (ANEL) Not detected lab noted - Treatment Hospital Course: Detox Protocol Followed, Detoxed Safely, Responded well, Discharged Condition Good, Rehab Referral Accepted Patient has Accepted a Rehab Referral to: new focus - Medication Discharge Medications: Ambulatory Orders NK [No Known Home Medication] 09/30/19 - Diagnosis (1) Alcohol dependence with uncomplicated withdrawal Status: Acute (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 (3) Nicotine dependence Status: Acute Qualifiers: Nicotine product type: cigarettes Substance use status: in withdrawal Qualified Code(s): F17.213 - Nicotine dependence, cigarettes, with withdrawal (4) Substance induced mood disorder Status: Suspected - AMA Did Patient Leave Against Medical Advice: No CIWA Score - CIWA Score Nausea/Vomitin-No Nausea/No Vomiting Muscle Tremors: 1-None Visible, but [place] Anxiety: 0-No Anxiety, at Ease Agitation: 0-Normal Activity Paroxysmal Sweats: No Perspiration Orientation: 0-Oriented Tacttile Disturbances: 0-None Auditory Disturbances: 0-None Visual Disturbances: 0-None Headache: 0-None Present CIWA-Ar Total Score: 1
[2020-02-06 09:18] VITALS: BP 124/71; PULSE 81; TEMP 97.3
== END 2020-02-06 09:10 | disposition home or self-care (01) | DRG 775 ==
LOC: YASAS 10:57 → Y3N 11:52
PROVIDERS: ADMIT Allergy & Immunology; ATTEND Allergy & Immunology
PROC: HZ2ZZZZ Detoxification Services for Substance Abuse Treatment (ICD-10-PCS; principal; 2020-02-01)
DX: F10.230 Alcohol dependence with withdrawal, uncomplicated (principal); F12.20 Cannabis dependence, uncomplicated; F17.210 Nicotine dependence, cigarettes, uncomplicated; F10.282 Alcohol dependence with alcohol-induced sleep disorder; F10.280 Alcohol dependence with alcohol-induced anxiety disorder; F19.24 Other psychoactive substance dependence with psychoactive substance-induced mood disorder; F33.1 Major depressive disorder, recurrent, moderate; F43.10 Post-traumatic stress disorder, unspecified; K70.9 Alcoholic liver disease, unspecified; Z88.1 Allergy status to other antibiotic agents; Z56.0 Unemployment, unspecified
CPT/HCPCS: 36415; 80053; 85027; 86780; U0003

== ENCOUNTER 2020-04-01 08:06 | Inpatient (IN) | payer OTHER ==
--- OUTSIDE RECORDS SUMMARY | 2020-04-01 08:11 | XMS ---
:1970 Author Organization [facility] Care Team Providers Name Role Phone Ringstad, Sadie Unavailable Unavailable Ringstad, Sadie Unavailable Unavailable Ringstad, Sadie Unavailable Unavailable Ringstad, Sadie Unavailable Unavailable Ringstad, Sadie Unavailable Unavailable Ringstad, Sadie Unavailable Unavailable Ringstad, Sadie Unavailable Unavailable Ringstad, Sadie Unavailable Unavailable Ringstad, Sadie Unavailable Unavailable Ringstad, Sadie Unavailable Unavailable Ringstad, Sadie Unavailable Unavailable Brenda Fry MD Unavailable Unavailable [facility], CNR9 Unavailable Unavailable ED STAFF PHYSICIAN, STAFF Unavailable Unavailable ED STAFF JOJO MERINO Unavailable Unavailable JULIA DE LA CRUZ Unavailable Unavailable MD John Enamorado MD Unavailable [phone] MD John Enamorado MD Unavailable [phone] Ringstad, Sadie Unavailable Unavailable Ringstad, Sadie Unavailable Unavailable Ringstad, Sadie Unavailable Unavailable Ringstad, Sadie Unavailable Unavailable Ringstad, Sadie Unavailable Unavailable Ringstad, Sadie Unavailable Unavailable Ringstad, Sadie Unavailable Unavailable Ringstad, Sadie Unavailable Unavailable Ringstad, Sadie Unavailable Unavailable Ringstad, Sadie Unavailable Unavailable Ringstad, Sadie Unavailable Unavailable Aszalos, Phyllis Bridgett Unavailable Unavailable Aszalos, Bridgett Unavailable Unavailable Aszalos, Bridgett Unavailable Unavailable Aszalos, Bridgett Unavailable Unavailable Aszalos, Bridgett Unavailable Unavailable Aszalos, Bridgett Unavailable Unavailable Aszalos, Bridgett Unavailable Unavailable Aszalos, Bridgett Unavailable Unavailable Aszalos, Bridgett Unavailable Unavailable [facility] Unavailable Unavailable Aszalos, Bridgett Unavailable Unavailable Aszalos, Bridgett Unavailable Unavailable Aszalos, Bridgett Unavailable Unavailable Aszalos, Bridgett Unavailable Unavailable Aszalos, Bridgett Unavailable Unavailable Aszalos, Bridgett Unavailable Unavailable Aszalos, Bridgett Unavailable Unavailable Aszalos, Bridgett Unavailable Unavailable Aszalos, Bridgett Unavailable Unavailable Zentko Unavailable Unavailable Tianna Acevedo MD Unavailable Unavailable Tianna Acevedo MD Unavailable Unavailable Tianna Acevedo MD Unavailable Unavailable Tianna Acevedo MD Unavailable Unavailable Tianna Acevedo MD Unavailable Unavailable Tianna Acevedo MD Unavailable Unavailable Tianna Acevedo MD Unavailable Unavailable Tianna Acevedo MD Unavailable Unavailable Tianna Acevedo MD Unavailable Unavailable Tianna Acevedo MD Unavailable Unavailable Tianna Acevedo MD Unavailable Unavailable Tianna Acevedo MD Unavailable Unavailable Tianna Acevedo MD Unavailable Unavailable Tianna Aceevdo MD Unavailable Unavailable Tianna Acevedo MD Unavailable Unavailable EMERGENCY SERVICE, X Unavailable Unavailable AMBER SAAVEDRA Unavailable Unavailable MD CAL Unavailable Unavailable RATAKONDA, BRITTANEY Unavailable Unavailable ED STAFF PHYSICIAN Unavailable Unavailable ZUNASSIGNED Unavailable Unavailable Frannie DEL TORO MD Unavailable [phone] Frannie DEL TORO MD Unavailable [phone] ED STAFF PHYSICIAN Unavailable Unavailable Re-disclosure Warning The records that you are about to access may contain information from federally- assisted alcohol or drug abuse programs. If such information is present, then the following federally mandated warning applies: This information has been disclosed to you from records protected by federal confidentiality rules (42 CFR part 2). The federal rules prohibit you from making any further disclosure of this information unless further disclosure is expressly permitted by the written consent of the person to whom it pertains or as otherwise permitted by 42 CFR part 2. A general authorization for the release of medical or other information is NOT sufficient for this purpose. The Federal rules restrict any use of the information to criminally investigate or prosecute any alcohol or drug abuse patient.The records that you are about to access may contain highly sensitive health information, the redisclosure of which is protected by Article 27-F of the [facility] Public Health law. If you continue you may haveaccess to information: Regarding HIV / AIDS; Provided by facilities licensed or operated by the [facility] Office of Mental Health; or Provided by the [facility] Office for People With Developmental Disabilities. If such information is present, then the following [facility] mandated warning applies: This information has been disclosed to you from confidential records which are protected by state law. State law prohibits you from making any further disclosure of this information without the specific written consent of the person to whom it pertains, or as otherwise permitted by law. Any unauthorized further disclosure in violation of state law may result in a fine or prison sentence or both. A general authorization for the release of medical or other information is NOT sufficient authorization for further disclosure. Allergies and Adverse Reactions Type Description Substance Reaction Status Data Source(s ) Drug allergy clarithromycin clarithromycin [facility] Family History Family Member Family Member Family Member Date of Description Data Source(s) Name Gender Status Status Unknown Female Problem 03/19/2019 NEXTGEN ([facility] ([facility]) 12:00:00 AM [facility] EDT Center) Encounters Encounter Providers Location Date Indications Data Source(s ) Outpatient Attender: [id number] [facility] 03/10/2020 I ([facility] 04:16:09 PM [facility] EDT [facility]) Patient admitted. Emergency Attender: ED STAFF H 02/29/2020 11:10:00 PM [facility] PHYSICIANAttender: STAFF ED EDT - 03/01/2020 Medical Center STAFF PHYSICIANAdmitter: ED 05:22:00 AM EDT STAFF PHYSICIANReferrer: ZUNASSIGNED Patient discharged. Emergency Attender: ED STAFF H 02/27/2020 03:17:00 AM [facility] PHYSICIANAttender: STAFF ED EDT - 02/27/2020 Medical Center STAFF PHYSICIANAdmitter: ED 05:24:00 AM EDT STAFF PHYSICIANReferrer: SIXTO Patient discharged. Attender: Anastasia [facility] 02/25/2020 10:35:00 NEXTGEN ([facility] AM EDT - 02/25/2020 [facility] Medical 10:35:00 AM EDT Center) Attender: Phyllis [facility] 02/25/2020 10:18:00 NEXTGEN ([facility] AM EDT - 02/25/2020 [facility] Medical 10:18:00 AM EDT Center) Emergency Attender: JOJO ED H 02/14/2020 06:27:00 [facility] STAFF PM EDT - 02/14/2020 [facility] Center PHYSICIANAttender: 11:12:00 PM EDT STAFF ED STAFF PHYSICIANAdmitter: JOJO ED STAFF PHYSICIAN Patient discharged. Outpatient Attender: Phyllis Beasley 02/13/2020 [facility] AslosAdmitter: [facility] 02:09:00 PM EDT Medical AszalosReferrer: [facility]/ Attender: MD Lopez [facility] 02/13/2020 [facility] OUTPATIENT VISIT, Fei [facility] 02:09:00 PM EDT - ([facility] 02/13/2020 [facility] 02:09:00 PM EDT [facility]) Outpatient 02/13/2020 [facility] 01:33:00 PM EDT Medical Center Outpatient 02/13/2020 [facility] 12:00:00 AM EDT [facility] Emergency Attender: ED STAFF H 01/10/2020 [facility] PHYSICIANAttender: 10:01:00 PM EDT - Medical STAFF ED STAFF 01/11/2020 [place] PHYSICIANAdmitter: ED 02:10:00 AM EDT STAFF PHYSICIAN Patient discharged. Outpatient Attender: CNR9 [facility] 01/05/2020 11:42:08 AM [facility]SI ([facility] EDT Collaborative) Patient admitted. Attender: [facility] 12/31/2019 PJ KELLEY ([facility] 04:28:00 PM EDT - [facility] 12/31/2019 [place]) 04:28:00 PM EDT Attender: [facility] 12/27/2019 NEX TGEN ([facility] 03:53:00 PM EDT [facility] 12/27/2019 Center) 03:53:00 PM [facility] ([facility] 03:11:00 PM EDT [facility] 12/10/2019 Center) 03:11:00 PM EDT Attender: Anastasia [facility] 11/29/2019 BESSIE Greenwood ([facility] 11:21:00 AM EDT [facility] 11/29/2019 Center) 11:21:00 AM EDT Outpatient 11/27/2019 [facility] 11:48:00 AM EDT Medical C enter Outpatient 11/27/2019 [facility] 12:00:00 AM EDT Medical C enter Attender: [facility] 11/26/2019 CHERYL ( [facility] John Enamorado [facility] 10:31:00 AM [facility]) 10:31:00 AM EDT Attender: [facility] 11/06/2019 NEX TGEN ([facility] 03:49:00 PM EDT [facility] 11/06/2019 Center) 03:49:00 PM EDT Emergency Attender: 10/29/2019 ONOFRE [facility] gissel DE LA CRUZ, 11:52:00 AM EDT [facility] re SCOTTAttender: Corporatio n EMERGENCY SERVICE, XAdmitter: JULIA DE LA CRUZReferrer: EMERGENCY SERVICE, X EVAL Attender: [facility] 10/24/2019 [facility]:13:[facility] AM EDT - 10/24/2019 [facility] Medical 11:13:00 AM EDT Center) Attender: [facility] 10/15/2019 02:16:00 [facility] ([facility] PM EDT - 10/15/2019 [facility] 02:16:00 PM EDT Center) Attender: [facility] 10/03/2019 10:45:00 [facility] AM EDT - 10/03/2019 [facility] 10:45:00 AM EDT Center) Emergency Attender: ED STAFF H 09/29/2019 12:04:00 [facility] PHYSICIANAttender: AM EDT - 09/29/2019 Medical Center STAFF ED STAFF 02:38:00 AM EDT PHYSICIANAdmitter: ED STAFF PHYSICIAN Patient discharged. Attender: [facility] 09/26/2019 10:09:00 NEXTGEN ([facility] AM EDT - 09/26/2019 [facility] 10:09:00 AM EDT Center) Attender: [facility] 09/25/2019 04:16:00 NEXTGEN ([facility] PM EDT - 09/25/2019 [facility] 04:16:00 PM EDT Center) Attender: [facility] 09/24/2019 10:22:00 NEXTGEN ([facility] AM EDT - 09/24/2019 [facility] 10:22:00 AM EDT Center) Attender: [facility] 09/21/2019 03:33:00 NEXTGEN ([facility] PM EDT - 09/21/2019 [facility] 03:33:00 PM EDT Center) Attender: [facility] 09/18/2019 01:13:00 NEXTGEN ([facility] PM EDT - 09/18/2019 [facility] 01:13:00 PM EDT Center) Emergency Attender: STAFF ED H 2019 01:53:00 [facility] STAFF PHYSICIAN AM EDT - 2019 Medical Center 04:40:00 AM EDT Patient discharged. Attender: [facility] 09/11/2019 11:58:00 NEXTGEN ([facility] AM EDT - 09/11/2019 [facility] 11:58:00 AM EDT Center) Attender: [facility] 08/31/2019 02:58:00 NEXTGEN ([facility] PM EDT - 08/31/2019 [facility] 02:58:00 PM EDT Center) Attender: [facility] 08/29/2019 04:05:00 NEXTGEN ([facility] PM EDT - 08/29/2019 [facility] 04:05:00 PM EDT Center) Emergency Attender: STAFF ED H 08/28/2019 03:54:00 [facility] STAFF PHYSICIAN AM EDT - 08/28/2019 Medical Center 04:29:00 AM EDT Patient discharged. Outpatient Attender: CNR9 [facility] 08/24/2019 06:29:11 AM [facility] ([facility] EDT Collaborative) Patient admitted. Attender: Phyllis [facility] 08/17/2019 03:47:00 NEXTGEN ([facility] PM EDT - 08/17/2019 [facility] Medical 03:47:00 PM EDT Center) Emergency Attender: RUCHI SANDOVAL H 08/16/2019 10:20:00 [facility] STAFF PM EDT - 08/16/2019 Medic al Center PHYSICIANAttender: 10:51:00 PM EDT STAFF ED STAFF PHYSICIANAdmitter: RUCHI ED STAFF PHYSICIAN Patient discharged. Attender: Sadie [facility] 07/31/2019 02:07:00 [facility] PM EST - 07/31/2019 [facility] Medical 02:07:00 PM EST Center) Attender: Sadie [facility] 07/30/2019 04:00:00 [facility] PM EST - 07/30/2019 [facility] Medical 04:00:00 PM EST Center) Outpatient Attender: [id number] 07/24/2019 12:14:34 [facility] ([facility] EST [facility]) Patient admitted. Attender: [facility] 07/19/2019 [facility] 12:59:[address] [facility] 07/19/2019 [place]) 12:59:00 PM EST Attender: [facility] 07/17/2019 [facility] ([facility] 10:38:[address] [facility] 07/17/2019 [place]) 10:38:00 AM EST Outpatient Attender: 07/16/2019 [facility] Sadie 12:07:00 PM EST Medical Casandra Gildmitter: Sadie Ornelaserrer: Sadie Hwang OutpatientOFFICE/OU Attender: [facility] 07/16/2019 IN XTGEN ([facility], EST [facility] 12:07:[address] [facility] 07/16/2019 [place]) 12:07:00 PM EST Outpatient 07/16/2019 [facility] 11:30:00 AM EST Medical C enter Outpatient 07/16/2019 [facility] 12:00:00 AM EST Medical C enter Outpatient Attender: 06/28/2019 [facility] 10:36:00 AM EST Medical C enter RingstadAdmitter: Sadie Ornelaserrer: Sadie Hwang Attender: [facility] 06/28/2019 NEXT ( [facility] Ismael Kathleen [facility] 10:36:[address] [facility] 06/28/2019 Center) 10:36:00 AM [facility] 06/28/2019 [facility] 12:00:00 AM EST Medical C enter Outpatient Attender: [id number] 06/19/2019 [facility] ([facility] 03:35:27 PM [facility]) Patient admitted. [facility] 05/23/2019 02:48:00 CHERYL ([facility] - 05/23/2019 [facility] 02:48:00 PM [facility]) Outpatient 05/22/2019 08:56:00 [facility] Outpatient 05/22/2019 12:00:00 [facility] Attender: [facility] 05/18/2019 [facility]:38[facility] John Enamorado [facility] - 05/18/2019 [facility] 03:38:00 PM [facility]) Outpatient 05/17/2019 10:31:00 [facility] Outpatient 05/17/2019 12:00:00 [facility] Emergency Attender: STAFF ED 05/02/2019 03:04:00 [facility] STAFF PHYSICIAN AM [facility] - 05/02/2019 [facility] 09:30:00 AM EST Patient discharged. Emergency Attender: JOJO ED STAFF 05/01/2019 07:54:00 PM [facility] PHYSICIANAttender: STAFF ED [facility] - 05/01/2019 [facility] STAFF PHYSICIANAdmitter: JOJO 09:59:00 PM EST ED STAFF PHYSICIAN Patient discharged. Attender: [facility] 04/17/2019 CHERYL ([facility] 06:36:00 PM [facility] - 04/17/2019 Center) 06:36:00 PM [facility] Outpatient 04/16/2019 [facility] 12:57:00 PM EST Medical C enter Outpatient 04/16/2019 [facility] 12:00:00 AM EST Medical C enter Attender: Family 04/12/2019 [facility] ([facility] 04:21:00 PM EST Ihsan Kumar edical Debratalakisha [place] - 04/12/2019 Center) 04:21:00 PM EST Attender: Family 04/09/2019 [facility] ([facility] 11:05:00 AM EST Ihsan Kumar edical [facility] - 04/09/2019 Center) 11:05:00 AM EST Unlisted 04/02/2019 NETSMART (Ment al evaluation and 08:15:00 PM EDT Healt h management [facility]) Inpatient Attender: 03/30/2019 [facility] ROSELYN, 06:12:00 AM [facility]2019 DEPRESS Care Cor poration : ROSELYN, 01:50:00 AM EDT [facility] SUBSTANCE INDUCED DEPRESS Patient admitted. Emergency Attender: ROSELYN, 03/30/2019 [facility] 01:43:00 AM EDT PT [facility]S [facility] Corpora ti PSYCH EVAL- PT WANTS [facility] Outpatient 03/19/2019 [facility] 12:44:00 PM EDT Medical C enter Outpatient Attender: 03/19/2019 [facility] 10:55:00 AM EDT Medical C enter Bahman r: Sadie Bird r: Sadie Hwang OutpatientOFFICE/ Attender: Family 03/19/2019 [facility] 10:55:00 AM EDT Krystle william EST Debralakisha [place] - 03/19/2019 Medical 10:55:00 AM EDT Center) Outpatient 03/19/2019 [facility] 12:00:00 AM EDT Medical C enter Attender: Family 03/16/2019 [facility] ([facility] 03:05:00 PM EDT Ihsan Hwang Center - 03/16/2019 Medical 03:05:00 PM EDT Center) P 02/10/2019 [facility] [place] 11:17:00 [facility] Emergency Attender: Patrick 02/10/2019 [place] ZentkoAttender: Brenda 11:11:00 PM EDT - [facility] Lisandra DEL TORO 02/11/2019 09:56:00 AM EDT INTOX ARR-EMPRESS Patient discharged. Outpatient Attender: LUCINA STChucky 02/10/2019 10:09:00 [facility]ADELSO[facility]: LUCINA PM EDT - 02/10/2019 [facility] 11:10:00 AM EDT Patient discharged. Emergency H 02/10/2019 02:57:00 AM EDT - [address] [place] [address] 03:05:00 AM EDT Patient discharged. Unlisted evaluation 01/26/2019 03:47:00 NETSMART (Mental and management PM EDT - 02/07/2019 [facility] Association of service 01:00:00 PM EDT [facility] er) Inpatient Attender: KERI 01/12/2019 07:19:00 [facility] - 01/29/2019 [facility] KERI AMBER 01:46:00 PM EDT Cor poration MDD Patient admitted. Emergency H 06/04/2018 05:18:00 PM [facility] Immunizations Vaccine Date Status Description Data Source(s) New in 2011. IIV4 07/16/2019 completed Influenza, Injectable, NEXTGEN ([facility] 12:00:00 AM [facility]) Source: New Immunization Record Medications Medication Brand Start Product Dose Route [facility] Indications Reaction Description Data Name Date Form Instructions Instructions Source(s) Trazodone trazod 02/12/ active take 2 NE XTGEN Hydrochlori one 50 2020 tablet by ( [facility] de 50 MG mg 12:00: oral route Rgabiel ephs Oral Tablet tablet 00 AM every day at Medical trazodone EDT bedtime for [address]) 50 mg For Insomnia tablet zolpidem 10 Zolpid 10/23/ 1.00 ORAL complet take 1 NEXTGEN mg tablet em 2019 {tabl ed tablet by ([place] nt tartra 12:00: et} oral route [facility] 10 00 AM every day at Medic al MG EDT bedtime Center) Oral Tablet Zolpidem zolpid .00 ORAL complet take 1 NE XTGEN tartrate 10 em 10 2019 {tbl} ed tablet by ( [facility] MG Oral mg 12:00: oral route [facility] Tablet tablet 00 AM every day at Me dical zolpidem 10 EDT bedtime Cente r) mg tablet Thiamine thiami ORAL active take 1 NEX TGEN 100 MG Oral ne HCl 2019 {caps capsule by ([facility] Tablet (vitam 12:00: ule} oral route Grabiel ephs thiamine in B1) 00 AM every day Med ical HCl 100 mg EDT Center) (vitamin tablet B1) 100 mg tablet Zolpidem zolpid .00 ORAL complet take 1 NE XTGEN tartrate 10 em 10 2019 {tbl} ed tablet by ( [facility] MG Oral mg 12:00: oral route [facility] Tablet tablet 00 AM every day at Ri dical zolpidem 10 EDT bedtime Cente r) mg tablet multivitami multiv 09/25/ active take 1 NEXTGEN n with itamin 2020 tablet by ( minerals with 12:00: oral route Grabiel ephs tablet minera 00 AM every day Medic al ls EDT with food Center) Trazodone trazod 09/10/ complet take 1 N EXTGEN Hydrochlori one 50 2019 ed tablet by ( de 50 MG mg 12:00: oral route Grabiel ephs Oral Tablet tablet 00 AM at night f or Medical trazodone EDT sleep Center) 50 mg tablet Triamcinolo triamc 07/31/ TOPICA active apply by NEXTGEN ne inolon 2020 L topical ([facility] Acetonide 1 e 12:00: route 2 Grabiel ephs MG/ML aceton 00 AM times every Medi olimpia Topical livier EST day a thin Center ) Cream 0.1 % layer to the triamcinolo topica affected ne l area(s) acetonide cream 0.1 % topical cream Ibuprofen IBUPRO 04/09/ active TAKE 1 NE XTGEN 600 MG Oral FEN 2018 TABLET BY (Sa int Tablet TAB 12:00: MOUTH 3 Ihsan IBUPROFEN 600MG 00 AM TIMES A DAY M edical TAB 600MG EST NEEDED Cent er) FOR FOOD Ibuprofen ibupro 03/19/ complet take 1 N EXTGEN 600 MG Oral fen 2018 ed tablet by (Sa int Tablet 600 mg 12:00: oral route 3 J osephs ibuprofen tablet 00 AM times every Medical 600 mg EDT day as Center) tablet needed with food cetirizine Zyrtec ORAL complet take 1 NEXTGEN hydrochlori 10 mg 2017 {caps ed capsule by (Saint de 10 MG capsul 12:00: ule} oral route J osephs Oral e 00 AM every day Medical Capsule EDT Center) Zyrtec 10 mg capsule Mirtazapine mirtaz ORAL complet take 1 NEXTGEN 15 MG Oral apine 2017 {tbl} ed tablet by (S aint Tablet 15 mg 12:00: oral route [facility] mirtazapine tablet 00 AM every day Medical 15 mg EDT before Center) tablet bedtime Folic Acid folic ORAL complet take 1 N EXTGEN 1 MG Oral acid 1 2017 {tbl} ed tablet by (S aint Tablet mg 12:00: oral route [facility] folic acid tablet 00 AM every day M edical 1 mg tablet EDT Center) Flonase Flutic 09/05/ NASAL complet Fluticaso ne NEXTGEN Allergy asone 2018 ed propionate (Junior t Relief 50 propio 12:00: 0.05 Raul s mcg/actuati natalia 00 AM MG/ACTUAT Me dical on nasal 0.05 EDT [address] Dose [address]) spray,suspe MG/ACT Nasal [place] nsion UAT [Flonase] Metere d Dose Nasal [place] Dextrometho Robitu 09/05/ complet Dextro methor NEXTGEN rphan ssin 2018 ed yoo (Saint Hydrobromid Coughg 12:00: Hydrobrom livier Ihsan e 15 MG el 15 00 AM 15 MG Oral Medi olimpia Oral mg EDT Capsule Center) Capsule capsul [Robitussin [Robitussin e Cough Gels] Cough Gels] Robitussin Coughgel 15 mg capsule Docusate Stool ORAL complet take 1 NEX TGEN Sodium 50 Soften 2017 {caps ed capsule by ( [facility] MG Oral er 50 12:00: ule} oral route Grabiel ephs Capsule mg 00 AM every day at Med ical Stool capsul EDT bedtime as Center ) Softener 50 e needed mg capsule Thiamine thiami ORAL complet take 1 NE XTGEN 100 MG Oral ne HCl 2018 {caps ed capsule by ([facility] Tablet (vitam 12:00: ule} oral route Grabiel ephs thiamine in B1) 00 AM every day Med ical HCl 100 mg EDT Center) (vitamin tablet B1) 100 mg tablet Betamethaso betame 09/05/ TOPICA complet appl y by NEXTGEN ne 0.5 thason 2018 L ed topical ([facility] MG/ML e 12:00: route every [facility] Topical diprop 00 AM day a thin Med ical Cream ionate EDT layer to the Cent er) betamethaso 0.05 % affected ne topica area(s) dipropionat l e 0.05 % cream topical cream Multi-Day multiv 11/16/ take 1 N EXTGEN tablet itamin 2017 ed tablet by (Saint 12:00: oral route Ihsan 00 AM every day Medical EDT with food Center) Insurance Providers Payer name Policy type Policy ID Covered Covered constitution party's Policy P danish / Coverage constitution party ID relationship to Aguilar Inf ormation type aguilar BEACON [id number] SP [id number] 600 HEALTH STRGY-AFF AFFINITY O [id number] 01 [id number] HEALTH PLAN AFFINITY O [id number] 01 [id number] HEALTH PLAN AFFINITY [id number] SP [id number] BEACON [id number] SP [id number] HEALTH STRGY-AFF UNK UNK UNK UNK UNK UNK UNK UNK UNK UNK UNK UNK [place]ON [id number] SP [id number] 600 HEALTH STRGY-AFF [place] [id number] SP [id number] 600 HEALTH STRGY-AFF AFFINITY [id number] SP [id number] 600 AFFINITY [id number] PT [id number] HEALTH PLAN AFFINITY [id number] SP [id number] AFFINITY [id number] SP [id number] BEACON [id number] SP [id number] 600 HEALTH STRGY-AFF [place] [id number] SP [id number] 600 HEALTH STRGY-AFF AFFINITY [id number] SP [id number] 600 Medicaid GME Medicaid [id number] 1 [id number] Q Aff[place] Medicaid [id number] 1 [id number] Health Plan SELF PAY 00 Self 00 MEDICAID INP [id number] Self [id number] Q PSYCH [facility] AHP [id number] Self [id number] 600 [facility] Self Pay Self Pay 1 Medicaid Medicaid [id number] 1 [id number] Problems, Conditions, and Diagnoses Code Display Name Description Problem Type Effective Data Sour ce(s) Dates [id number] Major depressive Major depressive Complaint 04/04/2019 [place] TSMART disorder disorder 02:25:00 PM (Mental Healt EDT [facility]) [id number] Depression Depression Complaint 04/04/2019 NETSMART (finding) (finding) 04:00:00 AM (Mental Healt EDT [facility]) F10.129 Alcohol abuse ALCOHOL ABUSE Diagnosis 02/29/2020 [facility] with WITH 11:10:00 PM Medical Cente r intoxication, INTOXICATION, EDT unspecified UNSPECIFIED F10.10 Alcohol abuse, ALCOHOL ABUSE, Diagnosis 02/27/2020 [facility] uncomplicated UNCOMPLICATED 03:17:00 AM Medical Center EDT F17.210 Nicotine NICOTINE Diagnosis 02/14/2020 [facility] dependence, DEPENDENCE, 06:27:[address] cigarettes, CIGARETTES, EDT uncomplicated UNCOMPLICATED F41.9 Anxiety disorder, ANXIETY DISORDER, Diagnosis 02/13/2020 [facility] unspecified UNSPECIFIED 02:09:[address] EDT Z88.1 Allergy status to ALLERGY STATUS TO Diagnosis 10/29/2019 [place] other antibiotic OTHER ANTIBIOTIC 11:52:00 AM [facility] agents status AGENTS STATUS EDT [employer] Y92.[address] IN Diagnosis 10/29/2019 [place] in unspecified UNSP NON-INSTITUT 11:52:00 AM Co [facility] non-institutional (PRIVATE) EDT Care (private) RESIDENCE [facility] residence as the PLACE place of occurrence of the external cause Y99.8 Other external OTHER EXTERNAL Diagnosis 10/29/2019 [facility] denise cause status CAUSE STATUS 11:52:00 AM [facility] alth EDT [employer] X58.XXXA Exposure to other EXPOSURE TO OTHER Diagnosis 10/29/2019 [place] specified SPECIFIED 11:52:00 AM [facility] Health factors, initial FACTORS, INITIAL EDT Ca re encounter ENCOUNTER [employer] S50.812A Abrasion of left ABRASION OF LEFT Diagnosis 10/29/2019 [facility] forearm, initial FOREARM, INITIAL 11:52:00 AM [facility] encounter ENCOUNTER EDT [employer] F31.9 Bipolar disorder, BIPOLAR DISORDER, Diagnosis 10/29/2019 [place] unspecified UNSPECIFIED 11:52:00 AM [facility] EDT [employer] F43.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 10/29/2019 [facility] denise stress disorder, STRESS DISORDER, 11:52:00 AM [place] unspecified UNSPECIFIED EDT [employer] F12.10 Cannabis abuse, CANNABIS ABUSE, Diagnosis 10/29/2019 [place] uncomplicated UNCOMPLICATED 11:52:00 AM [facility] EDT [employer] F10.20 Alcohol ALCOHOL Diagnosis 10/29/2019 [place] dependence, DEPENDENCE, 11:52:00 AM [facility] uncomplicated UNCOMPLICATED EDT [employer] F41.1 Generalized GENERALIZED Diagnosis 10/29/2019 [place] anxiety disorder ANXIETY DISORDER 11:52:00 AM [place] EDT [facility] [employer] F10.24 Alcohol ALCOHOL Diagnosis 10/29/2019 [place] dependence with DEPENDENCE WITH 11:52:00 AM [employer] alcohol-induced ALCOHOL-INDUCED EDT Care mood disorder MOOD DISORDER Corporat ion F32.9 Major depressive MAJOR DEPRESSIVE [facility] single DISORDER, SINGLE 11:52:00 AM [place] episode, EPISODE, EDT Care unspecified UNSPECIFIED Corporation Z53.21 Procedure and PROC/TRTMT NOT Diagnosis 08/28/2019 [facility] not CRD OUT D/T PT LV 03:54:00 AM [facility] carried out due BEF SEEN BY [facility] EDT to patient CARE PROV leaving prior to being seen by health care provider Z65.9 Problem related PROBLEM RELATED Diagnosis 07/16/2019 [facility] Champagne to unspecified TO UNSPECIFIED 12:07:00 PM Medic al Center psychosocial PSYCHOSOCIAL EST circumstances CIRCUMSTANCES Z23 Encounter for ENCOUNTER FOR Diagnosis 07/16/2019 [facility] immunization IMMUNIZATION 12:07:00 PM Medical C enter EST M19.90 Unspecified UNSPECIFIED Diagnosis 07/16/2019 [facility] osteoarthritis, OSTEOARTHRITIS, 12:07:00 PM Med ical Center unspecified site UNSPECIFIED SITE EST Z00.01 Encounter for ENCOUNTER FOR Diagnosis 07/16/2019 [facility] general adult GENERAL ADULT 12:07:00 PM Medical Center medical MEDICAL EXAM W EST examination with ABNORMAL FINDINGS abnormal findings Z80.3 Family history of FAMILY HISTORY OF Diagnosis 04/04/2019 [place] malignant MALIGNANT 01:50:00 AM [facility] neoplasm of NEOPLASM OF EDT Care breast [employer] Y90.6 Blood alcohol BLOOD ALCOHOL Diagnosis 04/04/2019 [facility] level of 120-199 LEVEL OF 120-199 01:50:00 AM [place] mg/100 ml MG/100 ML EDT [employer] Z91.030 Bee allergy BEE ALLERGY Diagnosis 04/04/2019 [place] status STATUS 01:50:00 AM [facility] EDT [employer] F17.210 Nicotine NICOTINE Diagnosis 04/04/2019 [place] dependence, DEPENDENCE, 01:50:00 AM [facility] cigarettes, CIGARETTES, EDT Care uncomplicated UNCOMPLICATED Corporat ion N40.0 Benign prostatic BENIGN PROSTATIC Diagnosis 04/04/2019 [facility] hyperplasia HYPERPLASIA 01:50:00 AM [facility] without lower WITHOUT LOWER EDT Care urinary tract URINRY TRACT SYMP Philomena oration symptoms L40.8 Other psoriasis OTHER PSORIASIS Diagnosis [facility] EDT [employer] K74.60 Unspecified UNSPECIFIED Diagnosis 04/04/2019 [place] cirrhosis of CIRRHOSIS OF 01:50:00 AM [facility] alth liver LIVER EDT [employer] D61.818 Other OTHER Diagnosis 04/04/2019 [place] pancytopenia PANCYTOPENIA 01:50:00 AM [facility] alth EDT [employer] Z71.41 Alcohol abuse ALCOHOL ABUSE Diagnosis 03/19/2019 [facility] counseling and COUNSELING AND 10:55:00 AM [facility] surveillance of SURVEILLANCE OF EDT alcoholic ALCOHOLIC Z71.89 Other specified OTHER SPECIFIED Diagnosis 03/19/2019 [facility] Champagne counseling COUNSELING 10:55:00 AM [facility] Z68.31 Body mass index BODY MASS INDEX Diagnosis 03/19/2019 [facility] (BMI) 31.0-31.9, (BMI) 31.0-31.9, 10:55:00 AM [facility] adult ADULT EDT Y90.8 Blood alcohol Y90.8 Diagnosis 02/10/2019 [place] level of 240 11:54:00 PM Hospital mg/100 ml or more EDT F41.9 Anxiety disorder, F41.9 Diagnosis 02/10/2019 [place] unspecified 11:54:00 PM Hospital EDT F10.129 Alcohol abuse F10.129 Diagnosis 02/10/2019 [place] with 11:54:00 PM Hospital intoxication, EDT unspecified Surgeries/Procedures Procedure Description Date Indications Data Source(s) OFFICE/OUTPATIENT VISIT, 02/13/2020 NEX TGEN ([facility] 12:00:00 AM EDT [facility] 02/13/2020 [place]) 12:00:00 AM EDT OFFICE/OUTPATIENT VISIT, 07/16/2019 NEX TGEN ([facility] EST 12:00:00 AM EST [facility] - 07/16/2019 [place]) 12:00:00 AM EST Influenza, Injectable, 3 07/16/2019 NEX TGEN ([facility] Yrs Or Older 12:00:[address] [facility] - 07/16/2019 [place]) 12:00:00 AM EST Immunization 07/16/2019 NEXTGEN ([facility] Administration 12:00:00 AM EST [facility] dical - 07/16/2019 [place]) 12:00:00 AM EST [facility] 12:00:00 AM [facility] 07/16/2019 [place]) 12:00:00 AM EST OFFICE/OUTPATIENT VISIT, 03/19/2019 NEX TGEN ([facility] 12:00:00 AM EDT [facility] - 03/19/2019 [place]) 12:00:00 AM EDT Results ID Date Data Source Liver 02/14/2020 07:19:00 PM EDT [facility] Profile.[id number] Name Value Range Interpretation Description Data Sup porting Code Source(s) Document(s ) Aspartate 17-59 Above high <content [facility] aminotransferase normal styleCode="Bold"> [facility] [facility] [Enzymatic Aspartate Medical activity/volume] Aminotransferase Center in Serum or Plasma (AST) </content>65 IU/L H<content styleCode="Italic s"> (17-59 IU/L)</content> UNK 0.0-0.3 <content [facility] styleCode="Bold"> [facility] Bilirubin, Direct Medical </content>< 0.2 Center MG/DL<content styleCode="Italic s"> (0.0-0.3 MG/DL)</content> Alanine 7-50 <content [facility] aminotransferase styleCode="Bold"> [place] [facility] [Enzymatic Alanine Medical activity/volume] Aminotransferase Center in Serum or Plasma (ALT) </content>34 IU/L<content styleCode="Italic s"> (7-50 IU/L)</content> Alkaline 38-126 <content [facility] phosphatase styleCode="Bold"> Ihsan [Enzymatic Alkaline Medical activity/volume] Phosphatase (ALP) Cente r in Serum or Plasma </content>102 IU/L<content styleCode="Italic s"> (38-126 IU/L)</content> Bilirubin.total 0.2-1.3 <content [facility] [Mass/volume] in styleCode="Bold"> [place] [facility] Serum or Plasma Bilirubin Total Medical </content>1.1 Center MG/DL<content styleCode="Italic s"> (0.2-1.3 MG/DL)</content> Albumin 3.5-5.0 <content [facility] [Mass/volume] in styleCode="Bold"> [place] [facility] Serum or Plasma Albumin Medical </content>4.1 Center G/DL<content styleCode="Italic s"> (3.5-5.0 G/DL)</content> ID Date Data Source HematologyRou.[id number] 02/14/2020 07:19:00 PM EDT [facility] 0400 Name Value Range Interpretation Description Data Sup porting Code Source(s) Document(s ) Leukocytes 4.4-11.0 <content [facility] [#/volume] in styleCode="Bold Ihsan Blood by ">White Blood Medical Automated count Cell Count Center </content>4.82 KCUMM<content styleCode="Ital ics"> (4.4-11.0 KCUMM)</content > Hemoglobin 13.5-17. <content [facility] [Mass/volume] in 5 styleCode="Bold Ihsan Blood ">Hemoglobin Medical </content>14.3 Center G/DL<content styleCode="Ital ics"> (13.5-17.5 G/DL)</content> Erythrocytes 4.4-5.9 Below low normal <content [facility] [#/volume] in styleCode="Bold Ihsan Blood by ">Red Blood Medical Automated count Cell Count Center </content>3.98 MCUMM L<content styleCode="Ital ics"> (4.4-5.9 MCUMM)</content > Erythrocyte mean 80.0-100 <content [facility] corpuscular .0 styleCode="Bold Ihsan volume [Entitic ">Mean Medical volume] by Corpuscular Center Automated count Volume </content>104.5 FL<content styleCode="Ital ics"> (80.0-100.0 FL)</content> Hematocrit 41.0-53. <content [facility] [Volume 0 styleCode="Bold Ihsan Fraction] of ">Hematocrit Medical Blood by </content>41.6 Center Automated count %<content styleCode="Ital ics"> (41.0-53.0 %)</content> Erythrocyte mean 26.0-34. Above high <content [facility] corpuscular 0 normal styleCode="Bold Ihsan hemoglobin ">Mean Medical [Entitic mass] Corposcular Center by Automated Hemoglobin count </content>35.9 PG H<content styleCode="Ital ics"> (26.0-34.0 PG)</content> Erythrocyte 11.5-14. <content [facility] distribution 5 styleCode="Bold Ihsan width [Ratio] by ">Red Cell Medical Automated count Distribution Center Width </content>12.6 %<content styleCode="Ital ics"> (11.5-14.5 %)</content> Erythrocyte mean 32.0-37. <content [facility] corpuscular 0 styleCode="Bold Ihsan hemoglobin ">Mean Corpus. Medical concentration Hgb Center [Mass/volume] by Concentration Automated count (MCHC) </content>34.4 G/DL<content styleCode="Ital ics"> (32.0-37.0 G/DL)</content> Platelets 130-400 Below low normal <content [facility] [#/volume] in styleCode="Bold Ihsan Blood by ">Platelet Medical Automated count Count Center </content>76 KCUMM L<content styleCode="Ital ics"> (130-400 KCUMM)</content > UNK 0 <content Saint styleCode="Bold Ihsan ">Nucleated Red Medical Blood Cell Center </content>0.0 /100<content styleCode="Ital ics"> (0 /100)</content> Platelet mean 8.0-11.0 <content [facility] volume [Entitic styleCode="Bold Ihsan volume] in Blood ">Mean Platelet Medical by Automated Volume Center count </content>9.1 FL<content styleCode="Ital ics"> (8.0-11.0 FL)</content> UNK 0.0 <content Saint styleCode="Bold Ihsan ">Nucleated Red Medical Blood Cell Center Count </content>0.00 KCUMM<content styleCode="Ital ics"> (0.0 KCUMM)</content > ID Date Data Source GFR(Creatinine).[id number] 02/14/2020 07:19:00 PM EDT [facility] 0-0400 Name Value Range Interpretation Code Description Data [place] rce(s) Supporting Document(s ) UNK > 60 <content [facility] styleCode="Bold"> Medical Cent er EGFR </content>126 GFR<content styleCode="Italic s"> (> 60 GFR)</content> ID Date Data Source Coagulation 02/14/2020 07:19:00 PM [facility] Rout.[id number] EDT Name Value Range Interpretation Description Data Sup porting Code Source(s) Document(s ) UNK 9.0-13.0 <content [facility] styleCode="Bold" Ihsan >Protime Medical </content>11.9 Center SEC<content styleCode="Itali cs"> (9.0-13.0 SEC)</content> aPTT in 25.1-36. <content [facility] Platelet poor 5 styleCode="Bold" Ihsan plasma by >Partial Medical Coagulation Thromboplastin Center assay Time </content>33.0 SEC<content styleCode="Itali cs"> (25.1-36.5 SEC)</content> INR in 0.80-1.2 <content [facility] Platelet poor 0 styleCode="Bold" Ihsan plasma by >INR Medical Coagulation </content>1.07 Center assay #<content styleCode="Itali cs"> (0.80-1.20 #)</content> ID Date Data Source CHMROUTINECCDA.[id number] 02/14/2020 07:19:00 PM EDT [facility] -0400 Name Value Range Interpretation Description Data Sup porting Code Source(s) Document(s ) Lactate 0.7-2.0 Above upper panic <content [place] [facility] [Mass/volum limits styleCode="Bold Medical e] in Serum ">Lactic Acid Center or Plasma </content><cont ent styleCode="Bold ">3.1 MMOLL HH</content><co ntent styleCode="Ital ics"> (0.7-2.0 MMOLL)</content > UNK 30-110 <content [facility]an styleCode="Bold Medical ">Amylase Center </content>84 IU/L<content styleCode="Ital ics"> (30-110 IU/L)</content> Lipase 23-300 <content [facility] [Enzymatic styleCode="Bold Medical activity/vo ">Lipase Center lume] in </content>168 Serum or IU/L<content Plasma styleCode="Ital ics"> (23-300 IU/L)</content> ID Date Data Source [facility].[id number] 02/14/2020 07:19:00 PM EDT [facility] Name Value Range Interpretation Description Data Sup porting Code Source(s) Document(s ) Carbon dioxide, 22-30 <content [facility] total styleCode="Bold"> Ihsan [Moles/volume] in Carbon Dioxide Medical Serum or Plasma </content>25 Center MEQ/L<content styleCode="Italic s"> (22-30 MEQ/L)</content> Sodium 137-145 <content [facility] [Moles/volume] in styleCode="Bold"> [facility] Serum or Plasma Sodium Medical </content>138 Center MEQ/L<content styleCode="Italic s"> (137-145 MEQ/L)</content> UNK 9-20 Below low <content [facility] normal styleCode="Bold"> Ihsan BUN </content>5 Medical MG/DL L<content Center styleCode="Italic s"> (9-20 MG/DL)</content> Chloride 98-107 <content [facility] [Moles/volume] in styleCode="Bold"> [facility] Serum or Plasma Chloride Medical </content>103 Center MEQ/L<content styleCode="Italic s"> (98-107 MEQ/L)</content> Potassium 3.5-5.3 <content [facility] [Moles/volume] in styleCode="Bold"> [facility] Serum or Plasma Potassium Medical </content>4.2 Center MEQ/L<content styleCode="Italic s"> (3.5-5.3 MEQ/L)</content> Glucose 74-106 <content [facility] [Mass/volume] in styleCode="Bold"> [place] [facility] Serum or Plasma Glucose Medical </content>93 Center MG/DL<content styleCode="Italic s"> (74-106 MG/DL)</content> Calcium 8.4-10. <content [facility] [Mass/volume] in 2 styleCode="Bold"> [place] [facility] Serum or Plasma Calcium Medical </content>8.5 Center MG/DL<content styleCode="Italic s"> (8.4-10.2 MG/DL)</content> UNK > 60 <content [facility] styleCode="Bold"> [facility]an EGFR Medical </content>126 Center GFR<content styleCode="Italic s"> (> 60 GFR)</content> Creatinine 0.5-1.3 <content [facility] [Mass/volume] in styleCode="Bold"> [place] [facility] Serum or Plasma Creatinine Medical </content>0.7 Center MG/DL<content styleCode="Italic s"> (0.5-1.3 MG/DL)</content> Alanine 7-50 <content [facility] aminotransferase styleCode="Bold"> [place] [facility] [Enzymatic Alanine Medical activity/volume] Aminotransferase Center in Serum or Plasma (ALT) </content>34 IU/L<content styleCode="Italic s"> (7-50 IU/L)</content> Bilirubin.total 0.2-1.3 <content [facility] [Mass/volume] in styleCode="Bold"> [place] [facility] Serum or Plasma Bilirubin Total Medical </content>1.1 Center MG/DL<content styleCode="Italic s"> (0.2-1.3 MG/DL)</content> Albumin 3.5-5.0 <content [facility] [Mass/volume] in styleCode="Bold"> [place] [facility] Serum or Plasma Albumin Medical </content>4.1 Center G/DL<content styleCode="Italic s"> (3.5-5.0 G/DL)</content> Aspartate 17-59 Above high <content [facility] aminotransferase normal styleCode="Bold"> [place] [facility] [Enzymatic Aspartate Medical activity/volume] Aminotransferase Center in Serum or Plasma (AST) </content>65 IU/L H<content styleCode="Italic s"> (17-59 IU/L)</content> Alkaline 38-126 <content [facility] phosphatase styleCode="Bold"> Ihsan [Enzymatic Alkaline Medical activity/volume] Phosphatase (ALP) Cente r in Serum or Plasma </content>102 IU/L<content styleCode="Italic s"> (38-126 IU/L)</content> ID Date Data Source [id number] 02/01/2020 02:00:00 PM EDT [facility] Name Value Range Interpretation Description Data Sup porting Code Source(s) Document(s ) SARS [facility] coronavirus 2 RNA This lab was ordered by [facility] and reported by [facility]. ID Date Data Source [id number] 11/06/2019 10:07:00 AM EDT [facility] Name Value Range Interpretation Code Description Data [place] rce(s) Supporting Document(s ) SARS-CoV-2 [facility] RNA [facility] Ql ANEL+probe This lab was ordered by [facility] a nd reported by [facility]. ID Date Data Source [id number] 10/30/2019 03:57:00 AM EDT [facility] Name Value Range Interpretation Code Description Data [place] rce(s) Supporting Document(s ) SARS-CoV-2 [facility] RNA [facility] Ql ANEL+probe This lab was ordered by [facility] a nd reported by [facility]. ID Date Data Source Liver 07/16/2019 01:15:00 PM EST [facility] Fibrosis.[id number] Name Value Range Interpretation Description Data Sup porting Code Source(s) Document(s ) Gamma glutamyl 15-73 <content [facility] transferase styleCode="Clyde Ihsan [Enzymatic d">GGT Medical activity/volume </content>57 Center ] in Serum or IU/L<content Plasma styleCode="Daria lics"> (15-73 IU/L)</content > ID Date Data Source Liver 07/16/2019 01:15:00 PM EST [facility] Profile.[id number] Name Value Range Interpretation Description Data Sup porting Code Source(s) Document(s ) Aspartate 17-59 <content [facility] aminotransferase styleCode="Bold"> [place] [facility] [Enzymatic Aspartate Medical activity/volume] Aminotransferase Center in Serum or Plasma (AST) </content>35 IU/L<content styleCode="Italic s"> (17-59 IU/L)</content> Alanine 7-50 <content [facility] aminotransferase styleCode="Bold"> [place] [facility] [Enzymatic Alanine Medical activity/volume] Aminotransferase Center in Serum or Plasma (ALT) </content>15 IU/L<content styleCode="Italic s"> (7-50 IU/L)</content> Albumin 3.5-5.0 <content [facility] [Mass/volume] in styleCode="Bold"> [place] [facility] Serum or Plasma Albumin Medical </content>4.1 Center G/DL<content styleCode="Italic s"> (3.5-5.0 G/DL)</content> Bilirubin.total 0.2-1.3 <content [facility] [Mass/volume] in styleCode="Bold"> [place] [facility] Serum or Plasma Bilirubin Total Medical </content>1.3 Center MG/DL<content styleCode="Italic s"> (0.2-1.3 MG/DL)</content> Alkaline 38-126 <content [facility] phosphatase styleCode="Bold"> Ihsan [Enzymatic Alkaline Medical activity/volume] Phosphatase (ALP) Cente r in Serum or Plasma </content>110 IU/L<content styleCode="Italic s"> (38-126 IU/L)</content> ID Date Data Source LIPID.[id number] 07/16/2019 01:15:00 PM EST [facility] Name Value Range Interpretation Description Data Sup porting Code Source(s) Document(s ) Cholesterol -<200 <content [facility] [Mass/volume] in styleCode="Clyde Ihsan Serum or Plasma d">Cholesterol Medical </content>145 Center MG/DL<content styleCode="Daria lics"> (-<200 MG/DL)</conten t> Triglyceride < 150 <content [facility] [Mass/volume] in styleCode="Clyde Ihsan Serum or Plasma d">Triglycerid [facility] </content>120 MG/DL<content styleCode="Daria lics"> (< 150 MG/DL)</conten t> UNK < 100 <content Saint styleCode="Clyde Ihsan d">LDL-Cholest [facility] </content>81 MG/DL<content styleCode="Daria lics"> (< 100 MG/DL)</conten t> UNK > 60 Below low normal <content [facility] styleCode="Clyde Ihsan d">HDL- Medical Cholesterol Center </content>40 MG/DL L<content styleCode="Daria lics"> (> 60 MG/DL)</conten t> ID Date Data Source HematologyRou.[id number] 07/16/2019 01:15:00 PM EST [facility] 0500 Name Value Range Interpretation Description Data Sup porting Code Source(s) Document(s ) Leukocytes 4.4-11.0 <content [facility] [#/volume] in styleCode="Bold Ihsan Blood by ">White Blood Medical Automated count Cell Count Center </content>4.43 KCUMM<content styleCode="Ital ics"> (4.4-11.0 KCUMM)</content > Hemoglobin 13.5-17. <content [facility] [Mass/volume] in 5 styleCode="Bold Ihsan Blood ">Hemoglobin Medical </content>14.6 Center G/DL<content styleCode="Ital ics"> (13.5-17.5 G/DL)</content> Erythrocytes 4.4-5.9 Below low normal <content [facility] [#/volume] in styleCode="Bold Ihsan Blood by ">Red Blood Medical Automated count Cell Count Center </content>4.28 MCUMM L<content styleCode="Ital ics"> (4.4-5.9 MCUMM)</content > Erythrocyte mean 80.0-100 <content [facility] corpuscular .0 styleCode="Bold Ihsan volume [Entitic ">Mean Medical volume] by Corpuscular Center Automated count Volume </content>97.2 FL<content styleCode="Ital ics"> (80.0-100.0 FL)</content> Hematocrit 41.0-53. <content [facility] [Volume 0 styleCode="Bold Ihsan Fraction] of ">Hematocrit Medical Blood by </content>41.6 Center Automated count %<content styleCode="Ital ics"> (41.0-53.0 %)</content> Platelets 130-400 Below low normal <content [facility] [#/volume] in styleCode="Bold Ihsan Blood by ">Platelet Medical Automated count Count Center </content>52 KCUMM L<content styleCode="Ital ics"> (130-400 KCUMM)</content > Platelet mean 8.0-11.0 <content [facility] volume [Entitic styleCode="Bold Ihsan volume] in Blood ">Mean Platelet Medical by Automated Volume Center count </content>10.7 FL<content styleCode="Ital ics"> (8.0-11.0 FL)</content> Erythrocyte 11.5-14. <content [facility] distribution 5 styleCode="Bold Ihsan width [Ratio] by ">Red Cell Medical Automated count Distribution Center Width </content>12.8 %<content styleCode="Ital ics"> (11.5-14.5 %)</content> Erythrocyte mean 26.0-34. Above high <content [facility] corpuscular 0 normal styleCode="Bold Ihsan hemoglobin ">Mean Medical [Entitic mass] Corposcular Center by Automated Hemoglobin count </content>34.1 PG H<content styleCode="Ital ics"> (26.0-34.0 PG)</content> Erythrocyte mean 32.0-37. <content [facility] corpuscular 0 styleCode="Bold Ihsan hemoglobin ">Mean Corpus. Medical concentration Hgb Center [Mass/volume] by Concentration Automated count (MCHC) </content>35.1 G/DL<content styleCode="Ital ics"> (32.0-37.0 G/DL)</content> UNK NORMAL <content Saint styleCode="Bold Ihsan ">Platelet Medical Estimate Center </content>PLT. MODERATELY DECREASED <content styleCode="Ital ics"> (NORMAL )</content> UNK 0 <content [facility] styleCode="Bold Ihsan ">Nucleated Red Medical Blood Cell Center </content>0.0 /100<content styleCode="Ital ics"> (0 /100)</content> UNK 0.0 <content [facility] styleCode="Bold Ihsan ">Nucleated Red [facility] Cell [facility] Count </content>0.00 KCUMM<content styleCode="Ital ics"> (0.0 KCUMM)</content > ID Date Data Source GFR(Creatinine).[id number] 07/16/2019 01:15:00 PM [facility] 0-0500 Name Value Range Interpretation Code Description Data [place] rce(s) Supporting Document(s ) UNK > 60 <content [facility] styleCode="Bold"> Medical Cent er EGFR </content>152 GFR<content styleCode="Italic s"> (> 60 GFR)</content> ID Date Data Source CHMROUTINECCDA.[id number] 07/16/2019 01:15:00 PM [facility] -0500 Name Value Range Interpretation Description Data Sup porting Code Source(s) Document(s ) Protein 6.3-8.2 Above high normal <content [facility] [Mass/volume] styleCode="Clyde Ihsan in Serum or d">Total Medical Plasma Protein Center </content>8.7 G/DL H<content styleCode="Daria lics"> (6.3-8.2 G/DL)</content > Gamma glutamyl 15-73 <content [facility] transferase styleCode="Clyde Ihsan [Enzymatic d">GGT Medical activity/volum </content>57 Center e] in Serum or IU/L<content Plasma styleCode="Daria lics"> (15-73 IU/L)</content > UNK >= 1.0 Below low normal <content [facility] styleCode="Clyde Champagne d">AG Ratio Medical </content>0.9 Center L<content styleCode="Daria lics"> (>= 1.0 )</content> UNK 2.3-3.5 Above high normal <content [facility] styleCode="Clyde Carters d">Globulin Medical </content>4.6 Center G/DL H<content styleCode="Daria lics"> (2.3-3.5 G/DL)</content > ID Date Data Source [id number] 07/16/2019 01:15:00 PM EST [facility] Name Value Range Interpretation Description Data Sup porting Code Source(s) Document(s ) Potassium 3.5-5.3 <content [facility] [Moles/volume] in styleCode="Bold"> [facility] Serum or Plasma Potassium Medical </content>4.0 Center MEQ/L<content styleCode="Italic s"> (3.5-5.3 MEQ/L)</content> Carbon dioxide, 22-30 <content [facility] total styleCode="Bold"> Ihsan [Moles/volume] in Carbon Dioxide Medical Serum or Plasma </content>22 Center MEQ/L<content styleCode="Italic s"> (22-30 MEQ/L)</content> Sodium 137-145 <content [facility] [Moles/volume] in styleCode="Bold"> [facility] Serum or Plasma Sodium Medical </content>137 Center MEQ/L<content styleCode="Italic s"> (137-145 MEQ/L)</content> Chloride 98-107 <content [facility] [Moles/volume] in styleCode="Bold"> [facility] Serum or Plasma Chloride Medical </content>105 Center MEQ/L<content styleCode="Italic s"> (98-107 MEQ/L)</content> Calcium 8.4-10. <content [facility] [Mass/volume] in 2 styleCode="Bold"> [facility] Serum or Plasma Calcium Medical </content>9.4 Center MG/DL<content styleCode="Italic s"> (8.4-10.2 MG/DL)</content> UNK 9-20 Below low <content [facility] normal styleCode="Bold"> Ihsan BUN </content>8 Medical MG/DL L<content Center styleCode="Italic s"> (9-20 MG/DL)</content> Creatinine 0.5-1.3 <content [facility] [Mass/volume] in styleCode="Bold"> [facility] Serum or Plasma Creatinine Medical </content>0.6 Center MG/DL<content styleCode="Italic s"> (0.5-1.3 MG/DL)</content> Glucose 74-106 Above high <content [facility] [Mass/volume] in normal styleCode="Bold"> [facility] Serum or Plasma Glucose Medical </content>109 Center MG/DL H<content styleCode="Italic s"> (74-106 MG/DL)</content> Bilirubin.total 0.2-1.3 <content [facility] [Mass/volume] in styleCode="Bold"> [facility] Serum or Plasma Bilirubin Total Medical </content>1.3 Center MG/DL<content styleCode="Italic s"> (0.2-1.3 MG/DL)</content> UNK > 60 <content [facility] styleCode="Bold"> Ihsan EGFR Medical </content>152 Center GFR<content styleCode="Italic s"> (> 60 GFR)</content> Alkaline 38-126 <content [facility] phosphatase styleCode="Bold"> Ihsan [Enzymatic Alkaline Medical activity/volume] Phosphatase (ALP) Cente r in Serum or Plasma </content>110 IU/L<content styleCode="Italic s"> (38-126 IU/L)</content> Aspartate 17-59 <content [facility] aminotransferase styleCode="Bold"> [facility] [Enzymatic Aspartate Medical activity/volume] Aminotransferase Center in Serum or Plasma (AST) </content>35 IU/L<content styleCode="Italic s"> (17-59 IU/L)</content> Alanine 7-50 <content [facility] aminotransferase styleCode="Bold"> [facility] [Enzymatic Alanine Medical activity/volume] Aminotransferase Center in Serum or Plasma (ALT) </content>15 IU/L<content styleCode="Italic s"> (7-50 IU/L)</content> Albumin 3.5-5.0 <content [facility] [Mass/volume] in styleCode="Bold"> [facility] Serum or Plasma Albumin Medical </content>4.1 Center G/DL<content styleCode="Italic s"> (3.5-5.0 G/DL)</content> Procedure Social History Code Duration Value Status Description Data Source(s ) Smoking 02/29/2020 Daily Smoker completed Daily Smoker [facility] 11:57:00 PM Medical Cente r EDT Smoking 02/29/2020 Daily Smoker completed Daily Smoker [facility] 11:15:00 PM Medical Cente r EDT Smoking 02/27/2020 Daily Smoker completed Daily Smoker [facility] 05:06:00 AM Medical Cente r EDT Smoking 02/27/2020 Daily Smoker completed Daily Smoker [facility] 03:26:00 AM Medical Cente r EDT Caffeine Use 02/25/2020 completed NEXTGEN ([place] [facility] Details 12:00:00 AM [facility] EDT [place]) Smoking 02/25/2020 Unknown if ever completed Unknown if ever NEXT GEN ([facility] 12:00:00 AM smoked smoked [facility] EDT [place]) Smoking 02/14/2020 Daily Smoker completed Daily Smoker [facility] 06:49:00 PM Medical Cente r EDT Smoking 02/14/2020 Daily Smoker completed Daily Smoker [facility] 06:30:00 PM Medical Cente r EDT Smoking 02/14/2020 Daily Smoker completed Daily Smoker [facility] 06:29:00 PM Medical Cente r EDT Alcohol Use 02/13/2020 completed beer 2 beers NEXTGEN ([facility] int Details 12:00:00 AM weekly [facility] EDT [place]) 02/13/2020 Moderate completed Moderate NEXTGEN ([facility] 12:00:00 AM cigarette cigarette smoker [facility] ED smoker (10-19 (10-19 cigs/day) Cente r) cigs/day) Smoking 01/10/2020 Daily Smoker completed Daily Smoker [facility] 10:17:00 PM Medical Cente r EDT Caffeine Use 12/31/2019 completed NEXTGEN ([place] [facility] Details 12:00:00 AM [facility] EDT [place]) Smoking 09/29/2019 Daily Smoker completed Daily Smoker [facility] 12:15:00 AM Medical Cente r EDT Smoking 09/29/2019 Daily Smoker completed Daily Smoker [facility] 12:09:00 AM Medical Cente r EDT Smoking 08/28/2019 Daily Smoker completed Daily Smoker [facility] 04:00:00 AM Medical Cente r EDT Smoking 08/28/2019 Daily Smoker completed Daily Smoker [facility] 03:55:00 AM Medical Cente r EDT Smoking 05/02/2019 Daily Smoker completed Daily Smoker [facility] 06:00:00 AM Medical Cente r EST Smoking 05/02/2019 Daily Smoker completed Daily Smoker [facility] 03:08:00 AM Medical Cente r EST Vital Signs ID Date Data Source UNK Name Value Range Interpretation Code Description Data Source(s) Respiratory rate 18 /min 18 /min [facility] Oxygen saturation 95 % 95 % [facility] J osephs in [facility] by Pulse oximetry Heart rate 82 /min 82 /min [facility] Diastolic blood 82 mm[Hg] 82 mm[Hg] [facility] Systolic blood 166 mm[Hg] 166 mm[Hg] [facility] Respiratory rate 18 /min 18 /min [facility] Oxygen saturation 99 % 99 % [facility] J osephs in [facility] by Pulse oximetry Heart rate 86 /min 86 /min [facility] Diastolic blood 90 mm[Hg] 90 mm[Hg] [facility] Systolic blood 168 mm[Hg] 168 mm[Hg] [facility] Body temperature 36.072383 36.343174 Mar[facility] Respiratory rate 18 /min 18 /min [facility] Oxygen saturation 96 % 96 % [facility] J osephs in [facility] by Pulse oximetry Heart rate 92 /min 92 /min [facility] Diastolic blood 79 mm[Hg] 79 mm[Hg] [facility] Systolic blood 142 mm[Hg] 142 mm[Hg] [facility] Body temperature 36.299189 36.663418 Mariana [facility] Respiratory rate 18 /min 18 /min [facility] Oxygen saturation 95 % 95 % [facility]phs in Arterial blood [facility] Center by Pulse oximetry Heart rate 86 /min 86 /min [facility] Diastolic blood 77 mm[Hg] 77 mm[Hg] [facility] Medical [place] Systolic blood 120 mm[Hg] 120 mm[Hg] [facility] Medical [place] Body temperature 36.696227 36.685829 Mariana [facility] Respiratory rate 18 /min 18 /min [facility] Oxygen saturation 98 % 98 % [facility] J [facility]phs in Arterial blood Medical Center by Pulse oximetry Heart rate 92 /min 92 /min [facility] Diastolic blood 80 mm[Hg] 80 mm[Hg] [facility] Systolic blood 126 mm[Hg] 126 mm[Hg] [facility] Respiratory rate 18 /min 18 /min [facility] Oxygen saturation 96 % 96 % [facility] J [facility]sephs in [facility] blood [facility] by Pulse oximetry Heart rate 90 /min 90 /min [facility] Diastolic blood 67 mm[Hg] 67 mm[Hg] [facility] Systolic blood 117 mm[Hg] 117 mm[Hg] [facility] Respiratory rate 20 /min 20 /min [facility] Oxygen saturation 97 % 97 % [facility] J [facility]phs in [facility] blood [facility] by Pulse oximetry Heart rate 108 /min 108 /min [facility] Diastolic blood 79 mm[Hg] 79 mm[Hg] [facility] Medical [place] Systolic blood 128 mm[Hg] 128 mm[Hg] [facility] Heart rate 110 /min 110 /min [facility] Respiratory rate 22 /min 22 /min [facility] Heart rate 114 /min 114 /min [facility] Diastolic blood 79 mm[Hg] 79 mm[Hg] [facility] pressure Medical Center Systolic blood 134 mm[Hg] 134 mm[Hg] [facility] Medical [place] Body weight 113.216256 113.544669 kg [facility] Measured kg Medical Center Body temperature 36.217236 36.391608 Mariana [facility] Respiratory rate 20 /min 20 /min [facility] Oxygen saturation 96 % 96 % [facility] J [facility]phs in Arterial blood [facility] by Pulse oximetry Diastolic blood 89 mm[Hg] 89 mm[Hg] [facility] Systolic blood 169 mm[Hg] 169 mm[Hg] [facility] Oxygen saturation 98 % 98 % [facility] in Arterial blood [facility] by Pulse oximetry Center) Body mass index 33.36 kg/m2 Overweight 33.36 kg/m2 NEXTGEN ([facility] (BMI) [Ratio] [facility]) Respiratory rate 18 /min 18 /min [facility] ([facility]) Body temperature 36.33 Mariana 36.33 Mariana [facility]) Heart rate 93 /min 93 /min [facility] ([facility]) Diastolic blood 81 mm[Hg] 81 mm[Hg] [facility] ( [facility] pressure [facility]) Systolic blood 144 mm[Hg] 144 mm[Hg] [facility] (S aint pressure [facility]) Body weight 95.164 kg 95.164 kg [facility] ([facility]) Body height 168.91 cm 168.91 cm [facility] ([facility]) Body temperature 36.981802 36.458303 Mariana [facility] Respiratory rate 17 /min 17 /min [facility] Oxygen saturation 99 % 99 % [facility] J [facility]phs in Arterial blood [facility] Center by Pulse oximetry Heart rate 79 /min 79 /min [facility] Diastolic blood 77 mm[Hg] 77 mm[Hg] [facility] Systolic blood 126 mm[Hg] 126 mm[Hg] [facility] Body weight 90.243114 kg 90.250328 kg [facility] Body temperature 36.889237 36.516898 Mariana [facility] Respiratory rate 18 /min 18 /min [facility] Oxygen saturation 96 % 96 % [facility] J [facility]phs in Arterial blood [facility] by Pulse oximetry Heart rate 83 /min 83 /min [facility] Body height 165.528830 165.254196 cm [facility] Diastolic blood 82 mm[Hg] 82 mm[Hg] [facility] Center Systolic blood 143 mm[Hg] 143 mm[Hg] [facility] Body mass index 33.2 kg/m2 33.2 kg/m2 [facility] (BMI) [Ratio] Medical [facility] ter Body temperature 36.142351 36.818132 [facility] Respiratory rate 17 /min 17 /min [facility] Oxygen saturation 98 % 98 % [facility] J [facility]phs in Arterial blood [facility] by Pulse oximetry Heart rate 102 /min 102 /min [facility] Diastolic blood 62 mm[Hg] 62 mm[Hg] [facility] Systolic blood 133 mm[Hg] 133 mm[Hg] [facility] Oxygen saturation 98 % 98 % NEXTGEN ([facility] in Arterial [facility] by Pulse oximetry Center) Body mass index 33.39 kg/m2 Overweight 33.39 kg/m2 NEXTGEN ([facility] (BMI) [Ratio] [facility]) Respiratory rate 19 /min 19 /min [facility] ([facility]) Body temperature 37.00 Mariana 37.00 Mariana [facility] ([facility]) Heart rate 89 /min 89 /min [facility] ([facility]) Diastolic blood 71 mm[Hg] 71 mm[Hg] [facility] ( [facility]) Systolic blood 142 mm[Hg] 142 mm[Hg] [facility] ([facility]) Body weight 95.254 kg 95.254 kg [facility] ([facility]) Body height 168.91 cm 168.91 cm [facility] ([facility]) Body temperature 36.153473 36.265790 [facility] Respiratory rate 17 /min 17 /min [facility] Oxygen saturation 99 % 99 % [facility] J [facility]phs in [facility] by Pulse oximetry Heart rate 67 /min 67 /min [facility] Diastolic blood 70 mm[Hg] 70 mm[Hg] [facility] Systolic blood 124 mm[Hg] 124 mm[Hg] [facility] Body temperature 37.111528 37.713124 [facility] Respiratory rate 16 /min 16 /min [facility] Oxygen saturation 98 % 98 % [facility] J [facility]ph[facility] in [facility] by Pulse oximetry Heart rate 76 /min 76 /min [facility] Diastolic blood 66 mm[Hg] 66 mm[Hg] [facility] Systolic blood 122 mm[Hg] 122 mm[Hg] [facility] Oxygen saturation 95 % 95 % [facility]EXT[facility] ([facility] in Arterial blood [facility] by Pulse oximetry Center) Body mass index 31.07 kg/m2 Overweight 31.07 kg/m2 NEXTGEN ([facility] (BMI) [Ratio] [facility] Respiratory rate 19 /min 19 /min [facility] ([facility]) Body temperature 37.28 Mariana 37.28 Mariana [facility] ([facility]) Heart rate 90 /min 90 /min [facility] ([facility]) Diastolic blood 59 mm[Hg] 59 mm[Hg] [facility] ( [facility] pressure [facility]) Systolic blood 114 mm[Hg] 114 mm[Hg] [facility] ( [facility] Body weight 88.632 kg 88.632 kg [facility] ([facility]) Body height 168.91 cm 168.91 cm [facility] ([facility]) Patient Treatment Plan of Care Planned Activity Planned Date Details Description Data Source (s) Trazodone Hydrochloride 50 02/13/2020 N EXTGEN ([facility] MG Oral Tablet 12:00:00 AM [facility]) zolpidem 10 mg tablet 10/24/2019 NEXTGE N ([facility] 12:00:00 AM [facility]) Zolpidem tartrate 10 MG 10/24/2019 NEXT GEN ([facility] Oral Tablet 12:00:00 AM [facility]) multivitamin with minerals 09/26/2019 N EXTGEN ([facility] tablet 12:00:00 AM [facility]) Thiamine 100 MG Oral Tablet 09/26/2019 NEXTGEN ([facility] 12:00:00 AM [facility]) Zolpidem tartrate 10 MG 09/26/2019 NEXT GEN ([facility] Oral Tablet 12:00:00 AM [facility]) Trazodone Hydrochloride 50 09/11/2019 N EXTGEN ([facility] MG Oral Tablet 12:00:00 AM [facility]) Triamcinolone Acetonide 1 07/31/2019 NE XTGEN ([facility] MG/ML Topical Cream 12:00:00 AM [facility]) Ibuprofen 600 MG Oral 04/09/2019 NEXTGE N ([facility] Tablet 12:00:00 AM [facility]) Ibuprofen 600 MG Oral 03/19/2019 NEXTGE N ([facility] Tablet 12:00:00 AM [facility]) Dextromethorphan 09/05/2017 NEXTGEN (Sa int Hydrobromide 15 MG Oral 12:00:00 AM [facility] [Robitussin Cough Ce nter) Gels] cetirizine hydrochloride 10 09/05/2017 NEXTGEN ([facility] MG Oral Capsule 12:00:00 AM EDT [facility]) Docusate Sodium 50 MG Oral 09/05/2017 N EXTGEN ([facility] Capsule 12:00:00 AM [facility]) Mirtazapine 15 MG Oral 09/05/2017 NEXTG EN ([facility] Tablet 12:00:00 AM [facility]) Betamethasone 0.5 MG/ML 09/05/2017 NEXT GEN ([facility] Topical Cream 12:00:00 AM [facility] ical [place]) Flonase Allergy Relief 50 09/05/2017 NE XTGEN ([facility] mcg[facility] Thiamine 100 MG Oral Tablet 09/05/2017 NEXTGEN (Saint 12:00:00 AM [facility]) Folic Acid 1 MG Oral Tablet 09/05/2017 NEXTGEN ([facility] 12:00:00 AM [facility]) Multi-Day tablet 11/16/2016 NEXTGEN (Sa int 12:00:00 AM [facility])
--- NOTE | 2020-04-01 08:31 | BHS.RME ---
2019 N Coronavirus Screen - COVID-19 Screening Questions Dx of COVID-19 or had a positive test in the last 4 weeks?: No Contact with known/suspected COVID patient in last 14 days?: No Any of these symptoms or contact with someone who has?: None Substance Use & Tx History - Substance Use History Alcohol Substance amount: beer 10 x 12 ounce Frequency of use: Daily Substance route: Oral Date of Last Use: 04/01/20 (first drink age 23 y. No seizures, no blackouts. 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[employer]) Nicotine Substance amount: 8-10 cigs Frequency of use: Daily Substance route: Smoking Date of Last Use: 04/01/20 (began age 35 y) Physical/Psych/Mental Status - Behavior General Behavior: Decreased activity Eye Contact: Normal - Cooperativeness Cooperativeness: Cooperative - Thinking Thought Processes: Tight Thought content: Future oriented - Physical Health Problems Is patient presently having any pain?: Yes (chronic neck and low back) Does patient presently have any injuries (include location): No Does patient currently have a fever: No CIWA Nausea/Vomitin-Mild Nausea/No Vomiting Muscle Tremors: 2 Anxiety: 2 (meets criteria, ESTRELLITA 0.245, given current level of intoxication, full extent of withdrawal is not seen) Agitation: 1-Slight > Activity Paroxysmal Sweats: 1-Minimal Palms Moist Orientation: 1-Uncertain about Date Tacttile Disturbances: 0-None Auditory Disturbances: 0-None Visual Disturbances: 0-None Headache: 0-None Present CIWA-Ar Total Score: 8
[2020-04-01] MEDS ORDERED: MAG HYDROX/AL HYDROX/SIMETH 30 ML UNIT-DOSE CUP PO PRN (08:37)
[2020-04-01] MEDS ORDERED: MENTHOL/PHENOL 1 EACH UD MM PRN (08:37)
[2020-04-01] MEDS ORDERED: METHOCARBAMOL 500 MG TABLET PO PRN (08:37)
[2020-04-01] MEDS ORDERED: MAGNESIUM CITRATE 300 ML BOTTLE PO PRN (08:37)
[2020-04-01] MEDS ORDERED: NICOTINE POLACRILEX 2 MG GUM BUC PRN (08:37)
[2020-04-01] MEDS ORDERED: MAGNESIUM HYDROX 2400MG/30ML ORAL SUSPENSION 30 ML CUP PO PRN (08:37)
[2020-04-01] MEDS ORDERED: IBUPROFEN 400 MG TABLET (FP) PO PRN (08:37)
[2020-04-01] MEDS ORDERED: LORazepam 1 MG TABLET PO PRN (08:37)
[2020-04-01] MEDS ORDERED: BISMUTH SUBSALICYLATE 524 MG/30 ML UD PO PRN (08:37)
[2020-04-01] MEDS ORDERED: ONDANSETRON *ODT* 4 MG TABLET SL PRN (08:37)
[2020-04-01] MEDS ORDERED: ACETAMINOPHEN 325 MG TABLET (FP) PO PRN ×2 (08:37)
--- NOTE | 2020-04-01 08:37 | HP ---
CIWA Score Nausea/Vomitin-Mild Nausea/No Vomiting Muscle Tremors: 2 Anxiety: 2 (meets criteria, ESTRELLITA 0.245, given current level of intoxication, full extent of withdrawal is not seen) Agitation: 1-Slight > Activity Paroxysmal Sweats: 1-Minimal Palms Moist Orientation: 1-Uncertain about Date Tacttile Disturbances: 0-None Auditory Disturbances: 0-None Visual Disturbances: 0-None Headache: 0-None Present CIWA-Ar Total Score: 8 - Admission Criteria OASAS Guidelines: Admission for Medically Managed Detox: Requires at least one of the followin. CIWA greater than 12 2. Seizures within the past 24 hours 3. Delirium tremens within the past 24 hours 4. Hallucinations within the past 24 hours 5. Acute intervention needed for co occurring medical disorder 6. Acute intervention needed for co occurring psychiatric disorder 7. Severe withdrawal that cannot be handled at a lower level of care (continued vomiting, continued diarrhea, abnormal vital signs) requiring intravenous medication and/or fluids 8. Admitting History and Physical - Admission Chief Complaint: Mr. Gonzales is a 49 yo gentleman who presents to [facility] stating he is here for "alcohol" detox. History of Present Illness: Mr. Gonzales is a 49 yo gentleman who presents to [facility] stating he is here for "alcohol" detox. He as last here at the end of January and completed a detox with Ativan for alcohol use disorder. Review of the notes reveals the patient wanted to be on Vivitrol after discharge. However, he never started that therapy. He did relapse "immediately" in his own words. He would like to go to rehab after this detox admission PMH: liver disease, right hip pain, chronic low back and neck pain PSH: none Psych: anxiety (on Buspar last admission), PtSD SOC: lives in his own apt in [place] Legal: none - Substance Use History Alcohol Substance amount: beer 10 x 12 ounce Frequency of use: Daily Substance route: Oral Date of Last Use: 04/01/20 (first drink age 23 y. No seizures, no blackouts. 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 The information displayed on this report is compiled from pharmacy submissions to the Department, and accurately reflects the information as submitted by the pharmacies. This report was requested by: Ariane Guerrero | Reference #: [id number] Others' Prescriptions Patient Name: Raul Gonzales Date: 1970 Address: [address] [place] [address] [place] [address] Sex: Male Rx Written Rx Dispensed Drug Quantity Days Supply Prescriber Name 10/24/2019 02/09/2020 zolpidem tartrate 10 mg tablet 15 25 Coloka-Kump, Rodika DO 10/24/2019 10/26/2019 zolpidem tartrate 10 mg tablet 15 25 Coloka-Kump, Rodika DO 09/26/2019 09/27/2019 zolpidem tartrate 10 mg tablet 15 25 Sadie Hwang MD 04/04/2019 04/04/2019 lorazepam 1 mg tablet 15 7 Jose Capps Date: 1970 Address: [address] [place] [address] Sex: Male Rx Written Rx Dispensed Drug Quantity Days Supply Prescriber Name 11/07/2019 11/07/2019 zolpidem tartrate 10 mg tablet 14 14 Phyllis Everett History Source: Patient Limitations to Obtaining History: Intoxication - Past Medical History Hepatobiliary: Yes: Cirrhosis Heme/Onc: Yes: Anemia - Past Surgical History Past Surgical History: Yes: None - Smoking History Smoking history: Unknown if ever smoked Have you smoked in the past 12 months: Yes Aproximately how many cigarettes per day: 20 - Alcohol/Substance Use Hx Alcohol Use: Yes Number of Drinks Daily: 10 History of Substance Use: reports: Marijuana Date of Last Use: 02/01/20 - Social History ADL: Independent Occupation: unemployed History of Recent Travel: No Admission ROS S - HPI Allergies/Adverse Reactions: Allergies Allergy/AdvReac Type Severity Reaction Status Date / Time clarithromycin [From Biaxin] Allergy Severe Verified 04/01/20 08:44 Exam Limitations: No Limitations - Ebola screening Have you traveled outside of the country in the last 21 days: No Have you been sick,other than usual withdrawal symptoms: No Do you have a fever: No - Review of Systems Constitutional: No Symptoms Reported EENT: reports: No Symptoms Reported Respiratory: reports: No Symptoms reported Cardiac: reports: No Symptoms Reported GI: reports: Nausea : reports: No Symptoms Reported Musculoskeletal: reports: Joint Pain (right hip, low back and neck, chronic pain) Integumentary: reports: No Symptoms Reported Neuro: reports: No Symptoms reported Hematology: reports: No Symptoms Reported Psychiatric: reports: Anxious Patient History - Patient Medical History Hx Anemia: Yes (Not on medication) Hx Asthma: No Hx Chronic Obstructive Pulmonary Disease (COPD): No Hx Cancer: No Hx Cardiac Disorders: No Hx Congestive Heart Failure: No Hx Hypertension: No Hx Hypercholesterolemia: No Hx Pacemaker: No HX Cerebrovascular Accident: No Hx Seizures: No Hx Dementia: No Hx Diabetes: No Hx Gastrointestinal Disorders: No 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) Hx Genitourinary Disorders: No Hx Sexually Transmitted Disorders: No Hx Renal Disease (ESRD): No Hx Thyroid Disease: No Hx Human Immunodeficiency Virus (HIV): No Hx Hepatitis C: No Hx Depression: Yes Hx Suicide Attempt: No (Denies suicidal ideation at this time) Hx Bipolar Disorder: No Hx Schizophrenia: No - Patient Surgical History Past Surgical History: No Hx Neurologic Surgery: No Hx Cataract Extraction: No Hx Cardiac Surgery: No Hx Lung Surgery: No Hx Breast Surgery: No Hx Breast Biopsy: No Hx Abdominal Surgery: No Hx Appendectomy: No Hx Cholecystectomy: No Hx Genitourinary Surgery: No Hx Section: No (N/A) Hx Orthopedic Surgery: No Anesthesia Reaction: No - PPD History Date: 10/02/19 Results: 0mm - Smoking Cessation Smoking history: Unknown if ever smoked Have you smoked in the past 12 months: Yes Aproximately how many cigarettes per day: 10 Cigars Per Day: 0 Hx Chewing Tobacco Use: No Initiated information on smoking cessation: Yes 'Breaking Loose' booklet given: 04/01/20 Admission Physical Exam [facility] - Physical General Appearance: Yes: Appropriately Dressed, Intoxicated HEENTM: Yes: EOMI, Hearing grossly Normal, Normocephalic, Normal Voice Respiratory: Yes: Lungs Clear, No Respiratory Distress, No Accessory Muscle Use Neck: Yes: Within Normal Limits, Supple Breast: Yes: Breast Exam Deferred Cardiology: Yes: Regular Rhythm, Regular Rate Abdominal: Yes: Normal Bowel Sounds, Non Tender, Soft, Protuberent Genitourinary: Yes: Other (deferred) Back: Yes: Normal Inspection Musculoskeletal: Yes: full range of Motion Extremities: Yes: Normal Inspection, Non-Tender Neurological: Yes: Alert, Normal Response Integumentary: Yes: Normal Color, Dry, Warm - Diagnostic (1) Alcohol use disorder Current Visit: Yes Status: Acute Comment: .. (2) Nicotine dependence Current Visit: Yes Status: Acute Qualifiers: Nicotine product type: cigarettes Substance use status: in withdrawal Qualified Code(s): F17.213 - Nicotine dependence, cigarettes, with withdrawal (3) PTSD (post-traumatic stress disorder) Current Visit: Yes Status: Chronic (4) Cannabis dependence Current Visit: Yes Status: Acute Comment: .. (5) Liver disease due to alcohol Current Visit: Yes Status: Chronic Cleared for Admission S - Detox or Rehab [facility] Level of Care: Medically Managed Detox Regimen/Protocol: Ativan Breathalyzer - Breathalyzer Breathalyzer: 0.245 Urine Drug Screen - Test Device Lot number: [id number] Expiration date: 01/07/22 - Control Is test valid?: Yes - Results Drug screen NEGATIVE: No Urine drug screen results: THC-Marijuana Inpatient Rehab Admission - Rehab Decision to Admit Inpatient rehab admission?: No
[2020-04-01 08:42] VITALS: BMI 31.3
--- OUTSIDE RECORDS SUMMARY | 2020-04-01 09:05 | XMS ---
:1970 Author Organization [facility] Care Team Providers Name Role Phone [...] Unavailable Unavailable MD John Enamorado MD Unavailable [phone] MD John Enamorado MD Unavailable [phone] Ringstad, Sadie Unavailable Unavailable Ringstad, Sadie Unavailable [...] Unavailable Unavailable Frannie DEL TORO MD Unavailable [phone] Frannie DEL TORO MD Unavailable [phone] ED STAFF PHYSICIAN Unavailable Unavailable Re-disclosure Warning [...] is protected by Article 27-F of the [facility] Public Health law. If you continue you may haveaccess to information: Regarding HIV / AIDS; Provided by facilities licensed or operated by the [facility] Office of Mental Health; or Provided by the [facility] Office for People With Developmental Disabilities. If such information is present, then the following [facility] mandated warning applies: This information has been [...] law may result in a fine or shelter sentence or both. A general authorization for the release of medical or other information is NOT sufficient authorization for further disclosure. Allergies and Adverse Reactions Type Description Substance Reaction Status Data Source(s ) Drug allergy clarithromycin clarithromycin [facility] Family History Family Member Family Member Family Member Date of Description Data Source(s) Name Gender Status Status Unknown Female Problem 03/19/2019 NEXTGEN ([facility] ([facility]) 12:00:[address] [facility] EDT Center) Encounters Encounter Providers Location Date Indications Data Source(s ) Outpatient Attender: [id number] [facility] 03/10/2020 I ([facility] 04:16:09 PM [facility] EDT [facility]) Patient admitted. Emergency Attender: ED STAFF H 02/29/2020 11:10:00 PM [facility] PHYSICIANAttender: STAFF ED EDT - 03/01/2020 Medical Center STAFF PHYSICIANAdmitter: ED 05:22:00 AM EDT STAFF PHYSICIANReferrer: ZUNASSIGNED Patient discharged. Emergency Attender: ED STAFF H 02/27/2020 03:17:00 AM [facility] PHYSICIANAttender: STAFF ED EDT - 02/27/2020 Medical Center STAFF PHYSICIANAdmitter: ED 05:24:00 AM EDT STAFF PHYSICIANReferrer: SIXTO Patient discharged. Attender: Anastasia [facility] 02/25/2020 10:35:00 NEXTGEN ([facility] AM EDT - 02/25/2020 [facility] 10:35:00 AM EDT Center) Attender: Phyllis [facility] 02/25/2020 10:18:00 NEXTGEN ([facility] AM EDT - 02/25/2020 [facility] 10:18:00 AM EDT Center) Emergency Attender: JOJO ED H 02/14/2020 06:27:00 [facility] STAFF PM EDT - 02/14/2020 [facility] PHYSICIANAttender: 11:12:00 PM EDT STAFF ED STAFF PHYSICIANAdmitter: JOJO ED STAFF PHYSICIAN Patient discharged. Outpatient Attender: Phyllis Beasley 02/13/2020 [facility] 02:09:00 PM EDT Medical AszalosReferrer: Phyllis [facility] OutpatientOFFICE/ Attender: MD Lopez [facility] 02/13/2020 [facility] OUT[facility]IS[facility], [facility] 02:09:00 PM EDT - ([facility] 02/13/2020 [facility] 02:09:00 PM EDT [facility]) Outpatient 02/13/2020 [facility] 01:33:00 PM EDT Medical Center Outpatient 02/13/2020 [facility] 12:00:00 AM EDT [facility] Emergency Attender: ED STAFF H 01/10/2020 [facility] PHYSICIANAttender: 10:01:00 PM EDT - Medical STAFF ED STAFF 01/11/2020 [place] PHYSICIANAdmitter: ED 02:10:00 AM EDT STAFF PHYSICIAN Patient discharged. Outpatient Attender: [id number] [facility] 01/05/2020 11:42:08 AM [facility] ([facility] EDT Collaborative) Patient admitted. Attender: [facility] 12/31/2019 PJ KELLEY ([facility] 04:28:00 PM EDT - [facility] 12/31/2019 [place]) 04:28:00 PM EDT Attender: [facility] 12/27/2019 NEX TGEN ([facility] 03:53:00 PM EDT [facility] 12/27/2019 Center) 03:53:00 PM [facility] NEX TG[facility] ([facility] 03:11:00 PM EDT [facility] 12/10/2019 Center) 03:11:00 PM EDT Attender: Anastasia [facility] 11/29/2019 BESSIE Greenwood ([facility] 11:21:00 AM EDT [facility] 11/29/2019 Center) 11:21:00 AM EDT Outpatient 11/27/2019 [facility] 11:48:00 AM EDT Medical C enter Outpatient 11/27/2019 [facility] 12:00:00 AM EDT Medical C enter Attender: [facility] 11/26/2019 CHERYL ( [facility] John Enamorado [facility] 10:31:00 AM [facility]) 10:31:00 AM EDT Attender: [facility] 11/06/2019 NEX TGEN ([facility] 03:49:00 PM EDT [facility] 11/06/2019 Center) 03:49:00 PM EDT Emergency Attender: 10/29/2019 ONOFRE [facility] gissel DE LA CRUZ, 11:52:00 AM EDT [facility] re SCOTTAttender: Corporatio n EMERGENCY SERVICE, XAdmitter: JULIA DE LA CRUZReferrer: EMERGENCY SERVICE, X EVAL Attender: [facility] 10/24/2019 11:13:00 [facility] AM [facility]T - 10/24/2019 [facility] 11:13:00 AM EDT Center) Attender: [facility] 10/15/2019 02:16:00 [facility] ([facility] PM EDT - 10/15/2019 [facility] 02:16:00 PM EDT Center) Attender: [facility] 10/03/2019 10:45:00 [facility] AM [facility]T - 10/03/2019 [facility] 10:45:00 AM EDT Center) Emergency Attender: ED STAFF H 09/29/2019 12:04:00 [facility] PHYSICIANAttender: AM EDT - 09/29/2019 Medical Center STAFF ED STAFF 02:38:00 AM EDT PHYSICIANAdmitter: ED STAFF PHYSICIAN Patient discharged. Attender: [facility] 09/26/2019 10:09:00 NEXTGEN ([facility] AM EDT - 09/26/2019 [facility] 10:09:00 AM EDT Center) Attender: [facility] 09/25/2019 04:16:00 NEXTGEN ([facility] PM EDT - 09/25/2019 [facility] 04:16:00 PM EDT Center) Attender: [facility] 09/24/2019 10:22:00 NEXTGEN ([facility] AM EDT - 09/24/2019 [facility] 10:22:00 AM EDT Center) Attender: [facility] 09/21/2019 03:33:00 NEXTGEN ([facility] PM EDT - 09/21/2019 [facility] 03:33:00 PM EDT Center) Attender: [facility] 09/18/2019 01:13:00 NEXTGEN ([facility] PM EDT - 09/18/2019 [facility] 01:13:00 PM EDT Center) Emergency Attender: STAFF ED H 2019 01:53:00 [facility] STAFF PHYSICIAN AM EDT - 2019 Medical Center 04:40:00 AM EDT Patient discharged. Attender: [facility] 09/11/2019 11:58:00 NEXTGEN ([facility] AM EDT - 09/11/2019 [facility] 11:58:00 AM EDT Center) Attender: [facility] 08/31/2019 02:58:00 NEXTGEN ([facility] PM EDT - 08/31/2019 [facility] 02:58:00 PM EDT Center) Attender: [facility] 08/29/2019 04:05:00 NEXTGEN ([facility] PM EDT - 08/29/2019 [facility] 04:05:00 PM EDT Center) Emergency Attender: STAFF ED H 08/28/2019 03:54:00 [facility] STAFF PHYSICIAN AM EDT - 08/28/2019 Medical Center 04:29:00 AM EDT Patient discharged. Outpatient Attender: [id number] [facility] 08/24/2019 06:29:11 AM [facility] ([facility] EDT Collaborative) Patient admitted. Attender: Phyllis [facility] 08/17/2019 03:47:00 NEXTGEN ([facility] PM EDT - 08/17/2019 [facility] 03:47:00 PM EDT Center) Emergency Attender: RUCHI SANDOVAL H 08/16/2019 10:20:00 [facility] STAFF PM EDT - 08/16/2019 Medic al Center PHYSICIANAttender: 10:51:00 PM EDT STAFF ED STAFF PHYSICIANAdmitter: RUCHI ED STAFF PHYSICIAN Patient discharged. Attender: Sadie [facility] 07/31/2019 02:07:00 [facility] PM EST - 07/31/2019 [facility] 02:07:00 PM EST Center) Attender: Sadie [facility] 07/30/2019 04:00:00 [facility] PM EST - 07/30/2019 [facility] 04:00:00 PM EST Center) Outpatient Attender: [id number] 07/24/2019 12:14:34 [facility] ([facility] EST [facility]) Patient admitted. Attender: [facility] 07/19/2019 [facility] 12:59:00 PM [facility] 07/19/2019 [place]) 12:59:00 PM EST Attender: [facility] 07/17/2019 [facility] 10:38:00 AM [facility] 07/17/2019 [place]) 10:38:00 AM EST Outpatient Attender: 07/16/2019 [facility] Sadie 12:07:00 PM EST Medical Casandra Gildmitter: Sadie Ornelaserrer: Sadie Hwang OutpatientOFFICE/OU Attender: [facility] 07/16/2019 [place] XTGEN ([facility], EST [facility] 12:07:00 PM [facility] 07/16/2019 [place]) 12:07:00 PM EST Outpatient 07/16/2019 [facility] 11:30:00 AM EST Medical C enter Outpatient 07/16/2019 [facility] 12:00:00 AM EST Medical C enter Outpatient Attender: 06/28/2019 [facility] 10:36:00 AM EST Medical C enter RingstadAdmitter: Sadie Ornelaserrer: Sadie Hwang Attender: [facility] 06/28/2019 NEXT ( [facility] Ismael [facility] 10:36:00 AM [facility] 06/28/2019 Center) 10:36:00 AM [facility] 06/28/2019 [facility] 12:00:00 AM EST Medical C enter Outpatient Attender: [id number] 06/19/2019 [facility] ([place] [facility] 03:35:27 PM [facility]) Patient [facility]. [facility] 05/23/2019 02:48:00 CHERYL ([facility] - 05/23/2019 [facility] 02:48:00 PM [facility]) Outpatient 05/22/2019 08:56:00 [facility] Outpatient 05/22/2019 12:00:00 [facility] Attender: [facility] 05/18/2019 03:38:00 [facility] John Enamorado [facility] - 05/18/2019 [facility] 03:38:00 PM [facility]) Outpatient 05/17/2019 10:31:00 [facility] Outpatient 05/17/2019 12:00:00 [facility] Emergency Attender: STAFF ED 05/02/2019 03:04:00 [facility] STAFF PHYSICIAN AM [facility] - 05/02/2019 [facility] 09:30:00 AM EST Patient discharged. Emergency Attender: JOJO ED STAFF 05/01/2019 07:54:00 PM [facility] PHYSICIANAttender: STAFF ED [facility] - 05/01/2019 [facility] STAFF PHYSICIANAdmitter: JOJO 09:59:00 PM EST ED STAFF PHYSICIAN Patient discharged. Attender: [facility] 04/17/2019 CHERYL ([facility] 06:36:00 PM [facility] - 04/17/2019 Center) 06:36:00 PM [facility] Outpatient 04/16/2019 [facility] 12:57:00 PM EST Medical C enter Outpatient 04/16/2019 [facility] 12:00:00 AM EST Medical C enter Attender: Family 04/12/2019 [facility] ([facility] 04:21:00 PM EST Ihsan Kumar edical Debratalakisha [place] - 04/12/2019 Center) 04:21:00 PM EST Attender: Family 04/09/2019 [facility] ([facility] 11:05:00 AM EST Ihsan Kumar edical [facility] - 04/09/2019 Center) 11:05:00 AM EST Unlisted 04/02/2019 NETSMART (Ment al evaluation and 08:15:00 PM EDT Healt h management [facility]) Inpatient Attender: 03/30/2019 [facility] ROSELYN, 06:12:00 AM EDT [facility] 04/04[facility]2019 DEPRESS Care Cor poration : ROSELYN, 01:50:00 AM EDT [facility] SUBSTANCE INDUCED DEPRESS Patient admitted. Emergency Attender: ROSELYN, 03/30/2019 PSYCH EVAL- [facility] 01:43[facility]00 AM EDT PT [facility]S [facility] alth [facility] Corpora ti PSYCH EVAL- PT WANTS [facility] Outpatient 03/19/2019 [facility] 12:44:00 PM EDT Medical C enter Outpatient Attender: 03/19/2019 [facility] 10:55:00 AM EDT Medical C enter Bahman r: Sadie Bird r: Sadie Hwang OutpatientOFFICE/ Attender: Family 03/19/2019 [facility] 10:55:00 AM EDT Krystle william EST Debralakisha [place] - 03/19/2019 Medical 10:55:00 AM EDT Center) Outpatient 03/19/2019 [facility] 12:00:00 AM EDT Medical C enter Attender: Family 03/16/2019 [facility] ([facility] 03:05:00 PM EDT Ihsan Hwang Center - 03/16/2019 Medical 03:05:00 PM EDT Center) P 02/10/2019 [facility] [place] 11:17:00 PM EDT [facility] Emergency Attender: Patrick 02/10/2019 [place] ZentkoAttender: Brenda 11:11:00 PM EDT - [facility] Lisandra DEL TORO 02/11/2019 09:56:00 AM EDT INTO[facility] Patient discharged. Outpatient Attender: LUCINA STChucky 02/10/2019 10:09:00 [facility] LUCINA PM EDT - 02/10/2019 [facility] 11:10:00 AM EDT Patient discharged. Emergency H 02/10/2019 02:57:00 AM EDT - [address] [place] [address] 03:05:00 AM EDT Patient discharged. Unlisted evaluation 01/26/2019 03:47:00 NETSMART (Mental and management PM EDT - 02/07/2019 [facility] 01:00:00 PM EDT [facility] er) Inpatient Attender: KERI 01/12/2019 07:19:00 [facility] - 01/29/2019 [facility] KERI AMBER 01:46:00 PM EDT Cor poration MDD Patient admitted. Emergency H 06/04/2018 05:18:00 PM [facility] Immunizations Vaccine Date Status Description Data Source(s) New in 2011. IIV4 07/16/2019 completed Influenza, Injectable, NEXTGEN ([facility] 12:00:00 AM [facility]) Source: New Immunization Record Medications Medication Brand Start Product Dose Route Administrative Pharm[facility] Indications Reaction Description Data Name Date Form Instructions Instructions Source(s) Trazodone trazod 02/12/ active take 2 NE XTGEN Hydrochlori one 50 2020 tablet by ( Saint de 50 MG mg 12:00: oral route Grabiel ephs Oral Tablet tablet 00 AM every [...] Tablet tablet 00 AM every day at [facility] dical zolpidem 10 EDT bedtime Cente r) [...] Metered Dose Arik ter) spray,suspe MG/ACT Nasal Capitan nsion UAT [Flonase] Metere d Dose Nasal Capitan Dextrometho Robitu 09/05/ complet Dextro methor NEXTGEN [...] name Policy type Policy ID Covered Covered libertarian's Policy P danish / Coverage libertarian ID relationship to Aguilar Inf ormation type aguilar BEACON [id number] SP [id number] HEALTH STRGY-AFF BEACON [id number] SP [id number] 600 HEALTH STRGY-AFF AFFINITY O [id number] 01 [id number] HEALTH PLAN AFFINITY O [id number] 01 [id number] 600 HEALTH PLAN AFFINITY [id number] SP [id number] 600 UNK UNK UNK UNK UNK UNK UNK UNK UNK UNK UNK UNK BEACON [id number] SP [id number] 600 HEALTH STRGY-AFF BEACON [id number] SP [id number] 600 HEALTH STRGY-AFF AFFINITY [id number] SP [id number] 600 AFFINITY [id number] PT [id number] HEALTH PLAN AFFINITY [id number] SP [id number] 600 AFFINITY [id number] SP [id number] 600 BEACON [id number] SP [id number] 600 HEALTH STRGY-AFF BEACON [id number] SP [id number] 600 HEALTH STRGY-AFF AFFINITY [id number] SP [id number] 600 Medicaid GME Medicaid [id number] 1 [id number] Q Affinity Medicaid [id number] 1 [id number] Health Plan SELF PAY 00 Self 00 MEDICAID INP [id number] Self [id number] Q PSYCH [facility] AHP [id number] Self [id number] [facility] Self Pay Self Pay 1 Medicaid Medicaid [id number] 1 [id number] Problems, Conditions, and Diagnoses Code Display Name Description Problem Type Effective Data Sour ce(s) Dates [id number] Major depressive Major depressive Complaint 04/04/2019 [place] TSMART disorder disorder 02:25:00 PM (Mental Healt EDT [facility]) [id number] Depression Depression Complaint 04/04/2019 NETSMART (finding) (finding) 04:00:00 AM (Mental Healt EDT [facility]) F10.129 Alcohol abuse ALCOHOL ABUSE Diagnosis 02/29/2020 [facility] with WITH 11:10:00 PM Medical Cente r intoxication, INTOXICATION, EDT unspecified UNSPECIFIED F10.10 Alcohol abuse, ALCOHOL ABUSE, Diagnosis 02/27/2020 [facility] uncomplicated UNCOMPLICATED 03:17:00 AM Medical Center EDT F17.210 Nicotine NICOTINE Diagnosis 02/14/2020 [facility] dependence, DEPENDENCE, 06:27:[address] cigarettes, CIGARETTES, EDT uncomplicated UNCOMPLICATED F41.9 Anxiety disorder, ANXIETY DISORDER, Diagnosis 02/13/2020 [facility] unspecified UNSPECIFIED 02:09:[address] EDT Z88.1 Allergy status to ALLERGY STATUS TO Diagnosis 10/29/2019 [place] other antibiotic OTHER ANTIBIOTIC 11:52:00 AM [facility] agents status AGENTS STATUS EDT Care [employer] Y92.[address] IN Diagnosis 10/29/2019 [place] in unspecified UNSP NON-INSTITUT 11:52:00 AM Co [facility] non-institutional (PRIVATE) EDT Care (private) RESIDENCE [facility] residence as the PLACE place of occurrence of the external cause Y99.8 Other external OTHER EXTERNAL Diagnosis 10/29/2019 [facility] denise cause status CAUSE STATUS 11:52:00 AM [facility] EDT [facility] [employer] X58.XXXA Exposure to other EXPOSURE TO OTHER Diagnosis 10/29/2019 [place] specified SPECIFIED 11:52:00 AM [facility] Health factors, initial FACTORS, INITIAL EDT Ca re encounter ENCOUNTER [employer] S50.812A Abrasion of left ABRASION OF LEFT Diagnosis 10/29/2019 [facility] forearm, initial FOREARM, INITIAL 11:52:00 AM [facility] encounter ENCOUNTER EDT [facility] [employer] F31.9 Bipolar disorder, BIPOLAR DISORDER, Diagnosis 10/29/2019 [place] unspecified UNSPECIFIED 11:52:00 AM [facility] EDT Care Corporation F43.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 10/29/2019 [facility] denise stress disorder, STRESS DISORDER, 11:52:00 AM [facility] unspecified UNSPECIFIED EDT Care Corporation F12.10 Cannabis abuse, CANNABIS ABUSE, Diagnosis 10/29/2019 [place] uncomplicated UNCOMPLICATED 11:52:00 AM [facility] EDT [facility] F10.20 Alcohol ALCOHOL Diagnosis 10/29/2019 [place] dependence, DEPENDENCE, 11:52:00 AM [facility] uncomplicated UNCOMPLICATED EDT [facility] [employer] F41.1 Generalized GENERALIZED Diagnosis 10/29/2019 [place] anxiety disorder ANXIETY DISORDER 11:52:00 AM [facility] EDT [facility] F10.24 Alcohol ALCOHOL Diagnosis 10/29/2019 [place] dependence with DEPENDENCE WITH 11:52:00 AM [employer] alcohol-induced ALCOHOL-INDUCED EDT Care mood disorder MOOD DISORDER Corporat ion F32.9 Major depressive MAJOR DEPRESSIVE Diagnosis [facility], single DISORDER, SINGLE 11:52:00 AM [facility] episode, EPISODE, EDT Care unspecified UNSPECIFIED Corporation Z53.21 Procedure and PROC/TRTMT NOT Diagnosis 08/28/2019 [facility] treatment not CRD OUT D/T PT LV 03:54:00 AM [facility] carried out due BEF SEEN BY [facility] EDT to patient CARE PROV leaving prior [...] history of FAMILY HISTORY OF Diagnosis 04/04/2019 [place] malignant MALIGNANT 01:50:00 AM [facility] neoplasm of NEOPLASM OF EDT Care breast [employer] Y90.6 Blood alcohol BLOOD ALCOHOL Diagnosis 04/04/2019 [facility] level of 120-199 LEVEL OF 120-199 01:50:00 AM [facility] [employer] mg/100 ml MG/100 ML EDT [facility] Z91.030 Bee allergy BEE ALLERGY Diagnosis 04/04/2019 [place] status STATUS 01:50:00 AM [facility] EDT [facility] [employer] F17.210 Nicotine NICOTINE Diagnosis 04/04/2019 [place] dependence, DEPENDENCE, 01:50:00 AM [facility] cigarettes, CIGARETTES, EDT Care uncomplicated UNCOMPLICATED Corporat ion N40.0 Benign prostatic BENIGN PROSTATIC Diagnosis 04/04/2019 [facility] hyperplasia HYPERPLASIA 01:50:00 AM [facility] without lower WITHOUT LOWER EDT Care urinary tract URINRY TRACT SYMP Philomena oration symptoms L40.8 Other psoriasis OTHER PSORIASIS Diagnosis [facility] 01:[facility] EDT [facility] K74.60 Unspecified UNSPECIFIED Diagnosis 04/04/2019 [place] cirrhosis of CIRRHOSIS OF 01:50:00 AM [facility] liver LIVER EDT [facility] D61.818 Other OTHER Diagnosis 04/04/2019 [place] pancytopenia PANCYTOPENIA 01:50:00 AM [facility] EDT [facility] Z71.41 Alcohol abuse ALCOHOL ABUSE Diagnosis 03/19/2019 [facility] and COUNSELING AND 10:55:00 AM [facility] surveillance of SURVEILLANCE OF EDT alcoholic ALCOHOLIC Z71.89 Other specified OTHER SPECIFIED Diagnosis 03/19/2019 [facility] counseling COUNSELING 10:55:00 AM [facility]T Z68.31 Body mass index BODY MASS INDEX Diagnosis 03/19/2019 [facility] (BMI) 31.0-31.9, (BMI) 31.0-31.9, 10:55:00 AM [facility] adult ADULT EDT Y90.8 Blood alcohol Y90.8 [...] Data Source(s) OFFICE/OUTPATIENT VISIT, 02/13/2020 NEX TGEN ([facility] 12:00:00 AM EDT [facility] 02/13/2020 [place]) 12:00:00 AM EDT OFFICE/OUTPATIENT VISIT, 07/16/2019 NEX TGEN ([facility] EST 12:00:00 AM EST [facility] - 07/16/2019 [place]) 12:00:00 AM EST Influenza, Injectable, 3 07/16/2019 NEX TGEN ([facility] Yrs Or Older 12:00:00 AM [facility] - 07/16/2019 [place]) 12:00:00 AM EST Immunization 07/16/2019 NEXTGEN ([facility] Administration 12:00:00 AM EST [facility] dical - 07/16/2019 [place]) 12:00:00 AM EST ROUTINE VENIPUNCTURE [facility]/2019 [facility] 12:00:00 AM [facility] 07/16/2019 [place]) 12:00:00 AM EST OFFICE/OUTPATIENT VISIT, 03/19/2019 NEX TGEN ([facility] 12:00:00 AM EDT [facility] - 03/19/2019 [place]) 12:00:00 AM EDT Results ID Date Data Source Liver 02/14/2020 07:19:00 PM EDT [facility] Profile.[id number] Name Value Range Interpretation Description Data Sup porting Code Source(s) Document(s ) Aspartate 17-59 Above high <content [facility] aminotransferase normal styleCode="Bold"> Holger hs [Enzymatic Aspartate Medical activity/volume] Aminotransferase Center in Serum or Plasma (AST) </content>65 IU/L H<content styleCode="Italic s"> (17-59 IU/L)</content> UNK 0.0-0.3 <content [facility] styleCode="Bold"> Ihsan Bilirubin, Direct Medical </content>< 0.2 Center MG/DL<content styleCode="Italic s"> (0.0-0.3 MG/DL)</content> Alanine 7-50 <content [facility] aminotransferase styleCode="Bold"> Holger hs [Enzymatic Alanine Medical [...] s"> (3.5-5.0 G/DL)</content> ID Date Data Source HematologyRou.[id number] 02/14/2020 07:19:00 PM EDT [facility] 0400 Name Value Range Interpretation [...] (0.0 KCUMM)</content > ID Date Data Source GFR(Creatinine).[id number] 02/14/2020 07:19:00 PM EDT [facility] 0-0400 Name Value Range Interpretation Code Description Data Angeles rce(s) Supporting Document(s ) UNK > 60 <content [facility] styleCode="Bold"> Medical Cent er EGFR </content>126 GFR<content styleCode="Italic s"> (> 60 GFR)</content> ID Date Data Source Coagulation 02/14/2020 07:19:00 PM [facility] ical Center Rout.[id number] EDT Name Value Range Interpretation Description Data [...] cs"> (0.80-1.20 #)</content> ID Date Data Source CHMROUTINECCDA.[id number] 02/14/2020 07:19:00 PM EDT [facility] -0400 Name Value Range Interpretation Description Data Sup porting Code Source(s) Document(s ) Lactate 0.7-2.0 Above upper panic <content [place] s [Mass/volum limits styleCode="Bold Medical e] in Serum ">Lactic Acid Center or Plasma </content><cont ent styleCode="Bold ">3.1 MMOLL HH</content><co ntent styleCode="Ital ics"> (0.7-2.0 MMOLL)</content > UNK 30-110 <content [facility] styleCode="Bold Medical ">Amylase Center </content>84 IU/L<content styleCode="Ital ics"> (30-110 IU/L)</content> Lipase 23-300 <content [facility] [Enzymatic styleCode="Bold Medical activity/vo ">Lipase Center lume] in </content>168 Serum or IU/L<content Plasma styleCode="Ital ics"> (23-300 IU/L)</content> ID Date Data Source [facility].[id number] 02/14/2020 07:19:00 PM EDT [facility] Name Value Range Interpretation Description Data Sup [...] s"> (38-126 IU/L)</content> ID Date Data Source [id number] 02/01/2020 02:00:00 PM EDT [facility] Name Value Range Interpretation Description Data Sup porting Code Source(s) Document(s ) SARS [facility] coronavirus 2 RNA This lab was ordered by [facility] and reported by [facility]. ID Date Data Source [id number] 11/06/2019 10:07:00 AM EDT [facility] Name Value Range Interpretation Code Description Data Angeles rce(s) Supporting Document(s ) SARS-CoV-2 [facility] RNA [facility] Ql ANEL+probe This lab was ordered by [facility] a nd reported by [facility] ID Date Data Source [id number] 10/30/2019 03:57:00 AM EDT [facility] Name Value Range Interpretation Code Description Data Angeles rce(s) Supporting Document(s ) SARS-CoV-2 [facility] RNA [facility] Ql ANEL+probe This lab was ordered by [facility] a nd reported by [facility]. ID Date Data Source Liver 07/16/2019 01:15:00 PM EST [facility] Fibrosis.[id number] Name Value Range Interpretation Description Data Sup porting Code Source(s) Document(s ) Gamma glutamyl 15-73 <content [facility] transferase styleCode="Clyde Ihsan [Enzymatic d">GGT Medical activity/volume </content>57 Center ] in Serum or IU/L<content Plasma styleCode="Daria lics"> (15-73 IU/L)</content > ID Date Data Source Liver 07/16/2019 01:15:00 PM EST [facility] Profile.[id number] Name Value Range Interpretation Description Data Sup [...] s"> (38-126 IU/L)</content> ID Date Data Source LIPID.[id number] 07/16/2019 01:15:00 PM EST [facility] Name Value Range Interpretation Description Data Sup porting Code Source(s) Document(s ) Cholesterol -<200 <content [facility] [Mass/volume] in styleCode="Clyde Ihsan Serum or Plasma d">Cholesterol Medical </content>145 Center MG/DL<content styleCode="Daria lics"> (-<200 MG/DL)</conten t> Triglyceride < 150 <content [facility] [Mass/volume] in styleCode="Clyde Ihsan Serum or Plasma d">Triglycerid [facility] </content>120 MG/DL<content styleCode="Daria lics"> (< 150 MG/DL)</conten t> UNK < 100 <content [facility] styleCode="Clyde Ihsan d">LDL-Cholest [facility] </content>81 MG/DL<content styleCode="Daria lics"> (< 100 MG/DL)</conten t> UNK > 60 Below low normal <content [facility] styleCode="Clyde Ihsan d">HDL- Medical Cholesterol Center </content>40 MG/DL L<content styleCode="Daria lics"> (> 60 MG/DL)</conten t> ID Date Data Source HematologyRou.[id number] 07/16/2019 01:15:00 PM EST [facility] 0500 Name Value Range Interpretation [...] (0.0 KCUMM)</content > ID Date Data Source GFR(Creatinine).[id number] 07/16/2019 01:15:00 PM [facility] 0-0500 Name Value Range Interpretation Code Description Data Angeles rce(s) Supporting Document(s ) UNK > 60 <content [facility] styleCode="Bold"> Medical Cent er EGFR </content>152 GFR<content styleCode="Italic s"> (> 60 GFR)</content> ID Date Data Source CHMROUTINECCDA.[id number] 07/16/2019 01:15:00 PM [facility] -0500 Name Value Range Interpretation Description Data [...] (2.3-3.5 G/DL)</content > ID Date Data Source [id number] 07/16/2019 01:15:00 PM EST [facility] Name Value Range Interpretation Description Data Sup porting Code Source(s) Document(s ) Potassium 3.5-5.3 <content [facility] [Moles/volume] in styleCode="Bold"> [facility] Serum or Plasma Potassium Medical </content>4.0 Center MEQ/L<content styleCode="Italic s"> (3.5-5.3 MEQ/L)</content> Carbon dioxide, 22-30 <content [facility] total styleCode="Bold"> Ihsan [Moles/volume] in Carbon Dioxide Medical Serum or Plasma </content>22 Center MEQ/L<content styleCode="Italic s"> (22-30 MEQ/L)</content> Sodium 137-145 <content [facility] [Moles/volume] in styleCode="Bold"> [facility] Serum or Plasma Sodium Medical </content>137 Center [...] Daily Smoker completed Daily Smoker [facility] 11:57:00 PM Medical Cente r EDT Smoking 02/29/2020 Daily Smoker completed Daily Smoker [facility] 11:15:00 PM Medical Cente r EDT Smoking 02/27/2020 Daily Smoker completed Daily Smoker [facility] 05:06:00 AM Medical Cente r EDT Smoking 02/27/2020 Daily Smoker completed Daily Smoker [facility] 03:26:00 AM Medical Cente r EDT Caffeine Use 02/25/2020 completed NEXTGEN ([facility] nt Details 12:00:[address] [facility] EDT [place]) Smoking 02/25/2020 Unknown if ever completed Unknown if ever NEXT GEN ([facility] 12:00:[address] [facility] EDT [place]) Smoking 02/14/2020 Daily Smoker completed Daily Smoker [facility] 06:49:00 PM Medical Cente r EDT Smoking 02/14/2020 Daily Smoker completed Daily Smoker [facility] 06:30:00 PM Medical Cente r EDT Smoking 02/14/2020 Daily Smoker completed Daily Smoker [facility] 06:29:00 PM Medical Cente r EDT Alcohol Use 02/13/2020 completed beer 2 beers NEXTGEN (Sa int Details 12:00:[address] [facility] EDT [place]) 02/13/2020 Moderate completed Moderate NEXTGEN ([facility] 12:00:00 AM cigarette cigarette smoker [facility] ED smoker (10-19 (10-19 cigs/day) Cente r) cigs/day) Smoking 01/10/2020 Daily Smoker completed Daily Smoker [facility] 10:17:00 PM Medical Cente r EDT Caffeine Use 12/31/2019 completed NEXTGEN ([facility] nt Details 12:00:[address] [facility] EDT [place]) Smoking 09/29/2019 Daily Smoker completed Daily Smoker [...] Source(s) Respiratory rate 18 /min 18 /min [facility] Oxygen saturation 95 % 95 % [facility] J osephs in [facility] by Pulse oximetry Heart rate 82 /min 82 /min [facility] Diastolic blood 82 mm[Hg] 82 mm[Hg] [facility] Systolic blood 166 mm[Hg] 166 mm[Hg] [facility] Respiratory rate 18 /min 18 /min [facility] Oxygen saturation 99 % 99 % [facility] J osephs in [facility] by Pulse oximetry Heart rate 86 /min 86 /min [facility] Diastolic blood 90 mm[Hg] 90 mm[Hg] [facility] Systolic blood 168 mm[Hg] 168 mm[Hg] [facility] Body temperature 36.991900 36.714609 [facility] Respiratory rate 18 /min 18 /min [facility] Oxygen saturation 96 % 96 % [facility] J osephs in [facility] by Pulse oximetry Heart rate 92 /min 92 /min [facility] Diastolic blood 79 mm[Hg] 79 mm[Hg] [facility] Systolic blood 142 mm[Hg] 142 mm[Hg] [facility] Body temperature 36.151678 36.834150 [facility] Respiratory rate 18 /min 18 /min [facility] Oxygen saturation 95 % 95 % [facility] J [facility]sephs in Arterial blood [facility] Center by Pulse oximetry Heart rate 86 /min 86 /min [facility] Diastolic blood 77 mm[Hg] 77 mm[Hg] [facility] [place] Systolic blood 120 mm[Hg] 120 mm[Hg] [facility] Medical [place] Body temperature 36.554866 36.872207 [facility] Respiratory rate 18 /min 18 /min [facility] Oxygen saturation 98 % 98 % [facility] J osephs in Arterial blood Medical Center by Pulse oximetry Heart rate 92 /min 92 /min [facility] Diastolic blood 80 mm[Hg] 80 mm[Hg] [facility] Systolic blood 126 mm[Hg] 126 mm[Hg] [facility] Respiratory rate 18 /min 18 /min [facility] Oxygen saturation 96 % 96 % [facility] J osephs in [facility] blood [facility] by Pulse oximetry Heart rate 90 /min 90 /min [facility] Diastolic blood 67 mm[Hg] 67 mm[Hg] [facility] Systolic blood 117 mm[Hg] 117 mm[Hg] [facility] Respiratory rate 20 /min 20 /min [facility] Oxygen saturation 97 % 97 % [facility] J [facility]sephs in [facility] blood [facility] by Pulse oximetry Heart rate 108 /min 108 /min [facility] Diastolic blood 79 mm[Hg] 79 mm[Hg] [facility] [place] Systolic blood 128 mm[Hg] 128 mm[Hg] [facility] Heart rate 110 /min 110 /min [facility] Respiratory rate 22 /min 22 /min [facility] Heart rate 114 /min 114 /min [facility] Diastolic blood 79 mm[Hg] 79 mm[Hg] [facility] pressure Medical Center Systolic blood 134 mm[Hg] 134 mm[Hg] [facility] [place] Body weight 113.659865 113.141994 kg [facility] Measured kg Medical Center Body temperature 36.948809 36.785005 [facility] Respiratory rate 20 /min 20 /min [facility] Oxygen saturation 96 % 96 % [facility] J [facility]sephs in Arterial blood [facility] by Pulse oximetry Diastolic blood 89 mm[Hg] 89 mm[Hg] [facility] Systolic blood 169 mm[Hg] 169 mm[Hg] [facility] Oxygen saturation 98 % 98 % [facility] in Arterial blood [facility] by Pulse oximetry Center) Body mass index 33.36 kg/m2 Overweight 33.36 kg/m2 NEXTGEN ([facility] (BMI) [Ratio] [facility]) Respiratory rate 18 /min 18 /min [facility] ([facility]) Body temperature 36.33 Mariana 36.33 Mariana [facility]) Heart rate 93 /min 93 /min [facility] ([facility]) Diastolic blood 81 mm[Hg] 81 mm[Hg] [facility] ( [facility] pressure [facility]) Systolic blood 144 mm[Hg] 144 mm[Hg] [facility] (S aint pressure [facility]) Body weight 95.164 kg 95.164 kg [facility] ([facility]) Body height 168.91 cm 168.91 cm [facility] ([facility]) Body temperature 36.984324 36.128133 [facility] Respiratory rate 17 /min 17 /min [facility] Oxygen saturation 99 % 99 % [facility] J [facility]sephs in Arterial blood [facility] Center by Pulse oximetry Heart rate 79 /min 79 /min [facility] Diastolic blood 77 mm[Hg] 77 mm[Hg] [facility] Systolic blood 126 mm[Hg] 126 mm[Hg] [facility] Body weight 90.053536 kg 90.692505 kg [facility] Body temperature 36.720382 36.132934 [facility] Respiratory rate 18 /min 18 /min [facility] Oxygen saturation 96 % 96 % [facility] J [facility]sephs in Arterial blood [facility] by Pulse oximetry Heart rate 83 /min 83 /min [facility] Body height 165.473272 165.049880 cm [facility] Diastolic blood 82 mm[Hg] 82 mm[Hg] [facility] Systolic blood 143 mm[Hg] 143 mm[Hg] [facility] Body mass index 33.2 kg/m2 33.2 kg/m2 [facility] (BMI) [Ratio] Medical [facility] ter Body temperature 36.565396 36.708719 [facility] Respiratory rate 17 /min 17 /min [facility] Oxygen saturation 98 % 98 % [facility] J [facility]sephs in Arterial blood [facility] by Pulse oximetry Heart rate 102 /min 102 /min [facility] Diastolic blood 62 mm[Hg] 62 mm[Hg] [facility] Systolic blood 133 mm[Hg] 133 mm[Hg] [facility] Oxygen saturation 98 % 98 % NEXTGEN ([facility] in Arterial [facility] by Pulse oximetry Center) Body mass index 33.39 kg/m2 Overweight 33.39 kg/m2 NEXTGEN ([facility] (BMI) [Ratio] [facility]) Respiratory rate 19 /min 19 /min [facility]) Body temperature 37.00 Mariana 37.00 Mariana [facility] ([facility]) Heart rate 89 /min 89 /min [facility]) Diastolic blood 71 mm[Hg] 71 mm[Hg] [facility] ( [facility]) Systolic blood 142 mm[Hg] 142 mm[Hg] [facility] (S [facility]) Body weight 95.254 kg 95.254 kg [facility] ([facility]) Body height 168.91 cm 168.91 cm [facility] ([facility]) Body temperature 36.705782 36.199197 [facility] Respiratory rate 17 /min 17 /min [facility] Oxygen saturation 99 % 99 % [facility] J osephs in [facility] by Pulse oximetry Heart rate 67 /min 67 /min [facility] Diastolic blood 70 mm[Hg] 70 mm[Hg] [facility] Systolic blood 124 mm[Hg] 124 mm[Hg] [facility] Body temperature 37.749558 37.642212 [facility] Respiratory rate 16 /min 16 /min [facility] Oxygen saturation 98 % 98 % [facility] J [facility]sephs in [facility] by Pulse oximetry Heart rate 76 /min 76 /min [facility] Diastolic blood 66 mm[Hg] 66 mm[Hg] [facility] Systolic blood 122 mm[Hg] 122 mm[Hg] [facility] Oxygen saturation 95 % 95 % NEXTGEN ([facility] in Arterial blood [facility] by Pulse oximetry Center) Body mass index 31.07 kg/m2 Overweight 31.07 kg/m2 NEXTGEN ([facility] (BMI) [Ratio] [facility]) Respiratory rate 19 /min 19 /min NEXTGEN ([facility]) Body temperature 37.28 Mariana 37.28 Mariana [facility]) Heart rate 90 /min 90 /min [facility] ([facility]) Diastolic blood 59 mm[Hg] 59 mm[Hg] [facility] ( [facility] pressure [facility]) Systolic blood 114 mm[Hg] 114 mm[Hg] [facility] ( [facility] Body weight 88.632 kg 88.632 kg [facility]) Body height 168.91 cm 168.91 cm [facility] ([facility]) Patient Treatment Plan of Care Planned Activity Planned Date Details Description Data Source (s) Trazodone Hydrochloride 50 02/13/2020 N EXTGEN ([facility] MG Oral Tablet 12:00:00 AM [facility]) zolpidem 10 mg tablet 10/24/2019 NEXTGE N ([facility] 12:00:00 AM [facility]) Zolpidem tartrate 10 MG 10/24/2019 NEXT GEN ([facility] Oral Tablet 12:00:00 AM [facility]) multivitamin with minerals 09/26/2019 N EXTGEN ([facility] tablet 12:00:00 AM [facility]) Thiamine 100 MG Oral Tablet 09/26/2019 NEXTGEN ([facility] 12:00:00 AM [facility]) Zolpidem tartrate 10 MG 09/26/2019 NEXT GEN ([facility] Oral Tablet 12:00:00 AM [facility]) Trazodone Hydrochloride 50 09/11/2019 N EXTGEN ([facility] MG Oral Tablet 12:00:00 AM [facility]) Triamcinolone Acetonide 1 07/31/2019 NE XTGEN ([facility] MG/ML Topical Cream 12:00:00 AM [facility]) Ibuprofen 600 MG Oral 04/09/2019 NEXTGE N ([facility] Tablet 12:00:00 AM [facility]) Ibuprofen 600 MG Oral 03/19/2019 NEXTGE N ([facility] Tablet 12:00:00 AM [facility]) Dextromethorphan 09/05/2017 NEXTGEN (Sa int Hydrobromide 15 MG Oral 12:00:00 [facility] [Robitussin Cough Ce nter) Gels] cetirizine hydrochloride 10 09/05/2017 NEXTGEN ([facility] MG Oral Capsule 12:00:[address] [facility]) Docusate Sodium 50 MG Oral 09/05/2017 N EXTGEN ([facility] Capsule 12:00:00 AM [facility]) Mirtazapine 15 MG Oral 09/05/2017 NEXTG EN ([facility] Tablet 12:00:00 AM [facility]) Betamethasone 0.5 MG/ML 09/05/2017 NEXT GEN ([facility] Topical Cream 12:00:00 AM [facility] ical [place]) Flonase Allergy Relief 50 09/05/2017 NE XTGEN ([facility] mcg[facility]actuation [facility] Thiamine 100 MG Oral Tablet 09/05/2017 NEXTGEN (Saint 12:00:00 AM [facility]) Folic Acid 1 MG Oral Tablet 09/05/2017 NEXTGEN (Saint 12:00:00 AM [facility]) Multi-Day tablet 11/16/2016 NEXTGEN (Sa int 12:00:00 AM [facility])
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
[2020-04-01] MEDS: PRENATAL VITAMINS W/ FOLIC ACID TABLET (FP) PO SCH (13:20)
[2020-04-01] MEDS: NICOTINE 7 MG/24 HOURS TOPICAL PATCH TD SCH (13:20)
[2020-04-01] MEDS: LORazepam 2 MG TABLET PO SCH ×3 (13:20→22:35)
[2020-04-01] MEDS: hydrOXYzine PAMOATE 25 MG CAPSULE (FP) PO SCH ×4 (13:20→22:35)
[2020-04-01 16:10] LABS: POTASSIUM 3.6 mmol/L (3.5-5.1)
[2020-04-01 16:11] LABS: CALCIUM 8.8 mg/dL (8.5-10.1)
[2020-04-01 16:12] LABS: ALBUMIN 3.6 g/dl (3.4-5.0); BLOOD UREA NITROGEN 3.9 mg/dL (7-18)
[2020-04-01 16:15] LABS: CREATININE 0.7 mg/dL (0.55-1.3)
[2020-04-01 16:17] LABS: TOT PROT 8.9 g/dl (6.4-8.2)
[2020-04-01 16:23] LABS: HEMATOCRIT 42.1 % (35.4-49); HEMOGLOBIN 14.1 GM/dL (11.7-16.9); MCH 36.2 pg (25.7-33.7); MCHC 33.5 g/dl (32.0-35.9); MEAN CELL VOLUME 107.9 fl (80-96); MEAN PLT VOLUME 7.6 fl (7.5-11.1); PLATELET COUNT 55 K/MM3 (134-434); RDW 14.7 % (11.9-15.9)
[2020-04-01] MEDS: MELATONIN 5 MG TABLETS PO SCH (22:35)
[2020-04-01] MEDS: THIAMINE HCL 100 MG TABLET (FP) PO SCH (22:35)
[2020-04-02] MEDS: hydrOXYzine PAMOATE 25 MG CAPSULE (FP) PO SCH ×5 (05:30→22:07)
[2020-04-02] MEDS: LORazepam 2 MG TABLET PO SCH ×4 (05:30→22:07)
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
[2020-04-02] MEDS: PRENATAL VITAMINS W/ FOLIC ACID TABLET (FP) PO SCH (10:14)
[2020-04-02] MEDS: NICOTINE 7 MG/24 HOURS TOPICAL PATCH TD SCH (10:14)
--- NOTE | 2020-04-02 10:53 | PN ---
S CIWA - CIWA Score Nausea/Vomitin Muscle Tremors: 3 Anxiety: 2 Agitation: 2 Paroxysmal Sweats: 1-Minimal Palms Moist Orientation: 0-Oriented Tacttile Disturbances: 0-None Auditory Disturbances: 0-None Visual Disturbances: 0-None Headache: 2-Mild CIWA-Ar Total Score: 12 S Progress Note (SOAP) Subjective: alert,irritable,anxious,interrupted sleep,tremor,aching pain,no bleeding,no ecchymosis Objective: 04/02/20 10:50 Vital Signs Temperature 96.9 F L 04/02/20 08:59 Pulse Rate 85 04/02/20 08:59 Respiratory Rate 18 04/02/20 08:59 Blood Pressure 127/68 04/02/20 08:59 O2 Sat by Pulse Oximetry (%) 99 04/02/20 08:59 Laboratory Last Values WBC 5.0 K/mm3 (4.0-10.0) 04/01/20 09:05 RBC 3.90 M/mm3 (4.00-5.60) L 04/01/20 09:05 Hgb 14.1 GM/dL (11.7-16.9) 04/01/20 09:05 Hct 42.1 % (35.4-49) 04/01/20 09:05 MCV 107.9 fl (80-96) H 04/01/20 09:05 MCH 36.2 pg (25.7-33.7) H 04/01/20 09:05 MCHC 33.5 g/dl (32.0-35.9) 04/01/20 09:05 RDW 14.7 % (11.9-15.9) 04/01/20 09:05 Plt Count 55 K/MM3 (134-434) L 04/01/20 09:05 MPV 7.6 fl (7.5-11.1) 04/01/20 09:05 Sodium 136 mmol/L (136-145) 04/01/20 09:05 Potassium 3.6 mmol/L (3.5-5.1) 04/01/20 09:05 Chloride 104 mmol/L (98-107) 04/01/20 09:05 Carbon Dioxide 23 mmol/L (21-32) 04/01/20 09:05 Anion Gap 8 MMOL/L (8-16) 04/01/20 09:05 BUN 3.9 mg/dL (7-18) L 04/01/20 09:05 Creatinine 0.7 mg/dL (0.55-1.3) 04/01/20 09:05 Est GFR (CKD-EPI)AfAm 126.64 04/01/20 09:05 Est GFR (CKD-EPI)NonAf 109.27 04/01/20 09:05 Random Glucose 86 mg/dL (74-106) 04/01/20 09:05 Calcium 8.8 mg/dL (8.5-10.1) 04/01/20 09:05 Total Bilirubin 2.0 mg/dL (0.2-1) H 04/01/20 09:05 AST 81 U/L (15-37) H 04/01/20 09:05 ALT 59 U/L (13-61) 04/01/20 09:05 Alkaline Phosphatase 108 U/L (45-117) 04/01/20 09:05 Total Protein 8.9 g/dl (6.4-8.2) H 04/01/20 09:05 Albumin 3.6 g/dl (3.4-5.0) 04/01/20 09:05 Syphilis Serology Non-reactive (NONREACTIVE) 04/01/20 09:05 Assessment: 04/02/20 10:51 withdrawal symptom Plan: continue detox ativan regimen,platelet count 55,000,probably due to alcoholism,no beedding,no ecchymosis,close monitoring
[2020-04-02] MEDS: MELATONIN 5 MG TABLETS PO SCH (22:07)
[2020-04-02] MEDS: THIAMINE HCL 100 MG TABLET (FP) PO SCH (22:07)
[2020-04-03] MEDS ORDERED: LORazepam 1 MG TABLET PO SCH (05:00)
[2020-04-03] MEDS: hydrOXYzine PAMOATE 25 MG CAPSULE (FP) PO SCH (05:16)
[2020-04-03] MEDS ORDERED: hydrOXYzine PAMOATE 25 MG CAPSULE (FP) PO PRN (06:48)
--- NOTE | 2020-04-03 08:28 | PN ---
[facility] CIWA - CIWA Score Nausea/Vomitin-No Nausea/No Vomiting Muscle Tremors: None Anxiety: 1-Mildly Anxious Agitation: 0-Normal Activity Paroxysmal Sweats: No Perspiration Orientation: 0-Oriented Tacttile Disturbances: 0-None Auditory Disturbances: 0-None Visual Disturbances: 0-None Headache: 0-None Present CIWA-Ar Total Score: 1 S Progress Note (SOAP) Subjective: alert,no complaint Objective: 04/03/20 13:23 Vital Signs Temperature 97.6 F 04/03/20 08:48 Pulse Rate 102 H 04/03/20 08:48 Respiratory Rate 17 04/03/20 08:48 Blood Pressure 136/80 04/03/20 08:48 O2 Sat by Pulse Oximetry (%) 99 04/03/20 08:48 Assessment: 04/03/20 13:24 no withdrawal symptom Plan: stable for discharge today,follow up with PCP at [facility] for follow up on Thrombocytopenia and new focus ,encourage for abstinence from alcohol
--- NOTE | 2020-04-03 09:17 | DS ---
[facility] Detox Discharge Summary Admission Date: 04/01/20 Discharge Date: 04/03/20 - History Present History: Alcohol Dependence, Cannabis Dependence Additional Comments: alert,oriented x 3 ambulation on the unit lung clear on auscultation bilaterally abdomen soft,no distension,no pain no edema of leg no withdrawal symptom stable for discharge total time spending on discharge 35 minutes declined rehab follow up with PCP at [facility] for thrombocytopenia and encourage abstinence from alcohol follow up with [facility] left the unit in stable condition Pertinent Past History: thrombocytopenia nicotine dependence ptsd - Physical Exam Results Vital Signs: Vital Signs Temperature 97.3 F L 04/03/20 05:05 Pulse Rate 70 04/03/20 05:05 Respiratory Rate 16 04/03/20 05:05 Blood Pressure 146/83 04/03/20 05:05 O2 Sat by Pulse Oximetry (%) 96 04/03/20 05:05 Pertinent Admission Physical Exam Findings: withdrawal signs and symptom Laboratory Last Values WBC 5.0 K/mm3 (4.0-10.0) 04/01/20 09:05 RBC 3.90 M/mm3 (4.00-5.60) L 04/01/20 09:05 Hgb 14.1 GM/dL (11.7-16.9) 04/01/20 09:05 Hct 42.1 % (35.4-49) 04/01/20 09:05 MCV 107.9 fl (80-96) H 04/01/20 09:05 MCH 36.2 pg (25.7-33.7) H 04/01/20 09:05 MCHC 33.5 g/dl (32.0-35.9) 04/01/20 09:05 RDW 14.7 % (11.9-15.9) 04/01/20 09:05 Plt Count 55 K/MM3 (134-434) L 04/01/20 09:05 MPV 7.6 fl (7.5-11.1) 04/01/20 09:05 Sodium 136 mmol/L (136-145) 04/01/20 09:05 Potassium 3.6 mmol/L (3.5-5.1) 04/01/20 09:05 Chloride 104 mmol/L (98-107) 04/01/20 09:05 Carbon Dioxide 23 mmol/L (21-32) 04/01/20 09:05 Anion Gap 8 MMOL/L (8-16) 04/01/20 09:05 BUN 3.9 mg/dL (7-18) L 04/01/20 09:05 Creatinine 0.7 mg/dL (0.55-1.3) 04/01/20 09:05 Est GFR (CKD-EPI)AfAm 126.64 04/01/20 09:05 Est GFR (CKD-EPI)NonAf 109.27 04/01/20 09:05 Random Glucose 86 mg/dL (74-106) 04/01/20 09:05 Calcium 8.8 mg/dL (8.5-10.1) 04/01/20 09:05 Total Bilirubin 2.0 mg/dL (0.2-1) H 04/01/20 09:05 AST 81 U/L (15-37) H 04/01/20 09:05 ALT 59 U/L (13-61) 04/01/20 09:05 Alkaline Phosphatase 108 U/L (45-117) 04/01/20 09:05 Total Protein 8.9 g/dl (6.4-8.2) H 04/01/20 09:05 Albumin 3.6 g/dl (3.4-5.0) 04/01/20 09:05 Syphilis Serology Non-reactive (NONREACTIVE) 04/01/20 09:05 COVID-19 (ANEL) Not detected (Not Detected) 04/01/20 09:05 Vital Signs Temperature 97.6 F 04/03/20 08:48 Pulse Rate 102 H 04/03/20 08:48 Respiratory Rate 17 04/03/20 08:48 Blood Pressure 136/80 04/03/20 08:48 O2 Sat by Pulse Oximetry (%) 99 04/03/20 08:48 - Treatment Hospital Course: Detox Protocol Followed, Detoxed Safely, Responded well, Disc harged Condition Good Patient has Accepted a Rehab Referral to: declined - Medication Discharge Medications: Ambulatory Orders NK [No Known Home Medication] 09/30/19 - Diagnosis (1) Alcohol dependence with uncomplicated withdrawal Status: Acute (2) Cannabis dependence Status: Acute (3) Thrombocytopenia Status: Chronic (4) PTSD (post-traumatic stress disorder) Status: Ruled-out - AMA Did Patient Leave Against Medical Advice: No
[2020-04-03 09:32] VITALS: BP 136/80; PULSE 102; TEMP 97.6
[2020-04-03] MEDS ORDERED: FLU VACCINE (FLULAVAL) PF 60 MCG/0.5 ML SYRINGE 2020-2021 IM ONE (12:00)
[2020-04-04] MEDS ORDERED: LORazepam 0.5 MG TABLET PO PRN
[2020-04-04] MEDS ORDERED: LORazepam 0.5 MG TABLET PO SCH (05:00)
[2020-04-05] MEDS ORDERED: LORazepam 0.5 MG TABLET PO ONE (05:00)
== END 2020-04-03 10:23 | disposition home or self-care (01) | DRG 775 ==
LOC: YASAS 08:06 → Y6N 08:59
PROVIDERS: ADMIT Allergy & Immunology; ATTEND Allergy & Immunology
PROC: HZ2ZZZZ Detoxification Services for Substance Abuse Treatment (ICD-10-PCS; principal; 2020-04-01)
DX: F10.230 Alcohol dependence with withdrawal, uncomplicated (principal); F12.20 Cannabis dependence, uncomplicated; F17.210 Nicotine dependence, cigarettes, uncomplicated; F41.9 Anxiety disorder, unspecified; D69.6 Thrombocytopenia, unspecified; K70.9 Alcoholic liver disease, unspecified; M54.5 Low back pain; M54.2 Cervicalgia; M25.551 Pain in right hip; Z62.810 Personal history of physical and sexual abuse in childhood; E66.9 Obesity, unspecified; Z68.31 Body mass index [BMI] 31.0-31.9, adult; Z86.2 Personal history of diseases of the blood and blood-forming organs and certain disorders involving the immune mechanism; Z88.1 Allergy status to other antibiotic agents
CPT/HCPCS: 36415; 80053; 85027; 86780; C9803; U0003

== ENCOUNTER 2020-04-15 13:38 | Inpatient (IN) | payer OTHER ==
[2020-04-15 14:40] VITALS: BMI 31.9
[2020-04-15] MEDS ORDERED: BISMUTH SUBSALICYLATE 524 MG/30 ML UD PO PRN (15:11)
[2020-04-15] MEDS ORDERED: IBUPROFEN 400 MG TABLET (FP) PO PRN (15:11)
[2020-04-15] MEDS ORDERED: MAGNESIUM HYDROX 2400MG/30ML ORAL SUSPENSION 30 ML CUP PO PRN (15:11)
[2020-04-15] MEDS ORDERED: ONDANSETRON *ODT* 4 MG TABLET SL PRN (15:11)
[2020-04-15] MEDS ORDERED: MENTHOL/PHENOL 1 EACH UD MM PRN (15:11)
[2020-04-15] MEDS ORDERED: METHOCARBAMOL 500 MG TABLET PO PRN (15:11)
[2020-04-15] MEDS ORDERED: NICOTINE POLACRILEX 2 MG GUM BUC PRN (15:11)
[2020-04-15] MEDS ORDERED: MAG HYDROX/AL HYDROX/SIMETH 30 ML UNIT-DOSE CUP PO PRN (15:11)
[2020-04-15] MEDS ORDERED: ACETAMINOPHEN 325 MG TABLET (FP) PO PRN ×2 (15:11)
[2020-04-15] MEDS ORDERED: MAGNESIUM CITRATE 300 ML BOTTLE PO PRN (15:11)
[2020-04-15] MEDS ORDERED: chlordiazePOXIDE HCL 25 MG CAPSULE PO PRN (15:11)
[2020-04-15] MEDS: hydrOXYzine PAMOATE 25 MG CAPSULE (FP) PO SCH ×2 (17:16→22:14)
[2020-04-15] MEDS: chlordiazePOXIDE HCL 25 MG CAPSULE PO SCH ×2 (17:16→22:12)
[2020-04-15] MEDS: THIAMINE HCL 100 MG TABLET (FP) PO SCH (22:11)
[2020-04-15] MEDS: MELATONIN 5 MG TABLETS PO SCH (22:12)
[2020-04-15] MEDS: LIDOCAINE PATCH REMOVAL MC SCH (22:14)
[2020-04-16] MEDS: hydrOXYzine PAMOATE 25 MG CAPSULE (FP) PO SCH ×5 (06:20→22:13)
[2020-04-16] MEDS: chlordiazePOXIDE HCL 25 MG CAPSULE PO SCH ×4 (06:20→22:12)
[2020-04-16 09:58] LABS: HEMATOCRIT 40.5 % (35.4-49); HEMOGLOBIN 13.6 GM/dL (11.7-16.9); MCH 35.2 pg (25.7-33.7); MCHC 33.5 g/dl (32.0-35.9); MEAN PLT VOLUME 8.3 fl (7.5-11.1); PLATELET COUNT 70 K/MM3 (134-434); RBC 3.85 M/mm3 (4.00-5.60); RDW 13.5 % (11.9-15.9); WHITE BLOOD COUNT 4.7 K/mm3 (4.0-10.0)
[2020-04-16] MEDS ORDERED: NICOTINE 7 MG/24 HOURS TOPICAL PATCH TD SCH (10:00)
[2020-04-16 10:12] LABS: POTASSIUM 3.8 mmol/L (3.5-5.1)
[2020-04-16] MEDS: PRENATAL VITAMINS W/ FOLIC ACID TABLET (FP) PO SCH (10:19)
[2020-04-16] MEDS: LIDOCAINE 5% TOPICAL PATCH TP SCH (10:21)
[2020-04-16 10:22] LABS: CALCIUM 8.7 mg/dL (8.5-10.1)
[2020-04-16] MEDS: NICOTINE 21 MG/24 HOURS TOPICAL PATCH TD SCH (10:22)
[2020-04-16 10:23] LABS: ALBUMIN 3.2 g/dl (3.4-5.0); BLOOD UREA NITROGEN 4.7 mg/dL (7-18)
[2020-04-16 10:26] LABS: CREATININE 0.6 mg/dL (0.55-1.3)
[2020-04-16 10:28] LABS: BILIRUBIN,TOTAL 1.2 mg/dL (0.2-1); TOT PROT 8.2 g/dl (6.4-8.2)
[2020-04-16] MEDS: traZODone HCL 50 MG TABLET (FP) PO SCH (22:12)
[2020-04-16] MEDS: LIDOCAINE PATCH REMOVAL MC SCH (22:12)
[2020-04-16] MEDS: THIAMINE HCL 100 MG TABLET (FP) PO SCH (22:13)
[2020-04-16] MEDS: busPIRone HCL 10 MG TABLET (FP) PO SCH (22:13)
[2020-04-16] MEDS: MELATONIN 5 MG TABLETS PO SCH (22:13)
[2020-04-17] MEDS: hydrOXYzine PAMOATE 25 MG CAPSULE (FP) PO SCH ×5 (05:31→22:11)
[2020-04-17] MEDS: chlordiazePOXIDE HCL 25 MG CAPSULE PO SCH ×4 (05:31→22:10)
[2020-04-17] MEDS: PRENATAL VITAMINS W/ FOLIC ACID TABLET (FP) PO SCH (10:06)
[2020-04-17] MEDS: busPIRone HCL 10 MG TABLET (FP) PO SCH ×2 (10:06→22:10)
[2020-04-17] MEDS: NICOTINE 21 MG/24 HOURS TOPICAL PATCH TD SCH (10:07)
[2020-04-17] MEDS: LIDOCAINE 5% TOPICAL PATCH TP SCH (10:07)
[2020-04-17] MEDS ORDERED: COLLOIDAL OATMEAL 1 BAR EACH TP PRN (11:18)
[2020-04-17] MEDS: LIDOCAINE PATCH REMOVAL MC SCH (22:10)
[2020-04-17] MEDS: THIAMINE HCL 100 MG TABLET (FP) PO SCH (22:10)
[2020-04-17] MEDS: MELATONIN 5 MG TABLETS PO SCH (22:11)
[2020-04-17] MEDS: traZODone HCL 50 MG TABLET (FP) PO SCH (22:11)
[2020-04-18] MEDS ORDERED: chlordiazePOXIDE HCL 10 MG CAPSULE PO PRN
[2020-04-18] MEDS ORDERED: LORazepam 0.5 MG TABLET PO PRN
[2020-04-18] MEDS ORDERED: chlordiazePOXIDE HCL 10 MG CAPSULE PO SCH (05:00)
[2020-04-18] MEDS: hydrOXYzine PAMOATE 25 MG CAPSULE (FP) PO SCH ×5 (05:55→22:14)
[2020-04-18] MEDS ORDERED: LORazepam 1 MG TABLET PO PRN (09:10)
[2020-04-18] MEDS: busPIRone HCL 10 MG TABLET (FP) PO SCH ×2 (10:23→22:14)
[2020-04-18] MEDS: LORazepam 1 MG TABLET PO SCH ×3 (10:24→22:13)
[2020-04-18] MEDS: PRENATAL VITAMINS W/ FOLIC ACID TABLET (FP) PO SCH (10:24)
[2020-04-18] MEDS: MINERAL OIL/PETROLAT/WATER TOPICAL CREAM 113 GM JAR TP SCH (10:24)
[2020-04-18] MEDS: NICOTINE 21 MG/24 HOURS TOPICAL PATCH TD SCH (10:26)
[2020-04-18] MEDS: LIDOCAINE 5% TOPICAL PATCH TP SCH (13:52)
[2020-04-18] MEDS: THIAMINE HCL 100 MG TABLET (FP) PO SCH (22:13)
[2020-04-18] MEDS: traZODone HCL 50 MG TABLET (FP) PO SCH (22:14)
[2020-04-18] MEDS: MELATONIN 5 MG TABLETS PO SCH (22:14)
[2020-04-18] MEDS: LIDOCAINE PATCH REMOVAL MC SCH (22:15)
[2020-04-19] MEDS ORDERED: chlordiazePOXIDE HCL 10 MG CAPSULE PO SCH (05:00)
[2020-04-19] MEDS: hydrOXYzine PAMOATE 25 MG CAPSULE (FP) PO SCH ×5 (05:45→22:16)
[2020-04-19] MEDS: LORazepam 0.5 MG TABLET PO SCH ×4 (05:45→22:16)
[2020-04-19] MEDS: NICOTINE 21 MG/24 HOURS TOPICAL PATCH TD SCH (10:15)
[2020-04-19] MEDS: LIDOCAINE 5% TOPICAL PATCH TP SCH (10:15)
[2020-04-19] MEDS: busPIRone HCL 10 MG TABLET (FP) PO SCH ×2 (10:16→22:16)
[2020-04-19] MEDS: MINERAL OIL/PETROLAT/WATER TOPICAL CREAM 113 GM JAR TP SCH (10:16)
[2020-04-19] MEDS: PRENATAL VITAMINS W/ FOLIC ACID TABLET (FP) PO SCH (10:16)
[2020-04-19] MEDS: MELATONIN 5 MG TABLETS PO SCH (22:16)
[2020-04-19] MEDS: LIDOCAINE PATCH REMOVAL MC SCH (22:16)
[2020-04-19] MEDS: THIAMINE HCL 100 MG TABLET (FP) PO SCH (22:16)
[2020-04-19] MEDS: traZODone HCL 50 MG TABLET (FP) PO SCH (22:16)
[2020-04-20] MEDS ORDERED: LORazepam 0.5 MG TABLET PO ONE (05:00)
[2020-04-20] MEDS ORDERED: chlordiazePOXIDE HCL 10 MG CAPSULE PO ONE (05:00)
[2020-04-20] MEDS: hydrOXYzine PAMOATE 25 MG CAPSULE (FP) PO SCH (05:42)
[2020-04-20 06:14] VITALS: BP 99/53; PULSE 59; TEMP 97.2
== END 2020-04-20 09:11 | disposition home or self-care (01) | DRG 775 ==
LOC: YASAS 13:38 → Y3N 15:33
PROVIDERS: ADMIT Allergy & Immunology; ATTEND Allergy & Immunology
PROC: HZ2ZZZZ Detoxification Services for Substance Abuse Treatment (ICD-10-PCS; principal; 2020-04-15)
DX: F10.230 Alcohol dependence with withdrawal, uncomplicated (principal); F12.20 Cannabis dependence, uncomplicated; F17.210 Nicotine dependence, cigarettes, uncomplicated; F19.24 Other psychoactive substance dependence with psychoactive substance-induced mood disorder; F10.24 Alcohol dependence with alcohol-induced mood disorder; F19.282 Other psychoactive substance dependence with psychoactive substance-induced sleep disorder; F41.9 Anxiety disorder, unspecified; D69.6 Thrombocytopenia, unspecified; K70.30 Alcoholic cirrhosis of liver without ascites; M25.551 Pain in right hip; M54.2 Cervicalgia; M54.5 Low back pain; G89.29 Other chronic pain; R73.9 Hyperglycemia, unspecified; E66.9 Obesity, unspecified; Z68.32 Body mass index [BMI] 32.0-32.9, adult; Z87.19 Personal history of other diseases of the digestive system; Z88.1 Allergy status to other antibiotic agents; Z56.0 Unemployment, unspecified
CPT/HCPCS: 36415; 80053; 82962; 85027; 86780; C9803; U0003

== ENCOUNTER 2020-04-26 21:51 | Inpatient (IN) | payer OTHER ==
[2020-04-26 22:30] VITALS: BMI 34.0
[2020-04-26] MEDS ORDERED: NICOTINE POLACRILEX 2 MG GUM BUC PRN (23:23)
[2020-04-26] MEDS ORDERED: MENTHOL/PHENOL 1 EACH UD MM PRN (23:23)
[2020-04-26] MEDS ORDERED: ONDANSETRON *ODT* 4 MG TABLET SL PRN (23:23)
[2020-04-26] MEDS ORDERED: ACETAMINOPHEN 325 MG TABLET (FP) PO PRN ×2 (23:23)
[2020-04-26] MEDS ORDERED: MAGNESIUM HYDROX 2400MG/30ML ORAL SUSPENSION 30 ML CUP PO PRN (23:23)
[2020-04-26] MEDS ORDERED: IBUPROFEN 400 MG TABLET (FP) PO PRN (23:23)
[2020-04-26] MEDS ORDERED: BISMUTH SUBSALICYLATE 524 MG/30 ML UD PO PRN (23:23)
[2020-04-26] MEDS ORDERED: MAG HYDROX/AL HYDROX/SIMETH 30 ML UNIT-DOSE CUP PO PRN (23:23)
[2020-04-26] MEDS ORDERED: MAGNESIUM CITRATE 300 ML BOTTLE PO PRN (23:23)
[2020-04-27] MEDS: chlordiazePOXIDE HCL 25 MG CAPSULE PO SCH ×5 (00:37→22:06)
[2020-04-27] MEDS: METHOCARBAMOL 500 MG TABLET PO PRN (00:38)
[2020-04-27] MEDS: PRENATAL VITAMINS W/ FOLIC ACID TABLET (FP) PO SCH (10:13)
[2020-04-27] MEDS: NICOTINE 14 MG/24 HOURS TOPICAL PATCH TD SCH (10:13)
[2020-04-27 12:30] LABS: HEMATOCRIT 35.8 % (35.4-49); HEMOGLOBIN 12.5 GM/dL (11.7-16.9); MCH 36.5 pg (25.7-33.7); MCHC 34.9 g/dl (32.0-35.9); MEAN CELL VOLUME 104.7 fl (80-96); MEAN PLT VOLUME 7.5 fl (7.5-11.1); PLATELET COUNT 44 K/MM3 (134-434); RBC 3.41 M/mm3 (4.00-5.60); RDW 13.3 % (11.9-15.9); WHITE BLOOD COUNT 2.1 K/mm3 (4.0-10.0)
[2020-04-27 12:45] LABS: POTASSIUM 3.4 mmol/L (3.5-5.1)
[2020-04-27 12:51] LABS: ALBUMIN 2.7 g/dl (3.4-5.0)
[2020-04-27 12:52] LABS: BLOOD UREA NITROGEN 8.9 mg/dL (7-18); CALCIUM 7.9 mg/dL (8.5-10.1)
[2020-04-27 12:54] LABS: CREATININE 0.6 mg/dL (0.55-1.3)
[2020-04-27 12:55] LABS: BILIRUBIN,TOTAL 0.9 mg/dL (0.2-1)
[2020-04-27] MEDS ORDERED: POTASSIUM CHLORIDE ORAL LIQUID 20 MEQ/15 ML PO ONE (14:19)
[2020-04-27] MEDS: chlordiazePOXIDE HCL 25 MG CAPSULE PO PRN (15:37)
[2020-04-27] MEDS: THIAMINE HCL 100 MG TABLET (FP) PO SCH (22:06)
[2020-04-27] MEDS: MELATONIN 5 MG TABLETS PO SCH (22:06)
[2020-04-28] MEDS: chlordiazePOXIDE HCL 25 MG CAPSULE PO SCH ×4 (05:34→22:05)
[2020-04-28] MEDS: PRENATAL VITAMINS W/ FOLIC ACID TABLET (FP) PO SCH (10:07)
[2020-04-28] MEDS: NICOTINE 14 MG/24 HOURS TOPICAL PATCH TD SCH (10:08)
[2020-04-28] MEDS ORDERED: COLLOIDAL OATMEAL 1 BAR EACH TP PRN (10:40)
[2020-04-28] MEDS: chlordiazePOXIDE HCL 25 MG CAPSULE PO PRN (13:05)
[2020-04-28] MEDS: THIAMINE HCL 100 MG TABLET (FP) PO SCH (22:05)
[2020-04-28] MEDS: METHOCARBAMOL 500 MG TABLET PO PRN (22:05)
[2020-04-28] MEDS: MELATONIN 5 MG TABLETS PO SCH (22:05)
[2020-04-29] MEDS ORDERED: chlordiazePOXIDE HCL 10 MG CAPSULE PO PRN
[2020-04-29] MEDS: chlordiazePOXIDE HCL 10 MG CAPSULE PO SCH ×2 (05:43→10:22)
[2020-04-29 08:58] VITALS: BP 128/77; PULSE 64; TEMP 97.9
[2020-04-29] MEDS: PRENATAL VITAMINS W/ FOLIC ACID TABLET (FP) PO SCH (09:44)
[2020-04-29] MEDS: NICOTINE 14 MG/24 HOURS TOPICAL PATCH TD SCH (09:44)
[2020-04-30] MEDS ORDERED: chlordiazePOXIDE HCL 10 MG CAPSULE PO SCH (05:00)
[2020-05-01] MEDS ORDERED: chlordiazePOXIDE HCL 10 MG CAPSULE PO ONE (05:00)
== END 2020-04-29 09:42 | disposition home or self-care (01) | DRG 775 ==
LOC: YASAS 21:51 → Y3N 23:48
PROVIDERS: ADMIT Allergy & Immunology; ATTEND Allergy & Immunology
PROC: HZ2ZZZZ Detoxification Services for Substance Abuse Treatment (ICD-10-PCS; principal; 2020-04-26)
DX: F10.230 Alcohol dependence with withdrawal, uncomplicated (principal); F12.20 Cannabis dependence, uncomplicated; F17.210 Nicotine dependence, cigarettes, uncomplicated; F19.24 Other psychoactive substance dependence with psychoactive substance-induced mood disorder; D72.819 Decreased white blood cell count, unspecified; K70.9 Alcoholic liver disease, unspecified; M54.89 Other dorsalgia; Z87.19 Personal history of other diseases of the digestive system; Z86.2 Personal history of diseases of the blood and blood-forming organs and certain disorders involving the immune mechanism; Z88.1 Allergy status to other antibiotic agents
CPT/HCPCS: 36415; 80053; 85027; 86780; C9803; U0003

== ENCOUNTER 2020-05-20 22:28 | Emergency (ER) | payer OTHER ==
[2020-05-20 22:46] VITALS: BMI 32.8
[2020-05-21 06:50] VITALS: BP 118/63; PULSE 62; TEMP 98.3
== END 2020-05-21 07:06 | disposition home or self-care (01) ==
LOC: JER 22:28
DX: F10.920 Alcohol use, unspecified with intoxication, uncomplicated (principal)
CPT/HCPCS: 70450-TC; 72125-TC; 82962; 99284-25

== ENCOUNTER 2020-06-26 16:33 | Inpatient (IN) | payer OTHER ==
[2020-06-26] MEDS ORDERED: NICOTINE POLACRILEX 2 MG GUM BUC PRN (18:12)
[2020-06-26] MEDS ORDERED: BISMUTH SUBSALICYLATE 524 MG/30 ML UD PO PRN (18:12)
[2020-06-26] MEDS ORDERED: MAGNESIUM CITRATE 300 ML BOTTLE PO PRN (18:12)
[2020-06-26] MEDS ORDERED: IBUPROFEN 400 MG TABLET (FP) PO PRN (18:12)
[2020-06-26] MEDS ORDERED: MAG HYDROX/AL HYDROX/SIMETH 30 ML UNIT-DOSE CUP PO PRN (18:12)
[2020-06-26] MEDS ORDERED: MAGNESIUM HYDROX 2400MG/30ML ORAL SUSPENSION 30 ML CUP PO PRN (18:12)
[2020-06-26] MEDS ORDERED: LORazepam 1 MG TABLET PO PRN (18:12)
[2020-06-26] MEDS ORDERED: ACETAMINOPHEN 325 MG TABLET (FP) PO PRN ×2 (18:12)
[2020-06-26] MEDS: MELATONIN 5 MG TABLETS PO SCH (21:04)
[2020-06-26] MEDS: THIAMINE HCL 100 MG TABLET (FP) PO SCH (21:04)
[2020-06-26] MEDS: METHOCARBAMOL 500 MG TABLET PO PRN (21:05)
[2020-06-26] MEDS: ONDANSETRON *ODT* 4 MG TABLET SL PRN (21:05)
[2020-06-26] MEDS: LORazepam 2 MG TABLET PO SCH (22:00)
[2020-06-27] MEDS: LORazepam 2 MG TABLET PO SCH ×4 (05:20→22:01)
[2020-06-27] MEDS: PRENATAL VITAMINS W/ FOLIC ACID TABLET (FP) PO SCH (10:11)
[2020-06-27] MEDS: NICOTINE 14 MG/24 HOURS TOPICAL PATCH TD SCH (10:13)
[2020-06-27 14:41] LABS: HEMATOCRIT 40.3 % (35.4-49); HEMOGLOBIN 13.7 GM/dL (11.7-16.9); MCH 36.4 pg (25.7-33.7); RBC 3.76 M/mm3 (4.00-5.60); RDW 14.5 % (11.9-15.9)
[2020-06-27 14:44] LABS: POTASSIUM 3.5 mmol/L (3.5-5.1)
[2020-06-27 14:50] LABS: BLOOD UREA NITROGEN 3.4 mg/dL (7-18); CALCIUM 8.8 mg/dL (8.5-10.1)
[2020-06-27 14:51] LABS: ALBUMIN 2.9 g/dl (3.4-5.0)
[2020-06-27 14:54] LABS: CREATININE 0.5 mg/dL (0.55-1.3)
[2020-06-27 14:55] LABS: BILIRUBIN,TOTAL 3.7 mg/dL (0.2-1)
[2020-06-27 15:00] LABS: PLATELET COUNT 18 K/MM3 (134-434); WHITE BLOOD COUNT 1.6 K/mm3 (4.0-10.0)
[2020-06-27] MEDS: ONDANSETRON *ODT* 4 MG TABLET SL PRN (17:13)
[2020-06-27] MEDS: THIAMINE HCL 100 MG TABLET (FP) PO SCH (22:03)
[2020-06-27] MEDS: MELATONIN 5 MG TABLETS PO SCH (22:03)
[2020-06-27] MEDS: MENTHOL/PHENOL 1 EACH UD MM PRN (22:04)
[2020-06-28] MEDS: LORazepam 1 MG TABLET PO SCH ×4 (05:16→22:01)
[2020-06-28] MEDS: PRENATAL VITAMINS W/ FOLIC ACID TABLET (FP) PO SCH (10:14)
[2020-06-28] MEDS: NICOTINE 14 MG/24 HOURS TOPICAL PATCH TD SCH (10:14)
[2020-06-28] MEDS: ONDANSETRON *ODT* 4 MG TABLET SL PRN ×2 (10:16→18:27)
[2020-06-28] MEDS: METHOCARBAMOL 500 MG TABLET PO PRN (18:26)
[2020-06-28] MEDS: THIAMINE HCL 100 MG TABLET (FP) PO SCH (22:00)
[2020-06-28] MEDS: MELATONIN 5 MG TABLETS PO SCH (22:00)
[2020-06-28] MEDS: MENTHOL/PHENOL 1 EACH UD MM PRN (22:01)
[2020-06-29] MEDS ORDERED: LORazepam 0.5 MG TABLET PO PRN
[2020-06-29] MEDS: LORazepam 0.5 MG TABLET PO SCH ×4 (05:15→22:08)
[2020-06-29] MEDS: PRENATAL VITAMINS W/ FOLIC ACID TABLET (FP) PO SCH (10:25)
[2020-06-29] MEDS: NICOTINE 14 MG/24 HOURS TOPICAL PATCH TD SCH (10:33)
[2020-06-29] MEDS: ONDANSETRON *ODT* 4 MG TABLET SL PRN (17:15)
[2020-06-29] MEDS: METHOCARBAMOL 500 MG TABLET PO PRN (18:32)
[2020-06-29] MEDS: MELATONIN 5 MG TABLETS PO SCH (22:08)
[2020-06-29] MEDS: THIAMINE HCL 100 MG TABLET (FP) PO SCH (22:08)
[2020-06-29] MEDS: MENTHOL/PHENOL 1 EACH UD MM PRN (22:10)
[2020-06-30] MEDS ORDERED: LORazepam 0.5 MG TABLET PO ONE (05:00)
[2020-06-30 08:52] VITALS: BP 136/86; PULSE 107; TEMP 97.3
[2020-06-30] MEDS: PRENATAL VITAMINS W/ FOLIC ACID TABLET (FP) PO SCH (09:34)
[2020-06-30] MEDS: NICOTINE 14 MG/24 HOURS TOPICAL PATCH TD SCH (09:34)
== END 2020-06-30 08:56 | disposition home or self-care (01) | DRG 775 ==
LOC: YASAS 16:33 → Y3N 19:43
PROVIDERS: ADMIT Allergy & Immunology; ATTEND Allergy & Immunology
PROC: HZ2ZZZZ Detoxification Services for Substance Abuse Treatment (ICD-10-PCS; principal; 2020-06-26)
DX: F10.230 Alcohol dependence with withdrawal, uncomplicated (principal); F10.220 Alcohol dependence with intoxication, uncomplicated; F12.20 Cannabis dependence, uncomplicated; F17.210 Nicotine dependence, cigarettes, uncomplicated; F31.9 Bipolar disorder, unspecified; F41.9 Anxiety disorder, unspecified; F43.10 Post-traumatic stress disorder, unspecified; D69.6 Thrombocytopenia, unspecified; D72.819 Decreased white blood cell count, unspecified; K70.30 Alcoholic cirrhosis of liver without ascites; R74.8 Abnormal levels of other serum enzymes; R74.01 Elevation of levels of liver transaminase levels; Z87.19 Personal history of other diseases of the digestive system; Z88.1 Allergy status to other antibiotic agents
CPT/HCPCS: 36415; 80053; 85027; 86780; 93005; 93010; C9803; Q0162; U0003

== ENCOUNTER 2020-09-24 08:06 | Inpatient (IN) | payer OTHER ==
[2020-09-24 08:43] VITALS: BMI 30.5
[2020-09-24] MEDS ORDERED: MAGNESIUM CITRATE 300 ML BOTTLE PO PRN (09:04)
[2020-09-24] MEDS ORDERED: ACETAMINOPHEN 325 MG TABLET (FP) PO PRN ×2 (09:04)
[2020-09-24] MEDS ORDERED: MAG HYDROX/AL HYDROX/SIMETH 30 ML UNIT-DOSE CUP PO PRN (09:04)
[2020-09-24] MEDS ORDERED: NICOTINE POLACRILEX 2 MG GUM BUC PRN (09:04)
[2020-09-24] MEDS ORDERED: MAGNESIUM HYDROX 2400MG/30ML ORAL SUSPENSION 30 ML CUP PO PRN (09:04)
[2020-09-24] MEDS ORDERED: IBUPROFEN 400 MG TABLET (FP) PO PRN (09:04)
[2020-09-24] MEDS ORDERED: MENTHOL/PHENOL 1 EACH UD MM PRN (09:04)
[2020-09-24] MEDS ORDERED: ONDANSETRON *ODT* 4 MG TABLET SL PRN (09:04)
[2020-09-24] MEDS ORDERED: BISMUTH SUBSALICYLATE 524 MG/30 ML UD PO PRN (09:04)
[2020-09-24] MEDS: NICOTINE 21 MG/24 HOURS TOPICAL PATCH TD SCH (10:34)
[2020-09-24] MEDS: PRENATAL VITAMINS W/ FOLIC ACID TABLET (FP) PO SCH (10:34)
[2020-09-24] MEDS: diazePAM 5 MG TABLET PO SCH ×3 (10:34→22:06)
[2020-09-24] MEDS: hydrOXYzine PAMOATE 25 MG CAPSULE (FP) PO SCH ×4 (10:35→22:06)
[2020-09-24 11:36] LABS: CHLORIDE 103 mmol/L (98-107); SODIUM 136 mmol/L (136-145)
[2020-09-24 11:39] LABS: ANION GAP 7 MMOL/L (8-16); CO2 26 mmol/L (21-32)
[2020-09-24 11:40] LABS: GLUCOSE,RANDOM 122 mg/dL (74-106)
[2020-09-24 11:42] LABS: SGOT/AST 127 U/L (15-37); SGPT/ALT 48 U/L (13-61)
[2020-09-24 11:43] LABS: CREATININE 0.7 mg/dL (0.55-1.3)
[2020-09-24 11:45] LABS: ALK PHOS 147 U/L (45-117)
[2020-09-24 11:46] LABS: BLOOD UREA NITROGEN 1.9 mg/dL (7-18)
[2020-09-24 14:58] LABS: HEMATOCRIT 37.8 % (35.4-49); MCH 37.3 pg (25.7-33.7); MCHC 34.4 g/dl (32.0-35.9); MEAN CELL VOLUME 108.6 fl (80-96); MEAN PLT VOLUME 7.7 fl (7.5-11.1); RBC 3.48 M/mm3 (4.00-5.60); RDW 13.8 % (11.9-15.9); WHITE BLOOD COUNT 2.3 K/mm3 (4.0-10.0)
[2020-09-24 15:02] LABS: PLATELET COUNT 23 K/MM3 (134-434)
[2020-09-24] MEDS: THIAMINE HCL 100 MG TABLET (FP) PO SCH (22:05)
[2020-09-24] MEDS: MELATONIN 5 MG TABLETS PO SCH (22:05)
[2020-09-24] MEDS: diazePAM 5 MG TABLET PO PRN (22:07)
[2020-09-25] MEDS ORDERED: MASKS NR ONE (05:57)
[2020-09-25] MEDS: hydrOXYzine PAMOATE 25 MG CAPSULE (FP) PO SCH ×5 (05:58→22:34)
[2020-09-25] MEDS: diazePAM 5 MG TABLET PO SCH ×4 (05:58→22:35)
[2020-09-25] MEDS: PRENATAL VITAMINS W/ FOLIC ACID TABLET (FP) PO SCH (10:36)
[2020-09-25] MEDS: NICOTINE 21 MG/24 HOURS TOPICAL PATCH TD SCH (10:36)
[2020-09-25] MEDS: METHOCARBAMOL 500 MG TABLET PO PRN ×2 (10:37→22:37)
[2020-09-25] MEDS: diazePAM 5 MG TABLET PO PRN (12:42)
[2020-09-25] MEDS: MELATONIN 5 MG TABLETS PO SCH (22:34)
[2020-09-25] MEDS: THIAMINE HCL 100 MG TABLET (FP) PO SCH (22:34)
[2020-09-26] MEDS: diazePAM 5 MG TABLET PO PRN ×2 (00:46→20:19)
[2020-09-26] MEDS: diazePAM 5 MG TABLET PO SCH ×5 (06:51→23:04)
[2020-09-26] MEDS: hydrOXYzine PAMOATE 25 MG CAPSULE (FP) PO SCH ×6 (06:55→23:05)
[2020-09-26] MEDS: NICOTINE 21 MG/24 HOURS TOPICAL PATCH TD SCH (10:38)
[2020-09-26] MEDS: PRENATAL VITAMINS W/ FOLIC ACID TABLET (FP) PO SCH (10:38)
[2020-09-26] MEDS ORDERED: COLLOIDAL OATMEAL 1 BAR EACH TP PRN (11:05)
[2020-09-26 11:34] LABS: HEMATOCRIT 36.6 % (35.4-49); HEMOGLOBIN 12.9 GM/dL (11.7-16.9); MCHC 35.3 g/dl (32.0-35.9); MEAN CELL VOLUME 107.6 fl (80-96)
[2020-09-26 11:42] LABS: BLOOD UREA NITROGEN 4.5 mg/dL (7-18); INR 1.48 (0.83-1.09); PROTHROMBIN TIME (PATIENT) 17.7 SEC (9.7-13.0)
[2020-09-26 11:43] LABS: ALBUMIN 2.6 g/dl (3.4-5.0); PLATELET COUNT 15 K/MM3 (134-434); WHITE BLOOD COUNT 1.5 K/mm3 (4.0-10.0)
[2020-09-26 11:45] LABS: CREATININE 0.8 mg/dL (0.55-1.3)
[2020-09-26 11:47] LABS: TOT PROT 8.1 g/dl (6.4-8.2)
[2020-09-26] MEDS ORDERED: POTASSIUM CHLORIDE ORAL LIQUID 20 MEQ/15 ML PO ONE (12:25)
[2020-09-26] MEDS: THIAMINE HCL 100 MG TABLET (FP) PO SCH (23:04)
[2020-09-26] MEDS: POTASSIUM CHLORIDE ORAL LIQUID 20 MEQ/15 ML PO SCH (23:04)
[2020-09-26] MEDS: MELATONIN 5 MG TABLETS PO SCH (23:04)
[2020-09-27] MEDS: hydrOXYzine PAMOATE 25 MG CAPSULE (FP) PO SCH ×5 (05:52→22:42)
[2020-09-27] MEDS: diazePAM 5 MG TABLET PO SCH ×2 (05:52→18:18)
[2020-09-27 06:10] LABS: SARS-CoV-2 NAA Not Detected (Not Detected)
[2020-09-27] MEDS: POTASSIUM CHLORIDE ORAL LIQUID 20 MEQ/15 ML PO SCH ×3 (10:01→22:43)
[2020-09-27] MEDS: NICOTINE 21 MG/24 HOURS TOPICAL PATCH TD SCH (10:01)
[2020-09-27] MEDS: PRENATAL VITAMINS W/ FOLIC ACID TABLET (FP) PO SCH (10:02)
[2020-09-27] MEDS: THIAMINE HCL 100 MG TABLET (FP) PO SCH (22:42)
[2020-09-27] MEDS: METHOCARBAMOL 500 MG TABLET PO PRN (22:43)
[2020-09-27] MEDS: MELATONIN 5 MG TABLETS PO SCH (22:44)
[2020-09-28] MEDS ORDERED: diazePAM 5 MG TABLET PO ONE (06:00)
[2020-09-28] MEDS: hydrOXYzine PAMOATE 25 MG CAPSULE (FP) PO SCH (07:03)
[2020-09-28 09:31] VITALS: BP 115/75; PULSE 89; TEMP 98.2
== END 2020-09-28 10:10 | disposition home or self-care (01) | DRG 775 ==
LOC: YASAS 08:06 → Y6N 08:45
PROVIDERS: ADMIT Allergy & Immunology; ATTEND Allergy & Immunology
PROC: HZ2ZZZZ Detoxification Services for Substance Abuse Treatment (ICD-10-PCS; principal; 2020-09-24)
DX: F10.230 Alcohol dependence with withdrawal, uncomplicated (principal); F17.210 Nicotine dependence, cigarettes, uncomplicated; F19.24 Other psychoactive substance dependence with psychoactive substance-induced mood disorder; D61.818 Other pancytopenia; D69.6 Thrombocytopenia, unspecified; D72.819 Decreased white blood cell count, unspecified; D64.9 Anemia, unspecified; K70.30 Alcoholic cirrhosis of liver without ascites; E80.6 Other disorders of bilirubin metabolism; R74.01 Elevation of levels of liver transaminase levels; Z88.1 Allergy status to other antibiotic agents
CPT/HCPCS: 36415; 80053; 85027; 85610; 86780; C9803; U0003; U0005

== ENCOUNTER 2020-09-26 13:49 | Emergency (ER) | payer OTHER ==
[2020-09-26 14:03] VITALS: BP 117/67; PULSE 84; TEMP 98.2; BMI 30.5
[2020-09-26] MEDS ORDERED: diazePAM 5 MG TABLET PO ONE ×2 (15:56→18:24)
[2020-09-26] MEDS ORDERED: diazePAM 5 MG TABLET ONE ×2 (16:00→18:27)
== END 2020-09-26 19:41 | disposition home or self-care (01) ==
LOC: JER 13:49
DX: D69.6 Thrombocytopenia, unspecified (principal)
CPT/HCPCS: 99283-25

== ENCOUNTER 2020-10-13 13:18 | Inpatient (IN) | payer OTHER ==
[2020-10-13 14:05] VITALS: BMI 30.4
[2020-10-13] MEDS ORDERED: METHOCARBAMOL 500 MG TABLET PO PRN (14:16)
[2020-10-13] MEDS ORDERED: MENTHOL/PHENOL 1 EACH UD MM PRN (14:16)
[2020-10-13] MEDS ORDERED: MAGNESIUM CITRATE 300 ML BOTTLE PO PRN (14:16)
[2020-10-13] MEDS ORDERED: IBUPROFEN 400 MG TABLET (FP) PO PRN (14:16)
[2020-10-13] MEDS ORDERED: MAG HYDROX/AL HYDROX/SIMETH 30 ML UNIT-DOSE CUP PO PRN (14:16)
[2020-10-13] MEDS ORDERED: BISMUTH SUBSALICYLATE 524 MG/30 ML UD PO PRN (14:16)
[2020-10-13] MEDS ORDERED: ACETAMINOPHEN 325 MG TABLET (FP) PO PRN ×2 (14:16)
[2020-10-13] MEDS ORDERED: MAGNESIUM HYDROX 2400MG/30ML ORAL SUSPENSION 30 ML CUP PO PRN (14:16)
[2020-10-13] MEDS ORDERED: ONDANSETRON *ODT* 4 MG TABLET SL PRN (14:16)
[2020-10-13] MEDS ORDERED: NICOTINE POLACRILEX 2 MG GUM BUC PRN (14:16)
[2020-10-13] MEDS: diazePAM 5 MG TABLET PO PRN (15:35)
[2020-10-13] MEDS: NICOTINE 14 MG/24 HOURS TOPICAL PATCH TD SCH (15:35)
[2020-10-13 17:32] LABS: CALCIUM 7.8 mg/dL (8.5-10.1)
[2020-10-13 17:33] LABS: ALBUMIN 2.9 g/dl (3.4-5.0); BLOOD UREA NITROGEN 4.7 mg/dL (7-18)
[2020-10-13 17:36] LABS: CREATININE 0.6 mg/dL (0.55-1.3)
[2020-10-13 17:37] LABS: BILIRUBIN,TOTAL 1.7 mg/dL (0.2-1)
[2020-10-13 17:38] LABS: TOT PROT 8.4 g/dl (6.4-8.2)
[2020-10-13 17:45] LABS: HEMATOCRIT 35.9 % (35.4-49); HEMOGLOBIN 12.5 GM/dL (11.7-16.9); MCH 37.3 pg (25.7-33.7); MCHC 34.8 g/dl (32.0-35.9); MEAN CELL VOLUME 106.9 fl (80-96); MEAN PLT VOLUME 7.3 fl (7.5-11.1); RBC 3.36 M/mm3 (4.00-5.60); RDW 13.8 % (11.9-15.9)
[2020-10-13] MEDS: diazePAM 5 MG TABLET PO SCH ×2 (17:50→23:09)
[2020-10-13] MEDS: hydrOXYzine PAMOATE 25 MG CAPSULE (FP) PO SCH ×2 (17:55→23:10)
[2020-10-13 17:56] LABS: PLATELET COUNT 26 K/MM3 (134-434); WHITE BLOOD COUNT 1.6 K/mm3 (4.0-10.0)
[2020-10-13] MEDS: MELATONIN 5 MG TABLETS PO SCH (23:09)
[2020-10-13] MEDS: THIAMINE HCL 100 MG TABLET (FP) PO SCH (23:09)
[2020-10-14] MEDS: hydrOXYzine PAMOATE 25 MG CAPSULE (FP) PO SCH (05:42)
[2020-10-14] MEDS: diazePAM 5 MG TABLET PO SCH ×4 (05:42→22:33)
[2020-10-14] MEDS ORDERED: hydrOXYzine PAMOATE 25 MG CAPSULE (FP) PO PRN (08:57)
[2020-10-14] MEDS: PRENATAL VITAMINS W/ FOLIC ACID TABLET (FP) PO SCH (12:20)
[2020-10-14] MEDS: NICOTINE 14 MG/24 HOURS TOPICAL PATCH TD SCH (12:20)
[2020-10-14] MEDS: guaiFENesin 200 MG/10 ML 10 ML UNIT-DOSE CUPS PO PRN (17:31)
[2020-10-14] MEDS: diazePAM 5 MG TABLET PO PRN (19:04)
[2020-10-14] MEDS: THIAMINE HCL 100 MG TABLET (FP) PO SCH (22:33)
[2020-10-14] MEDS: MELATONIN 5 MG TABLETS PO SCH (22:33)
[2020-10-15] MEDS: diazePAM 5 MG TABLET PO SCH ×3 (05:15→23:57)
[2020-10-15] MEDS: diazePAM 5 MG TABLET PO PRN ×2 (09:00→20:26)
[2020-10-15] MEDS: guaiFENesin 200 MG/10 ML 10 ML UNIT-DOSE CUPS PO PRN (10:12)
[2020-10-15] MEDS: PRENATAL VITAMINS W/ FOLIC ACID TABLET (FP) PO SCH (10:12)
[2020-10-15] MEDS: NICOTINE 14 MG/24 HOURS TOPICAL PATCH TD SCH (10:15)
[2020-10-15 21:28] VITALS: TEMP 97.1
[2020-10-15] MEDS: MELATONIN 5 MG TABLETS PO SCH (23:57)
[2020-10-15] MEDS: THIAMINE HCL 100 MG TABLET (FP) PO SCH (23:59)
[2020-10-16] MEDS: diazePAM 5 MG TABLET PO PRN ×2 (00:29→09:17)
[2020-10-16] MEDS ORDERED: diazePAM 5 MG TABLET PO SCH (06:00)
[2020-10-16 06:07] LABS: SARS-CoV-2 NAA Not Detected (Not Detected)
[2020-10-16] MEDS: NICOTINE 14 MG/24 HOURS TOPICAL PATCH TD SCH (09:17)
[2020-10-16] MEDS: PRENATAL VITAMINS W/ FOLIC ACID TABLET (FP) PO SCH (09:18)
[2020-10-16 09:21] VITALS: BP 127/71; PULSE 72
[2020-10-17] MEDS ORDERED: diazePAM 5 MG TABLET PO ONE (06:00)
== END 2020-10-16 09:42 | disposition home or self-care (01) | DRG 775 ==
LOC: YASAS 13:18 → Y3N 14:32
PROVIDERS: ADMIT Allergy & Immunology; ATTEND Allergy & Immunology
PROC: HZ2ZZZZ Detoxification Services for Substance Abuse Treatment (ICD-10-PCS; principal; 2020-10-13)
DX: F10.230 Alcohol dependence with withdrawal, uncomplicated (principal); F12.20 Cannabis dependence, uncomplicated; F17.210 Nicotine dependence, cigarettes, uncomplicated; F10.280 Alcohol dependence with alcohol-induced anxiety disorder; D61.818 Other pancytopenia; D69.6 Thrombocytopenia, unspecified; K70.30 Alcoholic cirrhosis of liver without ascites; D64.9 Anemia, unspecified; D72.819 Decreased white blood cell count, unspecified; Z88.1 Allergy status to other antibiotic agents
CPT/HCPCS: 36415; 80053; 85027; 86780; C9803; U0003; U0005

== ENCOUNTER 2020-10-28 23:23 | Emergency (ER) | payer OTHER ==
[2020-10-28 23:42] VITALS: BMI 26.6
[2020-10-29 06:18] VITALS: BP 111/58; PULSE 75; TEMP 97.8
== END 2020-10-29 06:18 ==
LOC: JER 23:23
DX: F10.129 Alcohol abuse with intoxication, unspecified (principal)
CPT/HCPCS: 70450-TC; 72125-TC; 99285-25

== ENCOUNTER 2021-01-23 09:09 | Inpatient (IN) | payer OTHER ==
[2021-01-23 09:55] VITALS: BMI 28.1
[2021-01-23] MEDS ORDERED: IBUPROFEN 400 MG TABLET (FP) PO PRN (10:13)
[2021-01-23] MEDS ORDERED: ONDANSETRON *ODT* 4 MG TABLET SL PRN (10:13)
[2021-01-23] MEDS ORDERED: NICOTINE 10 MG CARTRIDGE (INHALER) IH PRN (10:13)
[2021-01-23] MEDS ORDERED: ACETAMINOPHEN 325 MG TABLET (FP) PO PRN ×2 (10:13)
[2021-01-23] MEDS ORDERED: MAG HYDROX/AL HYDROX/SIMETH 30 ML UNIT-DOSE CUP PO PRN (10:13)
[2021-01-23] MEDS ORDERED: LORazepam 1 MG TABLET PO PRN (10:13)
[2021-01-23] MEDS ORDERED: MAGNESIUM CITRATE 300 ML BOTTLE PO PRN (10:13)
[2021-01-23] MEDS ORDERED: MENTHOL/PHENOL 1 EACH UD MM PRN (10:13)
[2021-01-23] MEDS ORDERED: BISMUTH SUBSALICYLATE 262 MG/15 ML BTL PO PRN (10:13)
[2021-01-23] MEDS ORDERED: MAGNESIUM HYDROX 2400MG/30ML ORAL SUSPENSION 30 ML CUP PO PRN (10:13)
[2021-01-23] MEDS ORDERED: COLLOIDAL OATMEAL 1 BAR EACH TP PRN (11:24)
[2021-01-23] MEDS: hydrOXYzine PAMOATE 25 MG CAPSULE (FP) PO SCH ×3 (14:47→22:46)
[2021-01-23] MEDS: LORazepam 2 MG TABLET PO SCH ×3 (14:51→22:47)
[2021-01-23] MEDS: MELATONIN 5 MG TABLETS PO SCH (22:46)
[2021-01-23] MEDS: THIAMINE HCL 100 MG TABLET (FP) PO SCH (22:46)
[2021-01-24] MEDS: hydrOXYzine PAMOATE 25 MG CAPSULE (FP) PO SCH ×5 (05:32→22:37)
[2021-01-24] MEDS: LORazepam 2 MG TABLET PO SCH ×4 (05:32→22:35)
[2021-01-24] MEDS: PRENATAL VITAMINS W/ FOLIC ACID TABLET (FP) PO SCH (11:04)
[2021-01-24 18:35] LABS: HEMATOCRIT 26.6 % (35.4-49); HEMOGLOBIN 9.2 GM/dL (11.7-16.9); MCH 38.2 pg (25.7-33.7); MCHC 34.7 g/dl (32.0-35.9); MEAN PLT VOLUME 7.2 fl (7.5-11.1); RBC 2.42 M/mm3 (4.00-5.60)
[2021-01-24 18:43] LABS: PLATELET COUNT 13 10^3/uL (134-434)
[2021-01-24 19:02] LABS: BLOOD UREA NITROGEN 5.3 mg/dL (7-18); CALCIUM 7.6 mg/dL (8.5-10.1)
[2021-01-24 19:03] LABS: ALBUMIN 1.9 g/dl (3.4-5.0)
[2021-01-24 19:06] LABS: CREATININE 0.5 mg/dL (0.55-1.3)
[2021-01-24 19:07] LABS: BILIRUBIN,TOTAL 2.7 mg/dL (0.2-1); TOT PROT 7.2 g/dl (6.4-8.2)
[2021-01-24] MEDS: MELATONIN 5 MG TABLETS PO SCH (22:35)
[2021-01-24] MEDS: THIAMINE HCL 100 MG TABLET (FP) PO SCH (22:36)
[2021-01-24] MEDS: METHOCARBAMOL 500 MG TABLET PO PRN (22:37)
[2021-01-25] MEDS: LORazepam 1 MG TABLET PO SCH ×4 (05:13→22:25)
[2021-01-25] MEDS: hydrOXYzine PAMOATE 25 MG CAPSULE (FP) PO SCH ×2 (05:14→10:52)
[2021-01-25] MEDS: PRENATAL VITAMINS W/ FOLIC ACID TABLET (FP) PO SCH (10:51)
[2021-01-25] MEDS: METHOCARBAMOL 500 MG TABLET PO PRN (18:19)
[2021-01-25] MEDS: MELATONIN 5 MG TABLETS PO SCH (22:26)
[2021-01-25] MEDS: THIAMINE HCL 100 MG TABLET (FP) PO SCH (22:26)
[2021-01-26] MEDS ORDERED: LORazepam 0.5 MG TABLET PO PRN
[2021-01-26] MEDS: LORazepam 0.5 MG TABLET PO SCH ×2 (05:44→10:25)
[2021-01-26 08:55] VITALS: TEMP 97.8
[2021-01-26] MEDS: PRENATAL VITAMINS W/ FOLIC ACID TABLET (FP) PO SCH (10:25)
[2021-01-26 13:00] VITALS: BP 111/67; PULSE 74
[2021-01-27] MEDS ORDERED: LORazepam 0.5 MG TABLET PO ONE (05:00)
== END 2021-01-26 16:18 | disposition left against medical advice (07) | DRG 770 ==
LOC: YASAS 09:09 → Y3N 14:08
PROVIDERS: ADMIT Allergy & Immunology; ATTEND Allergy & Immunology
PROC: HZ2ZZZZ Detoxification Services for Substance Abuse Treatment (ICD-10-PCS; principal; 2021-01-23)
DX: F10.230 Alcohol dependence with withdrawal, uncomplicated (principal); F14.20 Cocaine dependence, uncomplicated; F12.20 Cannabis dependence, uncomplicated; F17.210 Nicotine dependence, cigarettes, uncomplicated; F10.280 Alcohol dependence with alcohol-induced anxiety disorder; F10.282 Alcohol dependence with alcohol-induced sleep disorder; F32.9 Major depressive disorder, single episode, unspecified; D69.59 Other secondary thrombocytopenia; D72.819 Decreased white blood cell count, unspecified; E83.51 Hypocalcemia; E80.6 Other disorders of bilirubin metabolism; K74.60 Unspecified cirrhosis of liver; R74.01 Elevation of levels of liver transaminase levels; R63.8 Other symptoms and signs concerning food and fluid intake; Z91.81 History of falling; Z88.1 Allergy status to other antibiotic agents; Z86.2 Personal history of diseases of the blood and blood-forming organs and certain disorders involving the immune mechanism
CPT/HCPCS: 36415; 80053; 85027; 86780; C9803; U0003; U0005